=== PATIENT | male | born 1950 | race Caucasian/White ===

== ENCOUNTER 2017-06-16 16:00 | Emergency (ER) | payer OTHER, MEDICARE ==
[~2017-06-16] VITALS: Ht 180.3 cm; Wt 96.2 kg
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
[~2017-06-16 16:00] MED LIST: ABILIFY15 MG PO; AMBIEN CR12.5 MG PO; ANTIVERT25 MG PO; ASPIRIN EC81 MG PO; BICARSIM80 MG PO; CIPROFLOXACIN500 MG PO; DIALYVITE V5000 UNIT; DOXEPIN HCL10 MG; EXCEDRIN EXTRA1 EAC1 PO; FISH OIL 1,0001 EAC2 NG; FISH OIL 1,0001 EAC6 PO; GLIPIZIDE XL10 MG PO; GLIPIZIDE5 MG PO; GUAIFENESIN-CO118 ML PO; LIPITOR20 MG PO; MAGNESIUM OXID420 MG PO; MECLIZINE HCL25 MG PO; METFORMIN HCL500 MG PO; MI-ACID80 MG PO; NAPROXEN500 MG PO; NORCO 5-325 TA1 EACH PO; OMEPRAZOLE20 MG PO; POLYETHYLENE GL17 GM PO; PRAVACHOL40 MG PO; PRAVASTATIN SOD40 MG PO; SIMETHICONE80 MG PO; SUMATRIPTAN SUC50 MG PO; TRAZODONE HCL50 MG PO; TYLENOL325 MG PO; VITAMIN D5000 UNIT PO; WELLBUTRIN SR200 MG PO; ZOFRAN ODT8 MG PO; ZOLPIDEM TARTRA10 MG PO
== END 2017-06-16 16:32 | disposition home or self-care (01) ==
LOC: ED 16:00
DX: Z00.8 Encounter for other general examination (principal)

== ENCOUNTER 2017-08-20 00:20 | Emergency (ER) | payer MEDICARE ==
[~2017-08-20] VITALS: Ht 180.3 cm; Wt 96.2 kg
[2017-08-20] MEDS ORDERED: NOVOLIN 70100 UNIT/1 SUB-Q (00:35)
== END 2017-08-20 02:02 | disposition home or self-care (01) ==
LOC: ED 00:20
DX: G43.909 Migraine, unspecified, not intractable, without status migrainosus (principal); E11.9 Type 2 diabetes mellitus without complications; Z90.89 Acquired absence of other organs; Z98.52 Vasectomy status; Z88.5 Allergy status to narcotic agent; Z88.8 Allergy status to other drugs, medicaments and biological substances; Z79.82 Long term (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 of aspirin; Z79.4 Long term (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 of insulin; Z79.899 Other long term (current) drug therapy
CPT/HCPCS: 96361; 96374; 96375; 99282; J1200; J1885; J2765; J7030

== ENCOUNTER 2018-01-31 10:48 | Emergency (ER) | payer MEDICARE ==
[~2018-01-31] VITALS: Ht 182.9 cm; Wt 98.0 kg
[~2018-01-31 10:48] MED LIST changes: +NOVOLIN 70100 UNIT/1 SUB-Q
== END 2018-01-31 13:03 | disposition home or self-care (01) ==
LOC: ED 10:48
DX: S01.111A Laceration without foreign body of right eyelid and periocular area, initial encounter (principal); R51 Headache; F32.9 Major depressive disorder, single episode, unspecified; F41.9 Anxiety disorder, unspecified; E11.9 Type 2 diabetes mellitus without complications; Z88.8 Allergy status to other drugs, medicaments and biological substances; Z88.5 Allergy status to narcotic agent; Z79.82 Long term (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 of aspirin; Z79.899 Other long term (current) drug therapy; W01.10XA Fall on same level from slipping, tripping and stumbling with subsequent striking against unspecified object, initial encounter
CPT/HCPCS: 70450; 99284

== ENCOUNTER 2018-03-27 01:37 | Emergency (ER) | payer MEDICARE, OTHER ==
[~2018-03-27] VITALS: Ht 182.9 cm; Wt 98.0 kg
--- OUTSIDE RECORDS SUMMARY | ~2018-03-27 | XMS | Clinical Summary ---
Demographics + + + | Address | [address] [facility] [address] | | | [place] [address] | + + + | Home Phone | | + + + | Preferred Language | Unknown | + + + | Marital Status | | + + + | Oriental Orthodox Affiliation | 1027 | + + + | Race | Unknown | + + + | Ethnic Group | Unknown | + + + Author + + + | Author | [email or web address] | + + + | Organization | [facility] [employer] [facility] | + + + | Address | Unknown | + + + | Phone | Unavailable | + + + Support + + +---------+ + | Name | Relationship | Address | Phone | + + +---------+ + | Arie Lindquist | ECON | Unknown | | + + +---------+ + Care Team Providers + +------+ + | Care Cp Bleacher Operator Name | Role | Phone | [...] +------+-------+ + | MEDICARE | MEDICA | [id number] | | | [address] | | | RE | | | | [place] [address] | | | IP-OP | | | | | + +--------+ +------+-------+ + | JESSIKA - MAREN - | [place] | [id number] | | | [address] [address] | | | E FOR | | | | [place] | | | LIFE | | | | [phone] | + +--------+ +------+-------+ + + +--------+ [...] | [place] | | | [address] | [address] | + +--------+ +--------+ + +
--- OUTSIDE RECORDS SUMMARY | ~2018-03-27 | XMS | Clinical Summary ---
Demographics + + + | Address | [address] [facility] | | | [place] [address] | + + + | Home Phone | | + + + | Preferred Language | Unknown | + + + | Marital Status | | + + + | Adventist Affiliation | 1027 | + + + | Race | Unknown | + + + | Ethnic Group | Unknown | + + + Author + + + | Author | [facility] | + + + | Organization | [facility] [employer] [employer] [facility] | + + + | Address | Unknown | + + + | Phone | Unavailable | + + + Support + + +---------+ + | Name | Relationship | Address | Phone | + + +---------+ + | Arie Lindquist | ECON | Unknown | | + + +---------+ + Care Team Providers + +------+ + | Care Home Depot Rep Name | Role | Phone | + [...] +------+-------+ + | MEDICARE | MEDICA | [id number] | | | [address] | | | RE | | | | [place] [address] | | | IP-OP | | | | | + +--------+ +------+-------+ + | JESSIKA - MAREN - | [place] | [id number] | | | [address] [address] | | | E FOR | | | | [place] | | | LIFE | | | | [phone] | + +--------+ +------+-------+ + + +--------+ [...] | [place] | | | [address] | [address] | + +--------+ +--------+ + +
--- OUTSIDE RECORDS SUMMARY | ~2018-03-27 | XMS | Clinical Summary ---
Demographics + + + | Address | [address] | | | [place] [address] | + + + | Home Phone | | + + + | Preferred Language | Unknown | + + + | Marital Status | | + + + | Rastafari Affiliation | Unknown | + + + | Race | Unknown | + + + | Ethnic Group | Unknown | + + + Author + + + | Author | [facility] | | | and [place] | + + + | Organization | [facility] | | | and [place] | + + + | Address | Unknown | + + + | Phone | Unavailable | + + + Support + + + + + | Name | Relationship | Address | Phone | + + + + + | Ashley Lindquist | ECON | [address] | | | | | [address] | | | | | [address] | | + + + + + Care Team Providers + +------+ + | Care Roller Turner Name | Role | Phone | + [...] +---------+--------+ +--------+ +---------+ | | TRICAR | [id number] | Indemn | [phone] | | [...] Self | [birth year] | Home: | [address] | | | al/Fam | | 1950 | [phone] | [address] [place], | | | [place] | | | [address] | [place] [address] | + +--------+ +--------+ + +"
--- OUTSIDE RECORDS SUMMARY | ~2018-03-27 | XMS | Clinical Summary ---
Demographics + + + | Address | [address] | | | [place] [address] | + + + | Home Phone | | + + + | Preferred Language | Unknown | + + + | Marital Status | | + + + | Mandaen Affiliation | Unknown | + + + | Race | Unknown | + + + | Ethnic Group | Unknown | + + + Author + + + | Author | [facility] | | | and [place] | + + + | Organization | [facility] | | | and [place] | + + + | Address | Unknown | + + + | Phone | Unavailable | + + + Support + + + + + | Name | Relationship | Address | Phone | + + + + + | Ashley Lindquist | ECON | [address] | | | | | [address] | | | | | [address] | | + + + + + Care Team Providers + +------+ + | Care Electrician Front Name | Role | Phone | + [...] +---------+--------+ +--------+ +---------+ | | TRICAR | [id number] | Indemn | [phone] | | [...] Self | [birth year] | Home: | [address] | | | al/Fam | | 1950 | [phone] | [address] [place], | | | [place] | | | [address] | [place] [address] | + +--------+ +--------+ + +"
== END 2018-03-27 05:20 | disposition home or self-care (01) ==
LOC: ED 01:37
DX: B34.9 Viral infection, unspecified (principal); E11.9 Type 2 diabetes mellitus without complications; Z88.5 Allergy status to narcotic agent; Z88.8 Allergy status to other drugs, medicaments and biological substances; Z79.82 Long term (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 of aspirin; Z79.899 Other long term (current) drug therapy; Z79.4 Long term (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 of insulin
CPT/HCPCS: 80053; 81001; 83690; 84484; 85025; 96374; 99284; J2405; J7030

== ENCOUNTER 2018-08-20 05:30 | Day surgery (SDC) | payer MEDICARE, OTHER ==
[~2018-08-20] VITALS: Ht 182.9 cm; Wt 98.0 kg
[~2018-08-20 05:30] MED LIST changes: +MELATONIN5 M2 PO; +VITAMIN B122500 MCG PO; +WELLBUTRIN XL150 MG PO
--- NOTE | 2018-08-20 08:58 | NUR ---
PT APPEARS TO BE RESTING COMFORTABLY IN BED, ALERT AND ORIENTED. PT SEEMS INFORMED, HAD FEW QUESTIONS. HE DID REQUEST PRAYER. WILL FOLLOW NEEDED
[2018-08-20] MEDS ORDERED: HYDROCODON-ACE1 EA11 PO (09:08)
[2018-08-20] MEDS ORDERED: GABAPENTIN600 MG PO (09:08)
--- NOTE | 2018-08-20 09:16 | NUR ---
08/20/18 0916 Kathleen Canseco 0859 PT ARRIVED IN PACU SLEEPY WITH NO C/O'S. BLOOD SUGAR ON ARRIVAL 122. 0913 C/O R SHOULDER PAIN 12/19. FENTANYL 25MCG GIVEN IVP. 914 CRYO CUFF PLACED ON R SHOULDER.
--- NOTE | 2018-08-20 10:16 | NUR ---
PT IS BACK TO FROM PACU. HE IS AWAKE AND ORIENTED. HE IS SIPPING WATER UPON HIS RETURN. CALL LIGHT WITHIN REACH. ICE WATER ON BEDSIDE TABLE. NO OTHER C/O'S AT THIS TIME. WILL REASSESS LATER.
--- NOTE | 2018-08-20 11:35 | NUR ---
PT IS ASSISTED UP TO THE BATHROOM. HE IS SLIGHTLY DIZZY UPON STANDING AND SITS HIMSELF BACKDOWN. HE AMBULATES WITH STANDBY ASSIST TO THE BATHROOM, HE OPTS TO SIT DOWN TO USE THE RESTROOM. URINE OUTPUT IS NOT MEASURED, BUT PT STATES HE FEELS LIKE HE EMPTIED HIS BLADDER. HE HAS MET DC CRITERIA AND HE INDICATES THAT HE WOULD LIKE TO GO HOME. HE IS EDUCATED ON HOW BEST TO DRESS HIMSELF. [facility] IS CALLED FOR PT'S RIDE HOME.
--- NOTE | 2018-08-20 11:52 | NUR ---
WHILE GIVING PT DC INSTRUCTIONS HE LAYS BACK AND CLOSES HIS EYES. RN ASKS IF HE IS TIRED OR DIZZY, HE REPORTS THAT HE IS DIZZY. BLOOD SUGAR IS CHECKED AND 176. HE IS GIVEN SOME JELLO AND ALLOWED TO LAY BACK FOR A FEW MINUTES.
--- NOTE | 2018-08-20 12:43 | NUR ---
GREGORY 1208: PT TAKEN OUT TO LOBBY TO WAIT FOR TAXI. TRANSFERS HIMSELF FROM WHEELCHAIR TO TAXI.
--- NOTE | 2018-08-21 07:35 | OR ---
[facility] [address] [place], [place] [address] Signed DATE OF OPERATION: 08/20/2018 SURGEON: Ofelia Knowles MD PREOPERATIVE DIAGNOSIS: Right shoulder labral tear. POSTOPERATIVE DIAGNOSES: 1. Right shoulder labral tear. 2. Significant subacromial bursitis. PROCEDURE PERFORMED: Right shoulder arthroscopy with debridement and subacromial bursectomy. CONSOLE MANAGER: JONATHAN Peguero. Estefany was present and critical for arm positioning and wound closure. ANESTHESIA: General. BLOOD LOSS: Minimal. TOURNIQUET TIME: Zero. BRIEF HISTORY: Susanna is a 68-year-old gentleman with pain in his shoulder. MRI was consistent with an anterior inferior labral tear. There was some fraying of the biceps attachment as well. Risks and benefits of operative treatment were discussed with him once he had failed nonoperative treatment. He elected to proceed. DESCRIPTION OF PROCEDURE: Once consent was obtained, he was taken to the operating room. After adequate anesthesia, he was placed in a beach chair position. All downside pressure points well padded. The right shoulder was prepped and draped in the standard sterile fashion. The shoulder was injected with 10 mL 0.25% Marcaine with epinephrine as was subacromial space. Standard posterior portal was made and the scope was introduced through the shoulder. Arthroscopic findings, anterior superior and anterior inferior synovitis were Electronically Signed By: OFELIA KNOWLES MD 08/21/18 0735 PATIENT NAME: SUSANNA LIU [place] OPERATIVE REPORT DATE OF : 50 REPORT #: [id number] PHYSICIAN: FOELIA KNOWLES MD PCP: SARAH ROTHMAN MD REPORT IS CONFIDENTIAL AND NOT TO BE RELEASED WITHOUT AUTHORIZATION [facility] [address] [facility] [place], [place] [address] Signed noted. The glenohumeral surfaces were intact. Biceps and biceps anchor were intact. The undersurface of the rotator cuff was intact. There was moderate labral fraying and perhaps even a type 1 SLAP tear that extended down inferiorly. There was no labral tear that was unstable or in any way out of significant. Standard anterior portal was made and a shaver was used to debride the labral fraying to allow better visualization. The labrum was found to be intact. The scope was then withdrawn and placed in subacromial space. Standard lateral portal was made. The combination of the shaver and tissue ablator were used to remove the bursa and cauterize all bleeders. Superior surface of rotator cuff was found to be intact. The acromion was type 1. The bursa was quite thick and fibrotic throughout. This was removed in total. Once this was completed, the scope was withdrawn. Portals were closed with 3-0 nylon. The shoulder was injected with 60 mg total at the end of the case. The shoulder was dressed with a ProWick dressing. He was awakened and taken to recovery room in satisfactory condition. All sponge, needle, and instrument counts were correct. Ofelia Knowles MD BA/MODL /[id number] Copies: ~ Electronically Signed By: OFELIA KNOWLES MD 08/21/18 0735 PATIENT NAME: SUSANNA LIU [place] OPERATIVE REPORT DATE OF : 50 REPORT #: [id number] PHYSICIAN: OFELIA KNOWLES MD PCP: SARAH ROTHMAN MD REPORT IS CONFIDENTIAL AND NOT TO BE RELEASED WITHOUT AUTHORIZATION
== END 2018-08-20 12:08 | disposition home or self-care (01) ==
LOC: DS 05:30 → OPS 05:30 → DS 06:45 → OPS 08:00
PROVIDERS: Specialist
PROC: 0RBJ4ZZ Excision of Right Shoulder Joint, Percutaneous Endoscopic Approach (ICD-10-PCS; principal; 2018-08-20 08:00)
DX: S43.431A Superior glenoid labrum lesion of right shoulder, initial encounter (principal); M75.51 Bursitis of right shoulder; Z79.899 Other long term (current) drug therapy; Z79.82 Long term (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 of aspirin
CPT/HCPCS: 01630; 64415; 76942; J0690; J1170; J1885; J2250; J2405; J2704; J2765; J2795; J3010; J7120

== ENCOUNTER 2018-09-23 10:12 | Emergency (ER) | payer MEDICARE, OTHER ==
[~2018-09-23] VITALS: Ht 182.9 cm; Wt 98.0 kg
[~2018-09-23 10:12] MED LIST changes: +GABAPENTIN600 MG PO; +HYDROCODON-ACE1 EA11 PO
--- OUTSIDE RECORDS SUMMARY | 2018-09-23 10:14 | XMS ---
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 Primary Care [facility] PHONE: Unknown MIC HOLTON Primary [facility] PHONE: Unknown BETTE PARKER Primary Care 03/12/2015-Current PHONE: Unknown Leroy has no Care Guidelines for this patient. EYunier VISIT COUNT (12 MO.) 1 [facility]. 3 [facility]. TOTAL 4 NOTE: Visits indicate total known visits. ED/UCC VISIT TRACKING (12 MO.) 09/23/2018 10:12 [facility] [place] TYPE: Emergency COMPLAINT: - ABD PAIN 03/27/2018 01:38 [facility] [place] TYPE: Emergency COMPLAINT: - NAUSEA,LIGHTHEADED DIAGNOSES: - intermodal customer service (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 of aspirin - Type 2 diabetes mellitus without complications - Other shelter (current) drug therapy - Allergy status to narcotic agent status - senior care (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 of insulin - Viral infection, unspecified - Dizziness and giddiness - Allergy status to other drugs, medicaments and biological substances status 03/17/2018 11:23 [facility] H. TYPE: Emergency DIAGNOSES: - Other specified congenital malformations of intestine - Elevated white blood cell count, unspecified - Chest Pain - Other disorder of circulatory system - Vomiting - Left upper quadrant pain 01/31/2018 10:49 [facility] [place] TYPE: Emergency COMPLAINT: - HEADACHE,FALL DIAGNOSES: - Headache - Allergy status to narcotic agent status - Type 2 diabetes mellitus without complications - intermodal customer service (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 of aspirin - Laceration without foreign body of right eyelid and periocular area, initial encounter - Allergy status to other drugs, medicaments and biological substances status - Unspecified injury of head, initial encounter - Fall on same level from slipping, tripping and stumbling with subsequent striking against unspecified object, initial encounter - Major depressive disorder, single episode, unspecified - Other long term care pharmacist (current) drug therapy - Anxiety disorder, unspecified INPATIENT VISIT TRACKING (12 MO.) No inpatient visits to display in this time frame [id number]
[2018-09-23] MEDS ORDERED: IBUPROFEN600 MG PO (13:03)
== END 2018-09-23 13:15 | disposition home or self-care (01) ==
LOC: ED 10:12
DX: R10.31 Right lower quadrant pain (principal); F32.9 Major depressive disorder, single episode, unspecified; F41.9 Anxiety disorder, unspecified; E11.9 Type 2 diabetes mellitus without complications; Z90.89 Acquired absence of other organs; Z79.899 Other long term (current) drug therapy; Z88.8 Allergy status to other drugs, medicaments and biological substances; Z88.5 Allergy status to narcotic agent; Z79.82 Long term (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 of aspirin; Z79.4 Long term (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 of insulin
CPT/HCPCS: 74177; 80053; 81001; 83690; 85025; 99284-25; J1170; J2405; Q9967

== ENCOUNTER 2018-10-22 10:11 | Emergency (ER) | payer MEDICARE, OTHER ==
[~2018-10-22] VITALS: Ht 182.9 cm; Wt 97.1 kg
--- OUTSIDE RECORDS SUMMARY | ~2018-10-22 | XMS | Clinical Summary ---
Demographics + + + | Address | [address] | | | [place] [address] | + + + | Home Phone | | + + + | Preferred Language | Unknown | + + + | Marital Status | | + + + | Denominational Affiliation | Unknown | + + + | Race | Unknown | + + + | Ethnic Group | Unknown | + + + Author + + + | Author | [facility] | | | and [place] | + + + | Organization | [facility] | | | and [place] | + + + | Address | Unknown | + + + | Phone | Unavailable | + + + Support + + + + + | Name | Relationship | Address | Phone | + + + + + | Ashley Lindquist | ECON | [address] | | | | | [address] | | | | | [address] | | + + + + + Care Team Providers + +------+ + | Care Rear Load Truck Driver Name | Role | Phone | + +------+ + | Zack Sofia MD | PP | | + +------+ + Allergies + + + + + + | Active Allergy | Reactions | Severity | Noted | Comments | | | | | Date | | + + + + + + | Fenoprofen Calcium | Rash | Medium | 11/23/19 | | | | | | 15 | | + + + + + + | Morphine | Nausea Only | Low | 11/23/19 | | | | | | 15 | | + + + + + + Current Medications + + +-------+---------+------+------+-------+ | Prescription | Sig. | Disp. | Refills | Star | End | Statu | | | | | | t | Date | s | | | | | | Date | | | + + +-------+---------+------+------+-------+ | TRAZODONE HCL PO | Take 0.5 tablets by | | | | | Activ | | | mouth nightly. | | | | | e | + + +-------+---------+------+------+-------+ | metFORMIN | Take 500 mg by mouth | | | | | Activ | | (GLUCOPHAGE-XR) 500 | 2 times daily. | | | | | e | | mg 24 hr tablet | | | | | | | + + +-------+---------+------+------+-------+ | omeprazole | Take 20 mg by mouth | | | | | Activ | | (PRILOSEC) 20 mg | 2 times daily. | | | | | e | | capsule | | | | | | | + + +-------+---------+------+------+-------+ Active Problems Not on file Social History + +-------+ +--------+------+ | Tobacco Use | Types | Packs/Day | Years | Date | | | | | Used | | + +-------+ +--------+------+ | Never Smoker | | | | | + +-------+ +--------+------+ + + +---------+ + | Alcohol Use | Drinks/We | oz/Week | Comments | | | ek | | | + + +---------+ + | No | | | | + + +---------+ + + + + | Sex Assigned at | Date Recorded | | | | + + + | Not on file | | + + + Last Filed Vital Signs + + + + | Vital Sign | Reading | Time Taken | + + + + | Blood Pressure | - | - | + + + + | Pulse | 60 | 11/22/2014812 PDT | + + + + | Temperature | - | - | + + + + | Respiratory Rate | - | - | + + + + | Oxygen Saturation | - | - | + + + + | Inhaled Oxygen | - | - | | Concentration | | | + + + + | Weight | 93 kg (205 lb) | 11/22/2014812 PDT | + + + + | Height | 182.9 cm (6') | 11/22/2014812 PDT | + + + + | Body Mass Index | 27.8 | 11/22/2014 0813 PDT | + + + + Plan of Treatment + + + + + | Health Maintenance | Due Date | Last Done | Comments | + + + + + | Vaccine: | | | | | Dtap/Tdap/Td (1 - | 9 | | | | Tdap) | | | | + + + + + | Vaccine: Zoster (1 | | | | | of 2) | 0 | | | + + + + + | Vaccine: | | | | | Pneumococcal 65+ | 5 | | | | Low/Medium Risk (1 | | | | | of 2 - PCV13) | | | | + + + + + | Vaccine: Influenza | | | | | (#1) | 8 | | | + + + + + Results Not on filefrom Last 3 Months Insurance +---------+--------+ +--------+ +---------+ | Payer | Benefi | Subscriber | Type | Phone | Address | | | t Plan | ID | | | | | | / | | | | | | | Group | | | | | +---------+--------+ +--------+ +---------+ | | TRICAR | [id number] | Indemn | [phone] | | | [address] | | ity | [phone] | | | | HNFS | | | | | +---------+--------+ +--------+ +---------+ + +--------+ +--------+ + + | Guarantor Name | Accoun | Relation to | Date | Phone | Billing Address | | | t Type | Patient | of | | | | | | | | | | + +--------+ +--------+ + + | SUSANNA LINDQUIST | Person | Self [birth year] | Home: | [address] | | | al/Fam | | 1950 | [phone] | [address] [place], | | | [place] | | | [address] | [place] [address] | + +--------+ +--------+ + +"
--- OUTSIDE RECORDS SUMMARY | ~2018-10-22 | XMS | Clinical Summary ---
Demographics + + + | Address | [address] | | | [place] [address] | + + + | Home Phone | | + + + | Preferred Language | Unknown | + + + | Marital Status | | + + + | Episcopal Affiliation | Unknown | + + + | Race | Unknown | + + + | Ethnic Group | Unknown | + + + Author + + + | Author | [facility] | | | and [place] | + + + | Organization | [facility] | | | and [place] | + + + | Address | Unknown | + + + | Phone | Unavailable | + + + Support + + + + + | Name | Relationship | Address | Phone | + + + + + | Ashley Lindquist | ECON | [address] | | | | | [address] | | | | | [address] | | + + + + + Care Team Providers + +------+ + | Care Rotary Pump Operator Name | Role | Phone | [...] +---------+--------+ +--------+ +---------+ | | TRICAR | [phone] | Indemn | [phone] | | [...] Self | [birth year] | Home: | [address] | | | al/Fam | | 1950 | [phone] | [address] [place], | | | [place] | | | [address] | [place] [address] | + +--------+ +--------+ + +"
--- OUTSIDE RECORDS SUMMARY | ~2018-10-22 | XMS | Clinical Summary ---
Demographics + + + | Address | [address] [facility] [address] | | | [place] [address] | + + + | Home Phone | | + + + | Preferred Language | Unknown | + + + | Marital Status | | + + + | Spiritism Affiliation | 1027 | + + + | Race | Unknown | + + + | Ethnic Group | Unknown | + + + Author + + + | Author | [facility] | + + + | Organization | [facility] | + + + | Address | Unknown | + + + | Phone | Unavailable | + + + Support + + +---------+ + | Name | Relationship | Address | Phone | + + +---------+ + | Arie Lindquist | ECON | Unknown | | + + +---------+ + Care Team Providers + +------+ + | Care User Experience Designer Name | Role | Phone | + +------+ + | Mando [place] MD | PP | | + +------+ + Allergies + + + + + + | Active Allergy | Reactions | Severity | Noted | Comments | | | | | Date | | + + + + + + | Fenoprofen Calcium | Rash | Medium | 08/06/20 | | | | | | 13 | | + + + + + + | Morphine | Nausea Only | Low | 08/06/20 | | | | | | 13 | | + + + + + + Current Medications + + +-------+---------+------+------+-------+ | Prescription | Sig. | Disp. | Refills | Star | End | Statu | | | | | | t | Date | s | | | | | | Date | | | + + +-------+---------+------+------+-------+ | ARIPiprazole | Take 15 mg by mouth | | | | | Activ | | (ABILIFY) 30 MG | daily. | | | | | e | | tablet | | | | | | | + + +-------+---------+------+------+-------+ | buPROPion | Take 200 mg by mouth | | | | | Activ | | (WELLBUTRIN SR) 200 | daily. | | | | | e | | MG 12 hr tablet | | | | | | | + + +-------+---------+------+------+-------+ | ciprofloxacin | Take 500 mg by mouth | | | | | Activ | | (CIPRO) 500 MG | 2 (two) times | | | | | e | | tablet | daily. | | | | | | + + +-------+---------+------+------+-------+ | fish oil-omega-3 | Take 1 g by mouth | | | | | Activ | | fatty acids 1000 MG | daily. | | | | | e | | capsule | | | | | | | + + +-------+---------+------+------+-------+ | MAGNESIUM OXIDE | Take 420 mg by mouth | | | | | Activ | | -MG SUPPLEMENT PO | 2 (two) times | | | | | e | | | daily. | | | | | | + + +-------+---------+------+------+-------+ | pravastatin | Take 20 mg by mouth | | | | | Activ | | (PRAVACHOL) 40 MG | nightly. | | | | | e | | tablet | | | | | | | + + +-------+---------+------+------+-------+ | simethicone | Take 160 mg by mouth | | | | | Activ | | (MYLICON) 80 MG | every 6 (six) hours | | | | | e | | chewable tablet | as needed. | | | | | | + + +-------+---------+------+------+-------+ | SUMAtriptan | Take 50 mg by mouth | | | | | Activ | | (IMITREX) 50 MG | as needed. | | | | | e | | tablet | | | | | | | + + +-------+---------+------+------+-------+ | VITAMIN D, | Take 5,000 Units by | | | | | Activ | | CHOLECALCIFEROL, PO | mouth daily. | | | | | e | + + +-------+---------+------+------+-------+ Active Problems + + + | Problem | Noted Date | + + + | SIRS (systemic inflammatory response syndrome) | 08/06/2013 | + + + | Acute pancreatitis | 08/06/2013 | + + + | Leukocytosis, unspecified | 08/06/2013 | + + + | Fever | 08/06/2013 | + + + | Nausea with vomiting | 08/06/2013 | + + + | Abdominal pain, left upper quadrant | 08/06/2013 | + + + | Pancreatic mass | 08/06/2013 | + + + Family History + + +------+ + | Medical History | Relation | Name | Comments | + + +------+ + | AAA (abdominal | Father | | | | aortic aneurysm) | | | | + + +------+ + + +------+ + + | Relation | Name | Status | Comments | + +------+ + + | Father | | | rupture of the AAA | + +------+ + + | Mother | | Alive | | + +------+ + + Social History + +-------+ +--------+------+ [...] +---------+ + | No | | | "I quit drinking 18 years ago due to | | | | | alcoholism" | + + +---------+ + + + + | Sex Assigned at | Date Recorded | | | | + + + | Not on file | | + + + Last Filed Vital Signs + + + + | Vital Sign | Reading | Time Taken | + + + + | Blood Pressure | 111/57 | 08/08/2013 11:22 AM PST | + + + + | Pulse | 57 | 08/08/2013 11:22 AM PST | + + + + | Temperature | 36.7 C (98.1 F) | 08/08/2013 11:22 AM PST | + + + + | Respiratory Rate | 16 | 08/08/2013 11:22 AM PST | + + + + | Oxygen Saturation | 95% | 08/08/2013 11:22 AM PST | + + + + | Inhaled Oxygen | - | - | | Concentration | | | + + + + | Weight | 104.3 kg (230 lb) | 08/06/2013 11:00 AM PST | + + + + | Height | 182.9 cm (6') | 08/06/2013 11:00 AM PST | + + + + | Body Mass Index | 31.19 | 08/06/2013 11:00 AM PST | + + + + Plan of Treatment Not on file Results Not on filefrom Last 3 Months Insurance + +--------+ +------+-------+ + | Payer | Benefi | Subscriber | Type | Phone | Address | | | t Plan | ID | | | | | | / | | | | | | | Group | | | | | + +--------+ +------+-------+ + | MEDICARE | MEDICA | [id number] | | | [address] | | | RE | | | | [place] [phone] | | | IP-OP | | | | | + +--------+ +------+-------+ + | JESSIKA - MAREN - | [place] | [id number] | | | [address] [address] | | | [place] | | | | [place] | | | LIFE | | | | [phone] | + +--------+ +------+-------+ + + +--------+ +--------+ + + | Guarantor Name | Accoun | Relation to | Date | Phone | Billing Address | | | t Type | Patient | of | | | | | | | | | | + +--------+ +--------+ + + | SUSANNA LINDQUIST | Person | Self | [birth year] | Home: | [address] | | | al/Fam | | 1950 | [phone] | [address] [place] | | | [place] | | | [address] | [address] | + +--------+ +--------+ + +
--- OUTSIDE RECORDS SUMMARY | ~2018-10-22 | XMS | Clinical Summary ---
Demographics + + + | Address | [address] [facility] [address] | | | [place] [address] | + + + | Home Phone | | + + + | Preferred Language | Unknown | + + + | Marital Status | | + + + | Spiritism Affiliation | 1027 | + + + | Race | Unknown | + + + | Ethnic Group | Unknown | + + + Author + + + | Author | [employer] | + + + | Organization | [facility] | + + + | Address | Unknown | + + + | Phone | Unavailable | + + + Support + + +---------+ + | Name | Relationship | Address | Phone | + + +---------+ + | Arie Lindquist | ECON | Unknown | | + + +---------+ + Care Team Providers + +------+ + | Care Communications Agent Name | Role | Phone | + [...] +------+-------+ + | MEDICARE | MEDICA | [id number] | | | [address] | | | RE | | | | [place] [address] | | | IP-OP | | | | | + +--------+ +------+-------+ + | JESSIKA - MAREN - | ARIELLA | [id number] | | | [address] [address] | | | [place] | | | | [place] | | | LIFE | | | | [address] | + +--------+ +------+-------+ + + +--------+ [...] | [place] | | | [address] | [address] | + +--------+ +--------+ + +
[~2018-10-22 10:11] MED LIST changes: +IBUPROFEN600 MG PO
--- OUTSIDE RECORDS SUMMARY | 2018-10-22 10:14 | XMS ---
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 ESharon. VISIT COUNT (12 MO.) 1 [facility] H. 4 [facility] TOTAL 5 NOTE: Visits indicate total known visits. ED/UCC VISIT TRACKING (12 MO.) 10/22/2018 10:12 [facility] [place] TYPE: Emergency COMPLAINT: - NVD/ABD PAIN 09/23/2018 10:12 [facility] [place] TYPE: Emergency COMPLAINT: - ABD PAIN DIAGNOSES: - Allergy status to narcotic agent status - residential (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 of aspirin - Allergy status to other drugs, medicaments and biological substances status - Acquired absence of other organs - Other alf (current) drug therapy - Major depressive disorder, single episode, unspecified - residential (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 of insulin - Type 2 diabetes mellitus without complications - Right lower quadrant pain - Lower abdominal pain, unspecified - Anxiety disorder, unspecified 03/27/2018 01:38 [facility] [place] TYPE: Emergency COMPLAINT: - NAUSEA,LIGHTHEADED DIAGNOSES: - residential (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 of aspirin - Type 2 diabetes mellitus without complications - Other ad 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 operator (current) drug therapy - Allergy status to narcotic agent status - roasterman (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 of insulin - Viral infection, unspecified - Dizziness and giddiness - Allergy status to other drugs, medicaments and biological substances status 03/17/2018 11:23 [facility] TYPE: Emergency DIAGNOSES: - Other specified congenital malformations of intestine - Elevated white blood cell count, unspecified - Chest Pain - Other disorder of circulatory system - Vomiting - Left upper quadrant pain 01/31/2018 10:49 [facility] [place] TYPE: Emergency COMPLAINT: - HEADACHE,FALL DIAGNOSES: - Headache - Allergy status to narcotic agent status - Type 2 diabetes mellitus without complications - residential (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 of aspirin - Laceration without foreign body of right eyelid and periocular area, initial encounter - Allergy status to other drugs, medicaments and biological substances status - Unspecified injury of head, initial encounter - Fall on same level from slipping, tripping and stumbling with subsequent striking against unspecified object, initial encounter - Major depressive disorder, single episode, unspecified - Other alf (current) drug therapy - Anxiety disorder, unspecified INPATIENT VISIT TRACKING (12 MO.) No inpatient visits to display in this time frame [id number]
[2018-10-22] MEDS ORDERED: ONDANSETRON ODT8 MG PO (13:51)
[2018-10-22] MEDS ORDERED: BACTRIM DS TAB1 EACH PO (13:51)
== END 2018-10-22 14:24 | disposition home or self-care (01) ==
LOC: ED 10:11
DX: R11.2 Nausea with vomiting, unspecified (principal); R19.7 Diarrhea, unspecified; F32.9 Major depressive disorder, single episode, unspecified; E11.9 Type 2 diabetes mellitus without complications; Z88.5 Allergy status to narcotic agent; Z88.8 Allergy status to other drugs, medicaments and biological substances; Z79.899 Other long term (current) drug therapy
CPT/HCPCS: 74177; 80053; 81001; 85025; 87502; 96361; 99284-25; J2405; J7030; Q9967

== ENCOUNTER 2019-05-01 00:04 | Emergency (ER) | payer MEDICARE, OTHER ==
[~2019-05-01] VITALS: Ht 182.9 cm; Wt 95.9 kg
[~2019-05-01 00:04] MED LIST changes: +BACTRIM DS TAB1 EACH PO; +ONDANSETRON ODT8 MG PO
--- OUTSIDE RECORDS SUMMARY | 2019-05-01 00:08 | XMS ---
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 Care History Medical/Surgical 03/12/2019 [facility] - PATIENT HAS AN APT WITH PCP DR ROTHMAN AT THE [place] ON 04/02/19. - PATIENT HAS A CHRONIC CONDITION DUE TO DIZZINESS AND HEADACHES- MECLIZINE HAS BEEN PRESCRIBED BY PCP IN THE PAST. [place] VISIT COUNT (12 [address] [facility]. TOTAL 5 NOTE: Visits indicate total known visits. ED/UCC VISIT TRACKING (12 MO.) 05/01/2019 00:05 [facility] [place] TYPE: Emergency COMPLAINT: - POSS LOW BLOOD SUGAR 03/11/2019 19:40 [facility] [place] TYPE: Emergency COMPLAINT: - DIZZINESS, HEADACHE DIAGNOSES: - Other jail (current) drug therapy - Dehydration - Allergy status to other drugs, medicaments and biological substances status - Anxiety disorder, unspecified - tank terminal gauger (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 of aspirin - care home (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 of insulin - Allergy status to narcotic agent status - Dizziness and giddiness - Type 2 diabetes mellitus without complications - Major depressive disorder, single episode, unspecified 02/26/2019 20:13 [facility] [place] TYPE: Emergency COMPLAINT: - LEG PAIN/NON INURY DIAGNOSES: - Other jail (current) drug therapy - Type 2 diabetes mellitus without complications - Exposure to other specified factors, initial encounter - Allergy status to narcotic agent status - Superficial foreign body, left thigh, initial encounter - Anxiety disorder, unspecified - care home (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 of aspirin - Disorder of the skin and subcutaneous tissue, unspecified - Acquired absence of other organs - Allergy status to analgesic agent status - Major depressive disorder, single episode, unspecified - tank terminal gauger (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 of insulin 10/22/2018 10:12 [facility] [place] TYPE: Emergency COMPLAINT: - NVD/ABD PAIN DIAGNOSES: - Type 2 diabetes mellitus without complications - Diarrhea, unspecified - Allergy status to narcotic agent status - Allergy status to other drugs, medicaments and biological substances status - Other jail (current) drug therapy - Major depressive disorder, single episode, unspecified - Nausea with vomiting, unspecified 09/23/2018 10:12 [facility] [place] TYPE: Emergency COMPLAINT: - ABD PAIN DIAGNOSES: - Allergy status to narcotic agent status - tank terminal gauger (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 of aspirin - Allergy status to other drugs, medicaments and biological substances status - Acquired absence of other organs - Other jail (current) drug therapy - Major depressive disorder, single episode, unspecified - care home (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 of insulin - Type 2 diabetes mellitus without complications - Right lower quadrant pain - Lower abdominal pain, unspecified - Anxiety disorder, unspecified INPATIENT VISIT TRACKING (12 MO.) No inpatient visits to display in this time frame [email or web address]
== END 2019-05-01 02:00 | disposition home or self-care (01) ==
LOC: ED 00:04
DX: E11.649 Type 2 diabetes mellitus with hypoglycemia without coma (principal); T38.3X5A Adverse effect of insulin and oral hypoglycemic [antidiabetic] drugs, initial encounter; F32.9 Major depressive disorder, single episode, unspecified; F41.9 Anxiety disorder, unspecified; Z88.5 Allergy status to narcotic agent; Z79.4 Long term (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 of insulin; Z79.899 Other long term (current) drug therapy
CPT/HCPCS: 80053; 85025; 99283

== ENCOUNTER 2019-06-01 23:15 | Emergency (ER) | payer MEDICARE, OTHER ==
[~2019-06-01] VITALS: Ht 182.9 cm; Wt 100.7 kg
--- OUTSIDE RECORDS SUMMARY | ~2019-06-01 | XMS | Clinical Summary ---
Demographics + + + | Address | [address] | | | [place] [address] | + + + | Home Phone | | + + + | Preferred Language | Unknown | + + + | Marital Status | | + + + | Religion Affiliation | Unknown | + + + | Race | Unknown | + + + | Ethnic Group | Unknown | + + + Author + + + | Author | [facility] | | | and [place] | + + + | Organization | [facility] | | | and [place] | + + + | Address | Unknown | + + + | Phone | Unavailable | + + + Support + + + + + | Name | Relationship | Address | Phone | + + + + + | Ashley Lindquist | ECON | [address] | | | | | [address] | | | | | [address] | | + + + + + Care Team Providers + +------+ + | Care Manager Convention Name | Role | Phone | + [...] on file | | + + + + + + + | Job Start Date | Occupation | Industry | + + + + | Not on file | Not on file | Not on file | + + + + + + + + | Travel History | Travel Start | Travel End | + + + + + + | No recent travel history available. | + + Last Filed Vital Signs + [...] | Body Mass Index | 27.8 | 11/22/2014812 PDT | + + + + Plan [...] | | | | | (#1) | 9 | | | + + [...] +---------+--------+ +--------+ +---------+--------+ | | TRICAR | [id number] | 08/12/19 | [phone] | | Indemn [...] Self | [birth year] | | [address] | | | al/Fam | | 1950 | [phone] | [address] [place], | | | [place] | | | [address] ([place]) | [place] [address] | + +--------+ +--------+ + + Advance Directives Patient has advance care planning documents on file. For more information, please contact:[facility] [place] [address]"
--- OUTSIDE RECORDS SUMMARY | ~2019-06-01 | XMS | Clinical Summary ---
Demographics + + + | Address | [address] [facility] [address] | | | [place] [address] | + + + | Home Phone | | + + + | Preferred Language | Unknown | + + + | Marital Status | | + + + | Samaritan Affiliation | 1027 | + + + | Race | Unknown | + + + | Ethnic Group | Unknown | + + + Author + + + | Author | [facility] [facility] [facility] (Historical as of | | | 03-28-19) | + + + | Organization | [facility] (Historical as of | | | 03-28-19) | + + + | Address | Unknown | + + + | Phone | Unavailable | + + + Support + + +---------+ + | Name | Relationship | Address | Phone | + + +---------+ + | Arie Lindquist | ECON | Unknown | | + + +---------+ + Care Team Providers + +------+ + | Care Software Testing Specialist Name | Role | Phone | + [...] +------+-------+ + | MEDICARE | MEDICA | [id number] | | | [address] | | | RE | | | | [place] [address] | | | IP-OP | | | | | + +--------+ +------+-------+ + | JESSIKA - MAREN - | TRICAR | [id number] | | | [address] [address] | | | [place] | | | | [place] | | | LIFE | | | | [address] | + +--------+ +------+-------+ + + +--------+ +--------+ + + | Guarantor Name | Accoun | Relation to | Date | Phone | Billing Address | | | t Type | Patient | of | | | | | | | | | | + +--------+ +--------+ + + | SUSANNA LINDQUIST | Person | Self [birth year] | Home: | [address] | | | al/Fam | | 1950 | [phone] | [address] [place] | | | [place] | | | [phone] | [address] | + +--------+ +--------+ + +
--- OUTSIDE RECORDS SUMMARY | ~2019-06-01 | XMS | Clinical Summary ---
Demographics + + + | Address | [address] [facility] [address] | | | [place] [address] | + + + | Home Phone | | + + + | Preferred Language | Unknown | + + + | Marital Status | | + + + | Jehovah'S Witness Affiliation | 1027 | + + + | Race | Unknown | + + + | Ethnic Group | Unknown | + + + Author + + + | Author | [employer] [email or web address] (Historical as of | | | 03-28-19) | + + + | Organization | [email or web address] (Historical as of | | | 03-28-19) [...] Team Providers + +------+ + | Care Glazing Superintendent Name | Role | Phone | + [...] +------+-------+ + | MEDICARE | MEDICA | [id number] | | | [address] | | | RE | | | | [place] [address] | | | IP-OP | | | | | + +--------+ +------+-------+ + | JESSIKA - MAREN - | TRICAR | [id number] | | | [address] [address] | | | [place] | | | | [place] | | | LIFE | | | | [address] | + +--------+ +------+-------+ + + +--------+ [...] | [place] | | | [address] | [address] | + +--------+ +--------+ + +
--- OUTSIDE RECORDS SUMMARY | ~2019-06-01 | XMS | Clinical Summary ---
Demographics + + + | Address | [address] | | | [place] [address] | + + + | Home Phone | | + + + | Preferred Language | Unknown | + + + | Marital Status | | + + + | Restorationist Affiliation | Unknown | + + + | Race | Unknown | + + + | Ethnic Group | Unknown | + + + Author + + + | Author | [facility] | | | and [place] | + + + | Organization | [facility] | | | and [place] | + + + | Address | Unknown | + + + | Phone | Unavailable | + + + Support + + + + + | Name | Relationship | Address | Phone | + + + + + | Ashley Lindquist | ECON | [address] | | | | | [address] | | | | | [address] | | + + + + + Care Team Providers + +------+ + | Care Tafe Lecturer Name | Role | Phone | + [...] +---------+--------+ +--------+ +---------+--------+ | | TRICAR | [id number] | 08/12/19 | [phone] | | Indemn [...] | | al/Fam | | 1950 | [phone] | [address] [place], | | | [place] | | | 9 ([place]) | [place] [address] | + +--------+ +--------+ + + Advance Directives Patient has advance care planning documents on file. For more information, please contact:[facility] and [facility] [place] [address]"
--- OUTSIDE RECORDS SUMMARY | 2019-06-01 23:18 | XMS ---
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 Care History Medical/Surgical 03/12/2019 [facility] - PATIENT HAS AN APT WITH PCP DR R[place] AT THE [place] 04/02/19. - PATIENT HAS A CHRONIC CONDITION DUE TO DIZZINESS AND HEADACHES- MECLIZINE HAS BEEN PRESCRIBED BY PCP IN THE PAST. [place] VISIT COUNT (12 MO.) 6 [facility]. TOTAL 6 NOTE: Visits indicate total known visits. ED/UCC VISIT TRACKING (12 MO.) 06/01/2019 23:15 [facility] [place] TYPE: Emergency COMPLAINT: - LOW BLOOD SUGAR 05/01/2019 00:05 [facility] [place] TYPE: Emergency COMPLAINT: - POSS LOW BLOOD SUGAR DIAGNOSES: - Allergy status to narcotic agent status - Adverse effect of insulin and oral hypoglycemic drugs, init - Major depressive disorder, single episode, unspecified - 1 Type 2 diabetes mellitus with hypoglycemia without coma - [facility] (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 of insulin - Anxiety disorder, unspecified - Other terminal press operator (current) drug therapy 03/11/2019 19:40 [facility] [place] TYPE: Emergency COMPLAINT: - DIZZINESS, HEADACHE DIAGNOSES: - Other terminal press operator (current) drug therapy - Dehydration - Allergy status to oth drug/meds/biol subst status - Anxiety disorder, unspecified - 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 (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 of 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 - 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 - Allergy status to narcotic agent status - Dizziness and giddiness - 1 Type 2 diabetes mellitus without complications - Major depressive disorder, single episode, unspecified 02/26/2019 20:13 [facility] [place] TYPE: Emergency COMPLAINT: - LEG PAIN/NON INURY DIAGNOSES: - Other intermediate (current) drug therapy - 1 Type 2 diabetes mellitus without complications - Exposure to other specified factors, initial encounter - Allergy status to narcotic agent status - Superficial foreign body, left thigh, initial encounter - Anxiety disorder, unspecified - [facility] (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 of aspirin - Disorder of the skin and subcutaneous tissue, unspecified - Acquired absence of other organs - Allergy status to analgesic agent status - Major depressive disorder, single episode, unspecified - 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 10/22/2018 10:12 [facility] [place] TYPE: Emergency COMPLAINT: - NVD/ABD PAIN DIAGNOSES: - 1 Type 2 diabetes mellitus without complications - Diarrhea, unspecified - Allergy status to narcotic agent status - Allergy status to oth drug/meds/biol subst status - Other terminal press operator (current) drug therapy - Major depressive disorder, single episode, unspecified - Nausea with vomiting, unspecified 09/23/2018 10:12 [facility] [place] TYPE: Emergency COMPLAINT: - ABD PAIN DIAGNOSES: - Allergy status to narcotic agent status - 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 (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
[2019-06-01] MEDS ORDERED: METFORMIN HCL500 M1 PO (23:33)
== END 2019-06-02 00:48 | disposition home or self-care (01) ==
LOC: ED 23:15
DX: E11.649 Type 2 diabetes mellitus with hypoglycemia without coma (principal); F41.9 Anxiety disorder, unspecified; F32.9 Major depressive disorder, single episode, unspecified; Z88.5 Allergy status to narcotic agent; Z88.8 Allergy status to other drugs, medicaments and biological substances; Z88.6 Allergy status to analgesic agent; Z79.4 Long term (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 of insulin; Z79.899 Other long term (current) drug therapy
CPT/HCPCS: 99283

== ENCOUNTER 2019-10-28 23:16 | Emergency (ER) | payer MEDICARE, OTHER ==
[~2019-10-28] VITALS: Ht 182.9 cm; Wt 86.6 kg
[~2019-10-28 23:16] MED LIST changes: +METFORMIN HCL500 M1 PO
--- OUTSIDE RECORDS SUMMARY | 2019-10-28 23:20 | XMS ---
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 Care History Medical/Surgical 06/02/2019 [facility] - PATIENT HAS AN APT WITH CLINICAL PHARMACIST AT THE [place] 06/09/19 TO GO OVER MEDICATIONS AND DIABETES EDUCATION. - PATIENT HAS AN APT WITH PCP DR ROTH[place] AT THE [place] ON 06/15/19. 03/12/2019 [facility] - PATIENT HAS AN APT WITH PCP DR R[place] AT THE [place] ON 04/02/19. - PATIENT HAS A CHRONIC CONDITION DUE TO DIZZINESS AND HEADACHES- MECLIZINE HAS BEEN PRESCRIBED BY PCP IN THE PAST. E.D. VISIT COUNT (12 MO.) 6 [facility] TOTAL 6 NOTE: Visits indicate total known visits. ED/UCC VISIT TRACKING (12 MO.) 10/28/2019 23:17 [facility] [place] TYPE: Emergency COMPLAINT: - CHEST PAIN 10/27/2019 03:31 [facility] [place] TYPE: Emergency COMPLAINT: - CHEST PAIN 06/01/2019 23:15 [facility] [place] TYPE: Emergency COMPLAINT: - LOW BLOOD SUGAR DIAGNOSES: - Anxiety disorder, unspecified - 1 Type 2 diabetes mellitus with hypoglycemia without coma - Major depressive disorder, single episode, unspecified - halfway (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 of insulin - Allergy status to oth drug/meds/biol subst status - Allergy status to narcotic agent status - Allergy status to analgesic agent status - Other 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 operator (current) drug therapy 05/01/2019 00:05 [facility] [place] TYPE: Emergency COMPLAINT: - POSS LOW BLOOD SUGAR DIAGNOSES: - Allergy status to narcotic agent status - Adverse effect of insulin and oral hypoglycemic drugs, init - Major depressive disorder, single episode, unspecified - 1 Type 2 diabetes mellitus with hypoglycemia without coma - 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 - Anxiety disorder, unspecified - Other mcc (current) drug therapy 03/11/2019 19:40 [facility] [place] TYPE: Emergency COMPLAINT: - DIZZINESS, HEADACHE DIAGNOSES: - Other 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 operator (current) drug therapy - Dehydration - Allergy status to oth drug/meds/biol subst status - Anxiety disorder, unspecified - vermin exterminator (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 of aspirin - halfway (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 of insulin - Allergy status to narcotic agent status - Dizziness and giddiness - 1 Type 2 diabetes mellitus without complications - Major depressive disorder, single episode, unspecified 02/26/2019 20:13 [facility] [place] TYPE: Emergency COMPLAINT: - LEG PAIN/NON INURY DIAGNOSES: - Other 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 operator (current) drug therapy - 1 Type 2 diabetes mellitus without complications - Exposure to other specified factors, initial encounter - Allergy status to narcotic agent status - Superficial foreign body, left thigh, initial encounter - Anxiety disorder, unspecified - halfway (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 of aspirin - Disorder of the skin and subcutaneous tissue, unspecified - Acquired absence of other organs - Allergy status to analgesic agent status - Major depressive disorder, single episode, unspecified - halfway (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 of insulin INPATIENT VISIT TRACKING (12 MO.) No inpatient visits to display in this time frame [id number]
--- NOTE | 2019-10-29 15:58 | EKG ---
[facility] [address] [facility] [place], [place] [address] Signed Normal sinus rhythm Normal ECG When compared with ECG of 27-OCT-2019 03:36, No significant change was found Confirmed by EDSON JEAN DO ([id number]) on 10/29/2019 3:57:50 PM Electronically Signed By: EDSON JEAN DO 10/29/19 1558 PATIENT NAME: SUSANNA ILU ANUP Electrocardiogram DATE OF : 50 PHYSICIAN: EDSON JAEN DO REPORT #: [id number] REPORT IS CONFIDENTIAL AND NOT TO BE RELEASED WITHOUT AUTHORIZATION
== END 2019-10-29 00:11 | disposition home or self-care (01) ==
LOC: ED 23:16
DX: R07.89 Other chest pain (principal); E11.9 Type 2 diabetes mellitus without complications; G43.909 Migraine, unspecified, not intractable, without status migrainosus; F32.9 Major depressive disorder, single episode, unspecified; F41.9 Anxiety disorder, unspecified
CPT/HCPCS: 84484; 93005; 93010; 99285-25; A9270

== ENCOUNTER 2020-02-18 11:56 | Emergency (ER) | payer MEDICARE ==
[~2020-02-18] VITALS: Ht 182.9 cm; Wt 86.6 kg
--- OUTSIDE RECORDS SUMMARY | ~2020-02-18 | XMS | Encounter Summary ---
Demographics + + + | Address | [address] | | | [place] [address] | + + + | Home Phone | | + + + | Preferred Language | Unknown | + + + | Marital Status | | + + + | Confucianism Affiliation | Unknown | + + + | Race | Unknown | + + + | Ethnic Group | Unknown | + + + Author + + + | Author | [facility] | | | and [place] | + + + | Organization | [facility] | | | and [place] | + + + | Address | Unknown | + + + | Phone | Unavailable | + + + Support + + + + + | Name | Relationship | Address | Phone | + + + + + | Ashley Lindquist | ECON | [address] | | | | | [address] | | | | | [address] | | + + + + + Care Team Providers + +------+ + | Care Circulation Director Name | Role | Phone | + +------+ + | Mando Boston MD | PCP | | + +------+ + Encounter Details +--------+ + + + + | Date | Type | Department | Care Team | Description | +--------+ + + + + | 04/08/ | Orders Only | [facility] | Zack Sofia | | | 2017 | | CONVERSION 888 | MD Con [address] | | | | | [address] | [place] | | | | | [place], [place] | [place] [address] | | | | | [phone] | [phone] | | | | | [phone] | | | +--------+ + + + + Social History + +-------+ +--------+------+ | Tobacco Use | Types | Packs/Day | Years | Date | | | | | Used | | + +-------+ +--------+------+ | Never Smoker | | | | | + +-------+ +--------+------+ + + +---------+ + | Alcohol Use | Drinks/Week | oz/Week | Comments | + + +---------+ + | No | | | | + + +---------+ + + + + | Sex Assigned at | Date Recorded | | | | + + + | Not on file | | + + + documented as of this encounter Plan of Treatment Not on filedocumented as of this encounter Procedures + +--------+ + + + | Procedure Name | Priori | Date/Time | Associated Diagnosis | Comments | | | ty | | | | + +--------+ + + + | ECHO INTERPRETATION | Routin | 04/08/2018 | | Results for this | | OF OUTSIDE FILMS | e | 6:40 PM | | procedure are in the | | | | PDT | | results section. | + +--------+ + + + documented in this encounter Results ECHO Interpretation of Outside Films (04/08/2018 6:40 PM PDT) + + | Specimen | + + | | + + + + + | Impressions | Performed At | + + + | 1. Overall left ventricular systolic function is normal with, an EF | | | between 60 - 65 %. 2. The right ventricle is normal in size and | | | function. 3. There is mild aortic regurgitation. 4. Mild aortic | | | stenosis with peak/mean pressure gradient of 15.82mmHg / 8.45mmHg, the | | | aortic valve area by continuity equation is 1.8cm . | | + + + + + + | Narrative | Performed At | + + + | Patient Name: Arpit Lindquist Date of : 1950 | | | Performing Physician: AVTAR RODRIGUEZ MD | | | | | | INDICATIONS murmur CONCLUSIONS 1. | | | Overall left ventricular systolic function is normal with, an EF | | | between 60 - 65 %. 2. The right ventricle is normal in size and | | | function. 3. There is mild aortic regurgitation. 4. Mild aortic | | | stenosis with peak/mean pressure gradient of 15.82mmHg / 8.45mmHg, the | | | aortic valve area by continuity equation is 1.8cm . FINDINGS | | | -------- ECG rhythm: Sinus rhythm. Study: A 2-dimensional | | | transthoracic echocardiogram with m-mode, spectral and color flow | | | Doppler was perfomed. Study: This was a technically adequate study. | | | Left Ventricle: Overall left ventricular systolic function is normal | | | with, an EF between 60 - 65 %. Left Ventricle: The left ventricle | | | cavity size is normal. Left Ventricle: Left ventricular wall | | | thickness is normal. Left Ventricle: No regional wall motion | | | abnormalities. Left Ventricle: The diastolic filling pattern is | | | normal for the age of the patient. Right Ventricle: The right | | | ventricle is normal in size and function. Left Atrium: The left | | | atrial size is normal. Right Atrium: The right atrial size is normal. | | | Aortic Valve: Aortic valve is trileaflet and is mildly thickened. | | | Aortic Valve: The aortic valve appears to be trileaflet. Aortic | | | Valve: The aortic valve is mild-moderately calcified. Aortic Valve: | | | There is mild aortic regurgitation. Aortic Valve: Mild aortic | | | stenosis with peak/mean pressure gradient of 15.82mmHg / 8.45mmHg, the | | | aortic valve area by continuity equation is 1.8cm . Aortic | | | Valve: The maximum velocity across the aortic valve is 1.99m/s Mitral | | | Valve: The mitral valve is normal. Mitral Valve: Mild mitral | | | regurgitation is present. Mitral Valve: No evidence of MVP. | | | Tricuspid Valve: The tricuspid valve appears structurally normal. | | | Tricuspid Valve: No regurgitation noted Tricuspid Valve: Pulmonary | | | artery systolic pressure could not be assessed due to the absence of | | | adequate TR jet. Pulmonic Valve: The pulmonic valve was not well | | | visualized. Pulmonic Valve: Trace pulmonic regurgitation. | | | Pericardium: There is no pericardial effusion. IVC/Hepatic Veins: The | | | inferior vena cava is normal in size and collapses > 50 % with sniff, | | | indicating normal central venous pressures. Aorta: The aortic root, | | | ascending aorta and aortic arch are normal. Mass: No mass visualized | | | Thrombus: No clot visualized Thrombus: No vegetation visualized. | | | Septum: No ASD observed. Septum: No VSD observed. MEASUREMENTS | | | Ao asc: 3.[address] junct: 2.99 cm IVC: | | | 1.91 cm LA Diam: 3.95 cm EDV(Teich): 154.08 ml IVSd: 0.80 | | | cm LVIDd: 5.60 cm LVPWd: 0.87 cm LVOT Area: 3.59 cm2 LVOT | | | Diam: 2.14 cm %FS: 31.75 % EF(Teich): 59.13 % ESV(Teich): | | | 62.96 ml LVIDs: 3.82 cm SV(Teich): 91.11 ml RVIDd: | | | 2.72 cm Ao Diam SVals: 3.20 cm LVEF MOD A2C: 66.85 % SV MOD | | | A2C: 75.22 ml LVEF MOD A4C: 65.03 % SV MOD A4C: 85.15 ml | | | EF Biplane: 64.98 % LVEDV MOD BP: 126.24 ml LVESV MOD BP: | | | 44.20 ml LVEDV MOD A2C: 112.52 ml LVLd A2C: 8.74 cm LVEDV MOD | | | A4C: 130.92 ml LVLd A4C: 9.52 cm LVESV MOD A2C: 37.3 ml | | | LVLs A2C: 6.81 cm LVESV MOD A4C: 45.77 ml LVLs A4C: 7.83 cm | | | LAESV(A-L): 37.43 ml LAESV Index (A-L): 17.09 ml/m2 LAAs | | | A2C: 15.57 cm2 LAESV A-L A2C: 43.45 ml LALs A2C: 4.73 cm | | | LAAs A4C: 12.37 cm2 LAESV A-L A4C: 29.74 ml LALs A4C: 4.36 | | | cm RAAs: 13.49 cm2 RAESV A-L: 37.71 ml RAESV MOD: 34.50 ml | | | RALs: 4.10 cm TAPSE: 2.81 cm AR Dec [place]: 1.09 m/s2 AR | | | Dec Time: 3552.83 ms AR maxP.12 mmHg AR PHT: 1030.32 | | | ms AR Vmax: 3.87 m/s AV maxP.82 mmHg AV meanP.45 | | | mmHg AV Vmax: 1.98 m/s AV Vmean: 1.35 m/s AV VTI: 43.84 cm | | | SELVIN Vmax: 1.94 cm2 SELVIN (VTI): 1.80 cm2 LVOT maxP.60 | | | mmHg LVOT meanP.23 mmHg LVSI Dopp: 36.09 ml/m2 LVSV Dopp: | | | 79.05 ml LVOT Vmax: 1.07 m/s LVOT Vmean: 0.67 m/s LVOT | | | VTI: 21.97 cm MV A Olivier: 0.57 m/s MV Dec [place]: 1.87 m/s2 | | | MV DecT: 310.41 ms MV E Olivier: 0.58 m/s MV E/A Ratio: 1.02 | | | MV PHT: 90.02 ms MVA By PHT: 2.44 cm2 Septal e': 0.05 m/s | | | Septal E/e': 9.85 Lateral e': 0.07 m/s Lateral E/e': 7.33 | | | Reserve Officer: DBS Authenticated by: AVTAR RODRIGUEZ MD Report | | | Date/Time: -- [id number] | | + + + + + | Procedure Note | + + | Carlos, Rad Conversion - 04/02/2019 3:58 PM PDT Patient Name: Shruthi Lindquist of | | : 1950 Performing Physician: AVTAR RODRIGUEZ, | | INDICATIONS m | | urmur CONCLUSIONS 1. Overall left ventricular systolic function is normal | | with, an EF between 60 - 65 %.2. The right ventricle is normal in size and function.3. | | There is mild aortic regurgitation.4. Mild aortic stenosis with peak/mean pressure | | gradient of 15.82mmHg / 8.45mmHg, the aortic valve area by continuity equation is | | 1.8cm . FINDINGS--------ECG rhythm: Sinus rhythm.Study: A 2-dimensional | | transthoracic echocardiogram with m-mode, spectral and color flow Doppler was | | perfomed.Study: This was a technically adequate study.Left Ventricle: Overall left | | ventricular systolic function is normal with, an EF between 60 - 65 %.Left Ventricle: | | The left ventricle cavity size is normal.Left Ventricle: Left ventricular wall thickness | | is normal.Left Ventricle: No regional wall motion abnormalities.Left Ventricle: The | | diastolic filling pattern is normal for the age of the patient.Right Ventricle: The | | right ventricle is normal in size and function.Left Atrium: The left atrial size is | | normal.Right Atrium: The right atrial size is normal.Aortic Valve: Aortic valve is | | trileaflet and is mildly thickened.Aortic Valve: The aortic valve appears to be | | trileaflet.Aortic Valve: The aortic valve is mild-moderately calcified.Aortic Valve: | | There is mild aortic regurgitation.Aortic Valve: Mild aortic stenosis with peak/mean | | pressure gradient of 15.82mmHg / 8.45mmHg, the aortic valve area by continuity equation | | is 1.8cm .Aortic Valve: The maximum velocity across the aortic valve is | | 1.99m/sMitral Valve: The mitral valve is normal.Mitral Valve: Mild mitral regurgitation | | is present.Mitral Valve: No evidence of MVP.Tricuspid Valve: The tricuspid valve appears | | structurally normal.Tricuspid Valve: No regurgitation notedTricuspid Valve: Pulmonary | | artery systolic pressure could not be assessed due to the absence of adequate TR | | jet.Pulmonic Valve: The pulmonic valve was not well visualized.Pulmonic Valve: Trace | | pulmonic regurgitation.Pericardium: There is no pericardial effusion.IVC/Hepatic Veins: | | The inferior vena cava is normal in size and collapses > 50 % with sniff, indicating | | normal central venous pressures.Aorta: The aortic root, ascending aorta and aortic arch | | are normal.Mass: No mass visualizedThrombus: No clot visualizedThrombus: No vegetation | | visualized.Septum: No ASD observed.Septum: No VSD observed. MEASUREMENTS Ao | | asc: 3.[address] junct: 2.99 cmIVC: 1.91 cmLA Diam: 3.95 cmEDV(Teich): 154.08 | | mlIVSd: 0.80 cmLVIDd: 5.60 cmLVPWd: 0.87 cmLVOT Area: 3.59 [id number] Diam: 2.14 | | cm%FS: 31.75 %EF(Teich): 59.13 %ESV(Teich): 62.96 mlLVIDs: 3.82 cmSV(Teich): | | 91.11 mlRVIDd: 2.72 cmAo Diam SVals: 3.20 cmLVEF MOD A2C: 66.85 %SV MOD A2C: | | 75.22 mlLVEF MOD A4C: 65.03 %SV MOD A4C: 85.15 mlEF Biplane: 64.98 %LVEDV MOD BP: | | 126.24 mlLVESV MOD BP: 44.20 mlLVEDV MOD A2C: 112.52 mlLVLd A2C: 8.74 cmLVEDV | | MOD A4C: 130.92 mlLVLd A4C: 9.52 cmLVESV MOD A2C: 37.3 mlLVLs A2C: 6.81 cmLVESV | | MOD A4C: 45.77 mlLVLs A4C: 7.83 cmLAESV(A-L): 37.43 mlLAESV Index (A-L): 17.09 | | ml/m2LAAs A2C: 15.57 [id number] A-L A2C: 43.45 mlLALs A2C: 4.73 cmLAAs A4C: 12.37 | | [id number] A-L A4C: 29.74 mlLALs A4C: 4.36 cmRAAs: 13.49 [id number] A-L: 37.71 | | mlRAESV MOD: 34.50 mlRALs: 4.10 cmTAPSE: 2.81 cmAR Dec [place]: 1.09 m/s2AR Dec | | Time: 3552.83 msAR maxP.12 mmHgAR PHT: 1030.32 msAR Vmax: 3.87 m/Stewart maxPG: | | 15.82 mmHgAV meanP.45 mmHgAV Vmax: 1.98 m/Stewart Vmean: 1.35 m/Stewart VTI: | | 43.84 cmAVA Vmax: 1.94 cm2AVA (VTI): 1.80 am7QTPE maxP.60 mmHgLVOT meanPG: | | 2.23 mmHgLVSI Dopp: 36.09 ml/m2LVSV Dopp: 79.05 mlLVOT Vmax: 1.07 m/sLVOT Vmean: | | 0.67 m/sLVOT VTI: 21.97 cmMV A Olivier: 0.57 m/sMV Dec [place]: 1.87 m/s2MV DecT: | | 310.41 msMV E Olivier: 0.58 m/sMV E/A Ratio: 1.02MV PHT: 90.02 msMVA By PHT: 2.44 | | zo0Jecsid e': 0.05 m/sSeptal E/e': 9.85Lateral e': 0.07 m/sLateral E/e': 7.33 | | Reserve Officer: Alidaticated by: Rossana CORDON Date/Time: -- | | [id number] IMPRESSION: 1. Overall left ventricular systolic function is | | normal with, an EF between 60 - 65 %.2. The right ventricle is normal in size and | | function.3. There is mild aortic regurgitation.4. Mild aortic stenosis with peak/mean | | pressure gradient of 15.82mmHg / 8.45mmHg, the aortic valve area by continuity equation | | is 1.8cm . | |MEASUREMENTS | | | |Ao asc: 3.05 cm | |Ao st junct: 2.99 cm | |IVC: 1.91 cm | |LA Diam: 3.95 cm | |EDV(Teich): 154.08 ml | |IVSd: 0.80 cm | |LVIDd: 5.60 cm | |LVPWd: 0.87 cm | |LVOT Area: 3.59 cm2 | |LVOT Diam: 2.14 cm | |%FS: 31.75 % | |EF(Teich): 59.13 % | |ESV(Teich): 62.96 ml | |LVIDs: 3.82 cm | |SV(Teich): 91.11 ml | |RVIDd: 2.72 cm | |Ao Diam SVals: 3.20 cm | |LVEF MOD A2C: 66.85 % | |SV MOD A2C: 75.22 ml | |LVEF MOD A4C: 65.03 % | |SV MOD A4C: 85.15 ml | |EF Biplane: 64.98 % | |LVEDV MOD BP: 126.24 ml | |LVESV MOD BP: 44.20 ml | |LVEDV MOD A2C: 112.52 ml | |LVLd A2C: 8.74 cm | |LVEDV MOD A4C: 130.92 ml | |LVLd A4C: 9.52 cm | |LVESV MOD A2C: 37.3 ml | |LVLs A2C: 6.81 cm | |LVESV MOD A4C: 45.77 ml | |LVLs A4C: 7.83 cm | |LAESV(A-L): 37.43 ml | |LAESV Index (A-L): 17.09 ml/m2 | |LAAs A2C: 15.57 cm2 | |LAESV A-L A2C: 43.45 ml | |LALs A2C: 4.73 cm | |LAAs A4C: 12.37 cm2 | |LAESV A-L A4C: 29.74 ml | |LALs A4C: 4.36 cm | |RAAs: 13.49 cm2 | |RAESV A-L: 37.71 ml | |RAESV MOD: 34.50 ml | |RALs: 4.10 cm | |TAPSE: 2.81 cm | |AR Dec [place]: 1.09 m/s2 | |AR Dec Time: 3552.83 ms | |AR maxP.12 mmHg | |AR PHT: 1030.32 ms | |AR Vmax: 3.87 m/s | |AV maxP.82 mmHg | |AV meanP.45 mmHg | |AV Vmax: 1.98 m/s | |AV Vmean: 1.35 m/s | |AV VTI: 43.84 cm | |SELVIN Vmax: 1.94 cm2 | |SELVIN (VTI): 1.80 cm2 | |LVOT maxP.60 mmHg | |LVOT meanP.23 mmHg | |LVSI Dopp: 36.09 ml/m2 | |LVSV Dopp: 79.05 ml | |LVOT Vmax: 1.07 m/s | |LVOT Vmean: 0.67 m/s | |LVOT VTI: 21.97 cm | |MV A Olivier: 0.57 m/s | |MV Dec [place]: 1.87 m/s2 | |MV DecT: 310.41 ms | |MV E Olivier: 0.58 m/s | |MV E/A Ratio: 1.02 | |MV PHT: 90.02 ms | |MVA By PHT: 2.44 cm2 | |Septal e': 0.05 m/s | |Septal E/e': 9.85 | |Lateral e': 0.07 m/s | |Lateral E/e': 7.33 | | | |Reserve Officer: DBS | |Authenticated by: AVTAR RODRIGUEZ MD | |Report Date/Time: -- [id number] | | | |IMPRESSION: | |1. Overall left ventricular systolic function is normal with, an EF between 60 - 65 %. | |2. The right ventricle is normal in size and function. | |3. There is mild aortic regurgitation. | |4. Mild aortic stenosis with peak/mean pressure gradient of 15.82mmHg / 8.45mmHg, the aorti c valve area by continuity equation is 1.8cm . | + + documented in this encounter Visit Diagnoses Not on filedocumented in this encounter"
--- OUTSIDE RECORDS SUMMARY | ~2020-02-18 | XMS | Encounter Summary ---
Demographics + + + | Address | [address] | | | [place] [address] | + + + | Home Phone | | + + + | Preferred Language | Unknown | + + + | Marital Status | | + + + | Rastafari Affiliation | Unknown | + + + | Race | Unknown | + + + | Ethnic Group | Unknown | + + + Author + + + | Author | [facility] | | | and [place] | + + + | Organization | [facility] | | | and [place] | + + + | Address | Unknown | + + + | Phone | Unavailable | + + + Support + + + + + | Name | Relationship | Address | Phone | + + + + + | Ashley Lindquist | ECON | [address] | | | | | [address], [place] | | | | | [address] | | + + + + + Care Team Providers + +------+ + | Care Pneumatic Jack Operator Name | Role | Phone | + +------+ + PCP | Unavailable | + +------+ + Encounter Details +--------+ + + + + | Date | Type | Department | Care Team | Description | +--------+ + + + + | 01/07/ | Hospital | [facility] | [place], | | | 2011 | Encounter | [facility] | [place] [address] | | | | | [place] [address] | [place] | | | | | [place] | [address] | | | | | [address] | | | | | | [phone] | | | +--------+ + + + + Social History + +-------+ +--------+------+ | Tobacco Use | Types | Packs/Day | Years | Date | | | | | Used | | + +-------+ +--------+------+ | Never Assessed | | | | | + +-------+ +--------+------+ + + + | Sex Assigned at | Date Recorded | | | | + + + | Not on file | | + + + documented as of this encounter Plan of Treatment Not on filedocumented as of this encounter Visit Diagnoses Not on filedocumented in this encounter"
--- OUTSIDE RECORDS SUMMARY | ~2020-02-18 | XMS | Encounter Summary ---
Demographics + + + | Address | [address] | | | [place] [address] | + + + | Home Phone | | + + + | Preferred Language | Unknown | + + + | Marital Status | | + + + | Zoroastrianism Affiliation | Unknown | + + + | Race | Unknown | + + + | Ethnic Group | Unknown | + + + Author + + + | Author | [facility] | | | and [place] | + + + | Organization | [facility] | | | and [place] | + + + | Address | Unknown | + + + | Phone | Unavailable | + + + Support + + + + + | Name | Relationship | Address | Phone | + + + + + | Ashley Serraen | ECON | [address] | | | | | [address] | | | | | [address] | | + + + + + Care Team Providers + +------+ + | Care Free Lance Model Name | Role | Phone | + +------+ + | Zack Rothman MD | PCP | | + +------+ + Reason for Visit + + + | Reason | Comments | + + + | Mouth Lesions | | + + + Evaluate & Treat (Routine) +--------+--------+ + + + + | Status | Reason | Specialty | Diagnoses / | Referred By | Referred To | | | | | Procedures | Contact | Contact | +--------+--------+ + + + + | Closed | | Otolaryngolog | Diagnoses | Jose, | Denton Fernandez | | | | y | Tongue | Festus Gillette MD [address] | | | | | lesion RT | MD Mando | [place] | | | | | side/self/Fa | [address] | [address] | | | | | [place]/ | [address] | [place], | | | | | Zack | [place] | [place] [address] | | | | | [place] | [address] | Phone: | | | | | Procedures | Phone: | [phone] | | | | | NEW PATIENT | [phone] | Fax: | | | | | | Fax: | [phone] | | | | | | [phone] | | +--------+--------+ + + + + Encounter Details +--------+---------+ + + + | Date | Type | Department | Care Team | Description | +--------+---------+ + + + | 11/22/ | Office | [facility] | Denton Fernandez MD | Geographic tongue | | 2015 | Visit | OTOLARYNGOLOGY [address] | [address] | (Primary Dx) | | | | [address] | [address] [facility] | | | | | [place] | [place] [address] | | | | | [address] | [phone] | | | | | [phone] | | | +--------+---------+ + + + Social History + +-------+ [...] + + documented as of this encounter Last Filed Vital Signs + + + + + | Vital Sign | Reading | Time Taken | Comments | + + + + + | Blood Pressure | - | - | | + + + + + | Pulse | 60 | 11/22/2014 8:13 AM | | | | | PDT | | + + + + + | Temperature | - | - | | + + + + + | Respiratory Rate | - | - | | + + + + + | Oxygen Saturation | - | - | | + + + + + | Inhaled Oxygen | - | - | | | Concentration | | | | + + + + + | Weight | 93 kg (205 lb) | 11/22/2014 8:13 AM | | | | | PDT | | + + + + + | Height | 182.9 cm (6') | 11/22/2014 8:13 AM | | | | | PDT | | + + + + + | Body Mass Index | 27.8 | 11/22/2014 8:13 AM | | | | | PDT | | + + + + + documented in this encounter Progress Notes Denton Fernandez MD - 11/22/2014 8:51 AM PDT [facility] OTOLARYNGOLOGY [address] [place] [id number] OFFICE NOTE DENTON FERNANDEZ MD Patient: SUSANNA LINDQUIST Admitting: MR #: [id number] LOC: PT TYPE: Adm Date: 11/22/2014 : 1950 NEW PATIENT VISIT DATE OF VISIT: 11/22/2014 HISTORY: The patient comes in because his primary care physician noted that there was an unusual appearance to his tongue on the right-hand side. He was sent to have this evaluate d. He had not noted any symptoms, no soreness, no other complaints. The patient has no ot her ENT concerns. PHYSICAL EXAMINATION: GENERAL: Shows an alert 64-year-old male. He is communicating well. His voice quality is good. SKIN: The skin of the face, nose and ears all appears smooth and healthy. LYMPHATICS: Parotid, submandibular gland area is felt smooth. HEENT: Facial movement is symmetrical. Ear canals are open. They are clean. Drums were clear. No middle ear flui d or disease noted. Nasal passages: No obstruction, no mass or lesions seen on either nenita e. Floor of the mouth, buccal mucosa, hard palate, teeth, lips, and gums all appear smooth and healthy. No mass seen in the oropharynx. Posterior pharyngeal wall was smooth. On th e right side of his tongue, he has 2 geographic appearing designs but no mass or lesion jacque t would appear that needs to be removed. The tongue was palpated. It is smooth. There i s no hardened or thickened area. The left side of the tongue was normal. Tongue and soft palate otherwise move symmetrically. NECK: There were no masses or lymphadenopathy. Thyro id gland was smooth. Trachea was midline. IMPRESSION: Geographic tongue. The patient was advised to certainly look at this about o nce a month to see if there are any changes occurring. If a hardened or thickened area shou ld develop, then the patient will recheck with ENT. DENTON FERNANDEZ MD Dictated by DENTON FERNANDEZ MD 11/22/2014 08:51:59 Transcribed on 11/22/2014 09:21:04 by [place] yu# [id number] Confirmation #: [id number] cc: ZACK ROTHMAN MD [facility] - 11/22/2014 8:48 AM PDTSee dictation #[id number] signed by Denton Fernandez MD at 11/22/2014 8:52 AM PDTdocumented in this encounter Plan of Treatment Not on filedocumented as of this encounter Visit Diagnoses + + | Diagnosis | + + | Geographic tongue - Primary | + + documented in this encounter"
--- OUTSIDE RECORDS SUMMARY | ~2020-02-18 | XMS | Clinical Summary ---
Demographics + + + | Address | [address] | | | [place] [address] | + + + | Home Phone | | + + + | Preferred Language | Unknown | + + + | Marital Status | | + + + | Spiritism Affiliation | Unknown | + + + | Race | Unknown | + + + | Ethnic Group | Unknown | + + + Author + + + | Author | [facility] | | | and [place] | + + + | Organization | [facility] | | | and [place] | + + + | Address | Unknown | + + + | Phone | Unavailable | + + + Support + + + + + | Name | Relationship | Address | Phone | + + + + + | Ashley Lindquist | ECON | [address] | | | | | [address] | | | | | [address] | | + + + + + Care Team Providers + +------+ + | Care Digital Performance Analyst Name | Role | Phone | + +------+ + | Mando Boston MD | PCP | | + +------+ + Allergies + + + + + + | Active Allergy | Reactions | Severity | Noted | Comments | | | | | Date | | + + + + + + | Morphine | Nausea Only | Low | 04/13/20 | | | | | | 15 | | + + + + + + | Fenoprofen Calcium | Rash | Medium | 11/23/19 | | | | | | 15 | | + + + + + + Medications + + + +---------+------+------+-------+ | Medication | Sig | Dispensed | Refills | Star | End | Statu | | | | | | t | Date | s | | | | | | Date | | | + + + +---------+------+------+-------+ | TRAZODONE HCL PO | Take 0.5 tablets by | | 0 | | | Activ | | | mouth nightly. | | | | | e | + + + +---------+------+------+-------+ | metFORMIN | Take 500 mg by mouth | | 0 | | | Activ | | (GLUCOPHAGE-XR) 500 | 2 times daily. | | | | | e | | mg 24 hr tablet | | | | | | | + + + +---------+------+------+-------+ | omeprazole | Take 20 mg by mouth | | 0 | | | Activ | | (PRILOSEC) 20 mg | 2 times daily. | | | | | e | | capsule | | | | | | | + + + +---------+------+------+-------+ Active Problems Not on file Social History [...] | | + + + + + Plan of Treatment + + +-------+ + | Health Maintenance | Due Date | Last | Comments | | | | Done | | + + +-------+ + | Vaccine: | | | | | Dtap/Tdap/Td (1 - | 9 | | | | Tdap) | | | | + + +-------+ + | Vaccine: Zoster (1 | | | | | of 2) | 0 | | | + + +-------+ + | Vaccine: | | | | | Pneumococcal 65+ (1 | 5 | | | | of 1 - PPSV23) | | | | + + +-------+ + | Vaccine: Influenza | | | | | (#1) | 0 | | | + + +-------+ + Results Not on filefrom Last 3 Months Insurance +---------+--------+ +--------+ +---------+--------+ | Payer | Benefi | Subscriber | Effect | Phone | Address | Type | | | t Plan | ID | emanuel | | | | | | / | | Dates | | | | | | Group | | | | | | +---------+--------+ +--------+ +---------+--------+ | | [employer] | [id number] | 08/12/19 | [phone] | | Indemn | | | E WEST | | 18-Pre | 0 | | ity | | | HNFS | | sent | | | | +---------+--------+ +--------+ +---------+--------+ + +--------+ +--------+ + + | Guarantor Name | Accoun | Relation to | Date | Phone | Billing Address | | | t Type | Patient | of | | | | | | | | | | + +--------+ +--------+ + + | Arpit Lindquist | Person | Self [birth year] | [address] | | | al/Fam | | 1950 | [phone] | [address] [place], | | | [place] | | | [address] (Home) | [place] [address] | + +--------+ +--------+ + + Advance Directives + + + + + | Type | Date Recorded | Patient | 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
--- OUTSIDE RECORDS SUMMARY | ~2020-02-18 | XMS | Encounter Summary ---
Demographics + + + | Address | [address] | | | [place] [address] | + + + | Home Phone | | + + + | Preferred Language | Unknown | + + + | Marital Status | | + + + | Adventism Affiliation | Unknown | + + + | Race | Unknown | + + + | Ethnic Group | Unknown | + + + Author + + + | Author | [facility] | | | and [place] | + + + | Organization | [facility] | | | and [place] | + + + | Address | Unknown | + + + | Phone | Unavailable | + + + Support + + + + + | Name | Relationship | Address | Phone | + + + + + | Ashley Lindquist | ECON | [address] | | | | | [address], [place] | | | | | [address] | | + + + + + Care Team Providers + +------+ + | Care Order Dispatcher Name | Role | Phone | + +------+ + PCP | Unavailable | + +------+ + Encounter Details +--------+ + + + + | Date | Type | Department | Care Team | Description | +--------+ + + + + | 01/15/ | Hospital | [facility] | Brayden Manning, | | | 2011 | Encounter | [facility] | [place] [address] | | | | | [place] [address] | [place] | | | | | [place] | [address] | | | | | [address] | | | | | | [phone] | | | +--------+ + + + [...] + + documented as of this encounter ED Notes Brayden Manning MD - 01/16/2012 4:17 PM PDTDATE: 01/16/2012 HISTORY OF PRESENT ILLNESS: This is a 61-year-old male complaining of upset stomach, crampi ng and deedee rrhea today after starting amoxicillin and clarithromycin and omeprazole regimen for H pylori. He has had amoxicillin and omeprazole before without any incident. Denies an y vomiting, no fever. Has a hi story of hyperlipidemia. Describes his pain as 4/10 in the mid abdomen, cramping in nature. ALLERGIES: INCLUDE FENOPROFEN. HOME MEDICATIONS 1. Amoxicillin. 2. Vitamin D. 3. Biaxin. 4. Prilosec. SOCIAL HISTORY: He is a nonsmoker. Does not drink alcohol. REVIEW OF SYSTEMS: Complete review of systems negative except as detailed in the HPI above. PHYSICAL EXAMINATION VITAL SIGNS: Blood pressure is 124/57, heart rate 65, respirations 16, afebrile, 96% on marti m air. GENERAL: He appears in no distress. HEENT: His pupils are equal and reactive to light and accommodation. Extraocular movements intact. Or al mucosa moist. NECK: Supple, nontender. CARDIAC: Normal S1, S2. LUNGS: Clear to auscultation bilaterally. ABDOMEN: Soft, nontender, nondistended. Normal bowel sounds. NEUROLOGIC: Cranial nerves 2 through 12 intact. Normal sensation, motor, and strength in al l 4 extrem ities. Alert and oriented x3. SKIN: No rashes or lesions. ASSESSMENT AND PLAN THIS IS A 61-YEAR-OLD MALE WITH DIARRHEAL SIDE EFFECTS AND UPSET STOMACH SECONDARY TO LIKEL Y CLARITHR OMYCIN. I will have the patient hold his clarithromycin. He is given Zofran here. I recommend bis vesna subsa licylate. Follow up with primary care, return if any new concerning symptoms. DICTATED BY: Brayden Manning M.D. Emergency Medicine JOB #: [id number] EXT JOB #:[id number] <Electronicall y Signed by Brayden Manning MD> 01/16/12 2229 documented in this encounter Plan of Treatment Not on filedocumented as of this encounter Visit Diagnoses Not on filedocumented in this encounter"
--- OUTSIDE RECORDS SUMMARY | ~2020-02-18 | XMS | Encounter Summary ---
Demographics + + + | Address | [address] | | | [place] [address] | + + + | Home Phone | | + + + | Preferred Language | Unknown | + + + | Marital Status | | + + + | Latter-Day Affiliation | Unknown | + + + | Race | Unknown | + + + | Ethnic Group | Unknown | + + + Author + + + | Author | [facility] | | | and [place] | + + + | Organization | [facility] | | | and [place] | + + + | Address | Unknown | + + + | Phone | Unavailable | + + + Support + + + + + | Name | Relationship | Address | Phone | + + + + + | Ashley Lindquist | ECON | [address] | | | | | [address], [place] | | | | | [address] | | + + + + + Care Team Providers + +------+ + | Care Answering Service Operator Name | Role | Phone | + +------+ + PCP | Unavailable | + +------+ + Encounter Details +--------+ + + + + | Date | Type | Department | Care Team | Description | +--------+ + + + + | 08/06/ | Hospital | [facility] | Alvino White, | Abdominal pain; | | 2013 - | Encounter | [facility] | MD Lauren KRUSE | Intractable | | | | CLINICAL DECISION | [place] [address] | vomiting; Pancreatic | | 08/08/ | | [address] | [phone] | mass; Abdominal | | 2012 | | [place], [place] | | pain, left upper | | | | [id number] | | quadrant; Acute | | | | [phone] | | pancreatitis; Fever; | | | | | | Leukocytosis, | | | | | | unspecified; Nausea | | | | | | with vomiting; SIRS | | | | | | (systemic | | | | | | inflammatory | | | | | | response syndrome) | | | | | | (HCC) | +--------+ + + + + Social [...] + + documented as of this encounter Discharge Summaries Emiliano Arvizu MD - 08/08/2013 3:23 PM PSTFormatting of this note might be different f rom the original. Discharge Summaries by Emiliano Arvizu MD at 08/08/13 1523 Author: Emiliano Arvizu MD Service: (none) Author Type: Physician Filed: 08/09/13 0916 Date of Service: 08/08/13 1523 Status: Signed Time Broker: Emiliano Arvizu MD (Physician) Related Notes: Original Note by Emiliano Arvizu MD (Physician) filed at 08/08/13 1528 [facility] Service: Hospitalist Discharge Summary Date of Admission: 08/06/2013 Date of Discharge: 08/08/2013 Discharge Provider: Emiliano Arvizu MD Treatment Team: Consulting Physician: Alvino White MD Consulting Physician: Sonia Walker MD Admitting Provider: Alvino White MD Discharge Diagnoses: Principal Problem: *SIRS (systemic inflammatory response syndrome) Active Problems: Acute pancreatitis Leukocytosis, unspecified Fever Nausea with vomiting Abdominal pain, left upper quadrant Pancreatic mass Resolved Problems: * No resolved hospital problems. * Final Diagnoses: Mild acute pancreatitis Procedures: * No surgery found * Significant Diagnostic Studies: BRIEF HISTORY OF PRESENTATION: Arpit Lindquist is a 63 y.o. male who presented with pacreatitis HOSPITAL COURSE: The patient presented with some symptoms of acute pancreatitis including acute abdomin al pain and some nausea. The patient was transferred here from [facility] where he had a CT scan done which showed signs of pancreatitis. The patient was admitted. Dr Susana Walker was consulted over the phone and recommended just supportive treatment since most pro bably the patient's pancreatitis was from recent biopsy. The patient's pain improved and his diet was regular, advised to convert this to low-fat diet. He did not require any pain medi cation the day of discharge. He had no nausea or vomiting. He tolerated p.o. well. He was di scharged home in stable condition. Past Medical History Diagnosis Date Migraines Depression Anxiety Dizziness Past Surgical History Procedure Date Tonsillectomy Cholecystectomy Vasectomy Allergies Allergen Reactions Nalfon Rash Morphine Nausea Only Prescriptions prior to admission Medication Sig Dispense Refill ARIPiprazole (ABILIFY) 30 MG tablet Take 15 mg by mouth daily. buPROPion (WELLBUTRIN SR) 200 MG 12 hr tablet Take 200 mg by mouth daily. ciprofloxacin (CIPRO) 500 MG tablet Take 500 mg by mouth 2 (two) times daily. fish oil-omega-3 fatty acids 1000 MG capsule Take 1 g by mouth daily. MAGNESIUM OXIDE -MG SUPPLEMENT PO Take 420 mg by mouth 2 (two) times daily. pravastatin (PRAVACHOL) 40 MG tablet Take 20 mg by mouth nightly. simethicone (MYLICON) 80 MG chewable tablet Take 160 mg by mouth every 6 (six) hours as needed. SUMAtriptan (IMITREX) 50 MG tablet Take 50 mg by mouth as needed. VITAMIN D, CHOLECALCIFEROL, PO Take 5,000 Units by mouth daily. DISCHARGE EXAM Vital Signs: BP 111/57 | Pulse 57 | Temp 98.1 F (36.7 C) (Oral) | Resp 16 | Ht 1.829 m (6') | Wt 104 .327 kg (230 lb) | BMI 31.19 kg/m2 | SpO2 95% Intake/Output Summary (Last 24 hours) at 08/08/13 1526 Last data filed at 08/08/13 1335 Gross per 24 hour Intake 1513 ml Output 2125 ml Net -612 ml Physical Exam Nursing note and vitals reviewed. Constitutional: He is oriented to person, place, and time. He appears well-nourished. No di stress. HENT: Head: Normocephalic and atraumatic. Mouth/Throat: No oropharyngeal exudate. Eyes: Conjunctivae normal are normal. Pupils are equal, round, and reactive to light. No sc leral icterus. Neck: Neck supple. No JVD present. Cardiovascular: Normal rate and regular rhythm. Exam reveals no gallop. Pulmonary/Chest: Effort normal. No stridor. No respiratory distress. He has no wheezes. Abdominal: Soft. He exhibits no distension. Musculoskeletal: He exhibits no edema and no tenderness. Neurological: He is alert and oriented to person, place, and time. No cranial nerve deficit . Skin: Skin is warm. No rash noted. He is not diaphoretic. No pallor. Psychiatric: He has a normal mood and affect. His behavior is normal. Judgment and thought content normal. DATA CBC: Lab Results Component Value Date WBC 11.2* 08/07/2013 RBC 4.08* 08/07/2013 HGB 12.1* 08/07/2013 HCT 37.2* 08/07/2013 MCV 91.3 08/07/2013 MCH 29.6 08/07/2013 MCHC 32.4 08/07/2013 RDW 39.8 08/07/2013 PLT 251 08/07/2013 MPV 8.9 08/07/2013 DIFFTYPE AUTOMATED 08/07/2013 BMP: Lab Results Component Value Date NA 137 08/07/2013 K 4.1 08/07/2013 CL 103 08/07/2013 CO2 28 08/07/2013 ANIONGAP 10 08/07/2013 GLUF 93 08/07/2013 BUN 12 08/07/2013 CREATININE 0.90 08/07/2013 BCR 13 08/07/2013 CA 8.5 08/07/2013 EGFR >60 08/07/2013 PLAN The patient needs to follow up with and [facility] in [place], [place] to get results o f the biopsy and decide further management based on the results. Otherwise, follow up with [facility]. Disposition: Home Condition: Stable Code Status: Full Code No discharge procedures on file. Follow up: No follow-up provider specified. Medication List As of 08/08/2013 3:23 PM CONTINUE taking these medications ARIPiprazole 30 MG tablet Refills: 0 Commonly known as: ABILIFY buPROPion 200 MG 12 hr tablet Refills: 0 Commonly known as: WELLBUTRIN SR ciprofloxacin 500 MG tablet Refills: 0 Commonly known as: CIPRO fish oil-omega-3 fatty acids 1000 MG capsule Refills: 0 MAGNESIUM OXIDE -MG SUPPLEMENT PO Refills: 0 pravastatin 40 MG tablet Refills: 0 Commonly known as: PRAVACHOL simethicone 80 MG chewable tablet Refills: 0 Commonly known as: MYLICON SUMAtriptan 50 MG tablet Refills: 0 Commonly known as: IMITREX VITAMIN D (CHOLECALCIFEROL) PO Refills: 0 Discharge took 35 minutes, to include final examination, discussion of admission, and prepa ration of prescriptions, instructions for on-going care, follow-up and documentation of disc harge summary. Emiliano Arvizu MD 08/08/2013 documented in this encounter Progress Notes Conversion Transaction, Provider Unknown - 08/08/2013 5:22 AM PSTFormatting of this note m ight be different from the original. Progress Notes by Desiree Horne RN at 08/08/13521 Author: Desiree Horne RN Service: (none) Author Type: Registered Nurse Filed: 08/08/13529 Date of Service: 08/08/13521 Status: Addendum Time Broker: Desiree Horne RN (Registered Nurse) Related Notes: Original Note by Desiree Horne RN (Registered Nurse) filed at 08/08/13 0 523 Vital signs have been stable. He has been afebrile. Medicated for nausea and pain x 1.Pham thomas states he is tolerating full liquid diet well. Otherwise no acute changes from previou s assessment. Patient visualized hourly. Will continue to monitor until shift change. Augustus Horne RN 08/08/2013 5:23 AM onver mane Transaction, Provider Unknown - 08/07/2013 5:01 PM PST Nurse Progress Note by Claribel Briseno RN at 08/07/131700 Author: Claribel Briseno RN Service: (none) Author Type: Registered Nurse Filed: 08/07/131702 Date of Service: 08/07/131700 Status: Signed Time Broker: Claribel Briseno RN (Registered Nurse) Medicated once for abdominal pain. Has walked several times in hallway. Tolerated liquids t hus far without problem. Hoping to go home tomorrow.Claribel Briseno 08/07/2013 Emiliano Breaux i, MD - 08/07/2013 4:10 PM PST Progress Notes by Emiliano Arvizu MD at 08/07/13 1610 Author: Emiliano Arvizu MD Service: (none) Author Type: Physician Filed: 08/07/132149 Date of Service: 08/07/131609 Status: Signed Time Broker: Emiliano Arvizu MD (Physician) Related Notes: Original Note by Emiliano Arvizu MD (Physician) filed at 08/07/13 1614 [facility] Service: Hospitalist Progress Note Hospital Day: LOS: 1 day Post-Op Day: * No surgery found * SUBJECTIVE Patient Summary: The patient reports no abdominal pain today. He tolerated liquids fi ne. He denies any shortness of breath. No nausea. No vomiting. He denies any chest pain. Events Overnight: none Scheduled Medications ARIPiprazole 15 mg Oral Daily buPROPion 200 mg Oral Daily ciprofloxacin 400 mg Intravenous Q12H fish oil-omega-3 fatty acids 1 g Oral Daily heparin (porcine) 5,000 Units Subcutaneous Q8H magnesium oxide 400 mg Oral BID omeprazole 20 mg Oral QAM AC Or pantoprazole 40 mg Intravenous QAM AC pravastatin 20 mg Oral Nightly Continuous Infusions sodium chloride 150 mL/hr at 08/07/13 1507 PRN Medications acetaminophen, acetaminophen, HYDROmorphone, ondansetron, ondansetron, polyethylene glycol OBJECTIVE Vital Signs: BP 123/60 | Pulse 69 | Temp 99.3 F (37.4 C) (Oral) | Resp 17 | Ht 1.829 m (6') | Wt 104 .327 kg (230 lb) | BMI 31.19 kg/m2 | SpO2 94% Intake/Output Summary (Last 24 hours) at 08/07/13 1610 Last data filed at 08/07/13 1039 Gross per 24 hour Intake 2875.07 ml Output 2075 ml Net 800.07 ml Physical Exam Nursing note and vitals reviewed. Constitutional: He is oriented to person, place, and time. He appears well-nourished. No di stress. HENT: Head: Normocephalic and atraumatic. Mouth/Throat: No oropharyngeal exudate. Eyes: Conjunctivae normal are normal. Pupils are equal, round, and reactive to light. No sc leral icterus. Neck: Neck supple. No JVD present. Cardiovascular: Normal rate and regular rhythm. Exam reveals no gallop. Pulmonary/Chest: Effort normal. No stridor. No respiratory distress. He has no wheezes. Abdominal: He exhibits no distension. There is no tenderness. Musculoskeletal: He exhibits no edema and no tenderness. Neurological: He is oriented to person, place, and time. No cranial nerve deficit. Skin: No rash noted. He is not diaphoretic. No pallor. Psychiatric: He has a normal mood and affect. His behavior is normal. Judgment and thought content normal. DATA CBC: Lab Results Component Value Date WBC 11.2* 08/07/2013 RBC 4.08* 08/07/2013 HGB 12.1* 08/07/2013 HCT 37.2* 08/07/2013 MCV 91.3 08/07/2013 MCH 29.6 08/07/2013 MCHC 32.4 08/07/2013 RDW 39.8 08/07/2013 PLT 251 08/07/2013 MPV 8.9 08/07/2013 DIFFTYPE AUTOMATED 08/07/2013 BMP: Lab Results Component Value Date NA 137 08/07/2013 K 4.1 08/07/2013 CL 103 08/07/2013 CO2 28 08/07/2013 ANIONGAP 10 08/07/2013 GLUF 93 08/07/2013 BUN 12 08/07/2013 CREATININE 0.90 08/07/2013 BCR 13 08/07/2013 CA 8.5 08/07/2013 EGFR >60 08/07/2013 PROBLEM LIST Principal Problem: *SIRS (systemic inflammatory response syndrome) Active Problems: Acute pancreatitis Leukocytosis, unspecified Fever Nausea with vomiting Abdominal pain, left upper quadrant Pancreatic mass ASSESSMENT & PLAN 1. Pancreatitis as a consequence of recent biopsy. Was discussed with Dr. Walker today over t he phone today who recommended just conservative management, pain medications, and fluids to be continued. The patient's pain is very mild so I have advanced the diet to full liquid di et and tomorrow will advance to oral. If he tolerates this well he is going to be discharged home. 2. Systemic inflammatory response syndrome secondary to pancreatitis, resolving. The patien t is improving with IV fluids. 3. DVT prophylaxis. The patient is on subcutaneous heparin and SCDs. Disposition: pending Code Status: Full Code Emiliano Arvizu MD 08/07/2013 onversion Transac tion, Provider Unknown - 08/07/2013 2:17 PM PSTFormatting of this note might be different f rom the original. Case Management by CHANTELLE Muhammad at 08/07/13 1413 Author: CHANTELLE Muhammad Service: (none) Author Type: Ror Engineer Filed: 08/07/13 1445 Date of Service: 08/07/131416 Status: Signed Time Broker: CHANTELLE Muhammad (Ror Engineer) 08/07/13 1416 Discharge Planning Evaluation Living Arrangements Spouse/significant other Support Systems Spouse/significant other Type of Residence Private residence House type Apartment Independent with ADL's Yes Independent with Mobility Yes Home Care Services No Caregiver after Discharge Yes Caregiver Name Ashley Lindquist Relationship to Patient Spouse Phone number [phone] Mental Status Oriented Power of Maritime Guard No Resources Transportation issues No Patient/Family concerns No Prescription Plan Yes Met with: pt and discussed discharge planning, Pt is a 63 y.o., male. Pt is independent, uses no DME, peñaloza s never used HH. Pt lives in an apartment with his , Ashley Lindquist. [facility]. Pt may need assistance/guidance in scheduling o/p oncology f/u - depending on findings sim moreno current hospital stay. No further needs identified at this time. Patient's PCP is: WANDA MOHAMUD Patient's insurance: Medicare Coverage concerns: n/a Medication coverage/concerns: n/a Community resources utilized / needed: Awaiting GI consult. Pt may need oncology consult. Assistance in transportation: Spouse to transport at d/c. Identification of any specific education / training: n/a Barriers to Discharge / Alternative housing needed: n/a Anticipated DCP: Home with spouse to transport Lucinda Mitchell onver mane Transaction, Provider Unknown - 08/07/2013 5:31 AM PST Nurse Progress Note by Desiree Horne RN at 08/07/13530 Author: Desiree Horne RN Service: (none) Author Type: Registered Nurse Filed: 08/07/1335 Date of Service: 08/07/13530 Status: Signed Time Broker: Desiree Horne RN (Registered Nurse) Patient has had complaints of pain x 1 and nausea x 1. Given dilaudid and Zofran. Voiced frustration that no GI doctor consulted today. Requesting that diet issues be discussed with MD today as he would like to try to eat some jello or something similar. Vital signs have been stable. Temps have been in the low 99's. Have been watching to see where trend.kimberly ent visualized hourly. Otherwise no acute changes from previous assessment. Will continue to monitor until shift change. Desiree Horne RN 08/07/2013 5:34 AM onver mane Transaction, Provider Unknown - 08/06/2013 8:19 PM PST Progress Notes by Molly Velázquez RN at 08/06/132018 Author: Molly Velázquez RN Service: (none) Author Type: Registered Nurse Filed: 08/06/132019 Date of Service: 08/06/132018 Status: Signed Time Broker: Molly Velázquez RN (Registered Nurse) Pt VSS, afebrile. No acute changes from last assessment. Pt medicated for pain X2 this shif t. Will continue to monitor.MOLLY VELÁZQUEZ RN onver mane Transaction, Provider Unknown - 08/06/2013 11:38 AM PST Progress Notes by Cici Calvo RPH at 08/06/131137 Author: Cici Calvo RPH Service: (none) Author Type: Pharmacist Filed: 08/06/13 1138 Date of Service: 08/06/13 1138 Status: Signed Time Broker: Cici Calvo [facility] (Pharmacist) Renal Dosing Monitoring: Arpit Lindquist 63 y.o. male Pharmacy dosing for renal function per Dr. White SCr = 1.08, est CRCl = 87 Plan per protocol: Based on current renal function, there is no need to adjust medications for renal function. Pharmacy will continue monitoring patient for appropriate dosing per renal function. 08/06/2013 11:37 AM Pharmacist: Cici Calvo docume nted in this encounter H&P Notes Alvino White - 08/06/2013 8:31 AM PSTFormatting of this note might be different from th e original. H&P by Alvino White MD at 08/06/13830 Author: Alvino White MD Service: (none) Author Type: Physician Filed: 08/08/13 0403 Date of Service: 08/06/13830 Status: Signed Time Broker: Alvino White MD (Physician) [facility] Service: Hospitalist Admission History & Physical Date of Admission: 08/06/2013 Requesting Physician: , Emergency Department Reason for Admission: Acute pancreatitis, SIRS History Obtained From: patient, chart review, Quality of history: good CHIEF COMPLAINT: Chief Complaint Chief Complaint Patient presents with Abdominal Pain Pt. has had abd pain and intractable n/v for 1 week. Pt. has pancreatic mass. Pt. is a transfer from [facility]. HISTORY OF PRESENT ILLNESS The patient is a 63 y.o. male with significant past medical history of Anxiety, depression , migraine headaches, recently diagnosed with a pancreatic mass. On July 30, 2013, the p atrussell underwent endoscopy-guided pancreas biopsy at [facility].. Since the biopsy, the pat ient has had epigastric pain that has progressively worsened with a maximum intensity of 10. He has also had associated nausea and vomiting at least 3 to 5 times per day. The patient i s unable to keep food and hydration down. For the past 2 days, he has had fevers of 99.9 to 101.3. He also reports abdominal bloating. Denies diarrhea. He has had brown stools without GI hemorrhage or pruritus. Workup in [facility] in [place] included CBC with a white count of 13,000, hemo globin and hematocrit of 12 and 38, MCV 89, neutrophils of 76%, platelet count 258. Urinalys is is not suggestive of urinary tract infection. GFR greater than 60. Sodium 137, potassium 3.8, chloride 102, bicarbonate 29, anion gap 9, calcium 9, total protein 6.9, albumin 3.8, t otal bilirubin 0.5, AST 34, ALT 38, alkaline phosphatase 80, amylase 118, lipase 296 (normal is up to 82 per their lab). The patient had CT scan of the abdomen and chest x-ray done at the outside facility. Asmitai al report is still pending. Per ER documentation, CT showed acute pancreatitis. Hospitalist service was consulted to admit the patient . He is transferred from [facility] to [facility] for GI consul tation. REVIEW OF SYSTEMS Review of Systems CONSTITUTIONAL: No recent change in weight. Apparently gained some. Appetite is poor. Has h ad fevers for the past 2 days with chills. HEENT: Has chronic migraine headaches, none at this time. No dysphagia or thrush. NECK: No neck pain or neck stiffness. RESPIRATORY: Has mild dry cough with some shortness of breath. Denies wheezing. CARDIOVASCULAR: History of bradycardia in 2006 and loop recorder was placed and then later removed in 2008. The patient does not have a permanent pacemaker. Denies any left precordial chest pain, jaw pain, arm pain, intrascapular pain. Denies history of congestive heart fail ure or syncope. GASTROINTESTINAL: Denies history of GERD or heartburn. No report of GI hemorrhage. GENITOURINARY: No dysuria, polyuria, hematuria, or kidney stones. NEUROLOGIC: Chronic intermittent dizziness, no acute change. No other focal motor weakness or tingling or numbness. DERMATOLOGIC: No decubitus ulcers or rash. ENDOCRINOLOGIC: Not a known diabetic. PSYCHIATRIC: Depression and anxiety present. Past Medical History Diagnosis Date Migraines Depression Anxiety Dizziness Past Surgical History Procedure Date Tonsillectomy Cholecystectomy Vasectomy Immunizations: Influenza:yes Pneumoccocal: yes Allergies Allergen Reactions Nalfon Rash Morphine Nausea Only Prior to Admission medications Medication Sig Start Date End Date Taking? Authorizing Provider ARIPiprazole (ABILIFY) 30 MG tablet Take 15 mg by mouth daily. Yes Historical Provider buPROPion (WELLBUTRIN SR) 200 MG 12 hr tablet Take 200 mg by mouth daily. Yes Historical Provider ciprofloxacin (CIPRO) 500 MG tablet Take 500 mg by mouth 2 (two) times daily. Yes Histori nafisa Provider fish oil-omega-3 fatty acids 1000 MG capsule Take 1 g by mouth daily. Yes Historical Prov ider MAGNESIUM OXIDE -MG SUPPLEMENT PO Take 420 mg by mouth 2 (two) times daily. Yes Historica l Provider pravastatin (PRAVACHOL) 40 MG tablet Take 20 mg by mouth nightly. Yes Historical Provider simethicone (MYLICON) 80 MG chewable tablet Take 160 mg by mouth every 6 (six) hours as nee ded. Yes Historical Provider SUMAtriptan (IMITREX) 50 MG tablet Take 50 mg by mouth as needed. Yes Historical Provider VITAMIN D, CHOLECALCIFEROL, PO Take 5,000 Units by mouth daily. Yes Historical Provider Family History Problem Relation Age of Onset AAA (abdominal aortic aneurysm) Father History Social History Marital Status: Spouse Name: N/A Number of Children: 1 Years of Education: N/A Occupational History Not on file. Social History Main Topics Smoking status: Never Smoker Smokeless tobacco: Not on file Alcohol Use: No Comment: "I quit drinking 18 years ago due to alcoholism" Drug Use: No Sexually Active: Not on file Other Topics Concern Not on file Social History Narrative Resident of [facility] [place], full code, no falls History Smoking status Never Smoker Smokeless tobacco Not on file History Alcohol Use No Comment: "I quit drinking 18 years ago due to alcoholism" History Drug Use No PHYSICAL EXAM Vital Signs: BP 107/59 | Pulse 57 | Temp 98.4 F (36.9 C) | Resp 18 | Ht 1.829 m (6') | Wt 104.327 kg (230 lb) | BMI 31.19 kg/m2 | SpO2 95% Physical Exam GENERAL: The patient is alert, oriented x3. Pain level is zero now. No family members at e bedside. HEENT: Pupils are equal and reactive to light. Anicteric. Moist oral mucosa. No thrush. NECK: Supple. No JVD. No lymphadenopathy. No thyromegaly. LUNGS: Clear to auscultation bilaterally. HEART: Regular, S1 and S2. No S3, no S4. No gallop, no murmur. No chest wall tenderness to palpation. ABDOMEN: Tenderness in the right upper quadrant and epigastrium and left upper quadrant. So ft. Nondistended. No guarding, no rigidity. Bowel sounds are hypoactive. EXTREMITIES: Bilateral lower extremities, no signs of DVT, cellulitis, ankle edema. BACK: Normal inspection. No point tenderness to the spine. No CVA tenderness. NEUROLOGIC: Grossly nonfocal. SKIN: No rash or decubitus ulcer. PSYCHIATRY : normal mood and affect. DATA Prior to Admission medications Medication Sig Start Date End Date Taking? Authorizing Provider ARIPiprazole (ABILIFY) 30 MG tablet Take 15 mg by mouth daily. Yes Historical Provider buPROPion (WELLBUTRIN SR) 200 MG 12 hr tablet Take 200 mg by mouth daily. Yes Historical Provider ciprofloxacin (CIPRO) 500 MG tablet Take 500 mg by mouth 2 (two) times daily. Yes Histori nafisa Provider fish oil-omega-3 fatty acids 1000 MG capsule Take 1 g by mouth daily. Yes Historical Prov ider MAGNESIUM OXIDE -MG SUPPLEMENT PO Take 420 mg by mouth 2 (two) times daily. Yes Historica l Provider pravastatin (PRAVACHOL) 40 MG tablet Take 20 mg by mouth nightly. Yes Historical Provider simethicone (MYLICON) 80 MG chewable tablet Take 160 mg by mouth every 6 (six) hours as nee ded. Yes Historical Provider SUMAtriptan (IMITREX) 50 MG tablet Take 50 mg by mouth as needed. Yes Historical Provider VITAMIN D, CHOLECALCIFEROL, PO Take 5,000 Units by mouth daily. Yes Historical Provider PROBLEM LIST Principal Problem: *SIRS (systemic inflammatory response syndrome) Active Problems: Acute pancreatitis Leukocytosis, unspecified Fever Nausea with vomiting Abdominal pain, left upper quadrant Pancreatic mass ASSESSMENT & PLAN Systemic inflammatory response syndrome with report of fevers of 101.3 degrees at home, dinorah kocytoses and sinus tachycardia. Etiology is acute pancreatitis.Etiology most likely complic ation of endoscopic fine-needle aspiration. Admit to acute care floor as I anticipate more than 2 midnight stay for IV hydration and sy mptom control. Dr. Walker, GI, consulted. Recommended IV hydration, n.p.o., and follow the lisa mclaughlin. No empiric antibiotics at this time. He does not recommend any further imaging. Once s ymptoms are controlled, he recommends the patient be discharged to follow up with the [facility] in [place] for further workup.Requested the CT scan of the abdomen and pelvis and chest x-ray reports from [facility] in [place]. Left upper quadrant abdominal pain, nausea, vomiting, and leukocytosis secondary to acute pancreatitis. The patient also has a pancreatic mass, status post FNAC on July 30, 2013. The results are not available for my review. It was done at the [facility]. Addendum: 1pm Results for orders placed during the hospital encounter of 08/06/13 (from the past 24 hour( s)) CBC W/AUTO DIFF (REFLEX TO MANUAL) Collection Time 08/06/13 8:44 AM Component Value Range WBC 12.1 (*) 3.8 - 11.0 K/uL RBC 4.06 (*) 4.20 - 5.70 M/uL HGB 12.4 (*) 13.2 - 17.0 g/dL HCT 36.8 (*) 39.0 - 50.0 % MCV 90.5 80.0 - 100.0 fl MCH 30.6 27.0 - 34.0 pg MCHC 33.8 32.0 - 35.5 g/dL RDW SD 41.1 37 - 53 fl PLT 269 150 - 400 K/uL MPV 8.5 DIFF TYPE AUTOMATED NEUTROPHILS 76.3 LYMPHOCYTES 12.4 MONOCYTES 7.9 EOSINOPHILS 3.2 BASOPHILS 0.2 NEUTROPHILS ABS 9.3 (*) 1.9 - 7.4 K/uL LYMPHOCYTES ABS 1.5 1.0 - 3.9 K/uL MONOCYTES ABS 1.0 (*) 0 - 0.8 K/uL EOSINOPHILS ABS 0.4 0 - 0.5 K/uL BASOPHILS ABS 0.0 0 - 0.1 K/uL COMPREHENSIVE METABOLIC PANEL Collection Time 08/06/13 8:44 AM Component Value Range SODIUM 140 135 - 143 mmol/L POTASSIUM 3.8 3.5 - 4.9 mmol/L CHLORIDE 106 99 - 109 mmol/L CO2 27 23 - 32 mmol/L ANION GAP AGAP 11 5 - 20 mmol/L GLUCOSE 98 65 - 99 mg/dL BUN 15 8 - 25 mg/dL CREATININE 1.08 0.70 - 1.30 mg/dL BUN/CREAT 14 CALCIUM 8.5 8.5 - 10.2 mg/dL TOTAL PROTEIN 7.0 6.3 - 8.2 g/dL Albumin 3.1 (*) 3.3 - 4.8 g/dL GLOBULIN 3.9 1.3 - 4.9 g/dL A/G 0.8 (*) 1.0 - 2.4 TBIL 0.6 0.1 - 1.5 mg/dL ALK PHOS 109 35 - 115 U/L AST 37 10 - 45 U/L ALT 47 10 - 65 U/L EGFR >60 >60 mL/min/1.73m2 LIPASE Collection Time 08/06/13 8:44 AM Component Value Range LIPASE 601 (*) 73 - 393 U/L MAGNESIUM Collection Time 08/06/13 8:44 AM Component Value Range MAGNESIUM 2.1 1.7 - 2.4 mg/dL PHOSPHOROUS Collection Time 08/06/13 8:44 AM Component Value Range PHOSPHORUS 3.2 2.3 - 4.8 mg/dL PROTIME-INR Collection Time 08/06/13 8:44 AM Component Value Range INR 1.1 C-REACTIVE PROTEIN Collection Time 08/06/13 8:44 AM Component Value Range CRP 17.0 (*) <0.5 mg/dL CT abd /pelvis And cxr not yet available for my review yet. Disposition: Acute care Code Status: Full code Primary Care Physician: WANDA WHITE MD 08/06/2013 documented in this encou nter ED Notes Conversion Transaction, Provider Unknown - 08/06/2013 10:01 AM PSTFormatting of this note m ight be different from the original. ED Notes by Florencia Fulton RN at 08/06/13 1001 Author: Florencia Fulton RN Service: (none) Author Type: Registered Nurse Filed: 08/06/13 1001 Date of Service: 08/06/13 1001 Status: Signed Time Broker: Florencia Fulton RN (Registered Nurse) RM 322 approved, pt updated. Florencia Fulton RN 08/06/13 1001 onver mane Transaction, Provider Unknown - 08/06/2013 8:51 AM PST ED Notes by Florencia Fulton RN at 08/06/13850 Author: Florencia Fulton RN Service: (none) Author Type: Registered Nurse Filed: 08/06/13850 Date of Service: 08/06/13850 Status: Signed Time Broker: Florencia Fulton RN (Registered Nurse) Pt awaiting hospital room aware of status, nad Florencia Fulton RN 08/06/13850 onver mane Transaction, Provider Unknown - 08/06/2013 8:37 AM PST ED Notes by Florencia Fulton RN at 08/06/13836 Author: Florencia Fulton RN Service: (none) Author Type: Registered Nurse Filed: 08/06/13836 Date of Service: 08/06/13836 Status: Signed Time Broker: Florencia Fulton RN (Registered Nurse) Lab at bedside Florencia Fulton RN 08/06/13836 onver mane Transaction, Provider Unknown - 08/06/2013 8:23 AM PST ED Notes by Florencia Fulton RN at 08/06/13822 Author: Florencia Fulton RN Service: (none) Author Type: Registered Nurse Filed: 08/06/13822 Date of Service: 08/06/13822 Status: Signed Time Broker: Florencia Fulton RN (Registered Nurse) Unable to draw from pts iv, Lab called for blood draw. Florencia Fulton RN 08/06/13822 onver mane Transaction, Provider Unknown - 08/06/2013 8:04 AM PST ED Notes by Florencia Fulton RN at 08/06/13803 Author: Florencia Fulton RN Service: (none) Author Type: Registered Nurse Filed: 08/06/13803 Date of Service: 08/06/13803 Status: Signed Time Broker: Florencia Fulton RN (Registered Nurse) Dr Moran at bedside Florencia Fulton ANICETO 08/06/1304 John Livingston MD - 08/06/2013 7:30 AM PSTFormatting of this note might be different from the or iginal. ED Provider Notes by John Vanessa MD at 08/06/13729 Author: John Vanessa MD Service: (none) Author Type: Physician Filed: 08/06/13902 Date of Service: 08/06/13729 Status: Signed Time Broker: John Vanessa MD (Physician) [facility] Department of Emergency Medicine History of Present Illness Patient Identification Arpit Lindquist is a 63 y.o. male. Patient information was obtained from patient. History/Exam limitations: none. Patient presented to the Emergency Department [facility] Room: Chief Complaint Chief Complaint Patient presents with Abdominal Pain Pt. has had abd pain and intractable n/v for 1 week. Pt. has pancreatic mass. Pt. is a tr kirill from [facility]. 63-year-old gentleman transferred from [facility] for intractable vomiting and abdominal pain. Patient was recently diagnosed with a pancreatic mass and underwent a fine-n eedle biopsy. He does not know the results of the biopsy. Since that time he said continue w ith abdominal pain. Presented to the emergency department had normal labs. CT scan showed in flammation of the pancreas. As he did not have a GI consult and they referred him to our hoa ency department for further evaluation and hospitalization. Pain is located centrally with no radiation. He's had some nausea and vomiting which has been nonbloody and nonbilious. De nies any bloody stool or diarrhea. Primary Care Doctor: WANDA MOHAMUD Past Medical History Diagnosis Date Migraines Depression Anxiety Dizziness Past Surgical History Procedure Date Tonsillectomy Cholecystectomy Vasectomy Prior to Admission medications Medication Sig Start Date End Date Taking? Authorizing Provider ARIPiprazole (ABILIFY) 30 MG tablet Take 15 mg by mouth daily. Yes Historical Provider buPROPion (WELLBUTRIN SR) 200 MG 12 hr tablet Take 200 mg by mouth daily. Yes Historical Provider ciprofloxacin (CIPRO) 500 MG tablet Take 500 mg by mouth 2 (two) times daily. Yes Histori nafisa Provider fish oil-omega-3 fatty acids 1000 MG capsule Take 1 g by mouth daily. Yes Historical Prov ider MAGNESIUM OXIDE -MG SUPPLEMENT PO Take 420 mg by mouth 2 (two) times daily. Yes Historica l Provider pravastatin (PRAVACHOL) 40 MG tablet Take 20 mg by mouth nightly. Yes Historical Provider simethicone (MYLICON) 80 MG chewable tablet Take 160 mg by mouth every 6 (six) hours as nee ded. Yes Historical Provider SUMAtriptan (IMITREX) 50 MG tablet Take 50 mg by mouth as needed. Yes Historical Provider VITAMIN D, CHOLECALCIFEROL, PO Take 5,000 Units by mouth daily. Yes Historical Provider Allergies Allergen Reactions Nalfon Rash Morphine Nausea Only History Social History Marital Status: Spouse Name: N/A Number of Children: 1 Years of Education: N/A Occupational History Not on file. Social History Main Topics Smoking status: Never Smoker Smokeless tobacco: Not on file Alcohol Use: No Comment: "I quit drinking 18 years ago due to alcoholism" Drug Use: No Sexually Active: Not on file Other Topics Concern Not on file Social History Narrative [facility], full code, no falls Family History Problem Relation Age of Onset AAA (abdominal aortic aneurysm) Father Review of Systems Positive for: Abdominal pain, vomiting No fever, chills No decreased vision, hearing loss, difficult swallowing, difficulty breathing. No headache, chest pain, weakness or rash. No difficulty with urination or bowel movements. No other complaints. See HPI for further relevant details. All systems otherwise negative, except as recorded above and as recorded in the HPI. Physical Exam BP 109/62 | Pulse 58 | Temp 98.4 F (36.9 C) | Resp 18 | Ht 1.829 m (6') | Wt 104.327 kg (230 lb) | BMI 31.19 kg/m2 | SpO2 99% INTERPRETATION OF VITALS Pulse Oximetry interpretation: Normal Otherwise normal PHYSICAL EXAM Appearance: Alert. No acute distress. Head: Normal external exam Eyes: EOMI, PERRL, no scleral icterus ENT: Normal external ENT inspection. Neck: Supple. FROM. CVS: Normal heart rate and rhythm. Heart sounds normal. Pulses normal. Respiratory: No respiratory distress. No wheezing, rales, or rhonchi. Abdomen: Soft and nontender. No rebound or guarding. Genitourinary: Deferred Back: Moves without difficulty. Skin: Skin warm and dry. Extremities: No deformity. Neuro: Moves all extremities. No gross deficit. Medical Decision Making and Emergency Department Course ED Department Course: 7:30 AM Arpit Lindquist is a 63 y.o. male who presents with a chief complaint of abdominal pain a nd vomiting. Labs were unremarkable as well as his CT scan. Patient has been transferred he re for pain control, hydration, possible GI consult. PA has been contacted to obtain results of the biopsy. We will contact the hospitalist for admission. 8:01 AM Discussed case with Dr. White (hospitalist). Records Reviewed Old medical records. Nursing notes. Laboratory Evaluation Results Procedure Component Value Ref Range Date/Time CBC W/Auto Diff (Reflex to Manual) [[id number]] (Abnormal) Collected:08/06/13843 Order Status:Completed Updated:08/06/13899 Specimen Information:Blood WBC 12.1 (H) 3.8 - 11.0 K/uL RBC 4.06 (L) 4.20 - 5.70 M/uL HGB 12.4 (L) 13.2 - 17.0 g/dL HCT 36.8 (L) 39.0 - 50.0 % MCV 90.5 80.0 - 100.0 fl MCH 30.6 27.0 - 34.0 pg MCHC 33.8 32.0 - 35.5 g/dL RDW SD 41.1 37 - 53 fl PLT 269 150 - 400 K/uL MPV 8.5 fl DIFF TYPE AUTOMATED NEUTROPHILS 76.3 % LYMPHOCYTES 12.4 % MONOCYTES 7.9 % EOSINOPHILS 3.2 % BASOPHILS 0.2 % NEUTROPHILS ABS 9.3 (H) 1.9 - 7.4 K/uL LYMPHOCYTES ABS 1.5 1.0 - 3.9 K/uL MONOCYTES ABS 1.0 (H) 0 - 0.8 K/uL EOSINOPHILS ABS 0.4 0 - 0.5 K/uL BASOPHILS ABS 0.0 0 - 0.1 K/uL Phosphorus [[id number]] Collected:08/06/13843 Order Status:Sent Updated:08/06/13856 Specimen Information:Blood Protime-INR [[id number]] Collected:08/06/13843 Order Status:Sent Updated:08/06/13856 Specimen Information:Blood Magnesium [[id number]] Collected:08/06/13843 Order Status:Sent Updated:08/06/13856 Specimen Information:Blood Comprehensive metabolic panel [[id number]] Collected:08/06/13843 Order Status:Sent Updated:08/06/13856 Specimen Information:Blood Lipase [[id number]] Collected:08/06/13843 Order Status:Sent Updated:08/06/13856 Specimen Information:Blood Lab Interpretation I have reviewed lab results from the emergency department workup and abnormal results have been posted to the chart. Pertinent positive and negative findings have been addressed appr opriately. Radiology and EKG Evaluation Imaging Results None ED Diagnoses Final diagnoses Abdominal pain Intractable vomiting Pancreatic mass Disposition: ED Disposition Admit/Observation Requested Unit:: Acute Care Bed request special needs: None Diagnosis?: intractable vomiting, abdominal pain Follow-up Information None Discharge Medications: New Prescriptions No new medications This chart has been completed using dictation software and may contain sound-alike errors. Additional Documentation Procedures John Vanessa MD 08/06/13902 onversion Transactio n, Provider Unknown - 08/06/2013 7:18 AM PST ED Notes by Florencia Fulton RN at 08/06/13717 Author: Florencia Fulton RN Service: (none) Author Type: Registered Nurse Filed: 08/06/13717 Date of Service: 08/06/13717 Status: Signed Time Broker: Florencia Fulton RN (Registered Nurse) Bed:13
Expected date:
Expected time:
Means of arrival:
Comments:
onver mane Transaction, Provider Unknown - 08/06/2013 6:08 AM PST ED Notes by Dominick Quijano RN at 08/06/13607 Author: Dominick Quijano RN Service: (none) Author Type: Registered Nurse Filed: 08/06/13615 Date of Service: 08/06/13607 Status: Signed Time Broker: Dominick Quijano RN (Registered Nurse) Ismael Holder RN at [facility] ED: Presented at 20:00 complaining of abdominal pain and vomiting since 07/30. Seen at [facility] for pancreatic biopsy 07/30, patient reports pain and fever since. Has not been taking medications except for Cipro for 1 week 20g IVP right arm 1L NS, NS at 125mL/hour 4mg zofran IVP 150mcg fentanyl (50mcg x3) IVP 20mg Pepcid CT: pancreatitis WBC 13.3, amylace, 118, lipase 296 Hx: migraines, depression, anxiety, danyell, vasectomy, 1148/73, HR 69, temp 98.7, RR 16, 98% SaO2 room air, pain 08/21 Dominick Quijano RN 08/06/13 06 docume nted in this encounter Plan of Treatment Not on filedocumented as of this encounter Procedures + +--------+ + + + | Procedure Name | Priori | Date/Time | Associated Diagnosis | Comments | | | ty | | | | + +--------+ + + + | CULTURE, BLOOD, 2ND | Timed | 08/06/2013 | | Results for this | | SPECIMEN (NON-ORD) | | 8:50 AM | | procedure are in the | | | | PST | | results section. | + +--------+ + + + | CULTURE, BLOOD | Timed | 08/06/2013 | | Results for this | | | | 8:44 AM | | procedure are in the | | | | PST | | results section. | + +--------+ + + + | CT ABDOMEN PELVIS W | Routin | 08/06/2013 | | Results for this | | CONTRAST | e | 1:30 AM | | procedure are in the | | | | PST | | results section. | + +--------+ + + + | XR ABDOMEN AP | Routin | 08/05/2013 | | Results for this | | UPRIGHT KUB AND PA | e | 9:30 PM | | procedure are in the | | CHEST | | PST | | results section. | + +--------+ + + + documented in this encounter Results Culture, Blood, 2nd Specimen (08/06/2013 8:50 AM PST) + + | Specimen | + + | Blood specimen | | (specimen) | + + + + + | Narrative | Performed At | + + + | Specimen Description BLOOD CULTURE | EXTERNAL LAB | | NO GROWTH 6 DAYS | | | Testing performed at [facility], [address] | | [place] [address] REPORT STATUS | | | 08/12/2013 FINAL | | + + + + +---------+ + + | Performing | Address | City/State/Zipcode | Phone Number | | Organization | | | | + +---------+ + + | EXTERNAL LAB | | | | + +---------+ + + Culture, Blood (08/06/2013 8:44 AM PST) + + | Specimen | + + | Blood specimen | | (specimen) | + + + + + | Narrative | Performed At | + + + | Specimen Description BLOOD CULTURE | EXTERNAL LAB | | NO GROWTH 6 DAYS | | | Testing performed at [facility], [address] | | [place] [address] REPORT STATUS | | | 08/12/2013 FINAL | | + + + + +---------+ + + | Performing | Address | City/State/Zipcode | Phone Number | | Organization | | | | + +---------+ + + | EXTERNAL LAB | | | | + +---------+ + + CT Abdomen Pelvis w Contrast (08/06/2013 1:30 AM PST) + + | Specimen | + + | | + + + + + | Narrative | Performed At | + + + | This is a non-reportable procedure without a radiologist report and | | | is used for image storage only | | + + + + + | Procedure Note | + + | Carlos, Rad Conversion - 04/03/2019 8:20 PM PDT This is a non-reportable procedure | | without a radiologist report and isused for image storage only | + + XR Abd Supine and Upright w 1 Vw Chest (08/05/2013 9:30 PM PST) + + | Specimen | + + | | + + + + + | Narrative | Performed At | + + + | This is a non-reportable procedure without a radiologist report and | | | is used for image storage only | | + + + + + | Procedure Note | + + | Gavino Gonzalez - 04/03/2019 8:20 PM PDT This is a non-reportable procedure | | without a radiologist report and isused for image storage only | + + documented in this encounter Visit Diagnoses + + | Diagnosis | + + | Abdominal pain Abdominal pain, unspecified site | + + | Intractable vomiting Persistent vomiting | + + | Pancreatic mass Unspecified disease of pancreas | + + | Abdominal pain, left upper quadrant | + + | Acute pancreatitis | + + | Fever Fever, unspecified | + + | Leukocytosis, unspecified | + + | Nausea with vomiting | + + | SIRS (systemic inflammatory response syndrome) (HCC) Systemic inflammatory response | | syndrome, unspecified | + + documented in this encounter
--- OUTSIDE RECORDS SUMMARY | 2020-02-18 12:00 | XMS ---
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 Care History Medical/Surgical 06/02/2019 [facility] - PATIENT HAS AN APT WITH CL[place]ICAL PHARMACIST AT THE [place] 06/09/[place] TO GO OVER MEDICATIONS AND DIABETES EDUCATION. - PATIENT HAS AN APT WITH PCP DR [place] THE [place] ON 06/15/19. 03/12/2019 [facility] - PATIENT HAS AN APT WITH PCP DR [place] THE [place] 04/02/19. - PATIENT HAS A CHRONIC CONDITION DUE TO DIZZINESS AND HEADACHES- MECLIZINE HAS BEEN PRESCRIBED BY PCP IN THE PAST. E.D. VISIT COUNT (12 MO.) 7 [facility] TOTAL 7 NOTE: Visits indicate total known visits. ED/UCC VISIT TRACKING (12 MO.) 02/18/2020 11:57 [facility] [place] TYPE: Emergency COMPLAINT: - R ARM NUMBNESS 10/28/2019 23:17 [facility] [place] TYPE: Emergency COMPLAINT: - CHEST PAIN DIAGNOSES: - Migraine, unspecified, not intractable, without status migrai - Type 2 diabetes mellitus without complications - Other chest pain - Chest pain, unspecified - Anxiety disorder, unspecified - Major depressive disorder, single episode, unspecified 10/27/2019 03:31 [facility] [place] [facility] [place] TYPE: Emergency COMPLAINT: - CHEST PAIN DIAGNOSES: - Other chest pain - Chest pain, unspecified - Migraine, unspecified, not intractable, without status migrai - Other oysterman (current) drug therapy - Type 2 diabetes mellitus without complications - Anxiety disorder, unspecified - Major depressive disorder, single episode, unspecified 06/01/2019 23:15 [facility] [place]: Emergency COMPLAINT: - LOW BLOOD SUGAR DIAGNOSES: - Anxiety disorder, unspecified - Type 2 diabetes mellitus with hypoglycemia without coma - Major depressive disorder, single episode, unspecified - terminal gauger supervisor (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 of insulin - Allergy status to other drugs, medicaments and biological sub - Allergy status to narcotic agent status - Allergy status to analgesic agent status - Other retirement (current) drug therapy 05/01/2019 00:05 [facility] [place] [place] TYPE: Emergency COMPLAINT: - POSS LOW BLOOD SUGAR DIAGNOSES: - Allergy status to narcotic agent status - Adverse effect of insulin and oral hypoglycemic [antidiabetic - Major depressive disorder, single episode, unspecified - Type 2 diabetes mellitus with hypoglycemia without coma - MCFP (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 of insulin - Anxiety disorder, unspecified - Other retirement (current) drug therapy 03/11/2019 19:40 [facility] [place] TYPE: Emergency COMPLAINT: - DIZZINESS, HEADACHE DIAGNOSES: - Other retirement (current) drug therapy - Dehydration - Allergy status to other drugs, medicaments and biological sub - Anxiety disorder, unspecified - terminal gauger supervisor (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 of aspirin - terminal gauger supervisor (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 of insulin - Allergy status to narcotic agent status - Dizziness and giddiness - Type 2 diabetes mellitus without complications - Major depressive disorder, single episode, unspecified 02/26/2019 20:13 [facility] [place] TYPE: Emergency COMPLAINT: - LEG PAIN/NON INURY DIAGNOSES: - Other retirement (current) drug therapy - Type 2 diabetes mellitus without complications - Exposure to other specified factors, initial encounter - Allergy status to narcotic agent status - Superficial foreign body, left thigh, initial encounter - Anxiety disorder, unspecified - terminal gauger supervisor (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 of aspirin - Disorder of the skin and subcutaneous tissue, unspecified - Acquired absence of other organs - Allergy status to analgesic agent status - Major depressive disorder, single episode, unspecified - terminal gauger supervisor (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 of insulin INPATIENT VISIT TRACKING (12 MO.) No inpatient visits to display in this time frame [id number]
[2020-02-18] MEDS ORDERED: PREDNISONE20 MG PO (13:04)
== END 2020-02-18 13:30 | disposition home or self-care (01) ==
LOC: ED 11:56
DX: M54.12 Radiculopathy, cervical region (principal); G43.909 Migraine, unspecified, not intractable, without status migrainosus; F41.9 Anxiety disorder, unspecified; E11.9 Type 2 diabetes mellitus without complications; Z88.5 Allergy status to narcotic agent; Z88.8 Allergy status to other drugs, medicaments and biological substances; Z79.899 Other long term (current) drug therapy
CPT/HCPCS: 72040; 99284-25; J1100

== ENCOUNTER 2020-04-24 00:01 | Emergency (ER) | payer MEDICARE ==
[~2020-04-24] VITALS: Ht 182.9 cm; Wt 96.2 kg
[~2020-04-24 00:01] MED LIST changes: +PREDNISONE20 MG PO
--- OUTSIDE RECORDS SUMMARY | 2020-04-24 00:04 | XMS ---
PreManage Notification: SUSANNA LIU Security Education Supervisor Events No recent Security Events currently on file CRITERIA MET - Group Notification [facility]Current PHONE: Unknown Leroy has no Care Guidelines for this patient. Care History Medical/Surgical 02/19/2020 [facility] \T\middot;\T\nbsp; PATIENT IS A -RECEIVES SERVICES THROUGH [facility] IN [place]. \T\middot;\T\nbsp; [place] [address]- 06/02/2019 [facility] - PATIENT HAS AN APT WITH CLINICAL PHARMACIST AT THE [facility] 06/09/19 TO GO OVER MEDICATIONS AND DIABETES EDUCATION. - PATIENT HAS AN APT WITH PCP DR ROTHMAN AT THE [facility] ON 06/15/19. 03/12/2019 [facility] - PATIENT HAS AN APT WITH PCP DR ROTHMAN AT THE [facility] ON 04/02/19. - PATIENT HAS A CHRONIC CONDITION DUE TO DIZZINESS AND HEADACHES- MECLIZINE HAS BEEN PRESCRIBED BY PCP IN THE PAST. E.D. VISIT COUNT (12 MO.) [address] [facility] [place] TOTAL 6 NOTE: Visits indicate total known visits. ED/UCC VISIT TRACKING (12 MO.) 04/24/2020 00:02 [facility] [place] TYPE: Emergency COMPLAINT: - WEAKNESS 02/18/2020 11:57 [facility] [place] TYPE: Emergency COMPLAINT: - R ARM NUMBNESS DIAGNOSES: - Migraine, unspecified, not intractable, without status migrai - Radiculopathy, cervical region - Paresthesia of skin - Anxiety disorder, unspecified - Type 2 diabetes mellitus without complications - Other retirement (current) drug therapy - Allergy status to narcotic agent status - Allergy status to other drugs, medicaments and biological sub 10/28/2019 23:[address] [facility] [place] TYPE: Emergency COMPLAINT: - CHEST PAIN DIAGNOSES: - Migraine, unspecified, not intractable, without status migrai - Type 2 diabetes mellitus without complications - Other chest pain - Chest pain, unspecified - Anxiety disorder, unspecified - Major depressive disorder, single episode, unspecified 10/27/2019 03:31 [facility] [place] TYPE: Emergency COMPLAINT: - CHEST PAIN DIAGNOSES: - Other chest pain - Chest pain, unspecified - Migraine, unspecified, not intractable, without status migrai - Other intermission coordinator (current) drug therapy - Type 2 diabetes mellitus without complications - Anxiety disorder, unspecified - Major depressive disorder, single episode, unspecified 06/01/2019 23:15 [facility] [place] TYPE: Emergency COMPLAINT: - LOW BLOOD SUGAR DIAGNOSES: - Anxiety disorder, unspecified - Type 2 diabetes mellitus with hypoglycemia without coma - Major depressive disorder, single episode, unspecified - half-way (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 of insulin - Allergy status to other drugs, medicaments and biological sub - Allergy status to narcotic agent status - Allergy status to analgesic agent status - Other retirement (current) drug therapy 05/01/2019 00:[address] [facility] [place] TYPE: Emergency COMPLAINT: - POSS LOW BLOOD SUGAR DIAGNOSES: - Allergy status to narcotic agent status - Adverse effect of insulin and oral hypoglycemic [antidiabetic - Major depressive disorder, single episode, unspecified - Type 2 diabetes mellitus with hypoglycemia without coma - terminal worker (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 of insulin - Anxiety disorder, unspecified - Other intermission coordinator (current) drug therapy INPATIENT VISIT TRACKING (12 MO.) No inpatient visits to display in this time frame [email or web address]
[2020-04-24] MEDS ORDERED: TRANSDERM-SCOP1 EACH TD (02:02)
--- NOTE | 2020-04-24 16:31 | EKG ---
[facility] [address] [facility] [place] [address] Signed Sinus bradycardia Otherwise normal ECG When compared with ECG of 28-OCT-2019 23:22, No significant change was found Confirmed by EDSON JEAN DO ([id number]) on 04/24/2020 4:30:52 PM Electronically Signed By: EDSON JEAN DO 04/24/20 1631 PATIENT NAME: SUSANNA LIU ANUP Electrocardiogram DATE OF : 50 PHYSICIAN: EDSON JEAN DO REPORT #: [id number] REPORT IS CONFIDENTIAL AND NOT TO BE RELEASED WITHOUT AUTHORIZATION
== END 2020-04-24 02:24 | disposition home or self-care (01) ==
LOC: ED 00:01
DX: R42 Dizziness and giddiness (principal); F32.9 Major depressive disorder, single episode, unspecified; F41.9 Anxiety disorder, unspecified; E11.9 Type 2 diabetes mellitus without complications; Z88.8 Allergy status to other drugs, medicaments and biological substances; Z88.5 Allergy status to narcotic agent; Z79.899 Other long term (current) drug therapy; Z79.84 Long term (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
CPT/HCPCS: 70450; 80053; 81001; 83735; 84484; 85025; 85610; 85730; 93005; 93010; 96374; 99285-25; J2405

== ENCOUNTER 2021-03-24 01:36 | Emergency (ER) | payer MEDICARE ==
[~2021-03-24] VITALS: Ht 182.9 cm; Wt 88.9 kg
[~2021-03-24 01:36] MED LIST changes: +TRANSDERM-SCOP1 EACH TD
--- OUTSIDE RECORDS SUMMARY | 2021-03-24 01:44 | XMS ---
PreManage Notification: SUSANNA LIU Security Health Science Specialist Events No recent Security Events currently on file CRITERIA MET - Group Notification CARE PROVIDERS FLORESITA Soto Gum Maker: Clinical 04/25/2020-Current [facility] \F\ [facility] PHONE: [phone] SARAH ROTHMAN [facility] 03/27/2018-Current PHONE: Unknown Leroy has no Care Guidelines for this patient. Care History Medical/Surgical 02/19/2020 [facility] \T\middot;\T\nbsp; PATIENT IS A -RECEIV[facility]OUGH [facility] [place]. \T\middot;\T\nbsp; Location: [address], [place] [address]- 06/02/2019 [facility] - PATIENT HAS AN APT WITH CLINICAL PHARMACIST AT [facility] 06[facility]/19 TO GO OVER MEDICATIONS AND DIABETES EDUCATION. - PATIENT HAS AN APT WITH PCP DR R[facility]MAN [facility] ON 06/15/19. 03/12/2019 [facility] - PATIENT HAS AN APT WITH PCP DR RTOHMAN AT [facility] ON 04/02/19. - PATIENT HAS A CHRONIC CONDITION DUE TO DIZZINESS AND HEADACHES- MECLIZINE HAS BEEN PRESCRIBED BY PCP IN THE PAST. E.Jeff. VISIT COUNT (12 MO.) 2 [facility] TOTAL 2 NOTE: Visits indicate total known visits. ED/UCC VISIT TRACKING (12 MO.) 03/24/2021 01:36 [facility] [place] TYPE: Emergency COMPLAINT: - RT SIDE ABDOMINAL PAIN 04/24/2020 00:02 [facility] [place] TYPE: Emergency COMPLAINT: - WEAKNESS DIAGNOSES: - Dizziness and giddiness - Other shelter (current) drug therapy - Allergy status to other drugs, medicaments and biological substances - Major depressive disorder, single episode, unspecified - Type 2 diabetes mellitus without complications - Allergy status to narcotic agent - Weakness - Anxiety disorder, unspecified - assisted (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 INPATIENT VISIT TRACKING (12 MO.) No inpatient visits to display in this time frame [email or web address]
== END 2021-03-24 03:31 | disposition home or self-care (01) ==
LOC: ED 01:36
DX: R10.31 Right lower quadrant pain (principal); E11.9 Type 2 diabetes mellitus without complications; Z88.8 Allergy status to other drugs, medicaments and biological substances; Z88.5 Allergy status to narcotic agent; Z79.899 Other long term (current) drug therapy; Z79.84 Long term (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
CPT/HCPCS: 74176; 80053; 81001; 83690; 85025; 96374; 99284-25; J1885; J7030

== ENCOUNTER 2021-05-20 15:14 | Emergency (ER) | payer MEDICARE, OTHER ==
[~2021-05-20] VITALS: Ht 182.9 cm; Wt 88.9 kg
--- OUTSIDE RECORDS SUMMARY | 2021-05-20 15:20 | XMS ---
PreManage Notification: SUSANNA LIU Security Collector Of Aquarium Specimens Events No recent Security Events currently on file CRITERIA MET - Group Notification CARE PROVIDERS FLORESITA Soto Company Accountant: Clinical 04/25/2020-Current [facility] \F\ [facility] PHONE: [phone] SARAH ROTHMAN [facility] 03/27/2018-Current PHONE: Unknown Leroy has no Care Guidelines for this patient. Care History Medical/Surgical 02/19/2020 [facility] \T\middot;\T\nbsp; PATIENT IS A -RECEIVES SERVICES THROUGH CT IN [place]. \T\middot;\T\nbsp; Location: [address], [place] [address]- 06/02/2019 [facility] - PATIENT HAS AN APT WITH CLINICAL PHARMACIST AT THE CT 06/09/19 TO GO OVER MEDICATIONS AND DIABETES EDUCATION. - PATIENT HAS AN APT WITH PCP DR ROTHMAN AT THE CT ON 06/15/19. 03/12/2019 [facility] - PATIENT HAS AN APT WITH PCP DR ROTHMAN AT THE CT ON 04/02/19. - PATIENT HAS A CHRONIC CONDITION DUE TO DIZZINESS AND HEADACHES- MECLIZINE HAS BEEN PRESCRIBED BY PCP IN THE PAST. [place] VISIT COUNT (12 MO.) 2 [facility] TOTAL 2 NOTE: Visits indicate total known visits. ED/UCC VISIT TRACKING (12 MO.) 05/20/2021 15:14 [facility] [place] TYPE: Emergency COMPLAINT: - FALL 03/24/2021 01:36 [facility] [place] TYPE: Emergency COMPLAINT: - RT SIDE ABDOMINAL PAIN DIAGNOSES: - Allergy status to narcotic agent - Allergy status to other drugs, medicaments and biological substances - Type 2 diabetes mellitus without complications - Other skilled nursing (current) drug therapy - Right lower quadrant pain - halfway (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 INPATIENT VISIT TRACKING (12 MO.) No inpatient visits to display in this time frame [id number]
[2021-05-20] MEDS ORDERED: HYDROCODON-ACE1 EA11 PO (17:47)
== END 2021-05-20 17:55 | disposition home or self-care (01) ==
LOC: ED 15:14
DX: S01.21XA Laceration without foreign body of nose, initial encounter (principal); S01.411A Laceration without foreign body of right cheek and temporomandibular area, initial encounter; S66.911A Strain of unspecified muscle, fascia and tendon at wrist and hand level, right hand, initial encounter; S66.912A Strain of unspecified muscle, fascia and tendon at wrist and hand level, left hand, initial encounter; S23.3XXA Sprain of ligaments of thoracic spine, initial encounter; W01.0XXA Fall on same level from slipping, tripping and stumbling without subsequent striking against object, initial encounter; G43.909 Migraine, unspecified, not intractable, without status migrainosus; E11.9 Type 2 diabetes mellitus without complications; Z88.5 Allergy status to narcotic agent; Z88.8 Allergy status to other drugs, medicaments and biological substances; Z79.84 Long term (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; Z79.899 Other long term (current) drug therapy
CPT/HCPCS: 72070; 72100; 73110; 96374; 96375; 96376; 99283-25; J1170; J2405

== ENCOUNTER 2021-06-05 18:29 | Emergency (ER) | payer MEDICARE ==
--- OUTSIDE RECORDS SUMMARY | 2021-06-05 18:30 | XMS ---
PreManage Notification: SUSANNA LIU Security Marina Manager Events No recent Security Events currently on file CRITERIA MET - Group Notification - [facility] - 2 Visits in 30 Days CARE PROVIDERS FLORESITA Soto Brake Repair Supervisor: Clinical 04/25/2020-Current [facility] \F\ [facility] PHONE: [phone] SARAH ROTHMAN [facility] 03/27/2018-Current PHONE: Unknown Leroy has no Care Guidelines for this patient. Care History Medical/Surgical 02/19/2020 [facility] \T\middot;\T\nbsp; PATIENT IS A -RECEIVES SERVICES THROUGH [place] IN [place]. \T\middot;\T\nbsp; Location: [address], [place] [address]- 06/02/2019 [facility] - PATIENT HAS AN APT WITH CLINICAL PHARMACIST AT THE NH 06/09/19 TO GO OVER MEDICATIONS AND DIABETES EDUCATION. - PATIENT HAS AN APT WITH PCP DR ROTHMAN AT THE NH ON 06/15/19. 03/12/2019 [facility] - PATIENT HAS AN APT WITH PCP DR ROTHMAN AT THE NH ON 04/02/19. - PATIENT HAS A CHRONIC CONDITION DUE TO DIZZINESS AND HEADACHES- MECLIZINE HAS BEEN PRESCRIBED BY PCP IN THE PAST. [place] VISIT COUNT (12 MO.) 3 [facility] TOTAL 3 NOTE: Visits indicate total known visits. ED/UCC VISIT TRACKING (12 MO.) 06/05/2021 18:29 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 - Fall on same level from slipping, tripping and stumbling without subsequent striking against object, initial encounter - Laceration without foreign body of right cheek and temporomandibular area, initial encounter - Type 2 diabetes mellitus without complications - Allergy status to other drugs, medicaments and biological substances - Pain in thoracic spine - Strain of unspecified muscle, fascia and tendon at wrist and hand level, right hand, initial encounter - Strain of unspecified muscle, fascia and tendon at wrist and hand level, left hand, initial encounter 03/24/2021 01:36 [facility] [place] TYPE: Emergency COMPLAINT: - RT SIDE ABDOMINAL PAIN DIAGNOSES: - Allergy status to narcotic agent - Allergy status to other drugs, medicaments and biological substances - Type 2 diabetes mellitus without complications - Other halfway (current) drug therapy - Right lower quadrant pain - 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
[2021-06-05] MEDS ORDERED: HYDROXYZINE HCL10 MG PO (18:45)
[2021-06-05] MEDS ORDERED: ALOGLIPTIN25 MG PO (18:45)
[2021-06-05] MEDS ORDERED: LANTUS SOL100 UNIT/1 SUB-Q (18:46)
[2021-06-05] MEDS ORDERED: HYDROCODON-ACE1 EA11 PO (20:23)
[2021-06-05] MEDS ORDERED: DICLOFENAC SODI75 MG PO (20:23)
== END 2021-06-05 20:32 | disposition home or self-care (01) ==
LOC: ED 18:29
DX: M54.6 Pain in thoracic spine (principal); G43.909 Migraine, unspecified, not intractable, without status migrainosus; E11.9 Type 2 diabetes mellitus without complications; Z88.5 Allergy status to narcotic agent; Z88.6 Allergy status to analgesic agent; Z79.899 Other long term (current) drug therapy; Z79.4 Long term (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 of insulin
CPT/HCPCS: 99283

== ENCOUNTER 2021-08-04 19:51 | Emergency (ER) | payer MEDICARE ==
[~2021-08-04] VITALS: Ht 182.9 cm; Wt 86.5 kg
[~2021-08-04 19:51] MED LIST changes: +ALOGLIPTIN25 MG PO; +DICLOFENAC SODI75 MG PO; +HYDROXYZINE HCL10 MG PO; +LANTUS SOL100 UNIT/1 SUB-Q
--- OUTSIDE RECORDS SUMMARY | 2021-08-04 19:54 | XMS ---
PreManage Notification: SUSANNA LIU Security Charger Operator Events No recent Security Events currently on file CRITERIA MET - Group Notification CARE PROVIDERS FLORESITA Soto Manager Of Information: Clinical 04/25/2020-Current [facility] \F\ [facility] PHONE: [phone] SARAH ROTHMAN [facility] 03/27/2018-Current PHONE: Unknown Leroy has no Care Guidelines for this patient. Care History Medical/Surgical 02/19/2020 [facility] \T\middot;\T\nbsp; PATIENT IS A -RECEIVES SERVICES THROUGH [place] IN [place]. \T\middot;\T\nbsp; Location: [address], [place] [address]- 06/02/2019 [facility] - PATIENT HAS AN APT WITH CLINICAL PHARMACIST AT THE ME 06/09/19 TO GO OVER MEDICATIONS AND DIABETES EDUCATION. - PATIENT HAS AN APT WITH PCP DR ROTHMAN AT THE ME ON 06/15/19. 03/12/2019 [facility] - PATIENT HAS AN APT WITH PCP DR ROTHMAN AT THE ME ON 04/02/19. - PATIENT HAS A CHRONIC CONDITION DUE TO DIZZINESS AND HEADACHES- MECLIZINE HAS BEEN PRESCRIBED BY PCP IN THE PAST. E.[place] VISIT COUNT (12 MO.) 4 [facility] TOTAL 4 NOTE: Visits indicate total known visits. 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 - Pain in thoracic spine - Other shelter (current) drug therapy - Allergy status to analgesic agent - Allergy status to narcotic agent - Migraine, unspecified, not intractable, without status migrainosus - Type 2 diabetes mellitus without complications 05/20/2021 15:14 [facility] [place] TYPE: Emergency COMPLAINT: - FALL DIAGNOSES: - Migraine, unspecified, not intractable, without status migrainosus - Other shelter (current) drug therapy - Allergy status to narcotic agent - Sprain of ligaments of thoracic spine, initial encounter - Laceration without foreign body of nose, initial encounter - 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
== END 2021-08-04 20:42 | disposition home or self-care (01) ==
LOC: ED 19:51
DX: J06.9 Acute upper respiratory infection, unspecified (principal); G43.909 Migraine, unspecified, not intractable, without status migrainosus; E11.9 Type 2 diabetes mellitus without complications; Z88.8 Allergy status to other drugs, medicaments and biological substances; Z88.5 Allergy status to narcotic agent; Z79.899 Other long term (current) drug therapy; Z79.4 Long term (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 of insulin
CPT/HCPCS: 99283

== ENCOUNTER 2021-08-07 05:25 | Emergency (ER) | payer MEDICARE ==
[~2021-08-07] VITALS: Ht 182.9 cm; Wt 86.5 kg
--- OUTSIDE RECORDS SUMMARY | 2021-08-07 05:28 | XMS ---
PreManage Notification: SUSANNA LIU Security Telecommunications Administrator Events No recent Security Events currently on file CRITERIA MET - Group Notification - [facility] - 2 Visits in 30 Days CARE PROVIDERS FLORESITA Soto Oncology Rep Specialist: Clinical 04/25/2020-Current [facility] \F\ [facility] PHONE: [phone] SARAH ROTHMAN [facility] 03/27/2018-Current PHONE: Unknown Leroy has no Care Guidelines for this patient. Care History Medical/Surgical 02/19/2020 [facility] \T\middot;\T\nbsp; PATIENT IS A -RECEIVES SERVICES THROUGH OR IN [place]. \T\middot;\T\nbsp; Location: [address], [place] [address]- 06/02/2019 [facility] - PATIENT HAS AN APT WITH CLINICAL PHARMACIST AT THE OR 06/09/19 TO GO OVER MEDICATIONS AND DIABETES EDUCATION. - PATIENT HAS AN APT WITH PCP DR ROTHMAN AT THE OR ON 06/15/19. 03/12/2019 [facility] - PATIENT HAS AN APT WITH PCP DR ROTHMAN AT THE OR ON 04/02/19. - PATIENT HAS A CHRONIC CONDITION DUE TO DIZZINESS AND HEADACHES- MECLIZINE HAS BEEN PRESCRIBED BY PCP IN THE PAST. [place] VISIT COUNT (12 MO.) 5 [facility] TOTAL 5 NOTE: Visits indicate total known visits. ED/UCC VISIT TRACKING (12 MO.) [facility] COMPLAINT: - FLU SYMPTOMS 08/04/2021 19:51 [facility] [place] TYPE: Emergency COMPLAINT: - COUGH 06/05/2021 18:29 [facility] [place] TYPE: Emergency COMPLAINT: - BACK PAIN/ NON INJ DIAGNOSES: - emt intermediate (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 of insulin - Pain in thoracic spine - Other [facility] (current) drug therapy - Allergy status to analgesic agent - Allergy status to narcotic agent - Migraine, unspecified, not intractable, without status migrainosus - Type 2 diabetes mellitus without complications 05/20/2021 15:14 [facility] [place] TYPE: Emergency COMPLAINT: - FALL DIAGNOSES: - Migraine, unspecified, not intractable, without status migrainosus - Other emt intermediate (current) drug therapy - Allergy status to narcotic agent - Sprain of ligaments of thoracic spine, initial encounter - Laceration without foreign body of nose, initial encounter - emt intermediate (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 - [...] 2 diabetes mellitus without complications - Other emt intermediate (current) drug therapy - Right lower quadrant pain - emt intermediate (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 INPATIENT VISIT TRACKING (12 MO.) No inpatient visits to display in this time frame [id number]
[2021-08-07] MEDS ORDERED: ZOFRAN4 MG PO (06:58)
--- NOTE | 2021-08-08 18:14 | EKG ---
[facility] [address] [place] [address] Signed Sinus rhythm with 1st degree AV block Otherwise normal ECG When compared with ECG of 24-APR-2020 00:11, CA interval has increased Vent. rate has increased BY 39 BPM Nonspecific T wave abnormality now evident in Inferior leads Confirmed by EDSON JEAN DO ([id number]) on 08/08/2021 6:13:48 PM Electronically Signed By: EDSON JEAN DO 08/08/21 1814 PATIENT NAME: NOESUSANNALORY HEBERT Electrocardiogram DATE OF : 50 PHYSICIAN: EDSON JEAN DO REPORT #: [id number] REPORT IS CONFIDENTIAL AND NOT TO BE RELEASED WITHOUT AUTHORIZATION
== END 2021-08-07 08:21 | disposition home or self-care (01) ==
LOC: ED 05:25
DX: J20.9 Acute bronchitis, unspecified (principal); Z20.822 Contact with and (suspected) exposure to COVID-19; G43.909 Migraine, unspecified, not intractable, without status migrainosus; E11.9 Type 2 diabetes mellitus without complications; E78.5 Hyperlipidemia, unspecified; Z88.8 Allergy status to other drugs, medicaments and biological substances; Z88.5 Allergy status to narcotic agent; Z79.899 Other long term (current) drug therapy; Z79.4 Long term (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 of insulin
CPT/HCPCS: 71045; 80053; 83880; 84484; 85025; 93005; 93010; 94640; 96374; 99285-25; A9270; C9803; J2405; U0003

== ENCOUNTER 2021-08-16 19:02 | Emergency (ER) | payer MEDICARE, OTHER ==
[~2021-08-16] VITALS: Ht 182.9 cm; Wt 82.0 kg
--- NOTE | ~2021-08-16 | EKG ---
[facility] [address] [place], [place] [address] Draft EK completed, results pending confirmation PATIENT NAME: LIUSUSANNA Electrocardiogram DATE OF : 50 PHYSICIAN: PRELIMINARY REPORT #: [id number] REPORT IS CONFIDENTIAL AND NOT TO BE RELEASED WITHOUT AUTHORIZATION
[~2021-08-16 19:02] MED LIST changes: +ZOFRAN4 MG PO
--- OUTSIDE RECORDS SUMMARY | 2021-08-16 19:04 | XMS ---
PreManage Notification: SUSANNA LIU Security Job Service Consultant Events No recent Security Events currently on file CRITERIA MET - Group Notification - [facility] - 2 Visits in 30 Days - 6 ED Visits in 6 Months CARE PROVIDERS FLORESITA Soto Marketing Development Manager: Clinical 04/25/2020-Current [facility] \F\ [facility] PHONE: [phone] SARAH ROTHMAN [facility] 03/27/2018-Current PHONE: Unknown Leroy has no Care Guidelines for this patient. Care History Medical/Surgical 02/19/2020 [facility] \T\middot;\T\nbsp; PATIENT [place] [place]. \T\middot;\T\nbsp; Location: [address], [place] [address]- 06/02/2019 [facility] - PATIENT HAS AN APT WITH CLINICAL PHARMACIST [facility] 06/[facility]/19 TO GO OVER MEDICATIONS AND DIABETES EDUCATION. - PATIENT HAS AN APT WITH PCP [facility] 06/15/19. 03/12/2019 [facility] - PATIENT HAS AN APT WITH PCP [facility] R[facility] 04/02/19. - PATIENT HAS A CHRONIC CONDITION DUE TO DIZZINESS AND HEADACHES- MECLIZINE HAS BEEN PRESCRIBED BY PCP IN THE PAST. E.D. VISIT COUNT (12 MO.) 6 [facility] TOTAL 6 NOTE: Visits indicate total known visits. ED/UCC VISIT TRACKING (12 MO.) [facility] COMPLAINT: - DIZZINESS 08/07/2021 05:25 [facility] [place] TYPE: Emergency COMPLAINT: - FLU SYMPTOMS DIAGNOSES: - Hyperlipidemia, unspecified - Type 2 diabetes mellitus without complications - COUGH, UNSPECIFIED - Acute bronchitis, unspecified - Allergy status to other drugs, medicaments and biological substances - salvage determiner (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 of insulin - Other detention (current) drug therapy - Allergy status to narcotic agent - Migraine, unspecified, not intractable, without status migrainosus 08/04/2021 19:51 [facility] [place] TYPE: Emergency COMPLAINT: - COUGH DIAGNOSES: - Allergy status to narcotic agent - Type 2 diabetes mellitus without complications - Migraine, unspecified, not intractable, without status migrainosus - Acute upper respiratory infection, unspecified - Other termite control service representative (current) drug therapy - COUGH, UNSPECIFIED - Allergy status to other drugs, medicaments and biological substances - prison (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 of insulin 06/05/2021 18:29 [facility] [place] TYPE: Emergency COMPLAINT: - BACK PAIN/ NON INJ DIAGNOSES: - salvage determiner (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 of insulin - Pain in thoracic spine - Other termite control service representative (current) drug therapy - Allergy status to analgesic agent - Allergy status to narcotic agent - Migraine, unspecified, not intractable, without status migrainosus - Type 2 diabetes mellitus without complications 05/20/2021 15:14 [facility] [place] TYPE: Emergency COMPLAINT: - FALL DIAGNOSES: - Migraine, unspecified, not intractable, without status migrainosus - Other termite control service representative (current) drug therapy - Allergy status to narcotic agent - Sprain of ligaments of thoracic spine, initial encounter - Laceration without foreign body of nose, initial encounter - prison (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 - [...] 2 diabetes mellitus without complications - Other detention (current) drug therapy - Right lower quadrant pain - prison (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 INPATIENT VISIT TRACKING (12 MO.) No inpatient visits to display in this time frame [id number]
[2021-08-16] MEDS ORDERED: TRANSDERM-SCOP1 EACH TD (22:15)
[2021-08-16] MEDS ORDERED: AUGMENTIN 875-1 EACH PO (22:15)
== END 2021-08-16 22:38 | disposition home or self-care (01) ==
LOC: ED 19:02
DX: J32.9 Chronic sinusitis, unspecified (principal); R42 Dizziness and giddiness; R51.9 Headache, unspecified; G43.909 Migraine, unspecified, not intractable, without status migrainosus; E11.9 Type 2 diabetes mellitus without complications; E78.5 Hyperlipidemia, unspecified; Z88.8 Allergy status to other drugs, medicaments and biological substances; Z88.5 Allergy status to narcotic agent; Z79.899 Other long term (current) drug therapy; Z79.4 Long term (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 of insulin
CPT/HCPCS: 70450; 80053; 81001; 83735; 84484; 85025; 93005; 93010; 96374; 96375; 99284-25; J1200; J2765

== ENCOUNTER 2021-08-23 10:24 | Emergency (ER) | payer MEDICARE, OTHER ==
[~2021-08-23] VITALS: Ht 182.9 cm; Wt 98.0 kg
[~2021-08-23 10:24] MED LIST changes: +AUGMENTIN 875-1 EACH PO
--- OUTSIDE RECORDS SUMMARY | 2021-08-23 10:28 | XMS ---
PreManage Notification: SUSANNA LIU Security Belt Loop Cutter Events No recent Security Events currently on file CRITERIA MET - [facility] - 2 Visits in 30 Days - 6 ED Visits in 6 Months - Group Notification CARE PROVIDERS FLORESITA Soto Laminate Floor Installer: Clinical 04/25/2020-Current [facility] \F\ [facility] PHONE: [phone] SARAH ROTHMAN [facility] 03/27/2018-Current PHONE: Unknown Leroy has no Care Guidelines for this patient. Care History Medical/Surgical 02/19/2020 [facility] \T\middot;\T\nbsp; PATIENT IS A -RECEIVES SERVICES THROUGH NH IN [place]. \T\middot;\T\nbsp; Location: [address], [place] [address]- 06/02/2019 [facility] - PATIENT HAS AN APT WITH CLINICAL PHARMACIST AT THE NH 06/09/19 TO GO OVER MEDICATIONS AND DIABETES EDUCATION. - PATIENT HAS AN APT WITH PCP DR ROTHMAN AT THE NH ON 06/15/19. 03/12/2019 [facility] - PATIENT HAS AN APT WITH PCP DR ROTHMAN AT THE NH ON 04/02/19. - PATIENT HAS A CHRONIC CONDITION DUE TO DIZZINESS AND HEADACHES- MECLIZINE HAS BEEN PRESCRIBED BY PCP IN THE PAST. E.D. VISIT COUNT (12 MO.) 7 [facility] TOTAL 7 NOTE: Visits indicate total known visits. 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 - Allergy status to other drugs, medicaments and biological substances - Allergy status to narcotic agent - Other adjunct faculty for medical terminology (current) drug therapy 08/07/2021 05:25 [facility] [place] TYPE: Emergency COMPLAINT: - FLU SYMPTOMS DIAGNOSES: - Hyperlipidemia, unspecified - Type 2 diabetes mellitus without complications - COUGH, UNSPECIFIED - Acute bronchitis, unspecified - Allergy status to other drugs, medicaments and biological substances - jail (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 of insulin - Other adjunct faculty for medical terminology (current) drug therapy - Allergy status to narcotic agent - Migraine, unspecified, not intractable, without status migrainosus 08/04/2021 19:51 [facility] [place] TYPE: Emergency COMPLAINT: - COUGH DIAGNOSES: - Allergy status to narcotic agent - Type 2 diabetes mellitus without complications - Migraine, unspecified, not intractable, without status migrainosus - Acute upper respiratory infection, unspecified - Other correction (current) drug therapy - COUGH, UNSPECIFIED - Allergy status to other drugs, medicaments and biological substances - jail (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 of insulin 06/05/2021 18:29 [facility] [place] TYPE: Emergency COMPLAINT: - BACK PAIN/ NON INJ DIAGNOSES: - 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 - Pain in thoracic spine - Other adjunct faculty for medical terminology (current) drug therapy - Allergy status to analgesic agent - Allergy status to narcotic agent - Migraine, unspecified, not intractable, without status migrainosus - Type 2 diabetes mellitus without complications 05/20/2021 15:14 [facility] [place] TYPE: Emergency COMPLAINT: - FALL DIAGNOSES: - Migraine, unspecified, not intractable, without status migrainosus - Other correction (current) drug therapy - Allergy status to narcotic agent - Sprain of ligaments of thoracic spine, initial encounter - Laceration without foreign body of nose, initial encounter - 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
[2021-08-23] MEDS ORDERED: AMOXICILLIN500 MG PO (11:04)
--- NOTE | 2021-08-24 12:51 | EKG ---
[facility] [address] [place], [place] [address] Signed Normal sinus rhythm Normal ECG When compared with ECG of 16-AUG-2021 19:43, No significant change was found Confirmed by EDSON JEAN DO ([id number]) on 08/24/2021 12:51:35 PM Electronically Signed By: EDSON JEAN DO 08/24/21 1251 PATIENT NAME: SUSANNA LIU ANUP Electrocardiogram DATE OF : 50 PHYSICIAN: EDSON JEAN DO REPORT #: [id number] REPORT IS CONFIDENTIAL AND NOT TO BE RELEASED WITHOUT AUTHORIZATION
== END 2021-08-23 14:20 | disposition home or self-care (01) ==
LOC: ED 10:24
DX: B34.9 Viral infection, unspecified (principal); G43.909 Migraine, unspecified, not intractable, without status migrainosus; E11.9 Type 2 diabetes mellitus without complications; E78.5 Hyperlipidemia, unspecified; Z88.5 Allergy status to narcotic agent; Z88.8 Allergy status to other drugs, medicaments and biological substances; Z79.899 Other long term (current) drug therapy; Z79.4 Long term (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 of insulin
CPT/HCPCS: 71045; 80048; 85025; 93005; 93010; 96374; 99285-25; J1885; J7030

== ENCOUNTER 2021-09-25 21:47 | Emergency (ER) | payer MEDICARE, OTHER ==
[~2021-09-25] VITALS: Ht 182.9 cm; Wt 56.0 kg
[~2021-09-25 21:47] MED LIST changes: +AMOXICILLIN500 MG PO
--- OUTSIDE RECORDS SUMMARY | 2021-09-25 21:50 | XMS ---
PreManage Notification: SUSANNA LIU Security Road Boss Events No recent Security Events currently on file CRITERIA MET - 6 ED Visits in 6 Months - Group Notification CARE PROVIDERS FLORESITA Soto [employer] Weighter: Clinical 04/25/2020-Current [facility] \F\ [facility] PHONE: [phone] SARAH ROTHMAN [facility] 03/27/2018-Current PHONE: Unknown Leroy has no Care Guidelines for this patient. Care History Medical/Surgical 02/19/2020 [facility] \T\middot;\T\nbsp; PATIENT IS A -RECEIVES SERVICES THROUGH MD IN [place]. \T\middot;\T\nbsp; Location: [address], [place] [address]- 06/02/2019 [facility] - PATIENT HAS AN APT WITH CLINICAL PHARMACIST AT THE MD 06/09/19 TO GO OVER MEDICATIONS AND DIABETES EDUCATION. - PATIENT HAS AN APT WITH PCP DR ROTHMAN AT THE MD ON 06/15/19. 03/12/2019 [facility] - PATIENT HAS AN APT WITH PCP DR ROTHMAN AT THE [facility] ON 04/02/19. - PATIENT HAS A CHRONIC CONDITION DUE TO DIZZINESS AND HEADACHES- MECLIZINE HAS BEEN PRESCRIBED BY PCP IN THE PAST. E.[place] VISIT COUNT (12 MO.) 8 [facility] TOTAL 8 NOTE: Visits indicate total known visits. ED/UCC VISIT TRACKING (12 MO.) 09/25/2021 21:48 [facility] [place] TYPE: Emergency COMPLAINT: - ITCHING ALL OVER 08/23/2021 10:25 [facility] [place] TYPE: Emergency COMPLAINT: - DIZZY, FATIGUE DIAGNOSES: - Weakness - half-way (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 of insulin - Other superintendent terminal (current) drug therapy - Migraine, unspecified, not intractable, without status migrainosus - Allergy status to narcotic agent - Hyperlipidemia, unspecified - Allergy status to other drugs, medicaments and biological substances - Viral infection, unspecified - Type 2 diabetes mellitus without complications 08/16/2021 19:03 [facility] [place] TYPE: Emergency COMPLAINT: - DIZZINESS DIAGNOSES: - Dizziness and giddiness - Chronic sinusitis, unspecified - Type 2 diabetes mellitus without complications - Hyperlipidemia, unspecified - Migraine, unspecified, not intractable, without status migrainosus - Headache, unspecified - half-way (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 of insulin - Allergy status to other drugs, medicaments and biological substances - Allergy status to narcotic agent - Other mcfp (current) drug therapy 08/07/2021 05:25 [facility] [place] TYPE: Emergency COMPLAINT: - FLU SYMPTOMS DIAGNOSES: - Hyperlipidemia, unspecified - Type 2 diabetes mellitus without complications - COUGH, UNSPECIFIED - Acute bronchitis, unspecified - Allergy status to other drugs, medicaments and biological substances - rn long term care (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 of insulin - Other superintendent terminal (current) drug therapy - Allergy status to narcotic agent - Migraine, unspecified, not intractable, without status migrainosus 08/04/2021 19:51 [facility] [place] TYPE: Emergency COMPLAINT: - COUGH DIAGNOSES: - Allergy status to narcotic agent - Type 2 diabetes mellitus without complications - Migraine, unspecified, not intractable, without status migrainosus - Acute upper respiratory infection, unspecified - Other mcfp (current) drug therapy - COUGH, UNSPECIFIED - Allergy status to other drugs, medicaments and biological substances - rn long term care (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 of insulin 06/05/2021 18:29 [facility] [place] TYPE: Emergency COMPLAINT: - BACK PAIN/ NON INJ DIAGNOSES: - half-way (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 of insulin - Pain in thoracic spine - Other superintendent terminal (current) drug therapy - Allergy status to analgesic agent - Allergy status to narcotic agent - Migraine, unspecified, not intractable, without status migrainosus - Type 2 diabetes mellitus without complications 05/20/2021 15:14 [facility] [place] TYPE: Emergency COMPLAINT: - FALL DIAGNOSES: - Migraine, unspecified, not intractable, without status migrainosus - Other superintendent terminal (current) drug therapy - Allergy status to narcotic agent - Sprain of ligaments of thoracic spine, initial encounter - Laceration without foreign body of nose, initial encounter - rn long term care (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 - [...] 2 diabetes mellitus without complications - Other mcfp (current) drug therapy - Right lower quadrant pain - half-way (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 INPATIENT VISIT TRACKING (12 MO.) No inpatient visits to display in this time frame [email or web address]
[2021-09-25] MEDS ORDERED: METFORMIN HCL500 M1 PO (22:51)
[2021-09-25] MEDS ORDERED: ZYRTEC10 M3 PO (23:39)
[2021-09-25] MEDS ORDERED: medrol dose pack (23:39)
== END 2021-09-26 | disposition home or self-care (01) ==
LOC: ED 21:47
DX: L29.8 Other pruritus (principal); G43.909 Migraine, unspecified, not intractable, without status migrainosus; E11.9 Type 2 diabetes mellitus without complications; E78.5 Hyperlipidemia, unspecified; Z88.5 Allergy status to narcotic agent; Z88.8 Allergy status to other drugs, medicaments and biological substances; Z79.84 Long term (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; Z79.4 Long term (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 of insulin; Z79.899 Other long term (current) drug therapy
CPT/HCPCS: 36415; 80053; 81001; 85025; 96374; 96375; 99283-25; J1200; J2930

== ENCOUNTER 2021-10-12 23:06 | Emergency (ER) | payer MEDICARE, OTHER ==
[~2021-10-12] VITALS: Ht 182.9 cm; Wt 85.2 kg
[~2021-10-12 23:06] MED LIST changes: +ZYRTEC10 M3 PO; +medrol dose pack
--- OUTSIDE RECORDS SUMMARY | 2021-10-12 23:09 | XMS ---
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 Care History Medical/Surgical 09/26/2021 [facility] PATIENT IS A -RECEIVES SERVICES THROUGH [facility] IN [place]. Location: [address], [place] [address]- 06/02/2019 [facility] - PATIENT HAS AN APT WITH CLINICAL PHARMACIST AT THE [facility] 06/09/19 TO GO OVER MEDICATIONS AND DIABETES EDUCATION. - PATIENT HAS AN APT WITH PCP DR ROTHMAN AT THE [facility] ON 06/15/19. 03/12/2019 [facility] - PATIENT HAS AN APT WITH PCP DR ROTHMAN AT THE [facility] ON 04/02/19. - PATIENT HAS A CHRONIC CONDITION DUE TO DIZZINESS AND HEADACHES- MECLIZINE HAS BEEN PRESCRIBED BY PCP IN THE PAST. [facility] (12 MO.) [facility] NOTE: Visits indicate total known visits. ED/UCC VISIT TRACKING (12 MO.) 10[facility]12/2021 23:07 [facility] [facility] COMPLAINT: - SKIN PROBLEM 09/25/2021 21:48 [facility] [place] TYPE: Emergency COMPLAINT: - RASH DIAGNOSES: - Allergy status to other drugs, medicaments and biological substances - Migraine, unspecified, not intractable, without status migrainosus - Type 2 diabetes mellitus without complications - Allergy status to narcotic agent - Other pruritus - Hyperlipidemia, unspecified - superintendent container terminal (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 - superintendent container terminal (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 of insulin - Pruritus, unspecified - Other mcfp (current) drug therapy 08/23/2021 10:25 [facility] [place] TYPE: Emergency COMPLAINT: - DIZZY, FATIGUE DIAGNOSES: - Weakness - superintendent container terminal (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 of insulin - Other mcfp (current) drug therapy - Migraine, unspecified, not intractable, without status migrainosus - Allergy status to narcotic agent - Hyperlipidemia, unspecified - Allergy status to other drugs, medicaments and biological substances - Viral infection, unspecified - Type 2 diabetes mellitus without complications 08/16/2021 19:03 [facility] [place] TYPE: Emergency COMPLAINT: - DIZZINESS DIAGNOSES: - Dizziness and giddiness - Chronic sinusitis, unspecified - Type 2 diabetes mellitus without complications - Hyperlipidemia, unspecified - Migraine, unspecified, not intractable, without status migrainosus - Headache, unspecified - superintendent container terminal (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 of insulin - Allergy status to other drugs, medicaments and biological substances - Allergy status to narcotic agent - Other tank terminal gauger (current) drug therapy 08/07/2021 05:25 [facility] [place] TYPE: Emergency COMPLAINT: - FLU SYMPTOMS DIAGNOSES: - Hyperlipidemia, unspecified - Type 2 diabetes mellitus without complications - COUGH, UNSPECIFIED - Acute bronchitis, unspecified - Allergy status to other drugs, medicaments and biological substances - MCC (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 of insulin - Other tank terminal gauger (current) drug therapy - Allergy status to narcotic agent - Migraine, unspecified, not intractable, without status migrainosus 08/04/2021 19:51 [facility] [place] TYPE: Emergency COMPLAINT: - COUGH DIAGNOSES: - Allergy status to narcotic agent - Type 2 diabetes mellitus without complications - Migraine, unspecified, not intractable, without status migrainosus - Acute upper respiratory infection, unspecified - Other tank terminal gauger (current) drug therapy - COUGH, UNSPECIFIED - Allergy status to other drugs, medicaments and biological substances - MCC (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 of insulin 06/05/2021 18:29 [facility] [place] TYPE: Emergency COMPLAINT: - BACK PAIN/ NON INJ DIAGNOSES: - superintendent container terminal (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 of insulin - Pain in thoracic spine - Other mcfp (current) drug therapy - Allergy status to analgesic agent - Allergy status to narcotic agent - Migraine, unspecified, not intractable, without status migrainosus - Type 2 diabetes mellitus without complications 05/20/2021 15:14 [facility] [place] TYPE: Emergency COMPLAINT: - FALL DIAGNOSES: - Migraine, unspecified, not intractable, without status migrainosus - Other mcfp (current) drug therapy - Allergy status to narcotic agent - Sprain of ligaments of thoracic spine, initial encounter - Laceration without foreign body of nose, initial encounter - superintendent container terminal (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 - [...] 2 diabetes mellitus without complications - Other tank terminal gauger (current) drug therapy - Right lower quadrant pain - MCC (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 INPATIENT VISIT TRACKING (12 MO.) No inpatient visits to display in this time frame [email or web address]
[2021-10-13] MEDS ORDERED: NYSTATIN-TRIAMC15 G1 TOP (00:12)
== END 2021-10-13 00:20 | disposition home or self-care (01) ==
LOC: ED 23:06
DX: B35.3 Tinea pedis (principal); G43.909 Migraine, unspecified, not intractable, without status migrainosus; E11.9 Type 2 diabetes mellitus without complications; E78.5 Hyperlipidemia, unspecified; Z88.5 Allergy status to narcotic agent; Z88.8 Allergy status to other drugs, medicaments and biological substances; Z79.899 Other long term (current) drug therapy; Z79.4 Long term (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 of insulin; Z79.84 Long term (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
CPT/HCPCS: 99282

== ENCOUNTER 2021-11-17 14:49 | Emergency (ER) | payer MEDICARE, OTHER ==
[~2021-11-17] VITALS: Ht 182.9 cm; Wt 84.8 kg
[~2021-11-17 14:49] MED LIST changes: +NYSTATIN-TRIAMC15 G1 TOP
--- OUTSIDE RECORDS SUMMARY | 2021-11-17 14:56 | XMS ---
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 Care History Medical/Surgical 09/26/2021 [facility] PATIENT IS A -RECEIVES SERVICES THROUGH [facility] [place]. Location: [address], [place] [address]- 06/02/2019 [facility] - PATIENT HAS AN APT WITH CLINICAL PHARMACIST AT THE [facility] 06/09/19 TO GO OVER MEDICATIONS AND DIABETES EDUCATION. - PATIENT HAS AN APT WITH PCP DR ROTHMAN AT THE [facility] ON 06/15/19. 03/12/2019 [facility] - PATIENT HAS AN APT WITH PCP DR ROTHMAN AT THE [facility] ON 04/02/19. - PATIENT HAS A CHRONIC CONDITION DUE TO DIZZINESS AND HEADACHES- MECLIZINE HAS BEEN PRESCRIBED BY PCP IN THE PAST. [facility] V[facility] (12 MO.) [facility] NOTE: Visits indicate total known visits. ED/UCC VISIT TRACKING (12 MO.) 11/17/2021 14:49 [facility] [place] TYPE: Emergency COMPLAINT: - BOWEL PROBLEM 10/12/2021 23:[address] [facility] [place] TYPE: Emergency COMPLAINT: - SKIN PROBLEM DIAGNOSES: - Allergy status to narcotic agent - Other mcc (current) drug therapy - FDC (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 - Allergy status to other drugs, medicaments and biological substances - Type 2 diabetes mellitus without complications - Pruritus, unspecified - Tinea pedis - FDC (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 of insulin - Migraine, unspecified, not intractable, without status migrainosus - Hyperlipidemia, unspecified 09/25/2021 21:[address] [facility] [place] TYPE: Emergency COMPLAINT: - RASH DIAGNOSES: - Allergy status to other drugs, medicaments and biological substances - Migraine, unspecified, not intractable, without status migrainosus - Type 2 diabetes mellitus without complications - Allergy status to narcotic agent - Other pruritus - Hyperlipidemia, unspecified - middle or intermediate school principal (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 - middle or intermediate school principal (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 of insulin - Pruritus, unspecified - Other mcc (current) drug therapy 08/23/2021 10:[address] [facility] [place] TYPE: Emergency COMPLAINT: - DIZZY, FATIGUE DIAGNOSES: - Weakness - middle or intermediate school principal (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 of insulin - Other mcc (current) drug therapy - Migraine, unspecified, not intractable, without status migrainosus - Allergy status to narcotic agent - Hyperlipidemia, unspecified - Allergy status to other drugs, medicaments and biological substances - Viral infection, unspecified - Type 2 diabetes mellitus without complications 08/16/2021 19:03 [facility] [place] [facility] COMPLAINT: - DIZZINESS DIAGNOSES: - Dizziness and giddiness - Chronic sinusitis, unspecified - Type 2 diabetes mellitus without complications - Hyperlipidemia, unspecified - Migraine, unspecified, not intractable, without status migrainosus - Headache, unspecified - middle or intermediate school principal (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 of insulin - Allergy status to other drugs, medicaments and biological substances - Allergy status to narcotic agent - Other middle or intermediate school principal (current) drug therapy 08/07/2021 05:25 [facility] [place] [facility] COMPLAINT: - FLU SYMPTOMS DIAGNOSES: - Hyperlipidemia, unspecified - Type 2 diabetes mellitus without complications - COUGH, UNSPECIFIED - Acute bronchitis, unspecified - Allergy status to other drugs, medicaments and biological substances - FDC (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 of insulin - Other middle or intermediate school principal (current) drug therapy - Allergy status to narcotic agent - Migraine, unspecified, not intractable, without status migrainosus 08/04/2021 19:51 [facility] [place] TYPE: Emergency COMPLAINT: - COUGH DIAGNOSES: - Allergy status to narcotic agent - Type 2 diabetes mellitus without complications - Migraine, unspecified, not intractable, without status migrainosus - Acute upper respiratory infection, unspecified - Other middle or intermediate school principal (current) drug therapy - COUGH, UNSPECIFIED - Cough, unspecified - Allergy status to other drugs, medicaments and biological substances - middle or intermediate school principal (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 of insulin 06/05/2021 18:29 [facility] [place] TYPE: Emergency COMPLAINT: - BACK PAIN/ NON INJ DIAGNOSES: - FDC (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 of insulin - Pain in thoracic spine - Other mcc (current) drug therapy - Allergy status to analgesic agent - Allergy status to narcotic agent - Migraine, unspecified, not intractable, without status migrainosus - Type 2 diabetes mellitus without complications 05/20/2021 15:14 [facility] [place] TYPE: Emergency COMPLAINT: - FALL DIAGNOSES: - Migraine, unspecified, not intractable, without status migrainosus - Other mcc (current) drug therapy - Allergy status to narcotic agent - Sprain of ligaments of thoracic spine, initial encounter - Laceration without foreign body of nose, initial encounter - FDC (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 - [...] 2 diabetes mellitus without complications - Other middle or intermediate school principal (current) drug therapy - Right lower quadrant pain - middle or intermediate school principal (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 INPATIENT VISIT TRACKING (12 MO.) No inpatient visits to display in this time frame [email or web address]
[2021-11-17] MEDS ORDERED: JARDIANCE25 MG PO (15:08)
== END 2021-11-17 15:48 | disposition home or self-care (01) ==
LOC: ED 14:49
DX: R19.7 Diarrhea, unspecified (principal); R19.5 Other fecal abnormalities; G43.909 Migraine, unspecified, not intractable, without status migrainosus; E11.9 Type 2 diabetes mellitus without complications; E78.5 Hyperlipidemia, unspecified; Z88.5 Allergy status to narcotic agent; Z88.8 Allergy status to other drugs, medicaments and biological substances; Z79.899 Other long term (current) drug therapy; Z79.84 Long term (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; Z79.4 Long term (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 of insulin
CPT/HCPCS: 36415; 80053; 81001; 83690; 85025; 99284

== ENCOUNTER 2022-02-21 20:48 | Emergency (ER) | payer OTHER ==
[~2022-02-21] VITALS: Ht 182.9 cm; Wt 85.8 kg
[~2022-02-21 20:48] MED LIST changes: +JARDIANCE25 MG PO
--- OUTSIDE RECORDS SUMMARY | 2022-02-21 20:50 | XMS ---
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 Care History Medical/Surgical 09/26/2021 [facility] PATIENT IS A -RECEIVES SERVICES THROUGH [facility] IN [place]. Location: [address], [place] [address]- 06/02/2019 [facility] - PATIENT HAS AN APT WITH CLINICAL PHARMACIST AT THE [facility] 06/09/19 TO GO OVER MEDICATIONS AND DIABETES EDUCATION. - PATIENT HAS AN APT WITH PCP DR ROTHMAN AT THE [facility] ON 06/15/19. 03/12/2019 [facility] - PATIENT HAS AN APT WITH PCP DR ROTHMAN AT THE [facility] ON 04/02/19. - PATIENT HAS A CHRONIC CONDITION DUE TO DIZZINESS AND HEADACHES- MECLIZINE HAS BEEN PRESCRIBED BY PCP IN THE PAST. [place] VISIT COUNT (12 MO.) 11 [facility] [place] TOTAL 11 NOTE: Visits indicate total known visits. ED/UCC VISIT TRACKING (12 MO.) 02/21/2022 20:49 [facility] [place] TYPE: Emergency COMPLAINT: - MIGRAINE 11/17/2021 14:49 [facility] [place] TYPE: Emergency COMPLAINT: - BOWEL PROBLEM DIAGNOSES: - Allergy status to other drugs, medicaments and biological substances - group home (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 of insulin - Allergy status to narcotic agent - Type 2 diabetes mellitus without complications - Hyperlipidemia, unspecified - Other group home (current) drug therapy - long term care pharmacist (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 - Other fecal abnormalities - Diarrhea, unspecified - Migraine, unspecified, not intractable, without status migrainosus 10/12/2021 23:07 [facility] [place] TYPE: Emergency COMPLAINT: - SKIN PROBLEM DIAGNOSES: - Allergy status to narcotic agent - Other termite treater helper (current) drug therapy - group home (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 - Allergy status to other drugs, medicaments and biological substances - Type 2 diabetes mellitus without complications - Pruritus, unspecified - Tinea pedis - group home (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 of insulin - Migraine, unspecified, not intractable, without status migrainosus - Hyperlipidemia, unspecified 09/25/2021 21:48 [facility] [place] TYPE: Emergency COMPLAINT: - RASH DIAGNOSES: - Allergy status to other drugs, medicaments and biological substances - Migraine, unspecified, not intractable, without status migrainosus - Type 2 diabetes mellitus without complications - Allergy status to narcotic agent - Other pruritus - Hyperlipidemia, unspecified - group home (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 - group home (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 of insulin - Pruritus, unspecified - Other termite treater helper (current) drug therapy 08/23/2021 10:[address] [facility] [address] [facility] [place] TYPE: Emergency COMPLAINT: - DIZZY, FATIGUE DIAGNOSES: - Weakness - long term care pharmacist (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 of insulin - Other termite treater helper (current) drug therapy - Migraine, unspecified, not [...] without status migrainosus - Headache, unspecified - group home (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 of insulin - Allergy status to other drugs, medicaments and biological substances - Allergy status to narcotic agent - Other termite treater helper (current) drug therapy 08/07/2021 05:25 [facility] [place] TYPE: Emergency COMPLAINT: - FLU SYMPTOMS DIAGNOSES: - Hyperlipidemia, unspecified - Type 2 diabetes mellitus without complications - COUGH, UNSPECIFIED - Acute bronchitis, unspecified - Allergy status to other drugs, medicaments and biological substances - group home (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 of insulin - Other group home (current) drug therapy - Allergy status to narcotic agent - Migraine, unspecified, not intractable, without status migrainosus - Cough, unspecified - Contact with and (suspected) exposure to COVID-19 08/04/2021 19:51 [facility] [place] TYPE: Emergency COMPLAINT: - COUGH DIAGNOSES: - Allergy status to narcotic agent - Type 2 diabetes mellitus without complications - Migraine, unspecified, not intractable, without status migrainosus - Acute upper respiratory infection, unspecified - Other termite treater helper (current) drug therapy - COUGH, UNSPECIFIED - Cough, unspecified - Allergy status to other drugs, medicaments and biological substances - long term care pharmacist (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 of insulin 06/05/2021 18:29 [facility] [place] TYPE: Emergency COMPLAINT: - BACK PAIN/ NON INJ DIAGNOSES: - group home (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 of insulin - Pain in thoracic spine - Other group home (current) drug therapy - Allergy status to analgesic agent - Allergy status to narcotic agent - Migraine, unspecified, not intractable, without status migrainosus - Type 2 diabetes mellitus without complications 05/20/2021 15:14 [facility] [place] TYPE: Emergency COMPLAINT: - FALL DIAGNOSES: - Migraine, unspecified, not intractable, without status migrainosus - Other group home (current) drug therapy - Allergy status to narcotic agent - Sprain of ligaments of thoracic spine, initial encounter - Laceration without foreign body of nose, initial encounter - group home (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 - [...] 2 diabetes mellitus without complications - Other termite treater helper (current) drug therapy - Right lower quadrant pain - group home (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 INPATIENT VISIT TRACKING (12 MO.) No inpatient visits to display in this time frame [email or web address]
== END 2022-02-22 00:30 | disposition home or self-care (01) ==
LOC: ED 20:48
DX: R51.9 Headache, unspecified (principal); E11.9 Type 2 diabetes mellitus without complications; E78.5 Hyperlipidemia, unspecified; Z79.899 Other long term (current) drug therapy; Z88.6 Allergy status to analgesic agent; Z88.5 Allergy status to narcotic agent; Z79.4 Long term (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 of insulin
CPT/HCPCS: 36415; 70450; 85025; 96374; 96375; 99284-25; J1170; J2405

== ENCOUNTER 2022-06-19 16:13 | Emergency (ER) | payer OTHER, MEDICARE ==
[~2022-06-19] VITALS: Ht 182.9 cm; Wt 87.1 kg
--- OUTSIDE RECORDS SUMMARY | 2022-06-19 16:20 | XMS ---
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 Care History Medical/Surgical 09/26/2021 [facility] PATIENT IS A -RECEIV[place] SERVICES THROUGH [place]. Location: [address], [place] [address]- 06/02/2019 [facility] - PATIENT HAS AN APT WITH CLINICAL PHARMACIST AT THE [place] 06/09/19 TO GO OVER MEDICATIONS AND DIABETES EDUCATION. - PATIENT HAS AN APT WITH PCP DR ROTHMAN AT THE [place] ON 06/15/19. 03/12/2019 [facility] - PATIENT HAS AN APT WITH PCP DR ROTHMAN AT THE [place] ON 04/02/19. - PATIENT HAS A CHRONIC CONDITION DUE TO DIZZINESS AND HEADACHES- MECLIZINE HAS BEEN PRESCRIBED BY PCP IN THE PAST. Mae VISIT COUNT (12 MO.) 9 [facility] [place] TOTAL 9 NOTE: Visits indicate total known visits. ED/UCC VISIT TRACKING (12 MO.) 06/19/2022 16:14 [facility] [place] TYPE: Emergency COMPLAINT: - COLD FEET 02/21/2022 20:49 [facility] [place] TYPE: Emergency COMPLAINT: - MIGRAINE DIAGNOSES: - Allergy status to narcotic agent - Hyperlipidemia, unspecified - Headache, unspecified - nursing home (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 of insulin - Allergy status to analgesic agent - Type 2 diabetes mellitus without complications - Other long distance billing operator (current) drug therapy 11/17/2021 14:49 [facility] [place] TYPE: Emergency COMPLAINT: - BOWEL PROBLEM DIAGNOSES: - Other long distance billing operator (current) drug therapy - Type 2 diabetes mellitus without complications - otologist (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 of insulin - Diarrhea, unspecified - nursing home (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 - Hyperlipidemia, unspecified - Allergy status to narcotic agent - Migraine, unspecified, not intractable, without status migrainosus - Allergy status to other drugs, medicaments and biological substances - Other fecal abnormalities 10/12/2021 23:07 [facility] [place] TYPE: Emergency COMPLAINT: - SKIN PROBLEM DIAGNOSES: - Pruritus, unspecified - Allergy status to other drugs, medicaments and biological substances - Other residential (current) drug therapy - Migraine, unspecified, not intractable, without status migrainosus - Tinea pedis - Type 2 diabetes mellitus without complications - nursing home (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 - Hyperlipidemia, unspecified - Allergy status to narcotic agent - otologist (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 of insulin 09/25/2021 21:48 [facility] [place] TYPE: Emergency COMPLAINT: - RASH DIAGNOSES: - Hyperlipidemia, unspecified - Allergy status to narcotic agent - Migraine, unspecified, not intractable, without status migrainosus - Pruritus, unspecified - nursing home (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 - Other pruritus - Type 2 diabetes mellitus without complications - Other residential (current) drug therapy - Allergy status to other drugs, medicaments and biological substances - nursing home (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 of insulin 08/23/2021 10:25 [facility] [place] TYPE: Emergency COMPLAINT: - DIZZY, FATIGUE DIAGNOSES: - Hyperlipidemia, unspecified - Migraine, unspecified, not intractable, without status migrainosus - nursing home (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 of insulin - Type 2 diabetes mellitus without complications - Allergy status to other drugs, medicaments and biological substances - Allergy status to narcotic agent - Other residential (current) drug therapy - Weakness - Viral infection, unspecified 08/16/2021 19:03 [facility] [place] TYPE: Emergency COMPLAINT: - DIZZINESS DIAGNOSES: - Headache, unspecified - Hyperlipidemia, unspecified - Chronic sinusitis, unspecified - Allergy status to narcotic agent - nursing home (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 of insulin - Migraine, unspecified, not intractable, without status migrainosus - Type 2 diabetes mellitus without complications - Other long distance billing operator (current) drug therapy - Dizziness and giddiness - Allergy status to other drugs, medicaments and biological substances 08/07/2021 05:25 [facility] [place] TYPE: Emergency COMPLAINT: - FLU SYMPTOMS DIAGNOSES: - otologist (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 of insulin - Acute bronchitis, unspecified - Contact with and (suspected) exposure to COVID-19 - Type 2 diabetes mellitus without complications - Migraine, unspecified, not intractable, without status migrainosus - Other long distance billing operator (current) drug therapy - Allergy status to other drugs, medicaments and biological substances - COUGH, UNSPECIFIED - Cough, unspecified - Hyperlipidemia, unspecified - Allergy status to narcotic agent 08/04/2021 19:51 [facility] [place] TYPE: Emergency COMPLAINT: - COUGH DIAGNOSES: - COUGH, UNSPECIFIED - Acute upper respiratory infection, unspecified - Type 2 diabetes mellitus without complications - nursing home (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 of insulin - Cough, unspecified - Other residential (current) drug therapy - Migraine, unspecified, not intractable, without status migrainosus - Allergy status to narcotic agent - Allergy status to other drugs, medicaments and biological substances INPATIENT VISIT TRACKING (12 MO.) No inpatient visits to display in this time frame [email or web address]
[2022-06-19] MEDS ORDERED: FLUTICASONE PRO16 GM NAS (16:39)
[2022-06-20] MEDS ORDERED: PROTONIX40 MG PO (23:24)
[2022-06-20] MEDS ORDERED: CYCLOBENZAPRINE10 MG PO (23:24)
== END 2022-06-19 17:42 | disposition home or self-care (01) ==
LOC: ED 16:13
DX: R20.8 Other disturbances of skin sensation (principal); E11.9 Type 2 diabetes mellitus without complications; Z88.5 Allergy status to narcotic agent; Z88.8 Allergy status to other drugs, medicaments and biological substances; Z79.899 Other long term (current) drug therapy; Z79.4 Long term (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 of insulin
CPT/HCPCS: 99283

== ENCOUNTER 2022-06-20 20:12 | Emergency (ER) | payer OTHER, MEDICARE ==
[~2022-06-20] VITALS: Ht 182.9 cm; Wt 85.7 kg
[~2022-06-20 20:12] MED LIST changes: +FLUTICASONE PRO16 GM NAS
--- OUTSIDE RECORDS SUMMARY | 2022-06-20 20:20 | XMS ---
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 Care History Medical/Surgical 09/26/2021 [facility] PATIENT IS A -RECEIV[place] SERVICES THROUGH [place]. Location: [address], [place] [address]- 06/02/2019 [facility] - PATIENT HAS AN APT WITH CLINICAL PHARMACIST AT THE [place] 06/09/19 TO GO OVER MEDICATIONS AND DIABETES EDUCATION. - PATIENT HAS AN APT WITH PCP DR ROTHMAN AT THE [place] ON 06/15/19. 03/12/2019 [facility] - PATIENT HAS AN APT WITH PCP DR ROTHMAN AT THE [place] ON 04/02/19. - PATIENT HAS A CHRONIC CONDITION DUE TO DIZZINESS AND HEADACHES- MECLIZINE HAS BEEN PRESCRIBED BY PCP IN THE PAST. [place] VISIT COUNT (12 MO.) 10 [facility] TOTAL 10 NOTE: Visits indicate total known visits. 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 - Allergy status to analgesic agent - Type 2 diabetes mellitus without complications - Other tank terminal gauger (current) drug therapy - Allergy status to narcotic agent - Hyperlipidemia, unspecified - Headache, unspecified 11/17/2021 14:49 [facility] [place] [place] TYPE: Emergency COMPLAINT: - BOWEL PROBLEM DIAGNOSES: - 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 - Hyperlipidemia, unspecified - Allergy status to narcotic agent - Migraine, unspecified, not intractable, without status migrainosus - Allergy status to other drugs, medicaments and biological substances - Other fecal abnormalities - Other tank terminal gauger (current) drug therapy - Type 2 diabetes mellitus without complications - 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 - Diarrhea, unspecified 10/12/2021 23:07 [facility] [place] TYPE: Emergency COMPLAINT: - SKIN PROBLEM DIAGNOSES: - Tinea pedis - Type 2 diabetes mellitus without complications - 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 - Hyperlipidemia, unspecified - Allergy status to narcotic agent - residential (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 of insulin - Pruritus, unspecified - Allergy status to other drugs, medicaments and biological substances - Other tank terminal gauger (current) drug therapy - Migraine, unspecified, not intractable, without status migrainosus 09/25/2021 21:48 [facility] [place] TYPE: Emergency COMPLAINT: - RASH DIAGNOSES: - 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 - Other pruritus - Type 2 diabetes mellitus without complications - Other tank terminal gauger (current) drug therapy - Allergy status to other drugs, medicaments and biological substances - 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 - Hyperlipidemia, unspecified - Allergy status to narcotic agent - Migraine, unspecified, not intractable, without status migrainosus - Pruritus, unspecified 08/23/2021 10:25 [facility] [place] TYPE: Emergency COMPLAINT: - DIZZY, FATIGUE DIAGNOSES: - Allergy status to other drugs, medicaments and biological substances - Allergy status to narcotic agent - Other tank terminal gauger (current) drug therapy - Weakness - Viral infection, unspecified - Hyperlipidemia, unspecified - Migraine, unspecified, not intractable, without status migrainosus - 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 - Type 2 diabetes mellitus without complications 08/16/2021 19:03 [facility] [place] TYPE: Emergency COMPLAINT: - DIZZINESS DIAGNOSES: - 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 - Migraine, unspecified, not intractable, without status migrainosus - Type 2 diabetes mellitus without complications - Other nursing home (current) drug therapy - Dizziness and giddiness - Allergy status to other drugs, medicaments and biological substances - Headache, unspecified - Hyperlipidemia, unspecified - Chronic sinusitis, unspecified - Allergy status to narcotic agent 08/07/2021 05:25 [facility] [place] TYPE: Emergency COMPLAINT: - FLU SYMPTOMS DIAGNOSES: - Other tank terminal gauger (current) drug therapy - Allergy status to other drugs, medicaments and biological substances - COUGH, UNSPECIFIED - Cough, unspecified - Hyperlipidemia, unspecified - Allergy status to narcotic agent - residential (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 of insulin - Acute bronchitis, unspecified - Contact with and (suspected) exposure to COVID-19 - Type 2 diabetes mellitus without complications - Migraine, unspecified, not intractable, without status migrainosus 08/04/2021 19:[address] 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
--- NOTE | 2022-06-20 20:37 | EKG ---
[facility] [address] [place] [address] Signed Normal sinus rhythm Normal ECG No previous ECGs available Confirmed by FELICITY JOINER MD ([id number]) on 06/20/2022 8:37:20 PM Electronically Signed By: FELICITY JOINER MD 06/20/222036 PATIENT NAME: SUSANNA LIU ANUP Electrocardiogram DATE OF : 50 PHYSICIAN: FELICITY JOINER MD REPORT #: [id number] REPORT IS CONFIDENTIAL AND NOT TO BE RELEASED WITHOUT AUTHORIZATION
[2022-06-20] MEDS ORDERED: CYCLOBENZAPRINE10 MG PO (23:24)
[2022-06-20] MEDS ORDERED: PROTONIX40 MG PO (23:24)
== END 2022-06-20 23:42 | disposition home or self-care (01) ==
LOC: ED 20:12
DX: R07.89 Other chest pain (principal); E11.9 Type 2 diabetes mellitus without complications; Z88.8 Allergy status to other drugs, medicaments and biological substances; Z88.5 Allergy status to narcotic agent; Z79.4 Long term (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 of insulin; Z79.899 Other long term (current) drug therapy
CPT/HCPCS: 36415; 71045; 80053; 83690; 83735; 83880; 84484; 85025; 85379; 85610; 85730; 93005; 93010; J3010; J3475

== ENCOUNTER 2022-09-10 11:05 | Emergency (ER) | payer MEDICARE, OTHER ==
[~2022-09-10] VITALS: Ht 182.9 cm; Wt 85.7 kg
[~2022-09-10 11:05] MED LIST changes: +CYCLOBENZAPRINE10 MG PO; +PROTONIX40 MG PO
--- OUTSIDE RECORDS SUMMARY | 2022-09-10 11:16 | XMS ---
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 Care History Medical/Surgical 09/26/2021 [facility] PATIENT IS A -RECEIVES SERVICES THROUGH [place]. Location: [address], [place] [address]- 06/02/2019 [facility] - PATIENT HAS AN APT WITH CLINICAL PHARMACIST AT THE [place] 06/09/19 TO GO OVER MEDICATIONS AND DIABETES EDUCATION. - PATIENT HAS AN APT WITH PCP DR ROTHMAN AT THE [facility] ON 06/15/19. 03/12/2019 [facility] - PATIENT HAS AN APT WITH PCP DR ROTHMAN AT THE [facility] ON 04/02/19. - PATIENT HAS A CHRONIC CONDITION DUE TO DIZZINESS AND HEADACHES- MECLIZINE HAS BEEN PRESCRIBED BY PCP IN THE PAST. Mae VISIT COUNT (12 MO.) 7 [facility] [place] TOTAL 7 NOTE: Visits indicate total known visits. ED/UCC VISIT TRACKING (12 MO.) 09/10/2022 11:05 [facility] [place] TYPE: Emergency COMPLAINT: - HEADACHES 06/20/2022 20:12 [facility] [place] TYPE: Emergency COMPLAINT: - CHEST PAIN DIAGNOSES: - Type 2 diabetes mellitus without complications - Other manager long term care (current) drug therapy - Allergy status to narcotic agent - manager long term care (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 of insulin - Allergy status to other drugs, medicaments and biological substances - Other chest pain 06/19/2022 16:14 [facility] [place] TYPE: Emergency COMPLAINT: - COLD FEET DIAGNOSES: - Allergy status to narcotic agent - Type 2 diabetes mellitus without complications - Other manager long term care (current) drug therapy - Other disturbances of skin sensation - Allergy status to other drugs, medicaments and biological substances - manager long term care (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 of insulin 02/21/2022 20:49 [facility] [place] TYPE: Emergency COMPLAINT: - MIGRAINE DIAGNOSES: - Allergy status to analgesic agent - Type 2 diabetes mellitus without complications - Other half-way (current) drug therapy - Allergy status to narcotic agent - Hyperlipidemia, unspecified - Headache, unspecified - [facility] (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 of insulin 11/17/2021 14:49 [facility] [place] TYPE: Emergency COMPLAINT: - BOWEL PROBLEM DIAGNOSES: - Hyperlipidemia, unspecified - Allergy status to narcotic agent - Migraine, unspecified, not intractable, without status migrainosus - Allergy status to other drugs, medicaments and biological substances - Other fecal abnormalities - Other half-way (current) drug therapy - Type 2 diabetes mellitus without complications - manager long term care (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 of insulin - Diarrhea, unspecified - [facility] (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 10/12/2021 23:07 [facility] [place] TYPE: Emergency COMPLAINT: - SKIN PROBLEM DIAGNOSES: - Type 2 diabetes mellitus without complications - manager long term care (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 - Hyperlipidemia, unspecified - Allergy status to narcotic agent - [facility] (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 of insulin - Pruritus, unspecified - Allergy status to other drugs, medicaments and biological substances - Other manager long term care (current) drug therapy - Migraine, unspecified, not intractable, without status migrainosus - Tinea pedis 09/25/2021 21:48 [facility] [place] TYPE: Emergency COMPLAINT: - RASH DIAGNOSES: - Other pruritus - Type 2 diabetes mellitus without complications - Other half-way (current) drug therapy - Allergy status to other drugs, medicaments and biological substances - manager long term care (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 of insulin - Hyperlipidemia, unspecified - Allergy status to narcotic agent - Migraine, unspecified, not intractable, without status migrainosus - Pruritus, unspecified - manager long term care (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 INPATIENT VISIT TRACKING (12 MO.) No inpatient visits to display in this time frame [id number]
== END 2022-09-10 14:44 | disposition home or self-care (01) ==
LOC: ED 11:05
DX: R51.9 Headache, unspecified (principal); Z88.8 Allergy status to other drugs, medicaments and biological substances; Z88.5 Allergy status to narcotic agent; Z79.899 Other long term (current) drug therapy; Z79.4 Long term (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 of insulin
CPT/HCPCS: 36415; 80053; 85025; 96374; 99284-25; J2765; J7030

== ENCOUNTER 2022-09-18 08:45 | Emergency (ER) | payer MEDICARE, OTHER ==
[~2022-09-18] VITALS: Ht 182.9 cm; Wt 85.8 kg
--- OUTSIDE RECORDS SUMMARY | 2022-09-18 08:49 | XMS ---
PreManage Notification: SUSANNA LIU Security Radio Operator Ground Events No recent Security Events currently on file CRITERIA MET - Group Notification - [facility] - 2 Visits in 30 Days CARE PROVIDERS FLORESITA Soto Social Sciences Lecturer: Clinical 04/25/2020-Current [facility] \F\ [facility] PHONE: [phone] SARAH ROTHMAN [facility] 03/27/2018-Current PHONE: Unknown Leroy has no Care Guidelines for this patient. Care History Medical/Surgical 09/26/2021 [facility] PATIENT IS A -RECEIV[place] SERVICES THROUGH [place]. Location: [address], [place] [address]- 06/02/2019 [facility] - PATIENT HAS AN APT WITH CLINICAL PHARMACIST AT THE [place] 06/09/19 TO GO OVER MEDICATIONS AND DIABETES EDUCATION. - PATIENT HAS AN APT WITH PCP DR ROTHMAN AT THE [place] ON 06/15/19. 03/12/2019 [facility] - PATIENT HAS AN APT WITH PCP DR ROTHMAN AT THE [place] ON 04/02/19. - PATIENT HAS A CHRONIC CONDITION DUE TO DIZZINESS AND HEADACHES- MECLIZINE HAS BEEN PRESCRIBED BY PCP IN THE PAST. [place] VISIT COUNT (12 MO.) 8 [facility] TOTAL 8 NOTE: Visits indicate total known visits. ED/UCC VISIT TRACKING (12 MO.) 09/18/2022 08:45 [facility] [place] TYPE: Emergency COMPLAINT: - L SHOULDER PAIN 09/10/2022 11:05 [facility] [place] TYPE: Emergency COMPLAINT: - HEADACHES DIAGNOSES: - Allergy status to other drugs, medicaments and biological substances - Headache, unspecified - Allergy status to narcotic agent - Other alf (current) drug therapy - long-term (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 of insulin 06/20/2022 20:[address] [facility] 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 [place] TYPE: Emergency COMPLAINT: - COLD FEET DIAGNOSES: - Other director business travel (current) drug therapy - Other disturbances of skin sensation - Allergy status to other drugs, medicaments and biological substances - long-term (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 of insulin - Allergy status to narcotic agent - Type 2 diabetes mellitus without complications 02/21/2022 20:49 [facility] [place] TYPE: Emergency COMPLAINT: - MIGRAINE DIAGNOSES: - Other director business travel (current) drug therapy - Allergy status to narcotic agent - Hyperlipidemia, unspecified - Headache, unspecified - long-term (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 of insulin - Allergy status to analgesic agent - Type 2 diabetes mellitus without complications 11/17/2021 14:49 [facility] [place] TYPE: Emergency COMPLAINT: - BOWEL PROBLEM DIAGNOSES: - Allergy status to other drugs, medicaments and biological substances - Other fecal abnormalities - Other director business travel (current) drug therapy - Type 2 diabetes mellitus without complications - call center specialist (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 of 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 - Diarrhea, unspecified - long-term (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 - Hyperlipidemia, unspecified - Allergy status to narcotic agent - Migraine, unspecified, not intractable, without status migrainosus 10/12/2021 23:07 [facility] [place] TYPE: Emergency COMPLAINT: - SKIN PROBLEM DIAGNOSES: - Allergy status to narcotic agent - long-term (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 of insulin - Pruritus, unspecified - Allergy status to other drugs, medicaments and biological substances - Other director business travel (current) drug therapy - Migraine, unspecified, not intractable, without status migrainosus - Tinea pedis - Type 2 diabetes mellitus without complications - long-term (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 - Hyperlipidemia, unspecified 09/25/2021 21:[address] 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
== END 2022-09-18 10:21 | disposition home or self-care (01) ==
LOC: ED 08:45
DX: M25.512 Pain in left shoulder (principal); E11.9 Type 2 diabetes mellitus without complications; E78.5 Hyperlipidemia, unspecified; Z88.8 Allergy status to other drugs, medicaments and biological substances; Z88.5 Allergy status to narcotic agent; Z79.899 Other long term (current) drug therapy; Z79.4 Long term (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 of insulin
CPT/HCPCS: 73030; 99283-25

== ENCOUNTER 2022-10-01 17:35 | Emergency (ER) | payer MEDICARE, OTHER ==
[~2022-10-01] VITALS: Ht 182.9 cm; Wt 85.8 kg
--- OUTSIDE RECORDS SUMMARY | 2022-10-01 17:43 | XMS ---
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 Care History Medical/Surgical 09/26/2021 [facility] PATIENT IS A -RECEIVES SERVICES THROUGH [facility] IN [place]. Location: [address], [place] [address]- 06/02/2019 [facility] - PATIENT HAS AN APT WITH CLINICAL PHARMACIST AT THE [facility] 06/09/19 TO GO OVER MEDICATIONS AND DIABETES EDUCATION. - PATIENT HAS AN APT WITH PCP DR ROTHMAN AT THE [facility] ON 06/15/19. 03/12/2019 [facility] - PATIENT HAS AN APT WITH PCP DR ROTHMAN AT THE [facility] ON 04/02/19. - PATIENT HAS A CHRONIC CONDITION DUE TO DIZZINESS AND HEADACHES- MECLIZINE HAS BEEN PRESCRIBED BY PCP IN THE PAST. [place] VISIT COUNT (12 MO.) 8 [facility] TOTAL 8 NOTE: Visits indicate total known visits. 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 [place] TYPE: Emergency COMPLAINT: - CHEST PAIN DIAGNOSES: - Other chest pain - Type 2 diabetes mellitus without complications - Other intermission coordinator (current) drug therapy - Allergy status to narcotic agent - [facility] (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 of insulin - Allergy status to other drugs, medicaments and biological substances 06/19/2022 16:14 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 - Hyperlipidemia, unspecified - Allergy status to narcotic agent - Migraine, unspecified, not intractable, without status migrainosus - Allergy status to other drugs, medicaments and biological substances - Other fecal abnormalities - Other [place] [facility] (current) drug therapy - Type 2 diabetes mellitus without complications 10/12/2021 23:07 [facility] [place] TYPE: Emergency COMPLAINT: - SKIN PROBLEM DIAGNOSES: - Other [place] [facility] (current) drug therapy - Migraine, unspecified, not intractable, without status migrainosus - Tinea pedis - Type 2 diabetes mellitus without complications - [facility] (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 - Hyperlipidemia, unspecified - Allergy status to narcotic agent - 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
[2022-10-01] MEDS ORDERED: CYCLOBENZAPRINE10 MG PO (19:57)
[2022-10-01] MEDS ORDERED: HYDROCODON-ACE1 EA10 PO (19:57)
== END 2022-10-01 20:31 | disposition home or self-care (01) ==
LOC: ED 17:35
DX: S39.012A Strain of muscle, fascia and tendon of lower back, initial encounter (principal); G43.909 Migraine, unspecified, not intractable, without status migrainosus; E11.9 Type 2 diabetes mellitus without complications; E78.5 Hyperlipidemia, unspecified; Z88.8 Allergy status to other drugs, medicaments and biological substances; Z88.5 Allergy status to narcotic agent; Z79.899 Other long term (current) drug therapy; Z79.4 Long term (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 of insulin; X50.0XXA Overexertion from strenuous movement or load, initial encounter
CPT/HCPCS: 80053; 83605; 85025; 87040; 87502; 96372; 99283; A9270; J1885; U0003

== ENCOUNTER 2023-06-13 19:16 | Emergency (ER) | payer OTHER ==
[~2023-06-13] VITALS: Ht 182.9 cm; Wt 88.0 kg
[~2023-06-13 19:16] MED LIST changes: +FLOMAX0.4 MG PO; +HYDROCODON-ACE1 EA10 PO
--- OUTSIDE RECORDS SUMMARY | 2023-06-13 19:20 | XMS ---
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 Care History Medical/Surgical 09/26/2021 [facility] PATIENT IS A -RECEIVES SERVICES THROUGH [facility] [place]. Location: [address], [place] [address]- 06/02/2019 [facility] - PATIENT HAS AN APT WITH CLINICAL PHARMACIST AT THE CO 06/09/19 TO GO OVER MEDICATIONS AND DIABETES EDUCATION. - PATIENT HAS AN APT WITH PCP DR ROTHMAN AT THE [facility] ON 06/15/19. 03/12/2019 [facility] - PATIENT HAS AN APT WITH PCP DR ROTHMAN AT THE [facility] ON 04/02/19. - PATIENT HAS A CHRONIC CONDITION DUE TO DIZZINESS AND HEADACHES- MECLIZINE HAS BEEN PRESCRIBED BY PCP IN THE PAST. [facility] VISIT COUNT (12 MO.) 8 [facility] TOTAL 8 NOTE: Visits indicate total known visits. 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 - Migraine, unspecified, not intractable, without status migrainosus - Other nursing home (current) drug therapy - Type 2 diabetes mellitus without complications 10/21/2022 09:12 [facility] [place] TYPE: Emergency COMPLAINT: - URINE PROBLEM DIAGNOSES: - Allergy status to narcotic agent - Allergy status to other drugs, medicaments and biological substances - Benign prostatic hyperplasia with lower urinary tract symptoms - Hesitancy of micturition - termite helper (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 of insulin - Other watermelon harvesting supervisor (current) drug therapy - Other retention of urine - Type 2 diabetes mellitus without complications 10/01/2022 17:35 [facility] [place] TYPE: Emergency COMPLAINT: - BACK PAIN/ NO INJ DIAGNOSES: - Allergy status to narcotic agent - Allergy status to other drugs, medicaments and biological substances - Hyperlipidemia, unspecified - care home (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 of insulin - Low back pain, unspecified - Migraine, unspecified, not intractable, without status migrainosus - Other watermelon harvesting supervisor (current) drug therapy - Overexertion from strenuous movement or load, initial encounter - Strain of muscle, fascia and tendon of lower back, initial encounter - Type 2 diabetes mellitus without complications 09/18/2022 08:45 [facility] [place] TYPE: Emergency COMPLAINT: - L SHOULDER PAIN DIAGNOSES: - Allergy status to narcotic agent - Allergy status to other drugs, medicaments and biological substances - Hyperlipidemia, unspecified - care home (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 of insulin - Other nursing home (current) drug therapy - Pain in left shoulder - Type 2 diabetes mellitus without complications 09/10/2022 11:05 [facility] [place] TYPE: Emergency COMPLAINT: - HEADACHES DIAGNOSES: - Allergy status to narcotic agent - Allergy status to other drugs, medicaments and biological substances - Headache, unspecified - care home (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 of insulin - Other nursing home (current) drug therapy 06/20/2022 20:12 [facility] [place] TYPE: Emergency COMPLAINT: - CHEST PAIN DIAGNOSES: - Allergy status to narcotic agent - Allergy status to other drugs, medicaments and biological substances - care home (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 of insulin - Other chest pain - Other watermelon harvesting supervisor (current) drug therapy - Type 2 diabetes mellitus without complications 06/19/2022 16:14 [facility] [place] TYPE: Emergency COMPLAINT: - COLD FEET DIAGNOSES: - Allergy status to narcotic agent - Allergy status to other drugs, medicaments and biological substances - care home (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 of insulin - Other disturbances of skin sensation - Other nursing home (current) drug therapy - Type 2 diabetes mellitus without complications INPATIENT VISIT TRACKING (12 MO.) No inpatient visits to display in this time frame [email or web address]
[2023-06-13 20:07] LABS: BILIRUBIN, URINE NEGATIVE (negative); BLOOD/HGB, URINE NEGATIVE (Negative); KETONE, URINE NEGATIVE (Negative); LEUK ESTERASE, URINE NEGATIVE (negative); NITRITE, URINE NEGATIVE (negative); PH, URINE 5.5 (5-7)
[2023-06-13 20:29] LABS: BASOPHILS 0.5 % (0-2); EOSINOPHILS 3.1 % (0-6); HEMATOCRIT 42.9 % (35.0-50.0); LYMPHOCYTES 36.9 % (24-44); MCH 29.5 (27-36); MCHC 32.7 g/dl (30-36); MCV 90.3 fl (81-99); MONOCYTES 12.9 % (0-12); NEUTROPHILS 46.6 % (39-80); PLATELET COUNT 260 K/uL (140-440); RBC 4.75 M/ul (4.3-5.7); RDW 13.8 (10.5-15.0)
[2023-06-13 20:46] LABS: ALBUMIN 3.6 g/dL (3.4-5.0); ALBUMIN/GLOBULIN RATIO 0.95 (1.1-2.4); ANION GAP 15.9 (7-21); BILIRUBIN, TOTAL 0.3 ng/dL (0.2-1.0); BUN/CREATININE RATIO 13.59 (6.0-28.6); CALCIUM 8.9 mg/dL (8.5-10.1); CREATININE, SERUM 1.03 mg/dL (0.70-1.30); MAGNESIUM 1.5 mg/dL (1.8-2.4); POTASSIUM 3.9 mmol/L (3.5-5.1); PROTEIN, TOTAL 7.4 g/dL (6.4-8.2)
[2023-06-13] MEDS ORDERED: MECLIZINE HCL12.5 MG PO (22:07)
[2023-06-13] MEDS ORDERED: MAGNESIUM OXID400 M1 PO (22:24)
[2023-06-13 22:35] VITALS: BP 118/65
--- NOTE | 2023-06-14 22:59 | EKG ---
[facility] [address] [place] [address] Signed Normal sinus rhythm Normal ECG When compared with ECG of 20-JUN-2022 20:09, No significant change was found Confirmed by Bette Street MD () on 06/14/2023 10:59:39 PM Electronically Signed By: BETTE STREET MD 06/14/23 2259 PATIENT NAME: SUSANNA LIU ANUP Electrocardiogram DATE OF : 50 PHYSICIAN: BETTE STREET MD REPORT #: [id number] REPORT IS CONFIDENTIAL AND NOT TO BE RELEASED WITHOUT AUTHORIZATION
== END 2023-06-13 22:43 | disposition home or self-care (01) ==
LOC: ED 19:16
PROVIDERS: Family Medicine
DX: E83.42 Hypomagnesemia (principal); G43.909 Migraine, unspecified, not intractable, without status migrainosus; E11.9 Type 2 diabetes mellitus without complications; E78.5 Hyperlipidemia, unspecified; Z88.5 Allergy status to narcotic agent; Z88.8 Allergy status to other drugs, medicaments and biological substances; Z79.899 Other long term (current) drug therapy; Z79.4 Long term (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 of insulin; Z79.84 Long term (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
CPT/HCPCS: 36415; 70450; 80053; 81003; 83735; 84484; 85025; 93005; 93010; 96365; 99284-25; J3475

== ENCOUNTER 2023-07-25 08:53 | Emergency (ER) | payer MEDICARE, OTHER ==
[~2023-07-25] VITALS: Ht 182.9 cm; Wt 87.2 kg
[~2023-07-25 08:53] MED LIST changes: +MAGNESIUM OXID400 M1 PO; +MECLIZINE HCL12.5 MG PO
[2023-07-25 11:00] LABS: INFLUENZA B NAA NEGATIVE (NEGATIVE); RESPIRATORY SYNCYTIAL VIR NAA NEGATIVE (NEGATIVE)
[2023-07-25] MEDS ORDERED: TAMIFLU75 MG PO (11:13)
[2023-07-25 11:22] VITALS: BP 136/66
== END 2023-07-25 11:20 | disposition home or self-care (01) ==
LOC: ED 08:53
PROVIDERS: Emergency Medicine
DX: J10.1 Influenza due to other identified influenza virus with other respiratory manifestations (principal); Z20.822 Contact with and (suspected) exposure to COVID-19; E11.9 Type 2 diabetes mellitus without complications; G43.909 Migraine, unspecified, not intractable, without status migrainosus; E78.5 Hyperlipidemia, unspecified; Z79.899 Other long term (current) drug therapy; Z88.5 Allergy status to narcotic agent; Z88.8 Allergy status to other drugs, medicaments and biological substances
CPT/HCPCS: 87502; 99283; C9803; U0002

== ENCOUNTER 2023-08-24 08:59 | Emergency (ER) | payer OTHER, MEDICARE ==
[~2023-08-24] VITALS: Ht 182.9 cm; Wt 85.2 kg
[~2023-08-24 08:59] MED LIST changes: +TAMIFLU75 MG PO
[2023-08-24] MEDS ORDERED: HYDROCODON-ACE1 EA10 PO (10:15)
[2023-08-24 10:35] VITALS: BP 116/67
== END 2023-08-24 10:35 | disposition home or self-care (01) ==
LOC: ED 08:59
DX: S83.92XA Sprain of unspecified site of left knee, initial encounter (principal); E11.9 Type 2 diabetes mellitus without complications; E78.5 Hyperlipidemia, unspecified; Z88.5 Allergy status to narcotic agent; Z88.6 Allergy status to analgesic agent; Z79.4 Long term (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 of insulin; Z79.84 Long term (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; Z79.899 Other long term (current) drug therapy; W18.30XA Fall on same level, unspecified, initial encounter
CPT/HCPCS: 73560; 99283-25

== ENCOUNTER 2024-02-11 20:28 | Emergency (ER) | payer OTHER, MEDICARE ==
[~2024-02-11] VITALS: Ht 182.9 cm; Wt 82.0 kg
[~2024-02-11 20:28] MED LIST changes: +NEURONTIN100 MG PO
[2024-02-11 21:15] LABS: INFLUENZA B NAA NEGATIVE (NEGATIVE); RESPIRATORY SYNCYTIAL VIR NAA NEGATIVE (NEGATIVE)
[2024-02-11] MEDS ORDERED: AMOX TR-K CLV1 EAC1 PO (21:38)
[2024-02-11] MEDS ORDERED: AMOXICILLIN/CLAVULANATE K 875 MG HOME.PACK PO ONE (21:45)
[2024-02-11] MEDS ORDERED: methylPREDNISolone 4 MG HOME.PACK PO ONE (21:45)
[2024-02-11 21:50] VITALS: BP 116/63
== END 2024-02-11 21:50 | disposition home or self-care (01) ==
LOC: ED 20:28
PROVIDERS: Family Medicine
DX: J32.9 Chronic sinusitis, unspecified (principal); E11.9 Type 2 diabetes mellitus without complications; Z88.5 Allergy status to narcotic agent; Z88.8 Allergy status to other drugs, medicaments and biological substances; Z79.899 Other long term (current) drug therapy; Z79.4 Long term (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 of insulin; Z79.84 Long term (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; Z11.52 Encounter for screening for COVID-19
CPT/HCPCS: 87502; U0002

== ENCOUNTER 2024-02-14 12:59 | Emergency (ER) | payer OTHER, MEDICARE ==
[~2024-02-14] VITALS: Ht 182.9 cm; Wt 88.3 kg
[~2024-02-14 12:59] MED LIST changes: +AMOX TR-K CLV1 EAC1 PO
[2024-02-14] MEDS ORDERED: SODIUM CHLORIDE 0.9% 1,000 ML IV ONE (13:30)
[2024-02-14 13:38] LABS: BASOPHILS 0.8 % (0-2); EOSINOPHILS 0.9 % (0-6); HEMATOCRIT 42.2 % (35.0-50.0); LYMPHOCYTES 16.4 % (24-44); MCHC 33.3 g/dl (30-36); MCV 90.2 fl (81-99); MONOCYTES 3.1 % (0-12); NEUTROPHILS 78.8 % (39-80); PLATELET COUNT 264 K/uL (140-440); RBC 4.68 M/ul (4.3-5.7); RDW 13.9 (10.5-15.0)
[2024-02-14 13:54] LABS: ALBUMIN 3.7 g/dL (3.4-5.0); ALBUMIN/GLOBULIN RATIO 0.84 (1.1-2.4); ANION GAP 13.5 (7-21); BILIRUBIN, TOTAL 0.3 ng/dL (0.2-1.0); BUN/CREATININE RATIO 25.92 (6.0-28.6); CALCIUM 9.1 mg/dL (8.5-10.1); CREATININE, SERUM 1.08 mg/dL (0.70-1.30); POTASSIUM 4.5 mmol/L (3.5-5.1); PROTEIN, TOTAL 8.1 g/dL (6.4-8.2)
[2024-02-14 14:13] VITALS: BP 108/63
--- NOTE | 2024-02-15 13:39 | EKG ---
[facility] [address] [facility] [place], [place] [address] Signed Sinus bradycardia Otherwise normal ECG When compared with ECG of 30-JUL-2023 14:31, No significant change was found Confirmed by Milton George MD ([id number]) on 02/15/2024 1:38:53 PM Electronically Signed By: MILTON GEORGE 02/15/24 1339 PATIENT NAME: SUSANNA LIU Electrocardiogram DATE OF : 50 PHYSICIAN: MILTON GEORGE REPORT #: [id number] REPORT IS CONFIDENTIAL AND NOT TO BE RELEASED WITHOUT AUTHORIZATION
== END 2024-02-14 14:13 | disposition home or self-care (01) ==
LOC: ED 12:59
PROVIDERS: Emergency Medicine
DX: R69 Illness, unspecified (principal); J32.9 Chronic sinusitis, unspecified; E11.9 Type 2 diabetes mellitus without complications; E78.5 Hyperlipidemia, unspecified; Z88.5 Allergy status to narcotic agent; Z88.8 Allergy status to other drugs, medicaments and biological substances; Z79.899 Other long term (current) drug therapy; Z79.4 Long term (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 of insulin
CPT/HCPCS: 36415; 71045; 80053; 84484; 85025; 87502; 93005; 93010; 99285-25; J7030; U0002

== ENCOUNTER 2024-02-19 22:14 | Emergency (ER) | payer OTHER, MEDICARE ==
[~2024-02-19] VITALS: Ht 182.9 cm; Wt 82.2 kg
[2024-02-19 22:34] LABS: HEMATOCRIT 44.8 % (35.0-50.0); HEMOGLOBIN 14.4 g/dL (12.0-18.0); MCH 29.5 (27-36); MCHC 32.2 g/dl (30-36); MCV 91.5 fl (81-99); PLATELET COUNT 296 K/uL (140-440); RBC 4.89 M/ul (4.3-5.7); RDW 13.6 (10.5-15.0)
[2024-02-19 22:49] LABS: BASOPHILS, MANUAL DIFF 1; LYMPHOCYTES, MANUAL DIFF 44; MONOCYTES, MANUAL DIFF 4; NEUTROPHILS, MANUAL DIFF 51
[2024-02-19 22:52] LABS: ALBUMIN 3.7 g/dL (3.4-5.0); ALBUMIN/GLOBULIN RATIO 0.86 (1.1-2.4); ANION GAP 13.3 (7-21); BILIRUBIN, TOTAL 0.4 ng/dL (0.2-1.0); BUN/CREATININE RATIO 19.82 (6.0-28.6); CALCIUM 9.1 mg/dL (8.5-10.1); CREATININE, SERUM 1.16 mg/dL (0.70-1.30); MAGNESIUM 1.6 mg/dL (1.8-2.4); POTASSIUM 4.3 mmol/L (3.5-5.1)
[2024-02-19] MEDS ORDERED: LACTATED RINGER'S 1,000 ML IV ONE (23:15)
[2024-02-20 00:34] LABS: BILIRUBIN, URINE NEGATIVE (negative); BLOOD/HGB, URINE NEGATIVE (Negative); KETONE, URINE NEGATIVE (Negative); LEUK ESTERASE, URINE NEGATIVE (negative); NITRITE, URINE NEGATIVE (negative)
[2024-02-20 00:48] LABS: AMPHETAMINES, URINE POSITIVE (NEGATIVE); BARBITURATES, URINE NEGATIVE (NEGATIVE); BENZODIAZEPINE, URINE NEGATIVE (NEGATIVE); BUPRENORPHINE, URINE NEGATIVE (NEGATIVE); CANNABINOID, URINE NEGATIVE (NEGATIVE); COCAINE, URINE NEGATIVE (NEGATIVE); ECSTASY, URINE POSITIVE (NEGATIVE); FENTANYL, URINE NEGATIVE (NEGATIVE); METHADONE, URINE NEGATIVE (NEGATIVE); OPIATES, URINE NEGATIVE (NEGATIVE); OXYCODONE, URINE NEGATIVE (NEGATIVE); PHENCYCLIDINE, URINE NEGATIVE (NEGATIVE)
[2024-02-20 01:22] VITALS: BP 126/52
--- NOTE | 2024-02-20 14:37 | EKG ---
[facility] [address] [facility] [place], [place] [address] Signed Normal sinus rhythm Normal ECG No previous ECGs available Confirmed by RETA HERNANDEZ MD ([id number]) on 02/20/2024 2:37:02 PM Electronically Signed By: RETA HERNANDEZ 02/20/24 1437 PATIENT NAME: SUSANNA LIU ANUP Electrocardiogram DATE OF : 50 PHYSICIAN: RETA HERNANDEZ REPORT #: [id number] REPORT IS CONFIDENTIAL AND NOT TO BE RELEASED WITHOUT AUTHORIZATION
== END 2024-02-20 01:24 | disposition home or self-care (01) ==
LOC: ED 22:14
PROVIDERS: Internal Medicine
DX: E86.0 Dehydration (principal); F15.90 Other stimulant use, unspecified, uncomplicated; E11.9 Type 2 diabetes mellitus without complications; Z88.5 Allergy status to narcotic agent; Z88.8 Allergy status to other drugs, medicaments and biological substances; Z79.899 Other long term (current) drug therapy; Z79.4 Long term (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 of insulin; Z79.84 Long term (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
CPT/HCPCS: 36415; 71045; 80053; 80307; 81003; 83735; 84484; 85025; 93005; 93010; 99284-25; J7121

== ENCOUNTER 2024-07-25 11:28 | Emergency (ER) | payer OTHER, MEDICARE ==
[~2024-07-25] VITALS: Ht 182.9 cm; Wt 90.1 kg
[2024-07-25] MEDS ORDERED: SODIUM CHLORIDE 0.9% 1,000 ML IV PRN (12:15)
[2024-07-25 13:33] LABS: BILIRUBIN, URINE NEGATIVE (negative); BLOOD/HGB, URINE NEGATIVE (Negative); KETONE, URINE NEGATIVE (Negative); LEUK ESTERASE, URINE NEGATIVE (negative); NITRITE, URINE NEGATIVE (negative); PH, URINE 5.5 (5-7)
[2024-07-25 13:45] LABS: BACTERIA, URINE NONE SEEN /hpf (negative); CASTS, URINE NONE SEEN \\lpf; COLLECTION TYPE, URINE CLEAN CATCH; CRYSTALS, URINE NONE SEEN (0-1+); EPITHELIAL CELLS, URINE SQUAMOUS 1+ /lpf (0-1+); RED BLOOD CELLS, URINE 0-1 /hpf (0-5); REFLEX CULTURE, URINE No (No); WHITE BLOOD CELLS, URINE 0-1 /HPF (0-5)
[2024-07-25 14:00] LABS: BASOPHILS 1.1 % (0-2); EOSINOPHILS 2.4 % (0-6); HEMATOCRIT 42.7 % (35.0-50.0); HEMOGLOBIN 14.4 g/dL (12.0-18.0); LYMPHOCYTES 35.6 % (24-44); MCH 30.5 (27-36); MCHC 33.7 g/dl (30-36); MCV 90.5 fl (81-99); MONOCYTES 9.2 % (0-12); NEUTROPHILS 51.7 % (39-80); PLATELET COUNT 250 K/uL (140-440); RBC 4.72 M/ul (4.3-5.7); RDW 14.1 (10.5-15.0)
[2024-07-25 14:12] LABS: ALBUMIN 3.6 g/dL (3.4-5.0); ALBUMIN/GLOBULIN RATIO 0.88 (1.1-2.4); ANION GAP 11.7 (7-21); BILIRUBIN, TOTAL 0.3 ng/dL (0.2-1.0); BUN/CREATININE RATIO 19.14 (6.0-28.6); CALCIUM 8.9 mg/dL (8.5-10.1); CREATININE, SERUM 0.94 mg/dL (0.70-1.30); POTASSIUM 3.7 mmol/L (3.5-5.1); PROTEIN, TOTAL 7.7 g/dL (6.4-8.2)
[2024-07-25 14:29] LABS: INR 1.04 (0.80-1.30); PROTIME 13.2 Sec (11.2-14.2)
[2024-07-25 14:32] LABS: PARTIAL THROMBOPLASTIN TIME 26.5 Sec (22.9-41.3)
[2024-07-25 14:38] LABS: INFLUENZA B NAA NEGATIVE (NEGATIVE); RESPIRATORY SYNCYTIAL VIR NAA NEGATIVE (NEGATIVE)
[2024-07-25 15:02] VITALS: BP 133/60
--- NOTE | 2024-07-26 20:59 | EKG ---
[facility] [address] [facility] [place] [address] Signed Unusual P axis, possible ectopic atrial bradycardia Abnormal ECG No previous ECGs available Confirmed by Soniya Hurst MD ([id number]) on 07/26/2024 8:59:38 PM Electronically Signed By: SONIYA HURST DO 07/26/242058 PATIENT NAME: SUSANNA LIU Electrocardiogram DATE OF : 50 PHYSICIAN: SONIYA HURST DO REPORT #: [id number] REPORT IS CONFIDENTIAL AND NOT TO BE RELEASED WITHOUT AUTHORIZATION
== END 2024-07-25 15:08 | disposition home or self-care (01) ==
LOC: ED 11:28
PROVIDERS: Emergency Medicine
DX: R42 Dizziness and giddiness (principal); E11.649 Type 2 diabetes mellitus with hypoglycemia without coma; R53.1 Weakness; Z88.5 Allergy status to narcotic agent; Z88.8 Allergy status to other drugs, medicaments and biological substances; Z79.899 Other long term (current) drug therapy; Z79.4 Long term (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 of insulin; Z79.84 Long term (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; Z11.52 Encounter for screening for COVID-19
CPT/HCPCS: 36415; 70450; 71045; 80053; 81001; 84484; 85025; 85610; 85730; 87502; 93005; 93010; 99284-25; J7030; U0002

== ENCOUNTER 2024-08-17 14:11 | Emergency (ER) | payer OTHER, MEDICARE ==
[~2024-08-17] VITALS: Ht 182.9 cm; Wt 88.9 kg
[2024-08-17 14:22] LABS: BASOPHILS 1.3 % (0-2); EOSINOPHILS 2.5 % (0-6); HEMATOCRIT 45.8 % (35.0-50.0); HEMOGLOBIN 15.2 g/dL (12.0-18.0); MCH 30.2 (27-36); MCHC 33.2 g/dl (30-36); MONOCYTES 10.8 % (0-12); NEUTROPHILS 49.4 % (39-80); PLATELET COUNT 263 K/uL (140-440); RBC 5.03 M/ul (4.3-5.7); RDW 13.8 (10.5-15.0)
[2024-08-17] MEDS ORDERED: NITROGLYCERIN 0.4 MG SUBL SL PRN (14:30)
[2024-08-17] MEDS ORDERED: ASPIRIN 81 MG CHEW PO ONE (14:30)
[2024-08-17 14:42] LABS: ALBUMIN 3.9 g/dL (3.4-5.0); ALBUMIN/GLOBULIN RATIO 0.85 (1.1-2.4); ANION GAP 10.9 (7-21); BILIRUBIN, TOTAL 0.4 ng/dL (0.2-1.0); BUN/CREATININE RATIO 17.82 (6.0-28.6); CALCIUM 9.3 mg/dL (8.5-10.1); CREATININE, SERUM 1.01 mg/dL (0.70-1.30); MAGNESIUM 1.9 mg/dL (1.8-2.4); POTASSIUM 3.9 mmol/L (3.5-5.1); PROTEIN, TOTAL 8.5 g/dL (6.4-8.2)
[2024-08-17] MEDS ORDERED: HEParin SOD (PORCINE) 500 UNIT/5 ML ML IV ONE (15:00)
[2024-08-17 17:15] VITALS: BP 116/59
--- NOTE | 2024-08-17 19:32 | EKG ---
[facility] [address] [facility] [place] [address] Signed Sinus rhythm with occasional premature ventricular complexes Otherwise normal ECG When compared with ECG of 25-JUL-2024 11:50, Sinus rhythm has replaced Ectopic atrial rhythm Confirmed by Willis Bojorquez MD ([id number]) on 08/17/2024 7:31:59 PM Electronically Signed By: WILLIS BOJORQUEZ MD 08/17/241931 PATIENT NAME: LIUSUSANNALORY HEBERT Electrocardiogram DATE OF : 50 PHYSICIAN: WILLIS BOJORQUEZ MD REPORT #: [id number] REPORT IS CONFIDENTIAL AND NOT TO BE RELEASED WITHOUT AUTHORIZATION
[2024-08-17] MEDS ORDERED: SITAGLIPTIN100 MG (23:46)
[2024-08-17] MEDS ORDERED: VIAGRA100 MG (23:46)
== END 2024-08-17 17:15 | disposition home or self-care (01) ==
LOC: ED 14:11
PROVIDERS: Emergency Medicine
DX: R07.89 Other chest pain (principal); G43.909 Migraine, unspecified, not intractable, without status migrainosus; E11.9 Type 2 diabetes mellitus without complications; E78.5 Hyperlipidemia, unspecified; Z88.8 Allergy status to other drugs, medicaments and biological substances; Z88.5 Allergy status to narcotic agent; Z79.4 Long term (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 of insulin; Z79.84 Long term (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; Z79.899 Other long term (current) drug therapy
CPT/HCPCS: 36415; 71045; 80053; 83735; 84484; 85025; 85379; 93005; 93010; 99285-25; A9270

== ENCOUNTER 2024-08-17 19:48 | Emergency (ER) | payer OTHER, MEDICARE ==
[~2024-08-17] VITALS: Ht 182.9 cm; Wt 89.8 kg
[2024-08-17] MEDS ORDERED: LIDOCAINE & ANTACID 35 ML BTL PO ONE (20:00)
[2024-08-17 20:10] LABS: BASOPHILS 0.2 % (0-2); EOSINOPHILS 2.7 % (0-6); HEMATOCRIT 44.7 % (35.0-50.0); HEMOGLOBIN 14.7 g/dL (12.0-18.0); LYMPHOCYTES 39.5 % (24-44); MCH 29.9 (27-36); MCV 90.8 fl (81-99); MONOCYTES 10.3 % (0-12); NEUTROPHILS 47.3 % (39-80); PLATELET COUNT 262 K/uL (140-440); RBC 4.92 M/ul (4.3-5.7)
[2024-08-17 20:23] LABS: PARTIAL THROMBOPLASTIN TIME 26.3 Sec (22.9-41.3)
[2024-08-17 20:24] LABS: INR 1.06 (0.80-1.30); PROTIME 13.7 Sec (11.2-14.2)
[2024-08-17 20:34] LABS: ALBUMIN 3.6 g/dL (3.4-5.0); ALBUMIN/GLOBULIN RATIO 0.82 (1.1-2.4); BILIRUBIN, TOTAL 0.4 ng/dL (0.2-1.0); BUN/CREATININE RATIO 18.81 (6.0-28.6); CALCIUM 9.1 mg/dL (8.5-10.1); CREATININE, SERUM 1.01 mg/dL (0.70-1.30)
[2024-08-17] MEDS ORDERED: HEParin SOD (PORCINE) 5,000 UNIT/ML VIAL IV ONE (20:45)
[2024-08-17] MEDS ORDERED: HEPARIN SOD,PORK IN 0.45% NACL 500 ML IV SCH (20:45)
[2024-08-17] MEDS ORDERED: NITROGLYCERIN PACKET TOP ONE (20:45)
[2024-08-17 23:29] LABS: INFLUENZA B NAA NEGATIVE (NEGATIVE); RESPIRATORY SYNCYTIAL VIR NAA NEGATIVE (NEGATIVE)
[2024-08-17] MEDS ORDERED: VIAGRA100 MG (23:46)
[2024-08-17] MEDS ORDERED: SITAGLIPTIN100 MG (23:46)
[2024-08-18 01:10] VITALS: BP 108/61
--- NOTE | 2024-08-18 16:41 | EKG ---
[facility] [address] [facility] [place] [address] Signed Sinus bradycardia Otherwise normal ECG No previous ECGs available Confirmed by Willis Bojorquez MD ([id number]) on 08/18/2024 4:40:50 PM Electronically Signed By: WILLIS BOJORQUEZ MD 08/18/24 1641 PATIENT NAME: SUSANNA LIU ANUP Electrocardiogram DATE OF : 50 PHYSICIAN: WILLIS BOJORQUEZ MD REPORT #: [id number] REPORT IS CONFIDENTIAL AND NOT TO BE RELEASED WITHOUT AUTHORIZATION
== END 2024-08-18 01:10 | disposition short-term general hospital (02) ==
LOC: ED 19:48
PROVIDERS: Family Medicine
DX: I21.4 Non-ST elevation (NSTEMI) myocardial infarction (principal); E11.9 Type 2 diabetes mellitus without complications; E78.5 Hyperlipidemia, unspecified; I10 Essential (primary) hypertension; G43.909 Migraine, unspecified, not intractable, without status migrainosus; Z88.5 Allergy status to narcotic agent; Z88.8 Allergy status to other drugs, medicaments and biological substances; Z79.4 Long term (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 of insulin; Z79.84 Long term (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; Z79.899 Other long term (current) drug therapy
CPT/HCPCS: 36415; 80053; 83880; 84484; 85025; 85610; 85730; 87502; 93005; 93010; 96365; 96366; 96376; 99285-25; J1644; U0002

== ENCOUNTER 2024-08-27 01:38 | Emergency (ER) | payer OTHER, MEDICARE ==
[~2024-08-27] VITALS: Ht 182.9 cm; Wt 90.3 kg
--- OUTSIDE RECORDS SUMMARY | ~2024-08-27 | XMS | Continuity of Care Document ---
Demographics + + + | Address | [address] [facility] [address] | | | [place] [address] | + + + | Preferred Language | Unknown | + + + | Marital Status | Unknown | + + + | Methodist Affiliation | Unknown | + + + | Race | White | + + + | Ethnic Group | Not or | + + + Author + + + | Author | [facility] | + + + | Organization | [facility] | + + + | Address | [address] | | | [place] [address] | + + + | Phone | | + + + Care Team Providers + + + + | Care Steeple Jack Name | Role | Phone | + [...]
[~2024-08-27 01:38] MED LIST changes: +SITAGLIPTIN100 MG; +VIAGRA100 MG
[2024-08-27] MEDS ORDERED: METOPROLOL TART25 MG PO (01:56)
[2024-08-27] MEDS ORDERED: CLOPIDOGREL75 MG PO (01:56)
[2024-08-27 02:07] LABS: HEMATOCRIT 41.2 % (35.0-50.0); HEMOGLOBIN 13.7 g/dL (12.0-18.0); MCH 30.2 (27-36); MCHC 33.3 g/dl (30-36); MCV 90.8 fl (81-99); PLATELET COUNT 242 K/uL (140-440); RBC 4.54 M/ul (4.3-5.7); RDW 13.9 (10.5-15.0)
[2024-08-27 02:18] LABS: ALBUMIN 3.3 g/dL (3.4-5.0); ALBUMIN/GLOBULIN RATIO 0.83 (1.1-2.4); ANION GAP 9.9 (7-21); BILIRUBIN, TOTAL 0.3 ng/dL (0.2-1.0); BUN/CREATININE RATIO 22.22 (6.0-28.6); CALCIUM 8.9 mg/dL (8.5-10.1); CREATININE, SERUM 0.9 mg/dL (0.70-1.30); MAGNESIUM 1.7 mg/dL (1.8-2.4); POTASSIUM 3.9 mmol/L (3.5-5.1); PROTEIN, TOTAL 7.3 g/dL (6.4-8.2)
[2024-08-27 02:26] LABS: BANDS, MANUAL DIFF 2; EOSINOPHILS, MANUAL DIFF 6; LYMPHOCYTES, MANUAL DIFF 47; MONOCYTES, MANUAL DIFF 3; NEUTROPHILS, MANUAL DIFF 42
[2024-08-27 05:16] VITALS: BP 107/51
== END 2024-08-27 05:12 | disposition home or self-care (01) ==
LOC: ED 01:38
PROVIDERS: Internal Medicine
DX: R07.89 Other chest pain (principal); E11.9 Type 2 diabetes mellitus without complications; I25.10 Atherosclerotic heart disease of native coronary artery without angina pectoris; I25.2 Old myocardial infarction; Z88.5 Allergy status to narcotic agent; Z88.8 Allergy status to other drugs, medicaments and biological substances; Z79.899 Other long term (current) drug therapy; Z79.4 Long term (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 of insulin; Z79.84 Long term (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; Z79.82 Long term (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 of aspirin
CPT/HCPCS: 36415; 71045; 80053; 83735; 83880; 84484; 85025; 93005; 93010; 99285-25

== ENCOUNTER 2024-09-01 04:34 | Emergency (ER) | payer OTHER, MEDICARE ==
[~2024-09-01] VITALS: Ht 182.9 cm; Wt 90.3 kg
--- OUTSIDE RECORDS SUMMARY | ~2024-09-01 | XMS | Continuity of Care Document ---
Demographics + + + | Address | [address] [facility] [facility] [address] | | | [place] [address] | + + + | Preferred Language | Unknown | + + + | Marital Status | Unknown | + + + | Pentecostalism Affiliation | Unknown | + + + | Race | White | + + + | Ethnic Group | Not or | + + + Author + + + | Author | [facility] | + + + | Organization | [facility] | + + + | Address | [address] | | | [place] [address] | + + + | Phone | | + + + Care Team Providers + + + + | Care Band Saw Operator Cake Cutting Name | Role | Phone | + + + + Unavailable | Unavailable | + + + + Allergies No information. Encounters No information. Functional Status No information. Immunizations No information. Medications No information. Problems + + + + | date | description | facility | + + + + | 2024-08-19 15:11:43 | Non-ST elevation (NSTEMI) | [facility] | | | myocardial infarction | | + + + + | 2024-08-19 15:11:43 | Coronary angioplasty | [facility] | | | status | | + + + + Procedures No information. Results/Labs No information. Social History +--------+ + + | date | description | facility | +--------+ + + Vital Signs No information."
[~2024-09-01 04:34] MED LIST changes: +CLOPIDOGREL75 MG PO; +METOPROLOL TART25 MG PO
[2024-09-01 05:15] VITALS: BP 113/51
== END 2024-09-01 05:15 | disposition home or self-care (01) ==
LOC: ED 04:34
DX: S90.121A Contusion of right lesser toe(s) without damage to nail, initial encounter (principal); W22.8XXA Striking against or struck by other objects, initial encounter; E11.9 Type 2 diabetes mellitus without complications; E78.5 Hyperlipidemia, unspecified; I25.2 Old myocardial infarction; Z88.5 Allergy status to narcotic agent; Z88.8 Allergy status to other drugs, medicaments and biological substances; Z79.4 Long term (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 of insulin; Z79.899 Other long term (current) drug therapy
CPT/HCPCS: 73660; 99283

== ENCOUNTER 2024-09-09 15:05 | Emergency (ER) | payer OTHER, MEDICARE ==
[~2024-09-09] VITALS: Ht 182.9 cm; Wt 91.2 kg
--- OUTSIDE RECORDS SUMMARY | ~2024-09-09 | XMS | Continuity of Care Document ---
Demographics + + + | Address | [address] [facility] [address] | | | [place] [address] | + + + | Preferred Language | Unknown | + + + | Marital Status | Unknown | + + + | Jehovah'S Witness Affiliation | Unknown | + + + | Race | White | + + + | Ethnic Group | Not or | + + + Author + + + | Author | [facility] | + + + | Organization | [facility] | + + + | Address | [address] | | | [place] [address] | + + + | Phone | | + + + Care Team Providers + + + + | Care Trolley Car Mechanic Name | Role | Phone | + [...]
[2024-09-09 15:44] LABS: BASOPHILS 2.6 % (0-2); EOSINOPHILS 2.3 % (0-6); HEMATOCRIT 42.5 % (35.0-50.0); HEMOGLOBIN 13.9 g/dL (12.0-18.0); MCH 29.9 (27-36); MCHC 32.6 g/dl (30-36); MCV 91.5 fl (81-99); MONOCYTES 10.1 % (0-12); PLATELET COUNT 240 K/uL (140-440); RBC 4.65 M/ul (4.3-5.7); RDW 13.9 (10.5-15.0)
[2024-09-09 16:02] LABS: ALBUMIN 3.8 g/dL (3.4-5.0); ALBUMIN/GLOBULIN RATIO 0.95 (1.1-2.4); ANION GAP 13.2 (7-21); BILIRUBIN, TOTAL 0.4 ng/dL (0.2-1.0); BUN/CREATININE RATIO 26.47 (6.0-28.6); CALCIUM 9.7 mg/dL (8.5-10.1); CREATININE, SERUM 1.02 mg/dL (0.70-1.30); MAGNESIUM 1.8 mg/dL (1.8-2.4); POTASSIUM 4.2 mmol/L (3.5-5.1); PROTEIN, TOTAL 7.8 g/dL (6.4-8.2)
[2024-09-09 19:07] VITALS: BP 104/57
[2024-09-09] MEDS ORDERED: INHALER, ASSIST DEVICES 1 EACH SPACER MISC ONE (19:15)
[2024-09-09] MEDS ORDERED: ALBUTEROL SULFATE 8 GM HOME.PACK INH ONE (19:15)
[2024-09-09] MEDS ORDERED: predniSONE 20 MG TAB PO ONE (19:15)
--- NOTE | 2024-09-09 21:16 | EKG ---
[facility] [address] [facility] [place] [address] Signed Sinus bradycardia with occasional premature ventricular complexes Otherwise normal ECG Confirmed by Deandre Hurst DO ([id number]) on 09/09/2024 9:16:29 PM Electronically Signed By: DEANDRE HURST DO 09/09/242115 PATIENT NAME: SUSANNA LIU ANUP Electrocardiogram DATE OF : 50 PHYSICIAN: DEANDRE HURST DO REPORT #: [id number] REPORT IS CONFIDENTIAL AND NOT TO BE RELEASED WITHOUT AUTHORIZATION
== END 2024-09-09 19:07 | disposition home or self-care (01) ==
LOC: ED 15:05
PROVIDERS: Internal Medicine
DX: R07.89 Other chest pain (principal); I10 Essential (primary) hypertension; E11.9 Type 2 diabetes mellitus without complications; I25.10 Atherosclerotic heart disease of native coronary artery without angina pectoris; E78.5 Hyperlipidemia, unspecified; I25.2 Old myocardial infarction; G43.909 Migraine, unspecified, not intractable, without status migrainosus; Z95.5 Presence of coronary angioplasty implant and graft; Z88.8 Allergy status to other drugs, medicaments and biological substances; Z88.5 Allergy status to narcotic agent; Z79.01 Long term (current) use of anticoagulants; Z79.4 Long term (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 of insulin; Z79.84 Long term (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; Z79.899 Other long term (current) drug therapy
CPT/HCPCS: 36415; 71045; 80053; 83735; 84484; 85025; 93005; 93010; 94640; 94664; 99285-25

== ENCOUNTER 2024-09-26 21:02 | Emergency (ER) | payer OTHER, MEDICARE ==
[~2024-09-26] VITALS: Ht 182.9 cm; Wt 90.3 kg
[2024-09-26] MEDS ORDERED: CYCLOBENZAPRINE HCL 10 MG TAB PO ONE ×2 (21:30→21:45)
[2024-09-26] MEDS ORDERED: KETOROLAC TROMETHAMINE 30 MG/ML VIAL IM ONE (21:30)
[2024-09-26] MEDS ORDERED: CYCLOBENZAPRINE HCL 10 MG HOME.PACK PO ONE (23:00)
[2024-09-26] MEDS ORDERED: methylPREDNISolone 4 MG HOME.PACK PO ONE (23:00)
[2024-09-26 23:47] VITALS: BP 122/64
== END 2024-09-26 23:48 | disposition home or self-care (01) ==
LOC: ED 21:02
DX: S39.012A Strain of muscle, fascia and tendon of lower back, initial encounter (principal); X58.XXXA Exposure to other specified factors, initial encounter; E11.9 Type 2 diabetes mellitus without complications; E78.5 Hyperlipidemia, unspecified; I25.2 Old myocardial infarction; Z79.4 Long term (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 of insulin; Z79.84 Long term (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; Z79.899 Other long term (current) drug therapy; Z88.5 Allergy status to narcotic agent; Z88.8 Allergy status to other drugs, medicaments and biological substances
CPT/HCPCS: 72100; 96372; 99283; J1885

== ENCOUNTER 2024-12-12 03:19 | Emergency (ER) | payer OTHER, MEDICARE ==
[~2024-12-12] VITALS: Ht 182.9 cm; Wt 90.6 kg
[2024-12-12] MEDS ORDERED: GLUCAGON,HUMAN RECOMBINANT 1 MG/ML VIAL SUB-Q ONE (03:30)
[2024-12-12] MEDS ORDERED: GLUCOSE GEL38 GM PO (04:07)
[2024-12-12] MEDS ORDERED: GLUCAGON EMERGEN1 MG SUB-Q (04:07)
[2024-12-12 04:15] VITALS: BP 115/58
== END 2024-12-12 04:16 | disposition home or self-care (01) ==
LOC: ED 03:19
DX: E11.649 Type 2 diabetes mellitus with hypoglycemia without coma (principal); E78.5 Hyperlipidemia, unspecified; I25.2 Old myocardial infarction; Z88.5 Allergy status to narcotic agent; Z79.899 Other long term (current) drug therapy
CPT/HCPCS: 99285

== ENCOUNTER 2024-12-26 11:40 | Emergency (ER) | payer OTHER, MEDICARE | END 2024-12-26 14:40 | disposition home or self-care (01) | LOC: ED 11:40 | DX: R42 Dizziness and giddiness (principal); E11.9 Type 2 diabetes mellitus without complications; E78.5 Hyperlipidemia, unspecified; I25.2 Old myocardial infarction; Z88.8 Allergy status to other drugs, medicaments and biological substances; Z88.5 Allergy status to narcotic agent; Z79.2 Long term (current) use of antibiotics; Z79.899 Other long term (current) drug therapy ==

== ENCOUNTER 2025-01-21 15:41 | Emergency (ER) | payer OTHER, MEDICARE ==
[~2025-01-21] VITALS: Ht 182.9 cm; Wt 92.6 kg
[~2025-01-21 15:41] MED LIST changes: +GLUCAGON EMERGEN1 MG SUB-Q; +GLUCOSE GEL38 GM PO; +NITROGLYCERIN0.4 MG SL; +PIOGLITAZONE HC15 MG PO; +VAZALORE81 MG PO
[2025-01-21 15:57] LABS: EOSINOPHILS 3.5 % (0.8-7.0); HEMATOCRIT 40.8 % (40.1-51.0); HEMOGLOBIN 13.2 g/dL (13.7-17.5); LYMPHOCYTES 43.1 % (21.8-53.1); MCH 29.3 PG (25.7-32.2); MCHC 32.4 g/dL (32.3-36.5); MCV 90.7 fL (79.0-92.2); MONOCYTES 10.7 % (5.3-12.2); NEUTROPHILS 41.4 % (34.0-67.9); PLATELET COUNT 264 K/uL (163-337)
[2025-01-21 16:24] LABS: ALBUMIN 3.4 g/dL (3.4-5.0); ALBUMIN/GLOBULIN RATIO 0.87 (1.1-2.4); BILIRUBIN, TOTAL 0.4 mg/dL (0.2-1.0); CALCIUM 8.9 mg/dL (8.5-10.1); CREATININE, SERUM 0.95 mg/dL (0.70-1.30); MAGNESIUM 1.8 mg/dL (1.8-2.4); PROTEIN, TOTAL 7.3 g/dL (6.4-8.2)
[2025-01-21 18:25] VITALS: BP 126/69
--- NOTE | 2025-01-23 10:11 | EKG ---
[facility] [address] [facility] [place] [address] Signed Unusual P axis, possible ectopic atrial bradycardia Abnormal ECG When compared with ECG of 10-JAN-2025 11:20, Ectopic atrial rhythm has replaced Sinus rhythm Confirmed by Soniya Hurst DO ([id number]) on 01/23/2025 10:11:27 AM Electronically Signed By: SONIYA HURST DO 01/23/25 1011 PATIENT NAME: SUSANNA LIU Electrocardiogram DATE OF : 50 PHYSICIAN: SONIYA HURST DO REPORT #: [id number] REPORT IS CONFIDENTIAL AND NOT TO BE RELEASED WITHOUT AUTHORIZATION
== END 2025-01-21 18:25 | disposition home or self-care (01) ==
LOC: ED 15:41
PROVIDERS: Emergency Medicine
DX: R42 Dizziness and giddiness (principal); E11.9 Type 2 diabetes mellitus without complications; E78.5 Hyperlipidemia, unspecified; I25.2 Old myocardial infarction; Z88.5 Allergy status to narcotic agent; Z88.8 Allergy status to other drugs, medicaments and biological substances; Z79.899 Other long term (current) drug therapy; Z79.2 Long term (current) use of antibiotics
CPT/HCPCS: 36415; 70551; 80053; 83735; 84484; 85025; 93005; 93010; 99284-25

== ENCOUNTER 2025-03-17 23:10 | Emergency (ER) | payer OTHER, MEDICARE ==
[~2025-03-17] VITALS: Ht 182.9 cm; Wt 93.0 kg
[2025-03-17 23:25] LABS: MCH 29.8 PG (25.7-32.2); MCHC 32.6 g/dL (32.3-36.5); MCV 91.5 fL (79.0-92.2); RBC 4.49 M/uL (4.63-6.08)
[2025-03-17] MEDS ORDERED: ALBUTEROL/IPRATROPIUM 3 ML NEB INH ONE (23:30)
[2025-03-17 23:37] LABS: BANDS, MANUAL DIFF 1; BASOPHILS, MANUAL DIFF 1; EOSINOPHILS, MANUAL DIFF 6; LYMPHOCYTES, MANUAL DIFF 38; MONOCYTES, MANUAL DIFF 9; NEUTROPHILS, MANUAL DIFF 45
[2025-03-17] MEDS ORDERED: LORazepam 0.5 MG TAB PO ONE (23:45)
[2025-03-17 23:46] LABS: ALT (SGPT) 21.0 U/L (14-59); AST (SGOT) 13.0 U/L (15-37); GLOMERULAR FILTRATION RATE,EST 93.0 mL/min (>60); PROTEIN, TOTAL 7.2 g/dL (6.4-8.2); UREA NITROGEN 21.0 mg/dL (7-18)
[2025-03-18] MEDS ORDERED: VENTOLIN HFA18 GM INH (00:01)
[2025-03-18] MEDS ORDERED: ALBUTEROL SULFATE 8 GM HOME.PACK INH ONE (00:15)
[2025-03-18] MEDS ORDERED: LORazepam 1 MG HOME.PACK PO ONE (00:15)
[2025-03-18 00:28] VITALS: BP 123/48
--- NOTE | 2025-03-18 22:30 | EKG ---
[facility] [address] [address] Signed Sinus bradycardia Otherwise normal ECG When compared with ECG of 14-FEB-2025 12:20, No significant change was found Confirmed by Bette Street MD () on 03/18/2025 10:30:46 PM Electronically Signed By: BETTE STREET MD 03/18/252229 PATIENT NAME: SUSANNA LIU ANUP Electrocardiogram DATE OF : 50 PHYSICIAN: BETTE STREET MD REPORT #: [id number] REPORT IS CONFIDENTIAL AND NOT TO BE RELEASED WITHOUT AUTHORIZATION
== END 2025-03-18 00:28 | disposition home or self-care (01) ==
LOC: ED 23:10
PROVIDERS: Family Medicine
DX: B34.9 Viral infection, unspecified (principal); E11.9 Type 2 diabetes mellitus without complications; E78.5 Hyperlipidemia, unspecified; I25.2 Old myocardial infarction; Z88.8 Allergy status to other drugs, medicaments and biological substances; Z88.5 Allergy status to narcotic agent; Z79.4 Long term (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 of insulin; Z79.84 Long term (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; Z79.02 Long term (current) use of antithrombotics/antiplatelets; Z79.82 Long term (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 of aspirin; Z79.899 Other long term (current) drug therapy
CPT/HCPCS: 36415; 71045; 80053; 83880; 85025; 93005; 93010; 99285-25

== ENCOUNTER 2025-04-04 07:38 | Emergency (ER) | payer OTHER, MEDICARE ==
[~2025-04-04] VITALS: Ht 182.9 cm; Wt 93.0 kg
[~2025-04-04 07:38] MED LIST changes: +VENTOLIN HFA18 GM INH
[2025-04-04 08:00] LABS: BASOPHILS 1.2 % (0.2-1.2); EOSINOPHILS 2.9 % (0.8-7.0); LYMPHOCYTES 34.5 % (21.8-53.1); MCH 30.1 PG (25.7-32.2); MCHC 33.3 g/dL (32.3-36.5); MCV 90.6 fL (79.0-92.2); MONOCYTES 12.8 % (5.3-12.2); NEUTROPHILS 48.3 % (34.0-67.9); RBC 4.78 M/uL (4.63-6.08)
[2025-04-04 08:20] LABS: ALT (SGPT) 24.0 U/L (14-59); AST (SGOT) 20.0 U/L (15-37); GLOMERULAR FILTRATION RATE,EST 93.0 mL/min (>60); PROTEIN, TOTAL 7.6 g/dL (6.4-8.2); UREA NITROGEN 15.0 mg/dL (7-18)
[2025-04-04 08:25] LABS: CORONAVIRUS COVID-19 AG NEGATIVE (NEGATIVE)
[2025-04-04 08:53] VITALS: BP 129/50
--- NOTE | 2025-04-05 13:57 | EKG ---
[facility] [address] [place] [address] Signed Unusual P axis, possible ectopic atrial bradycardia Abnormal ECG When compared with ECG of 17-MAR-2025 23:24, Ectopic atrial rhythm has replaced Sinus rhythm Confirmed by Bette Street MD () on 04/05/2025 1:57:37 PM Electronically Signed By: BETTE STREET MD 04/05/25 1357 PATIENT NAME: NOESUSANNA ANUP Electrocardiogram DATE OF : 50 PHYSICIAN: BETTE STREET MD REPORT #: [id number] REPORT IS CONFIDENTIAL AND NOT TO BE RELEASED WITHOUT AUTHORIZATION
== END 2025-04-04 08:54 | disposition home or self-care (01) ==
LOC: ED 07:38
PROVIDERS: Emergency Medicine
DX: R42 Dizziness and giddiness (principal); E11.9 Type 2 diabetes mellitus without complications; E78.5 Hyperlipidemia, unspecified; Z79.4 Long term (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 of insulin; Z79.82 Long term (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 of aspirin; Z79.84 Long term (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; Z79.02 Long term (current) use of antithrombotics/antiplatelets; Z79.899 Other long term (current) drug therapy; Z88.5 Allergy status to narcotic agent; Z88.8 Allergy status to other drugs, medicaments and biological substances
CPT/HCPCS: 36415; 70450; 71045; 80053; 83880; 84484; 85025; 93005; 93010; 99285-25

== ENCOUNTER 2025-04-17 11:57 | Emergency (ER) | payer OTHER, MEDICARE ==
[~2025-04-17] VITALS: Ht 182.9 cm; Wt 93.6 kg
[~2025-04-17 11:57] MED LIST changes: -LIPITOR20 MG PO; +LIPITOR40 MG PO; +LO-DOSE ASPIRIN81 MG PO; -VAZALORE81 MG PO; -VITAMIN B122500 MCG PO; +VITAMIN B12500 MCG PO; +VITAMIN D3125 MC1 PO; -VITAMIN D5000 UNIT PO
[2025-04-17 12:31] LABS: BASOPHILS 0.9 % (0.2-1.2); EOSINOPHILS 1.9 % (0.8-7.0); LYMPHOCYTES 25.4 % (21.8-53.1); MCH 30.0 PG (25.7-32.2); MCHC 33.3 g/dL (32.3-36.5); MCV 90.2 fL (79.0-92.2); MONOCYTES 8.9 % (5.3-12.2); NEUTROPHILS 62.6 % (34.0-67.9); RBC 5.00 M/uL (4.63-6.08)
[2025-04-17 12:43] LABS: INR 1.01 (0.80-1.30); PROTIME 12.6 Sec (11.2-14.2)
[2025-04-17] MEDS ORDERED: MECLIZINE HCL 25 MG TAB PO ONE (12:45)
[2025-04-17] MEDS ORDERED: ONDANSETRON 4 MG TAB ODT SL ONE (12:45)
[2025-04-17 12:47] LABS: ALT (SGPT) 18.0 U/L (14-59); AST (SGOT) 26.0 U/L (15-37); GLOMERULAR FILTRATION RATE,EST 91.0 mL/min (>60); PROTEIN, TOTAL 7.8 g/dL (6.4-8.2); UREA NITROGEN 17.0 mg/dL (7-18)
[2025-04-17 15:17] VITALS: BP 130/85
--- NOTE | 2025-04-18 23:21 | EKG ---
[facility] [address] [facility] [place] [address] Signed Normal sinus rhythm Normal ECG When compared with ECG of 04-APR-2025 08:18, Sinus rhythm has replaced Ectopic atrial rhythm Confirmed by Bette Street MD () on 04/18/2025 11:21:05 PM Electronically Signed By: BETTE STREET MD 04/18/[address] [facility] PATIENT NAME: NOESUSANNA ANUP Electrocardiogram DATE OF : 50 PHYSICIAN: BETTE STREET MD REPORT #: [id number] REPORT IS CONFIDENTIAL AND NOT TO BE RELEASED WITHOUT AUTHORIZATION
== END 2025-04-17 15:13 | disposition home or self-care (01) ==
LOC: ED 11:57
PROVIDERS: Emergency Medicine
DX: R42 Dizziness and giddiness (principal); I25.10 Atherosclerotic heart disease of native coronary artery without angina pectoris; E11.9 Type 2 diabetes mellitus without complications; E78.5 Hyperlipidemia, unspecified; I25.2 Old myocardial infarction; Z95.5 Presence of coronary angioplasty implant and graft; Z88.5 Allergy status to narcotic agent; Z88.6 Allergy status to analgesic agent; Z79.84 Long term (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; Z79.4 Long term (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 of insulin; Z79.02 Long term (current) use of antithrombotics/antiplatelets; Z79.82 Long term (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 of aspirin; Z79.899 Other long term (current) drug therapy
CPT/HCPCS: 36415; 70450; 70496; 70498; 71045; 80053; 85025; 85610; 85730; 93005; 93010; 99285-25; A9270

== ENCOUNTER 2025-04-22 15:39 | Inpatient (IN) | payer OTHER, MEDICARE ==
[~2025-04-22] VITALS: Ht 182.9 cm; Wt 88.5 kg
[~2025-04-22 15:39] MED LIST changes: +LIPITOR20 MG PO; -LIPITOR40 MG PO; +VITAMIN B122500 MCG PO; -VITAMIN B12500 MCG PO; -VITAMIN D3125 MC1 PO; +VITAMIN D5000 UNIT PO
[2025-04-22 16:05] LABS: BASOPHILS 1.1 % (0.2-1.2); EOSINOPHILS 2.6 % (0.8-7.0); LYMPHOCYTES 38.3 % (21.8-53.1); MCH 29.7 PG (25.7-32.2); MCHC 32.9 g/dL (32.3-36.5); MCV 90.3 fL (79.0-92.2); MONOCYTES 10.0 % (5.3-12.2); NEUTROPHILS 47.8 % (34.0-67.9); RBC 4.85 M/uL (4.63-6.08)
[2025-04-22 16:25] LABS: ALT (SGPT) 21.0 U/L (14-59); AST (SGOT) 17.0 U/L (15-37); GLOMERULAR FILTRATION RATE,EST 93.0 mL/min (>60); PROTEIN, TOTAL 7.5 g/dL (6.4-8.2); UREA NITROGEN 17.0 mg/dL (7-18)
[2025-04-22] MEDS ORDERED: SODIUM CHLORIDE 0.9% 1,000 ML IV PRN (17:15)
[2025-04-22 20:33] LABS: BLOOD/HGB, URINE NEGATIVE (Negative); KETONE, URINE TRACE (Negative); LEUK ESTERASE, URINE NEGATIVE (negative); NITRITE, URINE NEGATIVE (negative)
[2025-04-22 20:37] LABS: EPITHELIAL CELLS, URINE SQUAMOUS 1+ /lpf (0-1+)
[2025-04-22 20:38] LABS: BACTERIA, URINE RARE /hpf (negative); CASTS, URINE NONE SEEN \\lpf; CRYSTALS, URINE NONE SEEN (0-1+); REFLEX CULTURE, URINE No (No)
--- NOTE | 2025-04-22 20:43 | NUR ---
pt TO [place] FLOOR FROM ED VIA ED STRETCHER, pt A/OX4, BUT REPORTS "POOR MEMORY" AT TIMES. pt ABLE TO STAND PIVOT FROM ED STRETCHER AND STANDING WEIGHT OBTAINED AND pt THEN PIVOTED TO BED. REPORTS DIZZINESS THAT "COMES AND GOES" WHILE SITTING IN BED, NOT WORSE WHEN CHANGING POSITIONS OR WHILE STANDING PER pt WHEN ASKED. PUPILS ROUND AND EQUAL, REACTIVE WITH LIGHT, pt DENIES VISION CHANGES. EQUAL DIALYSIS NURSE NOTED, CMS INTACT. pt DENIES NUMBNESS AND TINGLING. TWO RN SKIN CHECK COMPLETED WITH ANICETO REED, SCATTERED BRUSISES NOTED TO BUE FROM "IV POKES/LAB DRAWS" PER pt. pt REPORTED BEING ADMITTED "LAST WEEK" FOR SIMILAR ISSUES. BED ALARM ON FOR SAFETY, pt VERBALIZED UNDERSTANDING TO USE CALL LIGHT BEFORE GETTING OOB, URINAL AT BEDSIDE. pt PASSED BEDSIDE SWALLOW EVAL, FRESH WATER GIVEN. LUNG SOUNDS CLEAR, pt DENIES PAIN AND NAUSEA. HEART MURMUR AUSCULTATED. CALL LIGHT IN REACH, NO ADDITIONAL NEEDS OR CONCERNS.
[2025-04-22 20:44] VITALS: BP 140/56
--- NOTE | 2025-04-22 21:51 | NUR ---
CBG CHECKED BY REQUEST OF PRIMARY RNECHO. CBG 75. PRIMARY RN NOTIFIED.
--- NOTE | 2025-04-22 21:55 | NUR ---
CALL MADE TO DR HURST TO UPDATE MD ON pt. MD ASKED FOR CT RESULTS, RESULTS PROVIDED. AFTER UPDATING MD THIS RN RECIVED TELEPHONE ORDER READ BACK, TO PUT pt ON TELE AND TO CHANGE pt TO 60G ADA DIET (PREVIOUS REGULAR) pt IS DIABETIC. THIS RN ASKED IF MD WANTED BLOOD SUGAR CHECKS, MD TO LOOK THROUGH pt CHART-NO ORDERS FOR BS CHECKS RECIEVED AT THIS TIME.MD MADE AWARE, OKAY TO GIVE pt SANDWHICH BOX. NO IV FLUIDS PER MD pt HAS HX OF CHF. ANICETO REED PLACING pt ON TELE AT THIS TIME. RESULTS FROM ED EKG-SINUS BRADYCARDIA PER REPORT. FRUIT GRADING SUPERVISOR TO BRING SANDWHICH BOX TO FLOOR.
--- NOTE | 2025-04-22 22:20 | NUR ---
SANDWICH BOX PROVIDED TO pt, pt DENEIS ADDITIONAL NEEDS OR CONCERNS. BED ALARM ON AND CALL LIGHT IN REACH. pt REMAINS ON RA, RR EVEN AND UNLABORED. pt WATCHING TV IN BED, HOB ELEVATED. TELE #[address], SINUS NARINDER PER MONITOR.
[2025-04-22] MEDS ORDERED: DEXTROSE 50% 50 ML SYR IV PRN ×2 (22:30)
[2025-04-22] MEDS ORDERED: GLUCAGON,HUMAN RECOMBINANT 1 MG/ML VIAL SUB-Q PRN (22:30)
[2025-04-22] MEDS ORDERED: DEXTROSE 5% 1,000 ML IV PRN (22:30)
[2025-04-22] MEDS ORDERED: IBLOOD GLUCOSE TEST STRIP 1 EA TEST XX PRN (22:30)
[2025-04-22 22:50] VITALS: BP 140/56
--- NOTE | 2025-04-22 23:24 | NUR ---
ROUNDED ON pt, pt UP SBA AND ASSIST WITH URINAL, pt VOIDED 175MLS. pt BACK IN BED, DENIES INCREASED DIZZINESS WHEN STANDING. BED ALARM ON FOR SAFETY AND CALL LIGHT IN REACH. pt ATE 100% OF SANDCovestorICH BOX.
[2025-04-23] VITALS (13 sets, daily range): BP systolic 104–137; BP diastolic 49–61
--- NOTE | 2025-04-23 00:16 | NUR ---
rounded on pt, pt awake and watching tv. denies needs or concerns, call light in reach and bed alarm remains on for safety. on ra, rr even and unlabored. will monitor for changes.
--- NOTE | 2025-04-23 01:27 | NUR ---
rounded on pt, pt resting in bed on left side. on ra, rr even and unlabored. no distress noted. bed alarm on and call light in reach.
--- NOTE | 2025-04-23 02:16 | NUR ---
0200 vs and i&o's completed. tele#[address] pt stood to void, hr in the 90's after back in bed then back to baseline 50-60's. pt states "not really" when asked if he was dizzy before getting up, then states, "a little" when up and standing, no distress noted. no acute changes to focused assessment. equal strength noted to ble and bue, pt denies numbness and tingling. bed alarm remains on for safety. prn accucheck result of 125. iv site wnl, flushed easily with ns and brisk blood return noted. pt denies pain, fresh ice water provided. no additional needs or concerns verbalzied. call light in reach.
--- NOTE | 2025-04-23 03:30 | NUR ---
rounded on pt, pt resting in bed with eyes clsoed. on ra, rr even and unlabored. bed alarm on and call light in reach.
--- NOTE | 2025-04-23 04:14 | NUR ---
rounded on pt, pt resting in bed on right side. on ra, rr even and unlabored. tele remains in place, hr mid 50's-sinus delgado. no distress noted, bed alarm on and call light in reach.
--- NOTE | 2025-04-23 05:26 | NUR ---
rounded on pt, pt resting in bed on ra. rr even and unlabored, pt states "yay" when asked if he was doing okay. no needs or concerns verbalized, call light in reach and bed alarm on for safety.
--- NOTE | 2025-04-23 06:15 | NUR ---
rounded on pt, pt awake and watching tv. no needs or concerns verbalized, call light in reach. bed alarm on for safety.
[2025-04-23] MEDS ORDERED: INSULIN LISPRO 100 UNIT/ML ML SUB-Q SCH (08:00)
[2025-04-23] MEDS ORDERED: IBLOOD GLUCOSE TEST STRIP 1 EA TEST VI SCH (08:00)
--- NOTE | 2025-04-23 08:01 | NUR ---
Patient awake, alert and oriented x3, no acute distress. Patient stood to void, approx 300ml concentrated urine. Patient reports continued dizziness. No nausea and or pain, per patient report.
--- NOTE | 2025-04-23 09:23 | NUR ---
INTO SEE PATIENT. PERSONAL HEALTH INFORMATION REVIEWED. PATIENT LIVES ALONE. PASSED A FEW MONTHS AGO. HE HAS A BROTHER IN [facility]. HE LIVES IN A HOUSE. NO STEPS INSIDE. HAS A CANE BUT DOES NOT USE IT. PATIENT DOES DRIVE. PATIENT DOES NOT USE OXYGEN OR A CPAP. PATIENT DENIES ANY DIFFCULTY PAYING UTLITIES OR OBTAINING FOOD. PATIENT DENIES ANY CM NEEDS AT THIS TIME.
--- NOTE | 2025-04-23 09:48 | NUR ---
Patient ambulating with physical therapy in hallway.
[2025-04-23] MEDS ORDERED: ENOXAPARIN SODIUM 40 MG/0.4 ML SYR SUB-Q SCH (10:56)
[2025-04-23] MEDS ORDERED: ACETAMINOPHEN 325 MG TAB PO PRN (11:00)
[2025-04-23] MEDS ORDERED: PROCHLORPERAZINE EDISYLATE 10 MG/2 ML VIAL IV PRN (11:00)
[2025-04-23] MEDS ORDERED: LACTATED RINGER'S 1,000 ML IV SCH (11:00)
[2025-04-23] MEDS ORDERED: DULOXETINE HCL 60 MG CAP PO SCH (11:10)
--- NOTE | 2025-04-23 11:38 | NUR ---
Abdominal binder placed per docotor order. Patient assisted to bed per his request. Patient remains alert and oriented x3, he continues to reports increased dizzziness with movement. Bed alarm intact.
[2025-04-23] MEDS ORDERED: PHARMACY RENAL DOSE ADJUSTMENT 1 DOSE MISC PO SCH (12:00)
--- NOTE | 2025-04-23 12:53 | NUR ---
Patient resting in bed, eyes closed, respirations non labored. No notable distress, call light within reach.
--- NOTE | 2025-04-23 14:41 | NUR ---
Patient awake in bed watching tv, no distress. Patient's vital signs are stable, afebrile. Patient reports 4/10 headache, admin tylenol 650mg po at this time. Patient denies further needs, bed alarm intact.
--- NOTE | 2025-04-23 15:22 | EKG ---
[facility] [address] [facility] [place] [address] Signed Sinus bradycardia Otherwise normal ECG When compared with ECG of 17-APR-2025 12:46, No significant change was found Confirmed by Deandre Hurst DO ([id number]) on 04/23/2025 3:22:02 PM Electronically Signed By: DEANDRE HURST DO 04/23/25 1522 PATIENT NAME: NOESUSANNA ANUP Electrocardiogram DATE OF : 50 PHYSICIAN: DEANDRE HURST DO REPORT #: [id number] REPORT IS CONFIDENTIAL AND NOT TO BE RELEASED WITHOUT AUTHORIZATION
[2025-04-23] MEDS ORDERED: NITROGLYCERIN 0.4 MG SUBL SL PRN (15:45)
[2025-04-23] MEDS ORDERED: ALBUTEROL SULFATE 0.083% 3 ML VIAL INH PRN (16:00)
--- NOTE | 2025-04-23 16:33 | NUR ---
Patient watching tv, no acute distress. Patient denies needs at this time. Bed alarm intact.
[2025-04-23] MEDS ORDERED: ATORVASTATIN 40 MG TAB PO SCH (17:00)
--- NOTE | 2025-04-23 19:32 | NUR ---
PT RESTING IN BED, REPORT RECEIVED FROM ANICETO BUTTS. RESPIRATIONS EVEN AND UNLABORED. IV FLUID INFUSING WELL. DECREASED IV FLUID TO 75ML/HR ORDERED. DENIES NEED AT THIS TIME. CALL LIGHT IN REACH.
--- NOTE | 2025-04-23 20:50 | NUR ---
PT RESTING IN BED, VITAL SIGNS TAKEN AND RECORDED, INTAKE OUTPUT RECORDED. BLOOD GLUCOSE CHECKED INSULIN GIVEN PER SLIDING SCALE. PT C/O OF 10/19 HEADACHE, TYLENOL GIVEN ORDERED. DENIES FURTHER NEEDS. CALL LIGHT IN REACH.
[2025-04-23] MEDS ORDERED: MELATONIN 3 MG TAB PO PRN (21:00)
--- NOTE | 2025-04-23 22:53 | NUR ---
PT RESTING IN BED. RESPIRATIONS EVEN AND UNLABORED. TELE BATTERY CHANGED. PT REPORTS HEADACHE ALMOST GONE AFTER TAKING TYLENOL. RATED PAIN 08/21. DENIES FURTHER NEEDS. CALL LIGHT IN REACH.
[2025-04-24] VITALS (11 sets, daily range): BP systolic 120–136; BP diastolic 56–65
--- NOTE | 2025-04-24 00:13 | NUR ---
PT RESTING IN BED, WATCHING TV. RESPIRATIONS EVEN AND UNLABORED. DENIES NEEDS. CALL LIGHT IN REACH.
--- NOTE | 2025-04-24 01:39 | NUR ---
PATIENT RESTING WITH EYES CLOSED, RESPIRATIONS EVEN AND UNLABORED. PATIENT WOKE FOR VITAL SIGNS, VS OBTAINED AND RECORDED. INTAKE AND OUTPUT DOCUMENTED. PATIENT STOOD TO EDGE OF BED TO VOID USING URINAL. BACK TO BED WITHOUT DIFFICULTY. BED ALARM ON. IVF CONTINUING TO INFUSE WITHOUT DIFFICULTY. NO FURTHER NEEDS, CALL LIGHT IN REACH
--- NOTE | 2025-04-24 03:44 | NUR ---
PT RESTING IN BED, RESPIRATIONS EVEN AND UNLABORED. IV FLUID INFUSING WELL. NO NEEDS NOTED AT THIS TIME. CALL LIGHT IN REACH.
[2025-04-24 05:27] LABS: BASOPHILS 1.0 % (0.2-1.2); EOSINOPHILS 3.9 % (0.8-7.0); LYMPHOCYTES 29.8 % (21.8-53.1); MCH 30.0 PG (25.7-32.2); MCHC 33.0 g/dL (32.3-36.5); MCV 90.9 fL (79.0-92.2); MONOCYTES 11.4 % (5.3-12.2); NEUTROPHILS 53.7 % (34.0-67.9); RBC 4.83 M/uL (4.63-6.08)
[2025-04-24 05:45] LABS: GLOMERULAR FILTRATION RATE,EST 95.0 mL/min (>60); UREA NITROGEN 16.0 mg/dL (7-18)
--- NOTE | 2025-04-24 05:52 | NUR ---
PT RESTING IN BED, VITAL SIGNS TAKEN AND RECORDED. INTAKE AND OUTPUT RECORDED. DENIES NEEDS. CALL LIGHT IN REACH.
--- NOTE | 2025-04-24 06:57 | NUR ---
Pt report received from ANICETO Grady and ANICETO Julien. Pt is resting supine in bed, watching television. When asked if pt has any needs at this time, he states, "yeah! You can get me out of here!". Side rails up x2, bed alarm on, call light in reach.
[2025-04-24] MEDS ORDERED: ASPIRIN 81 MG CHEW PO SCH (08:00)
[2025-04-24] MEDS ORDERED: FLUDROCORTISONE ACETATE 0.1 MG TAB PO SCH (11:17)
--- NOTE | 2025-04-24 19:25 | NUR ---
REPORT RECEIVED FROM ANICETO SALAMANCA. PATIENT SITTING UPRIGHT IN BED, RESPIRATIONS EVEN AND UNLABORED. HE DENIES ANY NEEDS, CALL LIGHT IN REACH.
--- NOTE | 2025-04-24 20:41 | NUR ---
PATIENT UP TO RESTROOM, AMBULATED WELL WITH MINIMAL ASSISTANCE. DENIES DIZZINESS. BACK TO BED WITHOUT DIFFICULTY. VS OBTAINED AND RECORDED. INTAKE AND OUTPUT DOCUMENTED. SCHEDULED MEDICATIONS GIVEN TO PATIENT PER ORDER. HE DENIES ANY PAIN OR DIZZINESS AT THIS TIME. IVF CONTINUING TO INFUSE PER ORDER WITHOUT DIFFICULTY. HE DENIES OTHER NEEDS, CALL LIGHT IN REACH
--- NOTE | 2025-04-24 22:53 | NUR ---
ROUNDED ON PATIENT, RESPIRATIONS EVEN AND UNLABORED. PATIENT WATCHING TV, HE DENIES ANY NEEDS, CALL LIGHT IN REACH
--- NOTE | 2025-04-25 01:37 | NUR ---
ROUNDED ON PATIENT, PATIENT RESTING WITH EYES CLOSED, RESPIRATIONS EVEN AND UNLABORED. NO NEEDS IDENTIFIED, CALL LIGHT IN REACH
[2025-04-25 02:15] VITALS: BP 121/55
[2025-04-25 02:26] VITALS: BP 121/55
--- NOTE | 2025-04-25 03:53 | NUR ---
ROUNDED ON PATIENT, RESPIRATIONS EVEN AND UNLABORED, NO NEEDS IDENTIFIED, CALL LIGHT IN REACH
[2025-04-25 05:33] LABS: BASOPHILS 1.0 % (0.2-1.2); EOSINOPHILS 3.6 % (0.8-7.0); LYMPHOCYTES 31.3 % (21.8-53.1); MCH 29.5 PG (25.7-32.2); MCHC 32.9 g/dL (32.3-36.5); MCV 89.9 fL (79.0-92.2); MONOCYTES 11.6 % (5.3-12.2); NEUTROPHILS 52.3 % (34.0-67.9); RBC 4.74 M/uL (4.63-6.08)
[2025-04-25 05:45] LABS: GLOMERULAR FILTRATION RATE,EST 94.0 mL/min (>60); UREA NITROGEN 18.0 mg/dL (7-18)
[2025-04-25 06:05] VITALS: BP 128/61
[2025-04-25 06:24] VITALS: BP 128/61
--- NOTE | 2025-04-25 06:26 | NUR ---
ROUNDED ON PATIENT. PATIENT ALERT AND ORIENTED X4, DENIES ANY DIZZINESS THROUGHOUT THE NIGHT. DENIES ANY NEEDS, RESPIRATIONS EVEN AND UNLABORED. STATES HE IS FEELING BETTER AND LOOKING FORWARD TO GOING HOME. CALL LIGHT IN REACH
--- NOTE | 2025-04-25 07:06 | NUR ---
VERBAL REPORT RECEIVED FROM ANICETO REED. PT RESTS IN BED WITH EYES CLOSED, RESP EVEN AND UNLABORED.
[2025-04-25] MEDS ORDERED: MAGNESIUM SULFATE 2 GM/50 ML BAG IV ONE (08:00)
[2025-04-25 09:36] VITALS: BP 110/48
--- NOTE | 2025-04-25 09:39 | NUR ---
pt sitting up in bed, watching tv. PT REPORTS FEELING "OK". CLEANED UP ROOM, GOT PT FRESH ICE WATER. TOOK BP THREE TIMES, READING LOW - REPORTED TO PT'S NURSE AND DR. DICK LIGHT ON PT'S LAP, PT REPORTS NEEDING NOTHING MORE AT THIS TIME.
[2025-04-25 09:41] VITALS: BP 110/48
[2025-04-25] MEDS ORDERED: FLUDROCORTISON0.1 MG PO (10:40)
[2025-04-25] MEDS ORDERED: DULOXETINE HCL60 MG PO (10:40)
[2025-04-25] MEDS ORDERED: MAGNESIUM SULFATE 50 ML IV ONE (10:46)
--- NOTE | 2025-04-25 11:19 | NUR ---
medications reconciled
--- NOTE | 2025-04-25 12:27 | NUR ---
DISCUSSED DISCHARGE INSTRUCTIONS WITH PT, PT VERBALIZES UNDERSTANDING. VSS. IV REMOVED, TIP INTACT, GAUZE AND COBAN DRESSING APPLIED TO SITE, PT TOLERATED WELL. TELEMETRY REMOVED. PT DRESSES SELF. PT LEAVES UNIT VIA WHEELCHAIR WITH BELONGINGS; CELL PHONE, KEYS X2, WALLET, AND HOME MEDICATION. ESCORTED BY ANICETO JOLLEY TO [facility] FOR TRANSPORT HOME.
== END 2025-04-25 12:27 | disposition home or self-care (01) | DRG 312 ==
LOC: ED 15:39 → MS 15:41
PROVIDERS: Emergency Medicine; ADMIT Student in an Organized Health Care Education/Training Program; ATTEND Student in an Organized Health Care Education/Training Program
DX: I95.1 Orthostatic hypotension (principal); R42 Dizziness and giddiness; I10 Essential (primary) hypertension; E11.9 Type 2 diabetes mellitus without complications; I25.2 Old myocardial infarction; I25.10 Atherosclerotic heart disease of native coronary artery without angina pectoris; G43.909 Migraine, unspecified, not intractable, without status migrainosus; E78.5 Hyperlipidemia, unspecified; Z66 Do not resuscitate; F32.9 Major depressive disorder, single episode, unspecified; R20.0 Anesthesia of skin; R20.2 Paresthesia of skin; Z90.49 Acquired absence of other specified parts of digestive tract; Z95.5 Presence of coronary angioplasty implant and graft; Z79.4 Long term (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 of insulin; Z79.84 Long term (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; Z79.02 Long term (current) use of antithrombotics/antiplatelets; Z79.899 Other long term (current) drug therapy; Z98.52 Vasectomy status; Z88.5 Allergy status to narcotic agent; Z88.8 Allergy status to other drugs, medicaments and biological substances
CPT/HCPCS: 36415; 70450; 70496; 70498; 80048; 80053; 81001; 83735; 84484; 85025; 93005; 93010; 93306; 94799; 97140; 97161; 97166; 97530; 97535; A9270; G0378; J1650; J1815; J3475; J7030; J7121; Q9967

== ENCOUNTER 2025-04-26 10:14 | Emergency (ER) | payer OTHER, MEDICARE ==
[~2025-04-26] VITALS: Ht 182.9 cm; Wt 90.0 kg
[~2025-04-26 10:14] MED LIST changes: +DULOXETINE HCL60 MG PO; +FLUDROCORTISON0.1 MG PO
[2025-04-26 10:40] LABS: BASOPHILS 0.9 % (0.2-1.2); EOSINOPHILS 2.6 % (0.8-7.0); LYMPHOCYTES 30.2 % (21.8-53.1); MCH 29.9 PG (25.7-32.2); MCHC 33.2 g/dL (32.3-36.5); MCV 90.2 fL (79.0-92.2); MONOCYTES 9.3 % (5.3-12.2); NEUTROPHILS 56.7 % (34.0-67.9); RBC 5.11 M/uL (4.63-6.08)
[2025-04-26] MEDS ORDERED: SODIUM CHLORIDE 0.9% 1,000 ML IV ONE (10:45)
[2025-04-26 10:52] LABS: ALT (SGPT) 24.0 U/L (14-59); AST (SGOT) 25.0 U/L (15-37); GLOMERULAR FILTRATION RATE,EST 86.0 mL/min (>60); PROTEIN, TOTAL 8.0 g/dL (6.4-8.2); UREA NITROGEN 20.0 mg/dL (7-18)
[2025-04-26 11:34] LABS: BLOOD/HGB, URINE NEGATIVE (Negative); KETONE, URINE NEGATIVE (Negative); LEUK ESTERASE, URINE NEGATIVE (negative); NITRITE, URINE NEGATIVE (negative)
[2025-04-26 16:12] VITALS: BP 128/56
== END 2025-04-26 16:14 | disposition home or self-care (01) ==
LOC: ED 10:14
PROVIDERS: Emergency Medicine
DX: R42 Dizziness and giddiness (principal); E11.9 Type 2 diabetes mellitus without complications; I25.2 Old myocardial infarction; Z88.5 Allergy status to narcotic agent; Z88.8 Allergy status to other drugs, medicaments and biological substances; Z79.899 Other long term (current) drug therapy; Z79.84 Long term (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; Z79.4 Long term (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 of insulin; Z79.82 Long term (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 of aspirin
CPT/HCPCS: 36415; 70450; 80053; 81003; 85025; 97162; 97166; 97535; 99284-25; J7030

== ENCOUNTER 2025-05-03 11:14 | Emergency (ER) | payer OTHER, MEDICARE ==
[~2025-05-03] VITALS: Ht 182.9 cm; Wt 90.0 kg
[~2025-05-03 11:14] MED LIST changes: -LIPITOR20 MG PO; +LIPITOR40 MG PO; -VITAMIN B122500 MCG PO; +VITAMIN B12500 MCG PO; +VITAMIN D3125 MC1 PO; -VITAMIN D5000 UNIT PO
[2025-05-03 11:35] LABS: BASOPHILS 1.1 % (0.2-1.2); EOSINOPHILS 2.4 % (0.8-7.0); LYMPHOCYTES 33.6 % (21.8-53.1); MCH 30.2 PG (25.7-32.2); MCHC 33.4 g/dL (32.3-36.5); MCV 90.5 fL (79.0-92.2); MONOCYTES 9.3 % (5.3-12.2); NEUTROPHILS 53.4 % (34.0-67.9); RBC 4.86 M/uL (4.63-6.08)
[2025-05-03] MEDS ORDERED: MECLIZINE HCL25 MG PO (11:41)
[2025-05-03 11:53] LABS: ALT (SGPT) 20.0 U/L (14-59); AST (SGOT) 18.0 U/L (15-37); GLOMERULAR FILTRATION RATE,EST 93.0 mL/min (>60); PROTEIN, TOTAL 7.6 g/dL (6.4-8.2); UREA NITROGEN 18.0 mg/dL (7-18)
[2025-05-03 15:00] VITALS: BP 120/50
== END 2025-05-03 15:00 | disposition home or self-care (01) ==
LOC: ED 11:14
PROVIDERS: Emergency Medicine
DX: R53.1 Weakness (principal); F32.A Depression, unspecified; E11.9 Type 2 diabetes mellitus without complications; I25.10 Atherosclerotic heart disease of native coronary artery without angina pectoris; I10 Essential (primary) hypertension; E78.5 Hyperlipidemia, unspecified; I25.2 Old myocardial infarction; Z95.5 Presence of coronary angioplasty implant and graft; Z88.8 Allergy status to other drugs, medicaments and biological substances; Z88.5 Allergy status to narcotic agent; Z79.84 Long term (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; Z79.4 Long term (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 of insulin; Z79.82 Long term (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 of aspirin; Z79.899 Other long term (current) drug therapy
CPT/HCPCS: 36415; 70450; 80053; 84484; 85025; 97161; 99285-25

== ENCOUNTER 2025-05-11 14:50 | Emergency (ER) | payer OTHER, MEDICARE ==
[~2025-05-11] VITALS: Ht 182.9 cm; Wt 72.7 kg
[2025-05-11 15:04] LABS: BASOPHILS 1.0 % (0.2-1.2); EOSINOPHILS 2.0 % (0.8-7.0); LYMPHOCYTES 36.4 % (21.8-53.1); MCH 29.9 PG (25.7-32.2); MCHC 33.1 g/dL (32.3-36.5); MCV 90.4 fL (79.0-92.2); MONOCYTES 9.8 % (5.3-12.2); NEUTROPHILS 50.6 % (34.0-67.9); RBC 5.01 M/uL (4.63-6.08)
[2025-05-11] MEDS ORDERED: MIDODRINE HCL2.5 MG PO (15:06)
[2025-05-11] MEDS ORDERED: MAGNESIUM OXID420 MG PO (15:06)
[2025-05-11] MEDS ORDERED: JARDIANCE10 MG PO (15:08)
[2025-05-11 15:22] LABS: ALT (SGPT) 19.0 U/L (14-59); AST (SGOT) 15.0 U/L (15-37); GLOMERULAR FILTRATION RATE,EST 92.0 mL/min (>60); PROTEIN, TOTAL 8.1 g/dL (6.4-8.2); UREA NITROGEN 17.0 mg/dL (7-18)
[2025-05-11] MEDS ORDERED: LIDOCAINE & ANTACID 35 ML BTL PO ONE (15:30)
[2025-05-11] MEDS ORDERED: ONDANSETRON 4 MG TAB ODT SL ONE (15:30)
[2025-05-11 17:52] VITALS: BP 126/64
--- NOTE | 2025-05-11 20:39 | EKG ---
[facility] [address] [facility] [place] [address] Signed Normal sinus rhythm Normal ECG When compared with ECG of 22-APR-2025 15:58, No significant change was found Confirmed by RETA HERNANDEZ MD ([id number]) on 05/11/2025 8:39:31 PM Electronically Signed By: RETA HERNANDEZ 05/11/252038 PATIENT NAME: SUSANNA LIU ANUP Electrocardiogram DATE OF : 50 PHYSICIAN: RETA HERNANDEZ REPORT #: [id number] REPORT IS CONFIDENTIAL AND NOT TO BE RELEASED WITHOUT AUTHORIZATION
== END 2025-05-11 17:54 | disposition home or self-care (01) ==
LOC: ED 14:50
PROVIDERS: Emergency Medicine
DX: R07.89 Other chest pain (principal); I25.2 Old myocardial infarction; E11.9 Type 2 diabetes mellitus without complications; E78.5 Hyperlipidemia, unspecified; Z95.5 Presence of coronary angioplasty implant and graft; Z88.6 Allergy status to analgesic agent; Z88.5 Allergy status to narcotic agent; Z79.82 Long term (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 of aspirin; Z79.84 Long term (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; Z79.4 Long term (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 of insulin; Z79.899 Other long term (current) drug therapy
CPT/HCPCS: 36415; 71045; 80053; 83735; 84484; 85025; 93005; 93010; 99285-25; A9270

== ENCOUNTER 2025-05-12 15:33 | Emergency (ER) | payer OTHER, MEDICARE ==
[~2025-05-12] VITALS: Ht 182.9 cm; Wt 72.7 kg
[~2025-05-12 15:33] MED LIST changes: +JARDIANCE10 MG PO; +MIDODRINE HCL2.5 MG PO
[2025-05-12 15:50] LABS: BASOPHILS 0.9 % (0.2-1.2); EOSINOPHILS 2.3 % (0.8-7.0); LYMPHOCYTES 39.6 % (21.8-53.1); MCH 29.5 PG (25.7-32.2); MCHC 32.5 g/dL (32.3-36.5); MCV 90.7 fL (79.0-92.2); MONOCYTES 10.4 % (5.3-12.2); NEUTROPHILS 46.7 % (34.0-67.9); RBC 4.95 M/uL (4.63-6.08)
[2025-05-12 16:13] LABS: ALT (SGPT) 18.0 U/L (14-59); AST (SGOT) 16.0 U/L (15-37); GLOMERULAR FILTRATION RATE,EST 86.0 mL/min (>60); PROTEIN, TOTAL 7.8 g/dL (6.4-8.2); UREA NITROGEN 16.0 mg/dL (7-18)
[2025-05-12 16:24] LABS: ABO B; RH POSITIVE
[2025-05-12 16:25] LABS: ANTIBODY SCREEN NEGATIVE
[2025-05-12] MEDS ORDERED: ACETAMINOPHEN 500 MG TAB PO ONE (17:45)
[2025-05-12 17:51] VITALS: BP 131/58
== END 2025-05-12 18:08 | disposition home or self-care (01) ==
LOC: ED 15:33
PROVIDERS: Emergency Medicine
DX: M54.2 Cervicalgia (principal); M54.50 Low back pain, unspecified; R51.9 Headache, unspecified; E11.9 Type 2 diabetes mellitus without complications; I10 Essential (primary) hypertension; E78.00 Pure hypercholesterolemia, unspecified; I25.2 Old myocardial infarction; Z91.81 History of falling; Z95.5 Presence of coronary angioplasty implant and graft; Z88.6 Allergy status to analgesic agent; Z88.5 Allergy status to narcotic agent; Z79.84 Long term (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; Z79.02 Long term (current) use of antithrombotics/antiplatelets; Z79.4 Long term (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 of insulin; Z79.82 Long term (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 of aspirin; Z79.899 Other long term (current) drug therapy
CPT/HCPCS: 36415; 70450; 71260; 72125; 74177; 80053; 80307; 85025; 86850; 86900; 86901; 99284-25; A9270; Q9967

== ENCOUNTER 2025-05-13 08:46 | Inpatient (IN) | payer OTHER, MEDICARE ==
[~2025-05-13] VITALS: Ht 182.9 cm; Wt 87.2 kg
[2025-05-13] MEDS ORDERED: SODIUM CHLORIDE 0.9% 1,000 ML IV PRN ×2 (09:00→10:45)
[2025-05-13] MEDS ORDERED: ACETAMINOPHEN 325 MG TAB PO PRN (15:00)
[2025-05-13] MEDS ORDERED: SODIUM CHLORIDE 0.9% 1,000 ML IV SCH (15:00)
[2025-05-13] MEDS ORDERED: PROCHLORPERAZINE EDISYLATE 10 MG/2 ML VIAL IV PRN (15:00)
[2025-05-13] MEDS ORDERED: ENOXAPARIN SODIUM 40 MG/0.4 ML SYR SUB-Q SCH (15:04)
[2025-05-13] MEDS ORDERED: PANTOPRAZOLE SODIUM 40 MG TABEC PO SCH (15:04)
[2025-05-13] MEDS ORDERED: INSULIN LISPRO 100 UNIT/ML ML SUB-Q SCH (16:00)
[2025-05-13] MEDS ORDERED: ALBUTEROL SULFATE 0.083% 3 ML VIAL INH PRN (16:30)
[2025-05-13] MEDS ORDERED: IBLOOD GLUCOSE TEST STRIP 1 EA TEST VI SCH (17:00)
[2025-05-13 17:19] VITALS: BP 155/57
--- NOTE | 2025-05-13 19:20 | NUR ---
REPORT RECEIVED FROM ANICETO BLOCK AND ANICETO BECKER. PATIENT SITTING UP IN BED WITH LIGHTS AND TV ON, ALERT AND ABLE TO ANSWER QUESTIONS APPROPRIATLY. IVF INFUSING WITHOUT DIFFICULTY, PATIENT DENIES NEEDS AT THIS TIME. CALL LIGHT IN REACH. BED ALARM ON.
[2025-05-13 20:26] VITALS: BP 106/46
--- NOTE | 2025-05-13 20:30 | NUR ---
VS AND I&O'S COMPLETE. pt AWAKE AND RESTING IN BED, WATCHING TV. NO DISTRESS NOTED. BED ALARM ON FOR SAFETY AND CALL LIGHT IN REACH. pt DENIES ADDITIONAL NEEDS OR CONCERNS.
[2025-05-13] MEDS ORDERED: MIDODRINE HCL 5 MG TAB PO SCH (21:00)
[2025-05-13 21:34] VITALS: BP 126/52
[2025-05-13 21:36] VITALS: BP 126/52
--- NOTE | 2025-05-13 21:39 | NUR ---
SCHEDULED MEDICATIONS GIVEN PER ORDER, PATIENT TAKEN WITHOUT DIFFICULTY. ASSESSMENT PERFORMED, PATIENT STATED HE NEEDED TO USE THE RESTROOM, ANICETO GARCIA ASSISTED. PATIENT DENIES FURTHER NEEDS AT THIS TIME. CALL LIGHT IN REACH.
--- NOTE | 2025-05-13 21:56 | NUR ---
THIS RN AND SOFTWARE DEVELOPER INTERN IN TO ASSIST pt WITH THE URINAL. pt STOOD AT THE BED. pt DENIED ANY DIZINESS UNTIL HE GOT BACK INTO THE BED. pt DENIES ANY OTHER NEEDS AT THIS TIME. CALL LIGHT WITHIN REACH.
--- NOTE | 2025-05-13 23:12 | NUR ---
ROUNDED ON PATIENT, LAYING IN BED WITH EYES OPEN WATCHING TV, PATIENT DENIES NEEDS AT THIS TIME, BED ALARM SET, CALL LIGHT IN REACH.
[2025-05-14] VITALS (12 sets, daily range): BP systolic 125–154; BP diastolic 48–70
--- NOTE | 2025-05-14 01:07 | NUR ---
ANSWERED PATIENT CALL LIGHT FOR ASSITANCE WITH URINAL. PATIENT ABLE TO STAND AT BEDSIDE WITH 1PA, NO C/O DIZZINESS. VITALS OBTAINED AND DOCUMENTED. PATIENT LAYING BACK IN BED, NEW IVF BAG HUNG AND INFUSING WITHOUT DIFFICULTY. BED ALARM SET. PATIENT DENIES NEEDS AT THIS TIME. CALL LIGHT IN REACH.
--- NOTE | 2025-05-14 01:47 | NUR ---
PLACED TELE #3 ON PATIENT. PATIENT AWAKE AND ALERT LAYING IN BED WATCHING TV, IVF INFUSING WITHOUT DIFFICULTY, DENIES NEEDS AT THIS TIME. CALL LIGHT IN REACH AND BED ALARM SET
--- NOTE | 2025-05-14 03:28 | NUR ---
ROUNDED ON PATIENT, LAYING IN BED ON BACK RESTING WITH EYES CLOSED, REPSIRATIONS EVEN AND UNLABORED. IVF INFUSING WITHOUT DIFFICULTY, BED ALARM ON. NO NEEDS IDENTIFIED AT THIS TIME. CALL LIGHT IN REACH.
--- NOTE | 2025-05-14 04:25 | NUR ---
ASNWERED PATIENT CALL FOR FOR ASSISTANCE WITH URINAL. PATIENT ABLE TO STAND AT BEDSIDE 1PA, DENIES DIZZINESS. OUTPUT MEASURED AND DOCUMENTED. PATIENT BACK TO BED, ASSESSMENT PERFORMED, VS OBTAINED, BED ALARM SET. NO OTHER NEEDS AT THIS TIME. CALL LIGHT IN REACH.
--- NOTE | 2025-05-14 04:32 | NUR ---
VITAL SIGNS AND ASSESSMENT OBTAINED AND DOCUMENTED. PT DENIES DIZZINES UPON STANDING OR CHEST PAIN. MURMUR NOTED ON AUSCULTATION AND PATIENT STATED HE DOES HAVE ONE. PATIENT IN BED, IVF INFUSING WITHOUT DIFFICULTY, BED ALARM SET. PATIENT DENIES NEEDS AT THIS TIME. CALL LIGHT IN REACH.
--- NOTE | 2025-05-14 05:31 | NUR ---
ANSWERED CALL LIGHT, PATIENT NEEDED ASSISTANCE WTIH URIANL. PATIENT ABLE TO STAND AT BEDSIDE WTIH 1PA, NO C/O DIZZINESS. PATIENT IN BED, IVF INFUSING WITHOUT DIFFICULTY, BED ALARM SET, PATIENT DENIES OTHER NEEDS AT THIS TIME. CALL LIGHT IN REACH.
[2025-05-14 05:51] LABS: BASOPHILS 0.8 % (0.2-1.2); EOSINOPHILS 3.1 % (0.8-7.0); LYMPHOCYTES 29.8 % (21.8-53.1); MCH 30.1 PG (25.7-32.2); MCHC 32.7 g/dL (32.3-36.5); MCV 92.0 fL (79.0-92.2); MONOCYTES 11.3 % (5.3-12.2); NEUTROPHILS 54.6 % (34.0-67.9); RBC 4.39 M/uL (4.63-6.08)
[2025-05-14 06:10] LABS: ALT (SGPT) 19.0 U/L (14-59); AST (SGOT) 16.0 U/L (15-37); GLOMERULAR FILTRATION RATE,EST 93.0 mL/min (>60); PHOSPHORUS, INORGANIC 2.4 mg/dL (2.5-4.9); PROTEIN, TOTAL 6.6 g/dL (6.4-8.2); UREA NITROGEN 15.0 mg/dL (7-18)
--- NOTE | 2025-05-14 07:40 | NUR ---
RECEIVED REPORT FROM ANICETO REED. PATIENT LAYING IN BED WATCHING TV. CASINO OPERATIONS SUPERVISOR AT BEDSIDE TAKING BLOOD SUGAR. PT STATES NO NEEDS, WHITEBOARD UPDATED AND CALL LIGHT IN REACH.
[2025-05-14] MEDS ORDERED: INSULIN LISPRO 100 UNIT/ML ML SUB-Q SCH (08:00)
--- NOTE | 2025-05-14 08:12 | NUR ---
UR CLINICAL REVIEW: 2 MN JOSSY, MEETS INPT FOR DIZZINESS POSITIVE ORTHOSTATIC BP AFTER OBSERVATION PERIOD/TREATMENT HEART MURMUR NOTED, ECHO NEEDED, PT/OT EVAL AND TREAT, CARDIAC MONITORING INPT 05/13/2025 @ 1508 ORDER MATCHES REG NO AUTH REQUIRED PER MEDICARE RULES DC PLAN PENDING FURHTER EVAL/TREATMENT DC 05/15/25
--- NOTE | 2025-05-14 08:25 | NUR ---
PATIENT IN BED AT THIS TIME. LIFE ENRICHMENT MANAGER ASSISTED PATIENT TO BE EDGE OF THE BED AND PATIENT WAS ABLE TO USE URINAL. CALL LIGHT WITHIN REACH, NO FURTHER NEEDS.
--- NOTE | 2025-05-14 08:30 | NUR ---
OCCUPATIONAL THERAPY AT BEDSIDE WORKING WITH PATIENT.
[2025-05-14] MEDS ORDERED: EMPAGLIFLOZIN 10 MG TAB PO SCH (09:00)
[2025-05-14] MEDS ORDERED: DULOXETINE HCL 60 MG CAP PO SCH (09:00)
[2025-05-14] MEDS ORDERED: MECLIZINE HCL 25 MG TAB PO SCH (09:00)
[2025-05-14] MEDS ORDERED: CLOPIDOGREL BISULFATE 75 MG TAB PO SCH (09:00)
[2025-05-14] MEDS ORDERED: FLUDROCORTISONE ACETATE 0.1 MG TAB PO SCH (09:00)
[2025-05-14] MEDS ORDERED: ASPIRIN 81 MG TABEC PO SCH (09:00)
[2025-05-14] MEDS ORDERED: buPROPion HCL XL 150 MG TAB.XL.24H PO SCH (09:00)
[2025-05-14] MEDS ORDERED: ATORVASTATIN 20 MG TAB PO SCH (09:00)
--- NOTE | 2025-05-14 09:28 | NUR ---
PATIENT IS IN HIS CHAIR AT THIS TIME, ELECTROLESS PLATER CHARTED VITALS AND I&O'S, CHANGED LINENS, CALL LIGHT WITH IN REACH AND NOTHING ELSE NEEDED AT THIS TIME.
--- NOTE | 2025-05-14 10:51 | NUR ---
REFERRED BY NURSING STAFF WHO INDICATED CONCERN REGARDING PATIENT'S SOCIAL SUPPORT. IN CONVERSATION, PATIENT INDICATED HE HAS SEVERAL FRIENDS WITH WHOM HE SPEAKS REGULARLY WELL A FEW THAT HE PROVIDES TRANSPORTATION SERVICES FOR. SUGGESTED PATIENT CONSIDER VOLUNTEERING A WAY TO HELP INCREASE VARIETY IN HIS LIFE. TALKED WITH CASE mANAGEMENT WHO INDICATED THEY WOULD ALSO PROVIDE LIST OF AVAILABLE ACTIVITES TO PATIENT. PT EXPRESSED GRATITUDE.
[2025-05-14] MEDS ORDERED: GLUCOSE33 GM PO (11:06)
--- NOTE | 2025-05-14 11:30 | NUR ---
INTO SEE PATIENT. PERSONAL HEALTH INFORMATION REVIEWED. PATIENT LIVES ALONE IN HIS APARTMENT. HIS A COUPLE MONTHS AGO. PATIENT HAS A CANE HE USES. NO OXYGEN OR CPAP. PATIENT IS AGREEABLE TO SNF PLACEMENT. PATIENT WOULD LIKE TO GO TO [facility] IF POSSIBLE. SENT CHART TO [facility]. LEFT A MESSAGE. ALSO FAXED TO [facility].
--- NOTE | 2025-05-14 11:53 | NUR ---
MED REC COMPLETE
[2025-05-14] MEDS ORDERED: PHARMACY RENAL DOSE ADJUSTMENT 1 DOSE MISC PO SCH (12:00)
--- NOTE | 2025-05-14 12:21 | NUR ---
PATIENT IS IN HIS CHAIR AT THIS TIME, EXPERIMENTAL PSYCHOLOGIST CHARTED VITALS AND I&O'S, CALL LIGHT WITH IN REACH AND NOTHING ELSE NEEDED AT THIS TIME.
--- NOTE | 2025-05-14 12:50 | NUR ---
PATIENT SITTING UP IN CAHIR WATCHING TV, STATES NO NEEDS AT THIS TIME. CALL LIGHT IN REACH, LEGS ELEVATED.
--- NOTE | 2025-05-14 14:49 | NUR ---
PT WALKING WITH OCCUPATIONAL THERAPY OUTSIDE OF HIS ROOM.
[2025-05-14] MEDS ORDERED: MIDODRINE HCL 5 MG TAB PO SCH (15:00)
--- NOTE | 2025-05-14 17:36 | NUR ---
PATIENT IN BED AT THIS TIME. THIS PRESCHOOL ASSISTANT TEACHER ASSISTED PATIENT STANDING WITH URINAL. CALL LIGHT WITHIN REACH, NO FURTHER NEEDS AT THIS TIME.
--- NOTE | 2025-05-14 19:50 | NUR ---
REPORT RECEIVED FROM ANICETO BLOCK AND ANICETO BECKER. PT LAYING IN BED WATCHING TV. RESPIRATIONS EVEN AND UNLABORED. IV INFUSING WELL. C/0 6/10 HEADACHE, TYLENOL PRN GIVEN ORDERED. DENIES FURTHER NEEDS. CALL LIGHT IN REACH.
[2025-05-14] MEDS ORDERED: MAGNESIUM HYDROXIDE/AL HYDROX 30 ML CUP PO PRN (22:00)
--- NOTE | 2025-05-14 22:13 | NUR ---
PT RESTING IN BED. RESPIRATIONS EVEN AND UNLABORED. FULL ASSESSMENT DONE. IV FLUID INFUSING WELL. REPORTED HEADACHE IMPROVED AFTER A DOSE OF TYLENOL. DENIES FURTHER NEEDS. CALL LIGHT IN REACH.
--- NOTE | 2025-05-14 22:39 | NUR ---
KETAN SHELTON WALKED INTO THE ROOM TO MEASURE PATIENTS VITAL SIGNS AND I&O'S. WHILE WALKING INTO THE ROOM, PATIENT WAS URINATING INTO THE URINAL. KETAN SHELTON TOLD PATIENT THAT HE WOULD MEASURE HIS I&O'S AND VITAL SIGNS WHEN PATIENT WAS DONE URINATING. KETAN SHELTON MEASURED PATIENTS BLOOD SUGAR WELL. PATIENT STATED NO FURTHER NEEDS, CALL LIGHT LEFT WITHIN REACH.
[2025-05-15] VITALS (13 sets, daily range): BP systolic 120–149; BP diastolic 52–61
--- NOTE | 2025-05-15 00:13 | NUR ---
PT LAYING IN BED. RESPIRATIONS EVEN AND UNLABORED. IV FLUID INFUSING WELL. NO APPARENT NEEDS NOTED AT THIS TIME. CALL LIGHT AND PERSONAL BELONGINGS WITHIN REACH.
--- NOTE | 2025-05-15 01:59 | NUR ---
PT CALLED TO URINATE AND HAVE A BOWEL MOVEMENT. AMBULTED TO THE BATHROOM WITH FWW SBA TOLERATED WELL. VITAL SIGNS TAKEN AND RECORED. INTAKE AND OUTPUT RECORDED. IV INFUSING WELL. DENIES FURTHER NEEDS. CALL LIGHT AND PERSONAL BELONGINGS WITHIN REACH.
--- NOTE | 2025-05-15 03:37 | NUR ---
PT LAYING IN BED, STOOD AT BEDSIDE TO URINATE, SBA WITH FWW TOLERATED WELL. DENIES FURTHER NEEDS. IV INFUSING WELL. CALL LIGHT IN REACH.
--- NOTE | 2025-05-15 05:47 | NUR ---
PT LAYING IN BED, AWAKE. VITAL SIGNS TAKEN AND RECORDED. INTAKE AND OUTPUT RECORDED. IV FLUID INFUSING WELL. DENIES FURTHER NEEDS. CALL LIGHT IN REACH.
[2025-05-15 06:43] LABS: BASOPHILS 0.9 % (0.2-1.2); EOSINOPHILS 2.6 % (0.8-7.0); LYMPHOCYTES 31.1 % (21.8-53.1); MCH 30.2 PG (25.7-32.2); MCHC 32.9 g/dL (32.3-36.5); MCV 91.6 fL (79.0-92.2); MONOCYTES 12.6 % (5.3-12.2); NEUTROPHILS 52.5 % (34.0-67.9); RBC 4.31 M/uL (4.63-6.08)
[2025-05-15 06:54] LABS: GLOMERULAR FILTRATION RATE,EST 99.0 mL/min (>60); UREA NITROGEN 13.0 mg/dL (7-18)
--- NOTE | 2025-05-15 07:06 | NUR ---
PT CALLED TO URINATE AND REPORTS CHEST PAIN THAT STARTED ABOUT 20 MINUTES AGO, PT DESCRIBES IT HEAVY, FEELS LIKE SOMETHING IS PUSHING ON HIS CHEST. VITAL SIGNS TAKEN BP 149/57 [address] HERNANDEZ NOTIFIED IN PERSON. STAT EKG AND TROPONIN WERE ORDERED.
--- NOTE | 2025-05-15 07:30 | NUR ---
RECEIVED REPORT FROM ANICETO FERRARI. PT SITTING UP IN BED WATCHING TV, STATES NO PAIN AND NO NEEDS AT THIS TIME. WHITEBOARD UPDATED AND CALL LIGHT IN REACH.
--- NOTE | 2025-05-15 07:51 | NUR ---
PATIENT LAYING IN BED. PATIENT WAS PROVIDED WITH A WARM WASHCLOTH. BLOOD GLUCOSE WAS 93. PATIENTS CALL LIGHT IS WITHIN REACH AND NO FURTHER NEEDS AT THIS TIME.
--- NOTE | 2025-05-15 09:10 | NUR ---
PATIENT LAYING IN BED. VITAL SIGNS AND I&OS WERE DONE. PATIENTS CALL LIGHT IS WITHIN REACH AND NO FURTHER NEEDS AT THIS TIME.
--- NOTE | 2025-05-15 09:22 | NUR ---
PHYSICAL THERAPY AT BEDSIDE, PTS IV SALINE LOCKED TO HELP WITH AMBULATION. NO OTHER NEEDS AT THIS TIME.
--- NOTE | 2025-05-15 10:24 | NUR ---
PATIENT WAS ASSISTED TO THE SHOWER. PATIENT COMPLETED SHOWER WITH LITTLE ASSIST. PATIENTS LINEN AND GOWN WAS CHANGED. PATIENT IS SITTING IN CHAIR WITH CALL LIGHT IN REACH AND NO FURTHER NEEDS AT THIS TIME.
--- NOTE | 2025-05-15 10:32 | NUR ---
PT UP TO CHAIR, STATES HIS SHOWER WAS GOOD. PT CONNECTED BACK TO FLUIDS. NO OTHER NEEDS AT THIS TIME, PT WATCHING TV, CALL LIGHT IN REACH.
--- NOTE | 2025-05-15 13:19 | NUR ---
PATIENT SITTING IN CHAIR. VITAL SIGNS AND I&OS WERE DONE. PATIENTS CALL LIGHT IS WITHIN REACH AND NO FURTHER NEEDS AT THIS TIME.
--- NOTE | 2025-05-15 13:37 | NUR ---
PT UP TO BATHROOM W/FWW, SBA. PT BACK TO CHAIR, NO OTHER NEEDS AT THIS TIME, CALL LIGHT IN REACH.
--- NOTE | 2025-05-15 13:47 | NUR ---
CALLED MD HERNANDEZ, REPORTED ON PT HAVING URGENCY/FREQUENCY AND BURNING WITH URINATION. STATES OKAY TO PLACE ORDER FOR UA.
[2025-05-15 16:02] LABS: BLOOD/HGB, URINE TRACE-L (Negative); KETONE, URINE SMALL (Negative); LEUK ESTERASE, URINE NEGATIVE (negative); NITRITE, URINE NEGATIVE (negative)
[2025-05-15 16:12] LABS: BACTERIA, URINE NONE SEEN /hpf (negative); CASTS, URINE NONE SEEN \\lpf; CRYSTALS, URINE NONE SEEN (0-1+); EPITHELIAL CELLS, URINE SQUAMOUS 1+ /lpf (0-1+); REFLEX CULTURE, URINE No (No)
--- NOTE | 2025-05-15 16:13 | NUR ---
PATIENT IN BED AT THIS TIME. PLANER FEEDER ASSISTED PATIENT WITH STANDING, PATIENT ABLE TO USE URINAL INDEPENDENTLY. PLANER FEEDER SENT URINE SAMPLE DOWN TO LAB @ 1600. CALL LIGHT WITHIN REACH, NO FURTHER NEEDS.
--- NOTE | 2025-05-15 19:32 | NUR ---
REPORT RECEIVED FROM DAY SHIFT RN. PT SITTING IN RECLINER ALERT AND ORIENTED. DENIES NEEDS. WHITE BOARD UPDATED. CALL LIGHT IN REACH.
--- NOTE | 2025-05-15 20:25 | NUR ---
PATIENT CALLED DUE TO IV ALARMING. THIS RN IN ROOM TO ASSESS. NEW BAG OF IV FLUIDS INFUSING PER ORDER. PATIENT IS WITHOUT FURTHER NEEDS AT THIS TIME. CALL LIGHT AND PERSONAL BELONGINGS ARE WITHIN REACH.
--- NOTE | 2025-05-15 20:48 | NUR ---
EVENING ASSESSMENT COMPLETE. SCHEDULED MEDS ADMIN PER EMAR. PT REPORTS 4/10 HEADACHE PAIN. PRN FOR PAIN ADMIN PER EMAR. PT DENIES DIZZINESS OR LIGHTHEADEDNESS. TELE #[address] SR. HR 60'S. VS AND I&O OBTAINED. PT DENIES QUESTIONS OR CONCERNS. CALL LIGHT IN REACH.
--- NOTE | 2025-05-15 22:12 | NUR ---
PT SITTING IN RECLINER WATCHING TV. DENIES NEEDS. URINAL EMPTIED. CALL LIGHT IN REACH.
--- NOTE | 2025-05-15 22:46 | NUR ---
CALL LIGHT ANSWERED. SBA TO BED FROM RECLINER. PT DENIES FEELING DIZZY WITH AMBULATION. NO FURTHER NEEDS. CALL LIGHT IN REACH.
[2025-05-16] VITALS (8 sets, daily range): BP systolic 128–156; BP diastolic 54–68
--- NOTE | 2025-05-16 00:01 | NUR ---
CALL LIGHT ANSWERED. PT UP TO SIDE OF BED TO VOID 125 ML CLEAR YELLOW URINE. BACK TO BED, SAADIA WELL.
--- NOTE | 2025-05-16 01:40 | NUR ---
KETAN SHELTON RECORDED PATIENTS V.S. ALONG WITH I&O'S. PATIENT WANTED TO USE RTHE RESTROOM AFTER KETAN SHELTON DID HIS VITALS SO KETAN SHELTON HELPED AMBULATE HIM OVER TO THE RESTROOM. PATIENT DID NOT VOID OR HAVE A BOWEL MOVEMENT. PATIENT WAS BROUGHT BACK TO BED, CALL LIGHT LEFT WITIN REACH, NO FURTHER NEEDS.
--- NOTE | 2025-05-16 03:29 | NUR ---
PT RESTING IN BED WITH EYES CLOSED. RESPIRATIONS EVEN. CALL LIGHT IN REACH.
--- NOTE | 2025-05-16 05:24 | NUR ---
PT AWAKE IN BED WATCHING TV. VS AND I&O OBTAINED. NO NEEDS AT THIS TIME. CALL LIGHT IN REACH.
--- NOTE | 2025-05-16 07:35 | NUR ---
RECEIVED REPORT FROM ANICETO JIMÉNEZ. PT SITTING UP IN BED WATCHING TV, STATES NO CURRENT NEEDS. URINAL EMPTIED, CALL LIGHT WITHIN REACH.
--- NOTE | 2025-05-16 09:15 | NUR ---
PT USES CALL LIGHT, THIS RN TO BEDSIDE. PT HAS VOIDED IN URINAL, STATES THERE IS BLOOD IN HIS URINE. URINE ASSESSED, SCANT AMOUNT OF PINK TINGED URINE AROUND OPENING OF URINAL. PT DENIES PAIN WITH URINATION AT THIS TIME. PT DENIES ANY FURTHER NEEDS AT THIS TIME. DR. HERNANDEZ UPDATED ON PT CONCERN, MD AWARE, NO NEW ORDERS.
--- NOTE | 2025-05-16 10:06 | NUR ---
PT'S ROOM CLEANED WITH TRASH REMOVED. EMPTIED URINAL, PT REPORTING URGENT URINATION. PT HAS FRESH WATER NEXT TO BED. PT REPORTED NEEDING NOTHING MORE AT THIS TIME. CALL LIGHT WITHIN REACH. PT IN BED, HEAD UP WATCHING TV.
--- NOTE | 2025-05-16 12:59 | NUR ---
PT SITTING IN BED, HEAD UP AND TV ON. TOOK OUT TRASH AND EMPTIED URINAL. GOT PT FRESH ICE WATER AND CALL LIGHT IS ON LAP. PT REPORTS NEEDING NOTHING MORE AT THIS TIME.
--- NOTE | 2025-05-16 13:01 | NUR ---
PT WAS GIVEN WARM WASH CLOTH TO WASH FACE AND CLEAN HANDS. PT PERFORMED ORAL CARE IN BED. PT REPORTED NOT WANTING TO SHOWER TODAY.
--- NOTE | 2025-05-16 14:15 | NUR ---
PT SITTING UP IN BED, STATES HE WOULD LIKE TO SHOWER THIS AFTERNOON. PT STATES NO CURRENT NEEDS, CALL LIGHT WITHIN REACH.
--- NOTE | 2025-05-16 15:45 | NUR ---
PT UP TO TAKE SHOWER, REMOVES BREIF, RED DRAINAGE FROM URINE PRESENT IN BREIF. PT UP TO SHOWER CHAIR, CLEANS SELF WITH ASSISTANCE TO WASH BACK. LINEN CHANGE COMPLETED.
--- NOTE | 2025-05-16 16:16 | NUR ---
PT UP TO CHAIR AFTER SHOWER, WARM BLANKETS PROVIDED, PT STATES NO FURTHER NEEDS AT THIS TIME. CALL LIGHT WITHIN REACH.
--- NOTE | 2025-05-16 19:34 | NUR ---
REPORT RECEIVED FROM DAY SHIFT RN. PT LYING IN BED ALERT AND ORIENTED. DENIES NEEDS. WHITE BOARD UPDATED. CALL LIGHT IN REACH.
--- NOTE | 2025-05-16 20:39 | NUR ---
EVENING ASSESSMENT COMPLETE. SCHEDULED MEDS ADMIN PER EMAR. PT REPORTS HEADACHE PAIN 11/19. PRN FOR PAIN ADMIN PER EMAR. TELE #[address] SR. HR 60'S. VS AND I&O OBTAINED. PT DENIES QUESTIONS OR CONCERNS. CALL LIGHT IN REACH.
--- NOTE | 2025-05-16 23:19 | NUR ---
PT RESTING IN BED WITH EYES CLOSED. RESPIRATIONS EVEN. CALL LIGHT IN REACH.
[2025-05-17 01:13] VITALS: BP 141/63
--- NOTE | 2025-05-17 01:15 | NUR ---
PT CALLED TO USE BR, ASSISTED TO BR AND BACK TO BED. VITALS DONE AND URINAL EMPTIED.
--- NOTE | 2025-05-17 03:40 | NUR ---
PT RESTING IN BED WITH EYES CLOSED. RESPIRATIONS EVEN. CALL LIGHT IN REACH.
--- NOTE | 2025-05-17 04:31 | NUR ---
PATIENT IV ALARMING. NEW BAG OF IV FLUIDS INFUSING PER EMAR. PATIENT IS WITHOUT FURTHER NEEDS AT THIS TIME. CALL LIGHT AND PERSONAL BELONGINGS ARE WITHIN REACH.
[2025-05-17 05:12] VITALS: BP 134/58
[2025-05-17 05:14] VITALS: BP 134/58
--- NOTE | 2025-05-17 05:17 | NUR ---
LAB IN FOR MORNING DRAW. VS AND I&O OBTAINED. PT TO SIDE OF BED TO VOID, DENIES FEELING DIZZY OR LIGHTHEADED. DENIES FURTHER NEEDS. CALL LIGHT IN REACH.
[2025-05-17 05:19] LABS: BASOPHILS 1.1 % (0.2-1.2); EOSINOPHILS 3.6 % (0.8-7.0); LYMPHOCYTES 32.9 % (21.8-53.1); MCH 30.2 PG (25.7-32.2); MCHC 33.2 g/dL (32.3-36.5); MCV 91.1 fL (79.0-92.2); MONOCYTES 12.2 % (5.3-12.2); NEUTROPHILS 49.9 % (34.0-67.9); RBC 4.40 M/uL (4.63-6.08)
[2025-05-17 05:34] LABS: ALT (SGPT) 22.0 U/L (14-59); AST (SGOT) 21.0 U/L (15-37); GLOMERULAR FILTRATION RATE,EST 98.0 mL/min (>60); PROTEIN, TOTAL 7.0 g/dL (6.4-8.2); UREA NITROGEN 11.0 mg/dL (7-18)
--- NOTE | 2025-05-17 07:07 | NUR ---
Pt report received from ANICETO Louie. Pt is A&O as I enter his room, he is exiting his bed and asks for SBA as he rushes to the toilet to have a BM. Pt understands to use call light when he is finished. White board updated.
--- NOTE | 2025-05-17 07:58 | NUR ---
HOURLY ROUNDING. PATIENT CALLED FROM USING THE BATHROOM. PATIENT HAS A BM WHICH WAS DOC ON THE I AND O BOARD. BOARD HAS BEEN UPDATED AND PATIENT IS SET UP TO EAT BREAKFEAST IN HIS RECLINER. AM CARE HAS BEEN COMPLETED AND A BLANKET FROM THE WARMER WAS GIVEN
[2025-05-17] MEDS ORDERED: MAGNESIUM SULFATE 2 GM/50 ML BAG IV SCH (09:00)
[2025-05-17 09:36] VITALS: BP 137/60
--- NOTE | 2025-05-17 09:37 | NUR ---
HOURLY ROUNDING. PATIENT LAYING IN BED, FEELS GREAT AFTER THREE BM'S. AM CARE COMPLETE AND VITALS ARE COMPLETED
--- NOTE | 2025-05-17 10:22 | NUR ---
PATIENT ACCEPTED AT [facility].
[2025-05-17] MEDS ORDERED: MIDODRINE HCL5 MG PO (10:24)
[2025-05-17] MEDS ORDERED: MECLIZINE HCL25 MG PO (10:25)
--- NOTE | 2025-05-17 10:25 | NUR ---
W/C VAN SCHEDULED AT 1130. IMM LETTER COMPLETED. NO FUTHER CM NEEDS.
[2025-05-17 10:45] VITALS: BP 137/60
--- NOTE | 2025-05-17 10:48 | NUR ---
ORDERS FAXED TO [facility].
--- NOTE | 2025-05-17 11:36 | NUR ---
Pt report called to ANICETO Foster at [facility]
--- NOTE | 2025-05-17 21:22 | EKG ---
[facility] [address] [facility] [place] [address] Signed Normal sinus rhythm Prolonged QT Abnormal ECG When compared with ECG of 11-MAY-2025 14:52, No significant change was found Confirmed by Bette Street MD () on 05/17/2025 9:22:19 PM Electronically Signed By: BETTE STREET MD 05/17/252121 PATIENT NAME: NOESUSANNA ANUP Electrocardiogram DATE OF : 50 PHYSICIAN: BETTE STRE[address] MD REPORT #: [id number] REPORT IS CONFIDENTIAL AND NOT TO BE RELEASED WITHOUT AUTHORIZATION
== END 2025-05-17 11:30 | DRG 74 ==
LOC: ED 08:46 → MS 15:22
PROVIDERS: ADMIT Internal Medicine; ATTEND Family Medicine
DX: G90.89 Other disorders of autonomic nervous system (principal); F32.A Depression, unspecified; I35.0 Nonrheumatic aortic (valve) stenosis; E83.42 Hypomagnesemia; I10 Essential (primary) hypertension; E11.65 Type 2 diabetes mellitus with hyperglycemia; F41.9 Anxiety disorder, unspecified; E78.00 Pure hypercholesterolemia, unspecified; I25.2 Old myocardial infarction; Z91.81 History of falling; Z90.81 Acquired absence of spleen; Z88.8 Allergy status to other drugs, medicaments and biological substances; Z88.5 Allergy status to narcotic agent; Z79.84 Long term (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; Z79.52 Long term (current) use of systemic steroids; Z79.02 Long term (current) use of antithrombotics/antiplatelets; Z79.4 Long term (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 of insulin; Z79.82 Long term (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 of aspirin; Z95.5 Presence of coronary angioplasty implant and graft
CPT/HCPCS: 36415; 70551; 71045; 80048; 80053; 81001; 83735; 84100; 84484; 85025; 93005; 93010; 93306; 93308; 97112; 97162; 97164; 97165; 97530; 97535; A9270; J1650; J2405; J3475; J7030

== ENCOUNTER 2025-05-28 19:21 | Emergency (ER) | payer OTHER, MEDICARE ==
[~2025-05-28] VITALS: Ht 182.9 cm; Wt 86.0 kg
[~2025-05-28 19:21] MED LIST changes: +GLUCOSE33 GM PO; +MIDODRINE HCL5 MG PO
[2025-05-28 19:42] LABS: BASOPHILS 0.9 % (0.2-1.2); EOSINOPHILS 3.0 % (0.8-7.0); LYMPHOCYTES 33.9 % (21.8-53.1); MCH 30.2 PG (25.7-32.2); MCHC 32.5 g/dL (32.3-36.5); MCV 92.9 fL (79.0-92.2); MONOCYTES 10.0 % (5.3-12.2); NEUTROPHILS 52.0 % (34.0-67.9); RBC 5.23 M/uL (4.63-6.08)
[2025-05-28] MEDS ORDERED: IBLOOD GLUCOSE TEST STRIP 1 EA TEST XX ONE (19:45)
[2025-05-28 19:55] LABS: ALT (SGPT) 28.0 U/L (14-59); AST (SGOT) 23.0 U/L (15-37); GLOMERULAR FILTRATION RATE,EST 72.0 mL/min (>60); PROTEIN, TOTAL 9.0 g/dL (6.4-8.2); UREA NITROGEN 22.0 mg/dL (7-18)
[2025-05-28] MEDS ORDERED: KETOROLAC TROMETHAMINE 15 MG/ML VIAL IV ONE (20:00)
[2025-05-28] MEDS ORDERED: METOCLOPRAMIDE HCL 10 MG/2 ML SDV IV ONE (20:15)
[2025-05-28] MEDS ORDERED: SODIUM CHLORIDE 0.9% 500 ML IV PRN (20:15)
[2025-05-28] MEDS ORDERED: ONDANSETRON ODT4 MG PO (21:53)
[2025-05-28] MEDS ORDERED: BUTALB-ACETAMI1 EACH PO (21:53)
[2025-05-28 21:57] VITALS: BP 138/56
--- NOTE | 2025-05-29 14:36 | EKG ---
[facility] [address] [facility] [place] [address] Signed Normal sinus rhythm Normal ECG When compared with ECG of 15-MAY-2025 07:10, No significant change was found Confirmed by RETA HERNANDEZ MD ([id number]) on 05/29/2025 2:36:24 PM Electronically Signed By: RETA HERNANDEZ 05/29/25 1436 PATIENT NAME: SUSANNA LIU ANUP Electrocardiogram DATE OF : 50 PHYSICIAN: RETA HERNANDEZ REPORT #: [id number] REPORT IS CONFIDENTIAL AND NOT TO BE RELEASED WITHOUT AUTHORIZATION
== END 2025-05-28 22:03 | disposition home or self-care (01) ==
LOC: ED 19:21
PROVIDERS: Family Medicine
DX: G43.909 Migraine, unspecified, not intractable, without status migrainosus (principal); E11.9 Type 2 diabetes mellitus without complications; E78.5 Hyperlipidemia, unspecified; I25.2 Old myocardial infarction; Z88.6 Allergy status to analgesic agent; Z88.5 Allergy status to narcotic agent; Z79.02 Long term (current) use of antithrombotics/antiplatelets; Z79.84 Long term (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; Z79.4 Long term (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 of insulin; Z79.82 Long term (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 of aspirin; Z79.899 Other long term (current) drug therapy
CPT/HCPCS: 36415; 80053; 83735; 85025; 93005; 93010; 96372; 96374; 96375; 99284-25; J1200; J1885; J2765; J3030; J7040

== ENCOUNTER 2025-05-31 16:27 | Emergency (ER) | payer OTHER, MEDICARE ==
[~2025-05-31] VITALS: Ht 182.9 cm; Wt 86.0 kg
[~2025-05-31 16:27] MED LIST changes: +BUTALB-ACETAMI1 EACH PO; +ONDANSETRON ODT4 MG PO
[2025-05-31 16:36] LABS: BASOPHILS 1.0 % (0.2-1.2); EOSINOPHILS 2.9 % (0.8-7.0); LYMPHOCYTES 34.1 % (21.8-53.1); MCH 30.1 PG (25.7-32.2); MCHC 32.8 g/dL (32.3-36.5); MCV 91.8 fL (79.0-92.2); MONOCYTES 11.1 % (5.3-12.2); NEUTROPHILS 50.7 % (34.0-67.9); RBC 4.65 M/uL (4.63-6.08)
[2025-05-31 16:56] LABS: ALT (SGPT) 21.0 U/L (14-59); AST (SGOT) 16.0 U/L (15-37); GLOMERULAR FILTRATION RATE,EST 85.0 mL/min (>60); PROTEIN, TOTAL 7.7 g/dL (6.4-8.2); UREA NITROGEN 12.0 mg/dL (7-18)
[2025-05-31 19:58] VITALS: BP 121/67
--- NOTE | 2025-06-01 00:03 | EKG ---
[facility] [address] [place] [address] Signed Normal sinus rhythm Normal ECG When compared with ECG of 28-MAY-2025 19:30, No significant change was found Confirmed by Bette Street MD () on 06/01/2025 12:03:49 AM Electronically Signed By: BETTE STREET MD 06/01/25 0003 PATIENT NAME: SUSANNA LIU ANUP Electrocardiogram DATE OF : 50 PHYSICIAN: BETTE [address]RE[address] MD REPORT #: [id number] REPORT IS CONFIDENTIAL AND NOT TO BE RELEASED WITHOUT AUTHORIZATION
== END 2025-05-31 19:58 | disposition home or self-care (01) ==
LOC: ED 16:27
PROVIDERS: Emergency Medicine
DX: R07.9 Chest pain, unspecified (principal); E11.9 Type 2 diabetes mellitus without complications; G43.909 Migraine, unspecified, not intractable, without status migrainosus; E78.5 Hyperlipidemia, unspecified; Z79.82 Long term (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 of aspirin; Z79.84 Long term (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; Z79.4 Long term (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 of insulin; Z79.899 Other long term (current) drug therapy; Z88.5 Allergy status to narcotic agent; Z88.8 Allergy status to other drugs, medicaments and biological substances
CPT/HCPCS: 36415; 71045; 80053; 83880; 84484; 85025; 93005; 93010; 99285-25

== ENCOUNTER 2025-06-01 11:15 | Emergency (ER) | payer OTHER, MEDICARE ==
[~2025-06-01] VITALS: Ht 182.9 cm; Wt 74.5 kg
[2025-06-01 11:28] LABS: BASOPHILS 1.2 % (0.2-1.2); EOSINOPHILS 2.9 % (0.8-7.0); LYMPHOCYTES 32.6 % (21.8-53.1); MCH 30.2 PG (25.7-32.2); MCHC 32.2 g/dL (32.3-36.5); MCV 93.7 fL (79.0-92.2); MONOCYTES 10.2 % (5.3-12.2); NEUTROPHILS 52.9 % (34.0-67.9); RBC 4.57 M/uL (4.63-6.08)
[2025-06-01 11:53] LABS: ALT (SGPT) 19.0 U/L (14-59); AST (SGOT) 14.0 U/L (15-37); GLOMERULAR FILTRATION RATE,EST 92.0 mL/min (>60); PROTEIN, TOTAL 7.4 g/dL (6.4-8.2); UREA NITROGEN 11.0 mg/dL (7-18)
[2025-06-01 12:29] VITALS: BP 142/66
--- NOTE | 2025-06-02 21:35 | EKG ---
[facility] [address] [place] [address] Signed Normal sinus rhythm Normal ECG When compared with ECG of 31-MAY-2025 16:23, No significant change was found Confirmed by Bette Street MD () on 06/02/2025 9:35:12 PM Electronically Signed By: BETTE STREET MD 06/02/252134 PATIENT NAME: SUSANNA LIU ANUP Electrocardiogram DATE OF : 50 PHYSICIAN: BETTE [address]RE[address] MD REPORT #: [id number] REPORT IS CONFIDENTIAL AND NOT TO BE RELEASED WITHOUT AUTHORIZATION
== END 2025-06-01 12:30 | disposition home or self-care (01) ==
LOC: ED 11:15
PROVIDERS: Emergency Medicine
DX: R07.81 Pleurodynia (principal); E83.42 Hypomagnesemia; E11.9 Type 2 diabetes mellitus without complications; E78.5 Hyperlipidemia, unspecified; Z88.5 Allergy status to narcotic agent; Z88.8 Allergy status to other drugs, medicaments and biological substances; Z79.899 Other long term (current) drug therapy
CPT/HCPCS: 36415; 71045; 80053; 83735; 84484; 85025; 93005; 93010; 99285-25

== ENCOUNTER 2025-06-07 17:37 | Emergency (ER) | payer OTHER, MEDICARE ==
[~2025-06-07] VITALS: Ht 182.9 cm; Wt 91.7 kg
--- OUTSIDE RECORDS SUMMARY | ~2025-06-07 | XMS | Continuity of Care Document ---
Demographics + + + | Address | [address] [facility] [address] [address] | | | [place] [address] | + + + | Preferred Language | Unknown | + + + | Marital Status | | + + + | Holiness Affiliation | Unknown | + + + | Race | White | + + + | Ethnic Group | Not or | + + + Author + + + | Author | [facility] | + + + | Organization | [facility] | + + + | Address | [address] | | | [place] [address] | + + + | Phone | | + + + Care Team Providers + + + + | Care Dough Braker Name | Role | Phone | + [...] | Moderate | | 00:00 | | [place] | | | | | [facility] | | | + + + + + + Encounters No information. Functional Status No information. Immunizations No information. Medications + + + + | date | description | facility | + + + + | (no date) | DOXEPIN HCL | [facility] | | | | [facility] | + + + + | 2025-05-28 00:00 | ONDANSETRON | [facility] | | | | [facility] | + + + + | (no date) | GABAPENTIN | [facility] | | | | [facility] | + + + + | (no date) | Alogliptin Benzoate | [facility] | | | | [facility] | + + + + | (no date) | EMPAGLIFLOZIN | [facility] | | | | [facility] | + + + + | (no date) | DEXTROSE | [facility] | | | | [facility] | + + + + | (no date) | FLUTICASONE PROPIONATE 50 | [facility] | | | MCG | [facility] | + + + + | (no date) | NAPROXEN | [facility] | | | | [facility] | + + + + | (no date) | NITROGLYCERIN | [facility] | | | | [facility] | + + + + | (no date) | OMEPRAZOLE | [facility] | | | | [facility] | + + + + | (no date) | | [facility] | | | ASPIRIN/ACETAMINOPHEN/CAFFE | [facility] | | | INE | | + + + + | (no date) | Insulin NPH Hum/Reg | [facility] | | | Insulin Hm | [facility] | + + + + | 2025-05-28 00:00 | | [facility] | | | BUTALB/ACETAMINOPHEN/CAFFEI | [facility] | | | NE | | + + + + | (no date) | Cholecalciferol (Vitamin | [facility] | | | D3) | [facility] | + + + + | (no date) | MELATONIN | [facility] | | | | [facility] | + + + + | (no date) | AMOXICILLIN | [facility] | | | | [facility] | + + + + | (no date) | ASPIRIN | [facility] | | | | [facility] | + + + + | (no date) | CIPROFLOXACIN HCL | [facility] | | | | [facility] | + + + + | (no date) | CLOPIDOGREL BISULFATE | [facility] | | | | [facility] | + + + + | (no date) | GLIPIZIDE | [facility] | | | | [facility] | + + + + | (no date) | MAGNESIUM OXIDE | [facility] | | | | [facility] | + + + + | (no date) | ACETAMINOPHEN | [facility] | | | | [facility] | + + + + | (no date) | Cyanocobalamin (Vitamin | [facility] | | | B-12) | [facility] | + + + + | 2025-04-25 00:00 | FLUDROCORTISONE ACETATE | [facility] | | | | [facility] | + + + + | (no date) | SIMETHICONE | [facility] | | | | [facility] | + + + + | (no date) | GLIPIZIDE | [facility] | | | | [facility] | + + + + | (no date) | PIOGLITAZONE HCL | [facility] | | | | [facility] | + + + + | (no date) | ARIPIPRAZOLE | [facility] | | | | [facility] | + + + + | 2025-04-25 00:00 | DULOXETINE HCL | [facility] | | | | [facility] | + + + + | (no date) | ATORVASTATIN | [facility] | | | | [facility] | + + + + | (no date) | INSULIN | [facility] | | | HUM. [facility]LERRECNICOLA | [facility] | + + + + | (no date) | ZOLPIDEM TARTRATE | [facility] | | | | [facility] | + + + + | (no date) | TRAZODONE HCL | [facility] | | | | [facility] | + + + + | (no date) | HYDROCODONE | [facility] | | | BIT/ACETAMINOPHEN | [facility] | + + + + | 2025-03-18 00:00 | ALBUTEROL SULFATE | [facility] | | | | [facility] | + + + + | (no date) | METFORMIN HCL | [facility] | | | | [facility] | + + + + | (no date) | METFORMIN HCL | [facility] | | | | [facility] | + + + + | (no date) | METOPROLOL TARTRATE | [facility] | | | | [facility] | + + + + | (no date) | POLYETHYLENE GLYCOL 3350 | [facility] | | | | [facility] | + + + + | (no date) | MIDODRINE HCL | [facility] | | | | [facility] | + + + + | 2025-05-17 00:00 | MIDODRINE HCL | [facility] | | | | [facility] | + + + + | (no date) | BUPROPION HCL | [facility] | | | | [facility] | + + + + | (no date) | BUPROPION HCL | [facility] | | | | [facility] | + + + + | (no date) | MECLIZINE HCL | [facility] | | | | [facility] | + + + + | 2025-05-17 00:00 | MECLIZINE HCL | [facility] | | | | [facility] | + + + + | (no date) | MECLIZINE HCL | [facility] | | | | [facility] | + + + + Problems + + + + | date | description | facility | + + + + | 2025-04-04 00:00 | Disequilibrium | [facility] | | | | [facility] | + + + + | 2025-04-22 00:00 | Orthostatic hypotension | [facility] | | | | [facility] | + + + + | 2025-04-22 00:00 | Paresthesia of left upper | [facility] | | | extremity | [facility] | + + + + | 2025-04-22 00:00 | Paresthesia of right upper | [facility] | | | extremity | [facility] | + + + + | 2025-05-03 00:00 | Depression | [facility] | | | | [facility] | + + + + | 2025-05-12 00:00 | Neck pain | [facility] | | | | [facility] | + + + + | 2025-05-12 00:00 | Fall | [facility] | | | | [facility] | + + + + Procedures No information. Results/Labs +--------+--------+ +---------+--------+---------+ | test | date | facility | value | unit | notes | +--------+--------+ +---------+--------+---------+ + + | Result panel 1 | + + + + + +-----+ + + | [facility] | 2025-05-12 | | B | (missing) | (missing) | | Bld | 15:38:07 | [facility] | | | | | [...] 2.4 | mg/dL | (missing) | | [facility] | 05:46:07 | [facility] | | | [...] + + + +---------+ + + | [facility] | 2025-05-15 | | SMALL | [...] + +---------+ + + | [facility] | 2025-05-15 | | 1.010 | (missing) [...] 133 | mg/dL | (missing) | | [facility] | 19:35:07 | [facility] | | [...] 100 | (missing) | (missing) | | SerPl-sCn | 19:35:07 | [facility] | | | [...] 10.0 | mg/dL | (missing) | | Ser[facility]ender | 19:35:07 | [facility] | | | [...] 1.8 | mg/dL | (missing) | | [facility] | 19:35:07 | [facility] | | | [...] 9.0 | (missing) | (missing) | | SerPazael-Yolanda | 19:35:07 | [facility] | | | [...] 4.3 | (missing) | (missing) | | [facility] [...] 0.5 | mg/dL | (missing) | | [facility] [...] 28 | (missing) | (missing) | | [facility] | 19:35:07 | [facility] | | | [...] 122 | (missing) | (missing) | | Bld-nc | 19:43:07 | [facility] | | | [...]
[2025-06-07 17:56] LABS: BASOPHILS 0.6 % (0.2-1.2); EOSINOPHILS 2.5 % (0.8-7.0); LYMPHOCYTES 28.1 % (21.8-53.1); MCH 29.4 PG (25.7-32.2); MCHC 32.2 g/dL (32.3-36.5); MCV 91.2 fL (79.0-92.2); MONOCYTES 9.8 % (5.3-12.2); NEUTROPHILS 58.8 % (34.0-67.9); RBC 4.77 M/uL (4.63-6.08)
[2025-06-07] MEDS ORDERED: SODIUM CHLORIDE 0.9% 1,000 ML IV PRN (18:00)
[2025-06-07 18:05] LABS: ALT (SGPT) 22.0 U/L (14-59); AST (SGOT) 15.0 U/L (15-37); GLOMERULAR FILTRATION RATE,EST 93.0 mL/min (>60); PROTEIN, TOTAL 7.5 g/dL (6.4-8.2); UREA NITROGEN 16.0 mg/dL (7-18)
[2025-06-07] MEDS ORDERED: ACETAMINOPHEN 500 MG TAB PO ONE (18:30)
[2025-06-07 18:41] LABS: BLOOD/HGB, URINE NEGATIVE (Negative); KETONE, URINE NEGATIVE (Negative); LEUK ESTERASE, URINE NEGATIVE (negative); NITRITE, URINE NEGATIVE (negative)
[2025-06-07 18:51] LABS: BACTERIA, URINE NONE SEEN /hpf (negative); CASTS, URINE NONE SEEN \\lpf; CRYSTALS, URINE NONE SEEN (0-1+); EPITHELIAL CELLS, URINE 0 /lpf (0-1+); REFLEX CULTURE, URINE No (No)
[2025-06-07 19:20] VITALS: BP 138/78
--- NOTE | 2025-06-09 07:39 | EKG ---
[facility] [address] [place] [address] Signed Normal sinus rhythm Normal ECG When compared with ECG of 01-JUN-2025 11:21, No significant change was found Confirmed by Deandre Hurst DO ([id number]) on 06/09/2025 7:39:21 AM Electronically Signed By: DEANDRE HURST DO 06/09/25 0739 PATIENT NAME: NOESUSANNA AUNP Electrocardiogram DATE OF : 50 PHYSICIAN: DEANDRE HURST DO REPORT #: [id number] REPORT IS CONFIDENTIAL AND NOT TO BE RELEASED WITHOUT AUTHORIZATION
== END 2025-06-07 19:19 | disposition home or self-care (01) ==
LOC: ED 17:37
PROVIDERS: Emergency Medicine
DX: R55 Syncope and collapse (principal); E11.9 Type 2 diabetes mellitus without complications; E78.5 Hyperlipidemia, unspecified; Z88.8 Allergy status to other drugs, medicaments and biological substances; Z88.5 Allergy status to narcotic agent; Z79.899 Other long term (current) drug therapy
CPT/HCPCS: 36415; 70450; 72125; 80053; 81001; 85025; 93005; 93010; 99284-25; A9270; J7030

== ENCOUNTER 2025-06-10 12:31 | Emergency (ER) | payer OTHER, MEDICARE ==
[~2025-06-10] VITALS: Ht 182.9 cm; Wt 91.5 kg
--- OUTSIDE RECORDS SUMMARY | ~2025-06-10 | XMS | Continuity of Care Document ---
Demographics + + + | Address | [address] [address] | | | [place] [address] | + + + | Preferred Language | Unknown | + + + | Marital Status | | + + + | Judaism Affiliation | Unknown | + + + | Race | White | + + + | Ethnic Group | Not or | + + + Author + + + | Author | [facility] | + + + | Organization | [facility] | + + + | Address | [address] | | | [place] [address] | + + + | Phone | | + + + Care Team Providers + + + + | Care Devops Engineer Name | Role | Phone | + [...] | Moderate | | 00:00 | | [place] | | | | | | [facility] | | | + + + + + + Encounters No information. Functional Status No information. Immunizations No information. Medications + + + + | date | description | facility | + + + + | (no date) | DOXEPIN HCL | [facility] | | | | [facility] | + + + + | 2025-05-28 00:00 | ONDANSETRON | [facility] | | | | [facility] | + + + + | (no date) | GABAPENTIN | [facility] | | | | [facility] | + + + + | (no date) | Alogliptin Benzoate | [facility] | | | | [facility] | + + + + | (no date) | EMPAGLIFLOZIN | [facility] | | | | [facility] | + + + + | (no date) | DEXTROSE | [facility] | | | | [facility] | + + + + | (no date) | FLUTICASONE PROPIONATE 50 | [facility] | | | MCG | [facility] | + + + + | (no date) | NAPROXEN | [facility] | | | | [facility] | + + + + | (no date) | NITROGLYCERIN | [facility] | | | | [facility] | + + + + | (no date) | OMEPRAZOLE | [facility] | | | | [facility] | + + + + | (no date) | | [facility] | | | ASPIRIN/ACETAMINOPHEN/CAFFE | [facility] | | | INE | | + + + + | (no date) | Insulin NPH Hum/Reg | [facility] | | | Insulin Hm | [facility] | + + + + | 2025-05-28 00:00 | | [facility] | | | BUTALB/ACETAMINOPHEN/CAFFEI | [facility] | | | NE | | + + + + | (no date) | Cholecalciferol (Vitamin | [facility] | | | D3) | [facility] | + + + + | (no date) | MELATONIN | [facility] | | | | [facility] | + + + + | (no date) | AMOXICILLIN | [facility] | | | | [facility] | + + + + | (no date) | ASPIRIN | [facility] | | | | [facility] | + + + + | (no date) | CIPROFLOXACIN HCL | [facility] | | | | [facility] | + + + + | (no date) | CLOPIDOGREL BISULFATE | [facility] | | | | [facility] | + + + + | (no date) | GLIPIZIDE | [facility] | | | | [facility] | + + + + | (no date) | MAGNESIUM OXIDE | [facility] | | | | [facility] | + + + + | (no date) | ACETAMINOPHEN | [facility] | | | [facility] | + + + + | (no date) | Cyanocobalamin (Vitamin | [facility] | | | B-12) | [facility] | + + + + | 2025-04-25 00:00 | FLUDROCORTISONE ACETATE | [facility] | | | | [facility] | + + + + | (no date) | SIMETHICONE | [facility] | | | | [facility] | + + + + | (no date) | GLIPIZIDE | [facility] | | | | [facility] | + + + + | (no date) | PIOGLITAZONE HCL | [facility] | | | | [facility] | + + + + | (no date) | ARIPIPRAZOLE | [facility] | | | | [facility] | + + + + | 2025-04-25 00:00 | DULOXETINE HCL | [facility] | | | | [facility] | + + + + | (no date) | ATORVASTATIN | [facility] | | | | [facility] | + + + + | (no date) | INSULIN | [facility] | | | HUM. CHANDLERRECNICOLA | [facility] | + + + + | (no date) | ZOLPIDEM TARTRATE | [facility] | | | | [facility] | + + + + | (no date) | TRAZODONE HCL | [facility] | | | | [facility] | + + + + | (no date) | HYDROCODONE | [facility] | | | BIT/ACETAMINOPHEN | [facility] | + + + + | 2025-03-18 00:00 | ALBUTEROL SULFATE | [facility] | | | | [facility] | + + + + | (no date) | METFORMIN HCL | [facility] | | | | [facility] | + + + + | (no date) | METFORMIN HCL | [facility] | | | | [facility] | + + + + | (no date) | METOPROLOL TARTRATE | [facility] | | | | [facility] | + + + + | (no date) | POLYETHYLENE GLYCOL 3350 | [facility] | | | | [facility] | + + + + | (no date) | MIDODRINE HCL | [facility] | | | | [facility] | + + + + | 2025-05-17 00:00 | MIDODRINE HCL | [facility] | | | | [facility] | + + + + | (no date) | BUPROPION HCL | [facility] | | | [facility] | + + + + | (no date) | BUPROPION HCL | [facility] | | | | [facility] | + + + + | (no date) | MECLIZINE HCL | [facility] | | | | [facility] | + + + + | 2025-05-17 00:00 | MECLIZINE HCL | [facility] | | | | [facility] | + + + + | (no date) | MECLIZINE HCL | [facility] [place] | | | | [facility] | + + + + Problems + + + + | date | description | facility | + + + + | 2025-04-04 00:00 | Disequilibrium | [facility] | | | | [facility] | + + + + | 2025-04-22 00:00 | Orthostatic hypotension | [facility] | | | | [facility] | + + + + | 2025-04-22 00:00 | Paresthesia of left upper | [facility] | | | extremity | [facility] | + + + + | 2025-04-22 00:00 | Paresthesia of right upper | [facility] | | | extremity | [facility] | + + + + | 2025-05-03 00:00 | Depression | [facility] | | | | [facility] | + + + + | 2025-05-12 00:00 | Neck pain | [facility] | | | | [facility] | + + + + | 2025-05-12 00:00 | Fall | [facility] | | | | [facility] | + + + + Procedures [...] 133 | mg/dL | (missing) | | [facility] | 19:35:07 | [facility] | | | [...] 28 | (missing) | (missing) | | [facility] | 19:35:07 | [facility] | [...]
[2025-06-10 13:42] LABS: BASOPHILS 0.8 % (0.2-1.2); EOSINOPHILS 1.6 % (0.8-7.0); LYMPHOCYTES 32.6 % (21.8-53.1); MCH 30.4 PG (25.7-32.2); MCHC 33.3 g/dL (32.3-36.5); MCV 91.4 fL (79.0-92.2); MONOCYTES 9.3 % (5.3-12.2); NEUTROPHILS 55.5 % (34.0-67.9); RBC 5.10 M/uL (4.63-6.08)
[2025-06-10 13:58] LABS: ALT (SGPT) 26.0 U/L (14-59); AST (SGOT) 21.0 U/L (15-37); GLOMERULAR FILTRATION RATE,EST 92.0 mL/min (>60); PROTEIN, TOTAL 8.6 g/dL (6.4-8.2); UREA NITROGEN 24.0 mg/dL (7-18)
[2025-06-10 14:48] LABS: BLOOD/HGB, URINE TRACE-I (Negative); KETONE, URINE SMALL (Negative); LEUK ESTERASE, URINE NEGATIVE (negative); NITRITE, URINE NEGATIVE (negative)
[2025-06-10 14:57] LABS: BACTERIA, URINE NONE SEEN /hpf (negative); CASTS, URINE NONE SEEN \\lpf; CRYSTALS, URINE NONE SEEN (0-1+); EPITHELIAL CELLS, URINE 0 /lpf (0-1+); REFLEX CULTURE, URINE No (No)
[2025-06-10 15:35] VITALS: BP 147/85
--- NOTE | 2025-06-11 06:02 | EKG ---
[facility] [address] [place] [address] Signed Normal sinus rhythm Normal ECG When compared with ECG of 07-JUN-2025 18:04, No significant change was found Confirmed by RETA HERNANDEZ MD ([id number]) on 06/11/2025 6:01:50 AM Electronically Signed By: RETA HERNANDEZ 06/11/25 0602 PATIENT NAME: SUSANNA LIU ANUP Electrocardiogram DATE OF : 50 PHYSICIAN: RETA HERNANDEZ REPORT #: [id number] REPORT IS CONFIDENTIAL AND NOT TO BE RELEASED WITHOUT AUTHORIZATION
== END 2025-06-10 15:30 | disposition home or self-care (01) ==
LOC: ED 12:31
PROVIDERS: Emergency Medicine
DX: S09.90XA Unspecified injury of head, initial encounter (principal); Z88.5 Allergy status to narcotic agent; E11.9 Type 2 diabetes mellitus without complications; E78.5 Hyperlipidemia, unspecified; Z88.8 Allergy status to other drugs, medicaments and biological substances; W18.30XA Fall on same level, unspecified, initial encounter
CPT/HCPCS: 36415; 70450; 71045; 80053; 81001; 85025; 93005; 93010; 99284-25

== ENCOUNTER 2025-07-06 22:48 | Emergency (ER) | payer OTHER, MEDICARE ==
[~2025-07-06] VITALS: Ht 182.9 cm; Wt 85.5 kg
--- OUTSIDE RECORDS SUMMARY | ~2025-07-06 | XMS | Continuity of Care Document ---
Demographics + + + | Address | [address] | | | [place] [address] | + + + | Preferred Language | Unknown | + + + | Marital Status | | + + + | Pentecostalism Affiliation | Unknown | + + + | Race | White | + + + | Ethnic Group | Not or | + + + Author + + + | Author | [facility] | + + + | Organization | [facility] | + + + | Address | [address] | | | [place] [address] | + + + | Phone | | + + + Care Team Providers + + + + | Care Buckle Attacher Name | Role | Phone | + [...] + + | 2025-05-11 | UNK | [facility] - | (no reaction) | Moderate | | 00:00 | | [facility] | | | | [facility] | | | + + + + + + Encounters No information. Functional Status No information. Immunizations No information. Medications + + + + | date | description | facility | + + + + | (no date) | [facility] | + + + + | 2025-05-28 00:00 | ONDANSETRON [facility] | | [facility] | + + + + | (no date) | GABAPENTIN [facility] | | | [facility] | + + + + | (no date) | Alogliptin Benzoate | [facility] | | | [facility] | + + + + | (no date) | EMPAGLIFLOZIN | [facility] | | | [facility] | + + + + | (no date) | DEXTROSE | [facility] | | | [facility] | + + + + | (no date) | FLUTICASONE PROPIONATE 50 | [facility] | | MCG | [facility] | + + + + | (no date) | NAPROXEN | [facility] | | | [facility] | + + + + | (no date) | NITROGLYCERIN [facility] | | [facility] | + + + + | (no date) | OMEPRAZOLE | [facility] | | | [facility] | + + + + | (no date) | [facility] | | | ASPIRIN/ACETAMINOPHEN/CAFFE | [facility] | | | INE | | + + + + | (no date) | Insulin NPH Hum/Reg | [facility] | | | Insulin Hm | [facility] | + + + + | 2025-05-28 00:00 | | [facility] | | | BUTALB/ACETAMINOPHEN/CAFFEI | [facility] | | | NE | | + + + + | (no date) | Cholecalciferol (Vitamin | [facility] | | | D3) | [facility] | + + + + | (no date) | MELATONIN | [facility] | | | | [facility] | + + + + | (no date) | AMOXICILLIN | [facility] | | | | [facility] | + + + + | (no date) | ASPIRIN | [facility] | | | | [facility] | + + + + | (no date) | CIPROFLOXACIN HCL | [facility] | | | | [facility] | + + + + | (no date) | CLOPIDOGREL BISULFATE | [facility] | | | | [facility] | + + + + | (no date) | GLIPIZIDE | [facility] | | | | [facility] | + + + + | (no date) | MAGNESIUM OXIDE | [facility] | | | | [facility] | + + + + | (no date) | ACETAMINOPHEN | [facility] | | | | [facility] | + + + + | (no date) | Cyanocobalamin (Vitamin | [facility] | | | B-12) | [facility] | + + + + | 2025-04-25 00:00 | FLUDROCORTISONE ACETATE | [facility] | | [facility] | + + + + | (no date) | SIMETHICONE | [facility] | | | [facility] | + + + + | (no date) | GLIPIZIDE | [facility] | | [facility] | + + + + | (no date) | PIOGLITAZONE HCL | [facility] | | [facility] | + + + + | (no date) | ARIPIPRAZOLE | [facility] | | | [facility] | + + + + | 2025-04-25 00:00 | DULOXETINE HCL | [facility] | | | [facility] | + + + + | (no date) | ATORVASTATIN | [facility] | | | | [facility] | + + + + | (no date) | INSULIN | [facility] | | | HUM. CHANDLERRECNICOLA | [facility] | + + + + | (no date) | ZOLPIDEM TARTRATE | [facility] | | | [facility] | + + + + | (no date) | TRAZODONE HCL | [facility] | | [facility] | + + + + | (no date) | HYDROCODONE | [facility] | | | BIT/ACETAMINOPHEN | [facility] | + + + + | (no date) | METFORMIN HCL | [facility] | | | | [facility] | + + + + | (no date) | METFORMIN HCL | [facility] | | | [facility] | + + + + | (no date) | METOPROLOL TARTRATE | [facility] | | | [facility] | + + + + | (no date) | POLYETHYLENE GLYCOL 3350 | [facility] | | [facility] | + + + + | (no date) | MIDODRINE HCL | [facility] | | | [facility] | + + + + | 2025-05-17 00:00 | MIDODRINE HCL | [facility] | | [facility] | + + + + | (no date) | BUPROPION HCL | [facility] | | | [facility] | + + + + | (no date) | BUPROPION HCL | [facility] | | | [facility] | + + + + | (no date) | MECLIZINE HCL | [facility] | | | [facility] | + + + + | 2025-05-17 00:00 | MECLIZINE HCL | [facility] | | [facility] | + + + + | (no date) | MECLIZINE HCL | [facility] | | | [facility] | + + + + Problems + + + + | date | description | facility | + + + + | 2025-04-22 00:00 | Orthostatic hypotension [facility] | [facility] | + + + + | 2025-04-22 00:00 | Paresthesia of left upper | [facility] | | | extremity | [facility] | + + + + | 2025-04-22 00:00 | Paresthesia of right upper | [facility] | | | extremity | [facility] | + + + + | 2025-05-03 00:00 | Depression | [facility] | | | | [facility] | + + + + | 2025-05-12 00:00 | Neck pain [facility] | [facility] | + + + + | 2025-05-12 00:00 | Fall | [facility] | | | [facility] | + + + + Procedures [...] 8 | + + + + + + [...] + + + + + | Nitrite Kosta | 2025-05-15 | | NEGATIVE | (missing) | (missing) | | Ql Strip | 15:56:07 | [facility] | | | | | | | [...] 11 | + + + + + +-------+ [...] 12 | + + + + + +-------+ [...] 14 | + + + + + + [...] 17 | + + + + + +------+ [...] 18 | + + + + + +---------+ [...] 19 | + + + + + + + + + | Urn Spec | 2025-05-15 | | CLEAN CATCH | (missing) | (missing) | | Collect Meth | : | [facility] | | | | [facility] Ur [facility] | | | | + + + + + + + + + | Result panel 20 | + + + + + + + + + | Glucose Ur | 2025-05-15 | | >=1000 | (missing) | (missing) | | Ql Strip | : | [facility] | | | | | [...] 22 | + + + + + +---------+ [...] 23 | + + + + + +---------+ + + | Sp Gr Ur | 2025-05-15 | | 1.010 | (missing) | (missing) | | Strip | 15:56:07 | [facility] | | | | | | | [...] 25 | + + + + + +-------+ [...] 22 | mg/dL | (missing) | | [facility] | 19:35:07 | [facility] | | | [...] 29 | (missing) | (missing) | | [facility] | 19:35:07 | [facility] | | | [...] 4.7 | (missing) | (missing) | | Ser-Yolanda | 19:35:07 | [facility] | | | [...] 23 | (missing) | (missing) | | [facility] | 19:35:07 | [facility] | | | [...] 122 | (missing) | (missing) | | Bld[facility] | 19:43:07 | [facility] | | | | | [facility] | [facility] | | | | + + + +-------+ + + Social History +--------+ + + [...] 189.600 | lb | + + + +---------+"
[2025-07-06 23:02] LABS: BASOPHILS 0.8 % (0.2-1.2); EOSINOPHILS 2.8 % (0.8-7.0); LYMPHOCYTES 36.8 % (21.8-53.1); MCH 30.3 PG (25.7-32.2); MCHC 33.0 g/dL (32.3-36.5); MCV 91.7 fL (79.0-92.2); MONOCYTES 12.1 % (5.3-12.2); NEUTROPHILS 47.3 % (34.0-67.9); RBC 4.56 M/uL (4.63-6.08)
[2025-07-06] MEDS ORDERED: HYDROmorphone HCL 1 MG/ML SYR IV ONE (23:15)
[2025-07-06] MEDS ORDERED: FAMOTIDINE 20 MG/ 2 ML VIAL IV ONE (23:15)
[2025-07-06 23:25] LABS: ALT (SGPT) 21.0 U/L (14-59); AST (SGOT) 12.0 U/L (15-37); GLOMERULAR FILTRATION RATE,EST 90.0 mL/min (>60); PROTEIN, TOTAL 7.8 g/dL (6.4-8.2); UREA NITROGEN 15.0 mg/dL (7-18)
[2025-07-07] MEDS ORDERED: ONDANSETRON ODT4 MG PO (02:11)
[2025-07-07] MEDS ORDERED: HYDROCODONE BIT/ACETAMINOPHEN 5/325 MG 1 TAB HOME.PACK PO ONE (02:30)
[2025-07-07] MEDS ORDERED: ONDANSETRON 4 MG HOME.PACK SL ONE (02:30)
[2025-07-07 02:36] VITALS: BP 117/945
--- NOTE | 2025-07-08 07:31 | EKG ---
[facility] [address] [place] [address] Signed Normal sinus rhythm Normal ECG When compared with ECG of 10-JUN-2025 13:46, No significant change was found Confirmed by Deandre Hurst DO ([id number]) on 07/08/2025 7:31:31 AM Electronically Signed By: DEANDRE HURST DO 07/08/25 0731 PATIENT NAME: NOESUSANNA ANUP Electrocardiogram DATE OF : 50 PHYSICIAN: DEANDRE HURST DO REPORT #: [id number] REPORT IS CONFIDENTIAL AND NOT TO BE RELEASED WITHOUT AUTHORIZATION
--- NOTE | 2025-07-09 13:10 | EKG ---
[facility] [address] [place], [place] [address] Signed Normal sinus rhythm Normal ECG When compared with ECG of 06-JUL-2025 22:51, (Unconfirmed) No significant change was found Confirmed by Soniya Hurst DO ([id number]) on 07/09/2025 1:10:27 PM Electronically Signed By: SONIYA HURST DO 07/09/25 1310 PATIENT NAME: SUSANNA LIU Electrocardiogram DATE OF : 50 PHYSICIAN: SONIYA HURST DO REPORT #: [id number] REPORT IS CONFIDENTIAL AND NOT TO BE RELEASED WITHOUT AUTHORIZATION
[2025-07-11] MEDS ORDERED: MAGNESIUM400 MG PO (13:16)
== END 2025-07-07 02:38 | disposition home or self-care (01) ==
LOC: ED 22:48
PROVIDERS: Internal Medicine
DX: I97.621 Postprocedural hematoma of a circulatory system organ or structure following other procedure (principal); G89.18 Other acute postprocedural pain; R79.89 Other specified abnormal findings of blood chemistry; E11.9 Type 2 diabetes mellitus without complications; E78.5 Hyperlipidemia, unspecified; Z79.84 Long term (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; Z79.899 Other long term (current) drug therapy; Z88.5 Allergy status to narcotic agent; Z88.8 Allergy status to other drugs, medicaments and biological substances
CPT/HCPCS: 36415; 71045; 80053; 83735; 83880; 84484; 85025; 93005; 93010; 96374; 96375; 99285-25; A9270; J1171

== ENCOUNTER 2025-07-21 16:00 | Emergency (ER) | payer OTHER, MEDICARE ==
[~2025-07-21] VITALS: Ht 182.9 cm; Wt 86.0 kg
--- OUTSIDE RECORDS SUMMARY | ~2025-07-21 | XMS | Continuity of Care Document ---
Demographics + + + | Address | [address] | | | [place] [address] | + + + | Preferred Language | Unknown | + + + | Marital Status | | + + + | Faith Affiliation | Unknown | + + + | Race | White | + + + | Ethnic Group | Not or | + + + Author + + + | Author | [facility] | + + + | Organization | [facility] | + + + | Address | [address] | | | [place] [address] | + + + | Phone | | + + + Care Team Providers + + + + | Care Art Dealer Name | Role | Phone | + + + + Unavailable | Unavailable | + + + + Unavailable | Unavailable | + + + + Allergies and Intolerances + + + + + + | date | description | facility | reaction | severity | + + + + + + | 2025-05-11 | Morphine | [facility] Nausea alone | Mild | | 00:00 | | [facility] | | | + + + + + + | 2025-06-27 | Morphine | [facility] - | Nausea alone | Mild | | 00:00 | | [facility] | | | + + + + + + | 2025-05-11 | Morphine | [facility] - | Nausea alone | Mild | | 00:00 | | [facility] | | | + + + + + + | 2025-06-27 | Morphine | [facility] - | Nausea alone | Mild | | 00:00 | | [facility] | | | + + + + + + | 2025-05-11 | Morphine | [facility] - | Nausea alone | Mild | | 00:00 | | [facility] | | | + + + + + + | 2025-06-27 | Morphine | [facility] - | Nausea alone | Mild | | 00:00 | | [facility] | | | + + + + + + | 2025-05-11 | UNK | [facility] - | (no reaction) | Moderate | | 00:00 | | [facility] | | | + + + + + + | 2025-06-27 | UNK | [facility] - | (no reaction) | Moderate | | 00:00 | | [facility] | | | + + + + + + Encounters No information. Functional Status No information. Immunizations No information. Medications + + + + | date | description | facility | + + + + | (no date) | DOXEPIN HCL | [facility] | | | | [facility] | + + + + | 2025-05-28 00:00 | ONDANSETRON | [facility] | | | | [facility] | + + + + | 2025-07-07 00:00 | ONDANSETRON | [facility] | | | | [facility] | + + + + | (no date) | GABAPENTIN | [facility] | | | | [facility] | + + + + | (no date) | Alogliptin Benzoate | [facility] | | | | [facility] | + + + + | (no date) | EMPAGLIFLOZIN | [facility] | | | | [facility] | + + + + | (no date) | DEXTROSE | [facility] | | | | [facility] | + + + + | (no date) | FLUTICASONE PROPIONATE 50 | [facility] | | | MCG | [facility] | + + + + | (no date) | NAPROXEN | [facility] | | | | [facility] | + + + + | (no date) | NITROGLYCERIN | [facility] | | | | [facility] | + + + + | (no date) | OMEPRAZOLE | [facility] | | | | [facility] | + + + + | (no date) | | [facility] | | | ASPIRIN/ACETAMINOPHEN/CAFFE | [facility] | | | INE | | + + + + | (no date) | Insulin NPH Hum/Reg | [facility] | | | Insulin Hm | [facility] | + + + + | 2025-05-28 00:00 | | [facility] | | | BUTALB/ACETAMINOPHEN/CAFFEI | [facility] | | | NE | | + + + + | (no date) | Cholecalciferol (Vitamin | [facility] | | | D3) | [facility] | + + + + | 2025-07-11 00:00 | MAGNESIUM OXIDE | [facility] | | | | [facility] | + + + + | (no date) | MELATONIN | [facility] | | | | [facility] | + + + + | (no date) | AMOXICILLIN | [facility] | | | [facility] | + + + + | (no date) | ASPIRIN | [facility] | | | | [facility] | + + + + | (no date) | CIPROFLOXACIN HCL | [facility] | | | | [facility] | + + + + | (no date) | CLOPIDOGREL BISULFATE | [facility] | | | | [facility] | + + + + | (no date) | GLIPIZIDE | [facility] | | | | [facility] | + + + + | (no date) | MAGNESIUM OXIDE | [facility] | | | | [facility] | + + + + | (no date) | ACETAMINOPHEN | [facility] | | | | [facility] | + + + + | (no date) | Cyanocobalamin (Vitamin | [facility] | | | B-12) | [facility] | + + + + | 2025-04-25 00:00 | FLUDROCORTISONE ACETATE | [facility] | | | | [facility] | + + + + | (no date) | SIMETHICONE | [facility] | | | | [facility] | + + + + | (no date) | GLIPIZIDE | [facility] | | | | [facility] | + + + + | (no date) | PIOGLITAZONE HCL | [facility] | | | | [facility] | + + + + | (no date) | ARIPIPRAZOLE | [facility] | | | | [facility] | + + + + | 2025-04-25 00:00 | DULOXETINE HCL | [facility] | | | [facility] | + + + + | (no date) | ATORVASTATIN | [facility] | | | [facility] | + + + + | (no date) | INSULIN | [facility] | | | HUM. CHANDLERRECNICOLA | [facility] | + + + + | (no date) | ZOLPIDEM TARTRATE | [facility] | | | | [facility] | + + + + | (no date) | TRAZODONE HCL | [facility] | | | | [facility] | + + + + | (no date) | HYDROCODONE | [facility] | | | BIT/ACETAMINOPHEN | [facility] | + + + + | (no date) | METFORMIN HCL | [facility] | | | | [facility] | + + + + | (no date) | METFORMIN HCL | [facility] | | | | [facility] | + + + + | (no date) | METOPROLOL TARTRATE | [facility] | | | | [facility] | + + + + | (no date) | POLYETHYLENE GLYCOL 3350 | [facility] | | | | [facility] | + + + + | (no date) | MIDODRINE HCL | [facility] | | | | [facility] | + + + + | 2025-05-17 00:00 | MIDODRINE HCL | [facility] | | | | [facility] | + + + + | (no date) | BUPROPION HCL | [facility] | | | | [facility] | + + + + | (no date) | BUPROPION HCL | [facility] | | | | [facility] | + + + + | (no date) | MECLIZINE HCL | [facility] | | | | [facility] | + + + + | 2025-05-17 00:00 | MECLIZINE HCL | [facility] | | | | [facility] | + + + + | (no date) | MECLIZINE HCL | [facility] | | | | [facility] | + + + + Problems + + + + | date | description | facility | + + + + | 2025-04-22 00:00 | Orthostatic hypotension | [facility] | | | | [facility] | + + + + | 2025-04-22 00:00 | Paresthesia of left upper | [facility] | | | extremity | [facility] | + + + + | 2025-04-22 00:00 | Paresthesia of right upper | [facility] | | | extremity | [facility] | + + + + | 2025-05-03 00:00 | Depression | [facility] | | | | [facility] | + + + + | 2025-05-12 00:00 | Neck pain | [facility] | | | | [facility] | + + + + | 2025-05-12 00:00 | Fall | [facility] | | | | [facility] | + + + + | 2025-06-01 00:00 | Pleurodynia | [facility] | | | | [facility] | + + + + | 2025-06-07 00:00 | Syncope | [facility] | | | | [facility] | + + + + | 2025-07-07 00:00 | Postoperative pain | [facility] | | | | [facility] | + + + + | 2025-07-07 00:00 | Elevated troponin level | [facility] | | | | [facility] | + + + + Procedures No information. Results/Labs +--------+--------+ +---------+--------+---------+ | test | date | facility | value | unit | notes | +--------+--------+ +---------+--------+---------+ + + | Result panel 1 | + + + + + +-----+ + + | ABO Group | 2025-05-12 | | B | (missing) | (missing) | | Bld | 15:38:07 | [facility] | | | | + + + +-----+ + + + + | Result panel 2 | + + + + + + + + + | Rh Bld | 2025-05-12 | | POSITIVE | (missing) | (missing) | | | 15:38:07 | [facility] | | | | + + + + + + + + + | Result panel 3 | + + + + + + + + + | IAT Poly-Sp | 2025-05-12 | | NEGATIVE | (missing) | (missing) | | Reag SerPl | 15:38:07 | [facility] | | | | | Ql | [facility] | | | | + + + + + + + + + | Result panel 4 | + + + + + + + + + | Transf Band | 2025-05-12 | | BLOOD IN | (missing) | (missing) | | Num Patient | 15:38:07 | [facility] | LAB | | | [facility] | | | | + + + + + + + + + | Result panel 5 | + + + + + +-------+---------+ + | Phosphate | 2025-05-14 | | 2.4 | mg/dL | (missing) | | [facility] | 05:46:07 [facility] | | | | + + + +-------+---------+ + + + | Result panel 6 | + + + + + +--------+ + + | Troponin I | 2025-05-15 | | 26.0 | (missing) | (missing) | | SerPl | 06:21:07 | [facility] | | | | | HS-mCnc [facility] | | | | + + + +--------+ + + + + | Result panel 7 | + + + + + + + + + | Color Ur | 2025-05-15 | | YELLOW | (missing) | (missing) | | Auto | 15:56:07 | [facility] | | | | | [facility] | | | | + + + + + + + + + | Result panel 8 | + + + + + +---------+ + + | Character | 2025-05-15 | | CLEAR | (missing) | (missing) | | Ur | 15:56:07 | [facility] | | | | | [facility] | | | | + + + +---------+ + + + + | Result panel 9 | + + + + + + + + + | Glucose Ur | 2025-05-15 | | >=1000 | (missing) | (missing) | | Ql Strip | 15:56:07 | [facility] | | | | | [facility] | | | | + + + + + + + + + | Result panel 10 | + + + + + + + + + | Bilirub Ur | 2025-05-15 | | NEGATIVE | (missing) | (missing) | | Ql Strip | 15:56:07 | [facility] | [facility] | | [facility] | | | | + + + + + + + + + | Result panel 11 | + + + + + +---------+ + + | Ketones Ur | 2025-05-15 | | SMALL | (missing) | (missing) | | Ql Strip | 15:56:07 | [facility] | | | | | | [facility] | | | | + + + +---------+ + + + + | Result panel 12 | + + + + + +---------+ + + | Sp Gr Ur | 2025-05-15 | | 1.010 | (missing) | (missing) | | Strip | 15:56:07 | [facility] | | | | + + + +---------+ + + + + | Result panel 13 | + + + + + + + + + | Hgb Ur Ql | 2025-05-15 | | TRACE-L | (missing) | (missing) | | Strip | 15:56:07 | [facility] | | | | | | [facility] | | | | + + + + + + + + + | Result panel 14 | + + + + + +-------+ + + | pH Ur Strip | 2025-05-15 | | 6.0 | (missing) | (missing) | | | 15:56:07 | [facility] | [facility] | | [facility] | | | | + + + +-------+ + + + + | Result panel 15 | + + + + + + + + + | Prot Ur | 2025-05-15 | | NEGATIVE | (missing) | (missing) | | Strip-mCnc | 15:56:07 | [facility] | | | | [facility] | | | | + + + + + + + + + | Result panel 16 | + + + + + + + + + | | 2025-05-15 | | NORMAL | (missing) | (missing) | | Lilliangen | 15:56:07 | [facility] | | | | | Ur | [facility] | Strip-mCnc | | [facility] | | | | + + + + + + + + + | Result panel 17 | + + + + + + + + + | Nitrite Ur | 2025-05-15 | | NEGATIVE | (missing) | (missing) | | Ql Strip | 15:56:07 | [facility] | | | | | | [facility] | | | | + + + + + + + + + | Result panel 18 | + + + + + + + + + | Leukocyte | 2025-05-15 | | NEGATIVE | (missing) | (missing) | | esterase Ur | 15:56:07 | [facility] | | | | | Ql Strip | [facility] | | | | + + + + + + + + + | Result panel 19 | + + + + + +-------+ + + | RBC #/area | 2025-05-15 | | 0-1 | (missing) | (missing) | | KostanS HPF | 15:56:07 | [facility] | | | | + + + +-------+ + + + + | Result panel 20 | + + + + + +-------+ + + | WBC #/area | 2025-05-15 | | 0-1 | (missing) | (missing) | | UrnS HPF | 15:56:07 | [facility] | | | | | | [facility] | | | | + + + +-------+ + + + + | Result panel 21 | + + + + + + + + + | Epi Cells | 2025-05-15 | | SQUAMOUS 1+ | (missing) | (missing) | | #/area [facility] | 15:56:07 | [facility] | | | | | HPF | [facility] | | | | + + + + + + + + + | Result panel 22 | + + + + + + + + + | Crystals | 2025-05-15 | | NONE SEEN | (missing) | (missing) | | Meño Micro | 15:56:07 | [facility] | | | | | | [facility] | | | | + + + + + + + + + | Result panel 23 | + + + + + + + + + | Bacteria | 2025-05-15 | | NONE SEEN | (missing) | (missing) | | #/area UrnS | 15:56:07 | [facility] | | | | | HPF | [facility] | | | | + + + + + + + + + | Result panel 24 | + + + + + + + + + | Casts | 2025-05-15 | | NONE SEEN | (missing) | (missing) | | #/area Meño | 15:56:07 | [facility] | | | | | LPF | [facility] | | | | + + + + + + + + + | Result panel 25 | + + + + + +------+ + + | Bacteria Ur | 2025-05-15 | | No | (missing) | (missing) | | Cult | 15:56:07 | [facility] | | | | | | [facility] | | | | + + + +------+ + + + + | Result panel 26 | + + + + + + + + + | Urn Spec | 2025-05-15 | | CLEAN CATCH | (missing) | (missing) | | Collect Meth | 15:56:07 | [facility] | | | | | Ur | [facility] | | | | + + + + + + + + + | Result panel 27 | + + + + + +---------+ + + | WBC # Bld | 2025-05-28 | | 12.05 | (missing) | (missing) | | Auto | 19:35:07 | [facility] | | | | | [facility] | | | | + + + +---------+ + + + + | Result panel 28 | + + + + + +--------+ + + | RBC # Bld | 2025-05-28 | | 5.23 | (missing) | (missing) | | Auto | 19:35:07 | [facility] | | | [facility] | | | | + + + +--------+ + + + + | Result panel 29 | + + + + + +--------+ + + | Hgb | 2025-05-28 | | 15.8 | (missing) | (missing) | | Bld-mCnc | 19:35:07 | [facility] | | [facility] | | | | + + + +--------+ + + + + | Result panel 30 | + + + + + +--------+ + + | Hct VFr.DF | 2025-05-28 | | 48.6 | (missing) | (missing) | | Bld Auto | 19:35:07 | [facility] | | | | + + + +--------+ + + + + | Result panel 31 | + + + + + +--------+ + + | RBC Auto | 2025-05-28 | | 92.9 | (missing) | (missing) | | | 19:35:07 | [facility] | | | | + + + +--------+ + + + + | Result panel 32 | + + + + + +--------+ + + | MCH RBC Qn | 2025-05-28 | | 30.2 | (missing) | (missing) | | Auto | 19:35:07 | [facility] | | | | + + + +--------+ + + + + | Result panel 33 | + + + + + +--------+ + + | MCHC RBC | 2025-05-28 | | 32.5 | (missing) | (missing) | | Auto-EntMCnc | 19:35:07 | [facility] | | | | [facility] | | | | + + + +--------+ + + + + | Result panel 34 | + + + + + +-------+ + + | Platelet # | 2025-05-28 | | 353 | (missing) | (missing) | | Bld Auto | 19:35:07 | [facility] | | | | | [facility] | | | | + + + +-------+ + + + + | Result panel 35 | + + + + + +--------+ + + | Neutrophils | 2025-05-28 | | 52.0 | (missing) | (missing) | | NFr Bld | 19:35:07 | [facility] | | | | | Auto | [facility] | | | | + + + +--------+ + + + + | Result panel 36 | + + + + + +--------+ + + | Lymphocytes | 2025-05-28 | | 33.9 | (missing) | (missing) | | NFr Bld | 19:35:07 | [facility] | | | | | Auto | [facility] | | | | + + + +--------+ + + + + | Result panel 37 | + + + + + +--------+ + + | Monocytes | 2025-05-28 | | 10.0 | (missing) | (missing) | | NFr Bld Auto | 19:35:07 | [facility] | [facility] | | | | + + + +--------+ + + + + | Result panel 38 | + + + + + +-------+ + + | Eosinophil | 2025-05-28 | | 3.0 | (missing) | (missing) | | NFr Bld Auto | 19:35:07 | [facility] | | | | + + + +-------+ + + + + | Result panel 39 | + + + + + +-------+ + + | Basophils | 2025-05-28 | | 0.9 | (missing) | (missing) | | NFr Bld Auto | 19:35:07 | [facility] | [facility] | | | | + + + +-------+ + + + + | Result panel 40 | + + + + + +-------+---------+ + | Glucose | 2025-05-28 | | 133 | mg/dL | (missing) | | [facility]anda | 19:35:07 | [facility] | | | | | | [facility] | | | | + + + +-------+---------+ + + + | Result panel 41 | + + + + + +------+---------+ + | BUN | 2025-05-28 | | 22 | mg/dL | (missing) | | SerPl-mCnc | 19:35:07 | [facility] | | | | [facility] | | | | + + + +------+---------+ + + + | Result panel 42 | + + + + + +--------+---------+ + | Creat | 2025-05-28 | | 1.08 | mg/dL | (missing) | | SerPl-mCnc | 19:35:07 | [facility] | | | | + + + +--------+---------+ + + + | Result panel 43 | + + + + + +------+ + + | eGFRcr | 2025-05-28 | | 72 | (missing) | (missing) | | SerPlBld | 19:35:07 | [facility] | | | | | CKD-EPI 2020 | [facility] | | | | + + + +------+ + + + + | Result panel 44 | + + + + + +---------+ + + | BUN/Creat | 2025-05-28 | | 20.37 | (missing) | (missing) | | SerPl | 19:35:07 | [facility] | | | | + + + +---------+ + + + + | Result panel 45 | + + + + + +-------+ + + | Sodium | 2025-05-28 | | 140 | (missing) | (missing) | | SerPl-sCnc | 19:35:07 | [facility] | | | | | | [facility] | | | | + + + +-------+ + + + + | Result panel 46 | + + + + + +-------+ + + | Potassium | 2025-05-28 | | 3.9 | (missing) | (missing) | | SerPl-sCnc | 19:35:07 | [facility] | [facility] | | | | + + + +-------+ + + + + | Result panel 47 | + + + + + +-------+ + + | Chloride | 2025-05-28 | | 100 | (missing) | (missing) | | SerPl-sCnc | 19:35:07 | [facility] | | | | [facility] | | | | + + + +-------+ + + + + | Result panel 48 | + + + + + +------+ + + | CO2 | 2025-05-28 | | 29 | (missing) | (missing) | | SerPl-sCnc | 19:35:07 | [facility] | | | | | | [facility] | | | | + + + +------+ + + + + | Result panel 49 | + + + + + +--------+ + + | Anion Gap | 2025-05-28 | | 14.9 | (missing) | (missing) | | SerPl | 19:35:07 | [facility] | | | | | Calculated.4 | [facility] | [facility] | | | | + + + +--------+ + + + + | Result panel 50 | + + + + + +--------+---------+ + | Calcium | 2025-05-28 | | 10.0 | mg/dL | (missing) | | SerPl-mCnc | 19:35:07 | [facility] | | | | | | [facility] | | | | + + + +--------+---------+ + + + | Result panel 51 | + + + + + +-------+---------+ + | Magnesium | 2025-05-28 | | 1.8 | mg/dL | (missing) | | All | 19:35:07 | [facility] | [facility] | | | | + + + +-------+---------+ + + + | Result panel 52 | + + + + + +-------+ + + | Prot | 2025-05-28 | | 9.0 | (missing) | (missing) | | [facility] | 19:35:07 | [facility] | | [facility] | | | | + + + +-------+ + + + + | Result panel 53 | + + + + + +-------+ + + | Albumin | 2025-05-28 | | 4.3 | (missing) | (missing) | | [facility] | 19:35:07 | [facility] | | | | + + + +-------+ + + + + | Result panel 54 | + + + + + +-------+ + + | Globulin | 2025-05-28 | | 4.7 | (missing) | (missing) | | Ser-mCnc | 19:35:07 | [facility] | | | | + + + +-------+ + + + + | Result panel 55 | + + + + + +--------+ + + | | 2025-05-28 | | 0.91 | (missing) | (missing) | | Albumin/Glob | 19:35:07 | [facility] | | | | | SerPl | [facility] | | | | + + + +--------+ + + + + | Result panel 56 | + + + + + +-------+---------+ + | Bilirub | 2025-05-28 | | 0.5 | mg/dL | (missing) | | [facility] | 19:35:07 | [facility] | | [facility] | | | | + + + +-------+---------+ + + + | Result panel 57 | + + + + + +------+ + + | AST | 2025-05-28 | | 23 | (missing) | (missing) | | [facility] | 19:35:07 | [facility] | | | | + + + +------+ + + + + | Result panel 58 | + + + + + +------+ + + | ALT | 2025-05-28 | | 28 | (missing) | (missing) | | SerPl-c[facility] | 19:35:07 | [facility] | | | | + + + +------+ + + + + | Result panel 59 | + + + + + +-------+ + + | ALP | 2025-05-28 | | 122 | (missing) | (missing) | | [facility] | 19:35:07 | [facility] | | | | + + + +-------+ + + + + | Result panel 60 | + + + + + +-------+ + + | Glucose | 2025-05-28 | | 122 | (missing) | (missing) | | Bld-mCnc | 19:43:07 | [facility] | | | | + + + +-------+ + + + + | Result panel 61 | + + + + + +---------+ + + | WBC # Bld | 2025-07-11 | | 12.62 | (missing) | (missing) | | Auto | 12:15:08 | [facility] | | | | + + + +---------+ + + + + | Result panel 62 | + + + + + +--------+ + + | Lymphocytes | 2025-07-11 | | 29.5 | (missing) | (missing) | | NFr Bld | 12:15:08 | [facility] | | | | [facility] | | | | + + + +--------+ + + + + | Result panel 63 | + + + + + +-------+ + + | Monocytes | 2025-07-11 | | 8.4 | (missing) | (missing) | | NFr Bld Auto | 12:15:08 | [facility] | | | | + + + +-------+ + + + + | Result panel 64 | + + + + + +-------+ + + | Eosinophil | 2025-07-11 | | 3.2 | (missing) | (missing) | | NFr Bld Auto | 12:15:08 | [facility] | | | | + + + +-------+ + + + + | Result panel 65 | + + + + + +-------+ + + | Basophils | 2025-07-11 | | 0.8 | (missing) | (missing) | | NFr Bld Auto | 12:15:08 | [facility] | | | | + + + +-------+ + + + + | Result panel 66 | + + + + + +--------+ + + | Prothrombin | 2025-07-11 | | 13.1 | (missing) | (missing) | | time | 12:15:08 | [facility] | | | | + + + +--------+ + + + + | Result panel 67 | + + + + + +--------+ + + | INR PPP | 2025-07-11 | | 1.06 | (missing) | (missing) | | | 12:15:08 | [facility] | | | | + + + +--------+ + + + + | Result panel 68 | + + + + + +-------+---------+ + | Glucose | 2025-07-11 | | 160 | mg/dL | (missing) | | SerPl-mCnc | 12:15:08 | [facility] | | | | + + + +-------+---------+ + + + | Result panel 69 | + + + + + +------+---------+ + | BUN | 2025-07-11 | | 14 | mg/dL | (missing) | | SerPl-mCnc | 12:15:08 | [facility] | | | | + + + +------+---------+ + + + | Result panel 70 | + + + + + +--------+---------+ + | Creat | 2025-07-11 | | 0.71 | mg/dL | (missing) | | SerPl-mCnc | 12:15:08 | [facility] | | | | + + + +--------+---------+ + + + | Result panel 71 | + + + + + +------+ + + | eGFRcr | 2025-07-11 | | 96 | (missing) | (missing) | | SerPlBld | 12:15:08 | [facility] | | | | | CKD-EPI 2020 | [facility] | | | | + + + +------+ + + + + | Result panel 72 | + + + + + +--------+ + + | RBC # Bld | 2025-07-11 | | 4.54 | (missing) | (missing) | | Auto | 12:15:08 | [facility] | | | | + + + +--------+ + + + + | Result panel 73 | + + + + + +---------+ + + | BUN/Creat | 2025-07-11 | | 19.71 | (missing) | (missing) | | SerPl | 12:15:08 | [facility] | | | | + + + +---------+ + + + + | Result panel 74 | + + + + + +-------+ + + | Sodium | 2025-07-11 | | 139 | (missing) | (missing) | | SerPl-sCnc | 12:15:08 | [facility] | | | | + + + +-------+ + + + + | Result panel 75 | + + + + + +-------+ + + | Potassium | 2025-07-11 | | 4.1 | (missing) | (missing) | | SerPl-sCnc | 12:15:08 | [facility] | | | | + + + +-------+ + + + + | Result panel 76 | + + + + + +-------+ + + | Chloride | 2025-07-11 | | 103 | (missing) | (missing) | | SerPl-sCnc | 12:15:08 | [facility] | | | | + + + +-------+ + + + + | Result panel 77 | + + + + + +------+ + + | CO2 | 2025-07-11 | | 26 | (missing) | (missing) | | SerPl-sCnc | 12:15:08 | [facility] | | | | + + + +------+ + + + + | Result panel 78 | + + + + + +--------+ + + | Anion Gap | 2025-07-11 | | 14.1 | (missing) | (missing) | | SerPl | 12:15:08 | [facility] | | | | | Calculated.4 | [facility] | | | | + + + +--------+ + + + + | Result panel 79 | + + + + + +-------+---------+ + | Calcium | 2025-07-11 | | 9.2 | mg/dL | (missing) | | SerPl-mCnc | 12:15:08 | [facility] | | | | + + + +-------+---------+ + + + | Result panel 80 | + + + + + +-------+---------+ + | Magnesium | 2025-07-11 | | 1.5 | mg/dL | (missing) | | [facility] | 12:15:08 | [facility] | [facility] | | | | + + + +-------+---------+ + + + | Result panel 81 | + + + + + +-------+ + + | Prot | 2025-07-11 | | 7.5 | (missing) | (missing) | | SerPl-mCnc | 12:15:08 | [facility] | | | | + + + +-------+ + + + + | Result panel 82 | + + + + + +-------+ + + | Albumin | 2025-07-11 | | 3.5 | (missing) | (missing) | | SerPl-mCnc | 12:15:08 | [facility] | | | | + + + +-------+ + + + + | Result panel 83 | + + + + + +--------+ + + | Hgb | 2025-07-11 | | 13.7 | (missing) | (missing) | | Bld-mCnc | 12:15:08 | [facility] | | | | + + + +--------+ + + + + | Result panel 84 | + + + + + +-------+ + + | Globulin | 2025-07-11 | | 4.0 | (missing) | (missing) | | Ser-mCnc | 12:15:08 | [facility] | | | | + + + +-------+ + + + + | Result panel 85 | + + + + + +--------+ + + | | 2025-07-11 | | 0.88 | (missing) | (missing) | | Albumin/Glob | 12:15:08 | [facility] | | | | | SerPl | [facility] | | | | + + + +--------+ + + + + | Result panel 86 | + + + + + +-------+---------+ + | Bilirub | 2025-07-11 | | 0.3 | mg/dL | (missing) | | SerPl-mCnc | 12:15:08 | [facility] | | | | + + + +-------+---------+ + + + | Result panel 87 | + + + + + +------+ + + | AST | 2025-07-11 | | 15 | (missing) | (missing) | | SerPl-cCnc | 12:15:08 | [facility] | | | | + + + +------+ + + + + | Result panel 88 | + + + + + +------+ + + | ALT | 2025-07-11 | | 17 | (missing) | (missing) | | SerPl-cCnc | 12:15:08 | [facility] | | | | + + + +------+ + + + + | Result panel 89 | + + + + + +-------+ + + | ALP | 2025-07-11 | | 115 | (missing) | (missing) | | [facility] | 12:15:08 | [facility] | | | | + + + +-------+ + + + + | Result panel 90 | + + + + + +--------+ + + | Troponin I | 2025-07-11 | | 39.4 | (missing) | (missing) | | SerPl | 12:15:08 | [facility] | | | | | HS-mCnc | | - | | | | | | | [facility] | | | | + + + +--------+ + + + + | Result panel 91 | + + + + + +--------+ + + | Hct VFr.DF | 2025-07-11 | | 41.6 | (missing) | (missing) | | Bld Auto | 12:15:08 | [facility] | | | | | | | - | | | | | | [facility] | | | | + + + +--------+ + + + + | Result panel 92 | + + + + + +--------+ + + | RBC Auto | 2025-07-11 | | 91.6 | (missing) | (missing) | | | 12:15:08 | [facility] | | | | + + + +--------+ + + + + | Result panel 93 | + + + + + +--------+ + + | MCH RBC Qn | 2025-07-11 | | 30.2 | (missing) | (missing) | | Auto | 12:15:08 | [facility] | | | | + + + +--------+ + + + + | Result panel 94 | + + + + + +--------+ + + | MCHC RBC | 2025-07-11 | | 32.9 | (missing) | (missing) | | Auto-EntMCnc | 12:15:08 | [facility] | | | | + + + +--------+ + + + + | Result panel 95 | + + + + + +-------+ + + | Platelet # | 2025-07-11 | | 288 | (missing) | (missing) | | Bld Auto | 12:15:08 | [facility] | | | | + + + +-------+ + + + + | Result panel 96 | + + + + + +--------+ + + | Neutrophils | 2025-07-11 | | 57.9 | (missing) | (missing) | | NFr Bld | 12:15:08 | [facility] | | | | | Auto | [facility] | | | | + + + +--------+ + + Social History +--------+ + + | date | description | facility | +--------+ + + Vital Signs + + + +---------+ | date | measurement | value | units | + + + +---------+ | 2025-05-03 00:00 | BMI | 26.9 | kg/m2 | + + + +---------+ | 2025-05-03 00:00 | BP_diastolic | 50 | mmHg | + + + +---------+ | 2025-05-03 00:00 | BP_systolic | 120 | mmHg | + + + +---------+ | 2025-05-03 00:00 | heart_rate | 69 | /min | + + + +---------+ | 2025-05-03 00:00 | height_metric | 182.88 | cm | + + + +---------+ | 2025-05-03 00:00 | height_standard | 72 | in | + + + +---------+ | 2025-05-03 00:00 | o2_saturation | 93 | % | + + + +---------+ | 2025-05-03 00:00 | respiration_rate | 20 | /min | + + + +---------+ | 2025-05-03 00:00 | | 98.2 | F | | | temperature_standar | | | | | d | | | + + + +---------+ | 2025-05-03 00:00 | weight_metric | 90.001 | kg | + + + +---------+ | 2025-05-03 00:00 | weight_standard | 198.418 | lb | + + + +---------+ | 2025-05-11 00:00 | BMI | 21.7 | kg/m2 | + + + +---------+ | 2025-05-11 00:00 | BP_diastolic | 64 | mmHg | + + + +---------+ | 2025-05-11 00:00 | BP_systolic | 126 | mmHg | + + + +---------+ | 2025-05-11 00:00 | heart_rate | 67 | /min | + + + +---------+ | 2025-05-11 00:00 | height_metric | 182.88 | cm | + + + +---------+ | 2025-05-11 00:00 | height_standard | 72 | in | + + + +---------+ | 2025-05-11 00:00 | o2_saturation | 93 | % | + + + +---------+ | 2025-05-11 00:00 | respiration_rate | 16 | /min | + + + +---------+ | 2025-05-11 00:00 | | 98.7 | F | | | temperature_standar | | | | | d | | | + + + +---------+ | 2025-05-11 00:00 | weight_metric | 72.719 | kg | + + + +---------+ | 2025-05-11 00:00 | weight_standard | 160.318 | lb | + + + +---------+ | 2025-05-12 00:00 | BMI | 21.7 | kg/m2 | + + + +---------+ | 2025-05-12 00:00 | BP_diastolic | 58 | mmHg | + + + +---------+ | 2025-05-12 00:00 | BP_systolic | 131 | mmHg | + + + +---------+ | 2025-05-12 00:00 | heart_rate | 68 | /min | + + + +---------+ | 2025-05-12 00:00 | height_metric | 182.88 | cm | + + + +---------+ | 2025-05-12 00:00 | height_standard | 72 | in | + + + +---------+ | 2025-05-12 00:00 | o2_saturation | 98 | % | + + + +---------+ | 2025-05-12 00:00 | respiration_rate | 16 | /min | + + + +---------+ | 2025-05-12 00:00 | | 98 | F | | | temperature_standar | | | | | d | | | + + + +---------+ | 2025-05-12 00:00 | weight_metric | 72.719 | kg | + + + +---------+ | 2025-05-12 00:00 | weight_standard | 160.318 | lb | + + + +---------+ | 2025-05-13 00:00 | BMI | 26.1 | kg/m2 | + + + +---------+ | 2025-05-13 00:00 | height_metric | 182.88 | cm | + + + +---------+ | 2025-05-13 00:00 | height_standard | 72 | in | + + + +---------+ | 2025-05-13 00:00 | weight_metric | 87.2 | kg | + + + +---------+ | 2025-05-13 00:00 | weight_standard | 192.243 | lb | + + + +---------+ | 2025-05-17 00:00 | BP_diastolic | 60 | mmHg | + + + +---------+ | 2025-05-17 00:00 | BP_systolic | 137 | mmHg | + + + +---------+ | 2025-05-17 00:00 | heart_rate | 66 | /min | + + + +---------+ | 2025-05-17 00:00 | o2_saturation | 97 | % | + + + +---------+ | 2025-05-17 00:00 | respiration_rate | 16 | /min | + + + +---------+ | 2025-05-17 00:00 | | 97.8 | F | | | temperature_standar | | | | | d | | | + + + +---------+ | 2025-05-28 00:00 | BMI | 25.7 | kg/m2 | + + + +---------+ | 2025-05-28 00:00 | BP_diastolic | 56 | mmHg | + + + +---------+ | 2025-05-28 00:00 | BP_systolic | 138 | mmHg | + + + +---------+ | 2025-05-28 00:00 | heart_rate | 67 | /min | + + + +---------+ | 2025-05-28 00:00 | height_metric | 182.88 | cm | + + + +---------+ | 2025-05-28 00:00 | height_standard | 72 | in | + + + +---------+ | 2025-05-28 00:00 | o2_saturation | 96 | % | + + + +---------+ | 2025-05-28 00:00 | respiration_rate | 19 | /min | + + + +---------+ | 2025-05-28 00:00 | | 97.7 | F | | | temperature_standar | | | | | d | | | + + + +---------+ | 2025-05-28 00:00 | weight_metric | 86.001 | kg | + + + +---------+ | 2025-05-28 00:00 | weight_standard | 189.600 | lb | + + + +---------+ | 2025-06-27 00:00 | BMI | 25.6 | kg/m2 | + + + +---------+ | 2025-06-27 00:00 | BP_diastolic | 59 | mmHg | + + + +---------+ | 2025-06-27 00:00 | BP_systolic | 108 | mmHg | + + + +---------+ | 2025-06-27 00:00 | heart_rate | 66 | /min | + + + +---------+ | 2025-06-27 00:00 | height_metric | 182.88 | cm | + + + +---------+ | 2025-06-27 00:00 | height_standard | 72 | in | + + + +---------+ | 2025-06-27 00:00 | o2_saturation | 95 | % | + + + +---------+ | 2025-06-27 00:00 | respiration_rate | 16 | /min | + + + +---------+ | 2025-06-27 00:00 | | 97.6 | F | | | temperature_standar | | | | | d | | | + + + +---------+ | 2025-06-27 00:00 | weight_metric | 85.499 | kg | + + + +---------+ | 2025-06-27 00:00 | weight_standard | 188.493 | lb | + + + +---------+ | 2025-07-06 00:00 | BMI | 25.6 | kg/m2 | + + + +---------+ | 2025-07-06 00:00 | height_metric | 182.88 | cm | + + + +---------+ | 2025-07-06 00:00 | height_standard | 72 | in | + + + +---------+ | 2025-07-06 00:00 | weight_metric | 85.499 | kg | + + + +---------+ | 2025-07-06 00:00 | weight_standard | 188.493 | lb | + + + +---------+ | 2025-07-07 00:00 | BP_diastolic | 945 | mmHg | + + + +---------+ | 2025-07-07 00:00 | BP_systolic | 117 | mmHg | + + + +---------+ | 2025-07-07 00:00 | heart_rate | 74 | /min | + + + +---------+ | 2025-07-07 00:00 | o2_saturation | 100 | % | + + + +---------+ | 2025-07-07 00:00 | respiration_rate | 15 | /min | + + + +---------+ | 2025-07-07 00:00 | | 97.9 | F | | | temperature_standar | | | | | d | | | + + + +---------+ | 2025-07-11 00:00 | BMI | 246.4 | kg/m2 | + + + +---------+ | 2025-07-11 00:00 | BP_diastolic | 64 | mmHg | + + + +---------+ | 2025-07-11 00:00 | BP_systolic | 122 | mmHg | + + + +---------+ | 2025-07-11 00:00 | heart_rate | 70 | /min | + + + +---------+ | 2025-07-11 00:00 | height_metric | 182.88 | cm | + + + +---------+ | 2025-07-11 00:00 | height_standard | 72 | in | + + + +---------+ | 2025-07-11 00:00 | o2_saturation | 96 | % | + + + +---------+ | 2025-07-11 00:00 | respiration_rate | 20 | /min | + + + +---------+ | 2025-07-11 00:00 | | 97.5 | F | | | temperature_standar | | | | | d | | | + + + +---------+ | 2025-07-11 00:00 | weight_metric | 824.2 | kg | + + + +---------+ | 2025-07-11 00:00 | weight_standard | 1817.050 | lb | + + + +---------+"
[~2025-07-21 16:00] MED LIST changes: +MAGNESIUM400 MG PO
[2025-07-21] MEDS ORDERED: NITROGLYCERIN 0.4 MG SUBL SL PRN (16:15)
[2025-07-21 16:51] LABS: BASOPHILS 0.8 % (0.2-1.2); EOSINOPHILS 2.1 % (0.8-7.0); LYMPHOCYTES 22.7 % (21.8-53.1); MCH 30.1 PG (25.7-32.2); MCHC 33.0 g/dL (32.3-36.5); MCV 91.1 fL (79.0-92.2); MONOCYTES 9.3 % (5.3-12.2); NEUTROPHILS 64.8 % (34.0-67.9); RBC 4.92 M/uL (4.63-6.08)
[2025-07-21 17:11] LABS: ALT (SGPT) 25.0 U/L (14-59); AST (SGOT) 19.0 U/L (15-37); GLOMERULAR FILTRATION RATE,EST 89.0 mL/min (>60); PROTEIN, TOTAL 8.2 g/dL (6.4-8.2); UREA NITROGEN 27.0 mg/dL (7-18)
[2025-07-21] MEDS ORDERED: ALBUTEROL/IPRATROPIUM 3 ML NEB INH ONE (18:15)
[2025-07-21] MEDS ORDERED: ONDANSETRON 4 MG TAB ODT SL ONE ×2 (19:00)
[2025-07-21 19:44] VITALS: BP 139/77
--- NOTE | 2025-07-22 13:57 | EKG ---
[facility] [address] [place] [address] Signed Normal sinus rhythm Normal ECG When compared with ECG of 21-JUL-2025 16:05, (Unconfirmed) No significant change was found Confirmed by Soniya Hurst DO ([id number]) on 07/22/2025 1:57:07 PM Electronically Signed By: SONIYA HURST DO 07/22/25 1357 PATIENT NAME: SUSANNA LIU Electrocardiogram DATE OF : 50 PHYSICIAN: SONIYA HURST DO REPORT #: [id number] REPORT IS CONFIDENTIAL AND NOT TO BE RELEASED WITHOUT AUTHORIZATION
== END 2025-07-21 19:44 | disposition home or self-care (01) ==
LOC: ED 16:00
PROVIDERS: Emergency Medicine
DX: R07.2 Precordial pain (principal); J84.9 Interstitial pulmonary disease, unspecified; E11.9 Type 2 diabetes mellitus without complications; E78.5 Hyperlipidemia, unspecified; Z88.5 Allergy status to narcotic agent; Z79.899 Other long term (current) drug therapy
CPT/HCPCS: 36415; 71045; 80053; 83735; 84484; 85025; 93005; 93010; 94640; 99285-25; A9270; J8540

== ENCOUNTER 2025-08-02 23:52 | Emergency (ER) | payer OTHER, MEDICARE ==
[~2025-08-02] VITALS: Ht 182.9 cm; Wt 86.9 kg
--- OUTSIDE RECORDS SUMMARY | ~2025-08-02 | XMS | Continuity of Care Document ---
Demographics + + + | Address | [address] | | | [place] [address] | + + + | Preferred Language | Unknown | + + + | Marital Status | | + + + | Islam Affiliation | Unknown | + + + | Race | White | + + + | Ethnic Group | Not or | + + + Author + + + | Author | [facility] | + + + | Organization | [facility] | + + + | Address | [address] | | | [place] [address] | + + + | Phone | | + + + Care Team Providers + + + + | Care Rotary Drum Tanner Name | Role | Phone | + [...] | Moderate | | 00:00 | | [facility] | | | + + + + + + Encounters No information. Functional Status No information. Immunizations No information. Medications + + + + | date | description | facility | + + + + | (no date) | DOXEPIN HCL | [facility] | | | | [facility] | + + + + | 2025-05-28 00:00 | ONDANSETRON | [facility] | | | | [facility] | + + + + | 2025-07-07 00:00 | ONDANSETRON | [facility] | | | | [facility] | + + + + | (no date) | GABAPENTIN | [facility] | | | | [facility] | + + + + | (no date) | Alogliptin Benzoate | [facility] | | | | [facility] | + + + + | (no date) | EMPAGLIFLOZIN | [facility] | | | | [facility] | + + + + | (no date) | DEXTROSE | [facility] | | | | [facility] | + + + + | (no date) | FLUTICASONE PROPIONATE 50 | [facility] | | | MCG | [facility] | + + + + | (no date) | NAPROXEN | [facility] | | | | [facility] | + + + + | (no date) | NITROGLYCERIN | [facility] | | | | [facility] | + + + + | (no date) | OMEPRAZOLE | [facility] | | | | [facility] | + + + + | (no date) | | [facility] | | | ASPIRIN/ACETAMINOPHEN/CAFFE | [facility] | | | INE | | + + + + | (no date) | Insulin NPH Hum/Reg | [facility] | | | Insulin Hm | [facility] | + + + + | 2025-05-28 00:00 | | [facility] | | | BUTALB/ACETAMINOPHEN/CAFFEI | [facility] | | | NE | | + + + + | (no date) | Cholecalciferol (Vitamin | [facility] | | | D3) | [facility] | + + + + | 2025-07-11 00:00 | MAGNESIUM OXIDE | [facility] | | | | [facility] | + + + + | (no date) | MELATONIN | [facility] | | | | [facility] | + + + + | (no date) | AMOXICILLIN | [facility] | | | [facility] | + + + + | (no date) | ASPIRIN | [facility] | | | [facility] | + + + + | (no date) | CIPROFLOXACIN HCL | [facility] | | | | [facility] | + + + + | (no date) | CLOPIDOGREL BISULFATE | [facility] | | | | [facility] | + + + + | (no date) | GLIPIZIDE | [facility] | | | | [facility] | + + + + | (no date) | MAGNESIUM OXIDE | [facility] | | | | [facility] | + + + + | (no date) | ACETAMINOPHEN | [facility] | | | | [facility] | + + + + | (no date) | Cyanocobalamin (Vitamin | [facility] | | | B-12) | [facility] | + + + + | (no date) | SIMETHICONE | [facility] | | | | [facility] | + + + + | (no date) | GLIPIZIDE | [facility] | | | | [facility] | + + + + | (no date) | PIOGLITAZONE HCL | [facility] | | | [facility] | + + + + | (no date) | ARIPIPRAZOLE | [facility] | | | | [facility] | + + + + | (no date) | ATORVASTATIN | [facility] | | | | [facility] | + + + + | (no date) | INSULIN | [facility] | | | HUM. CHANDLERRECKEISHALOG | [facility] | + + + + | (no date) | ZOLPIDEM TARTRATE | [facility] | | | | [facility] | + + + + | (no date) | TRAZODONE HCL | [facility] | | | | [facility] | + + + + | (no date) | HYDROCODONE | [facility] | | | BIT/ACETAMINOPHEN | [facility] | + + + + | (no date) | METFORMIN HCL | [facility] | | | | [facility] | + + + + | (no date) | METFORMIN HCL | [facility] | | | | [facility] | + + + + | (no date) | METOPROLOL TARTRATE | [facility] | | | | [facility] | + + + + | (no date) | POLYETHYLENE GLYCOL 3350 | [facility] | | | | [facility] | + + + + | (no date) | MIDODRINE HCL | [facility] | | | | [facility] | + + + + | 2025-05-17 00:00 | MIDODRINE HCL | [facility] | | | | [facility] | + + + + | (no date) | BUPROPION HCL | [facility] | | | | [facility] | + + + + | (no date) | BUPROPION HCL | [facility] | | | | [facility] | + + + + | (no ) | MECLIZINE HCL | [facility] | | | | [facility] | + + + + | 2025-05-17 00:00 | MECLIZINE HCL | [facility] | | | | [facility] | + + + + | (no ) | MECLIZINE HCL | [facility] | | | | [facility] | + + + + Problems + + + + | date | description | facility | + + + + | 2025-05-12 00:00 | Neck pain | [facility] | | | | [facility] | + + + + | 2025-05-12 00:00 | Fall | [facility] | | | | [facility] | + + + + | 2025-06-01 00:00 | Pleurodynia | [facility] | | | | [facility] | + + + + | 2025-06-07 00:00 | Syncope | [facility] | | | | [facility] | + + + + | 2025-07-07 00:00 | Postoperative pain | [facility] | | | | [facility] | + + + + | 2025-07-07 00:00 | Elevated troponin level | [facility] | | | | [facility] | + + + + Procedures No information. Results/Labs +--------+--------+ +---------+--------+---------+ | test | date | facility | value | unit | notes | +--------+--------+ +---------+--------+---------+ + + | Result panel 1 | + + + + + +-----+ + + | [facility] | 2025-05-12 | | B | (missing) | (missing) | | Bld | 15:38:07 | [facility] | | | | | | | [...] 122 | (missing) | (missing) | | [facility] | 19:35:07 | [facility] | | [...] 26 | (missing) | (missing) | | [facility] | 12:15:08 | [facility] | | [...] 0.3 | mg/dL | (missing) | | [facility] | 12:15:08 | [facility] | | | [...]
[2025-08-03 00:34] LABS: BASOPHILS 1.0 % (0.2-1.2); EOSINOPHILS 5.9 % (0.8-7.0); LYMPHOCYTES 31.5 % (21.8-53.1); MCH 30.1 PG (25.7-32.2); MCHC 33.0 g/dL (32.3-36.5); MCV 91.3 fL (79.0-92.2); MONOCYTES 12.2 % (5.3-12.2); NEUTROPHILS 49.2 % (34.0-67.9); RBC 4.38 M/uL (4.63-6.08)
[2025-08-03 00:52] LABS: ALCOHOL, MEDICAL <3 mg/dL (<3); ALT (SGPT) 14 U/L (14-59); AST (SGOT) 11 U/L (15-37); GLOMERULAR FILTRATION RATE,EST 85 mL/min (>60); PROTEIN, TOTAL 7.1 g/dL (6.4-8.2); TSH, 3RD GENERATION 0.923 uIU/mL (0.358-3.740); UREA NITROGEN 23 mg/dL (7-18)
[2025-08-03 02:06] LABS: BLOOD/HGB, URINE TRACE-L (Negative); KETONE, URINE TRACE (Negative); LEUK ESTERASE, URINE NEGATIVE (negative); NITRITE, URINE NEGATIVE (negative)
[2025-08-03 02:13] LABS: BACTERIA, URINE RARE /hpf (negative); CASTS, URINE NONE SEEN \\lpf; CRYSTALS, URINE NONE SEEN (0-1+); EPITHELIAL CELLS, URINE SQUAMOUS 1+ /lpf (0-1+); REFLEX CULTURE, URINE No (No)
[2025-08-03 02:15] LABS: AMPHETAMINES, URINE NEGATIVE (NEGATIVE); BARBITURATES, URINE NEGATIVE (NEGATIVE); BENZODIAZEPINE, URINE NEGATIVE (NEGATIVE); CANNABINOID, URINE NEGATIVE (NEGATIVE); COCAINE, URINE NEGATIVE (NEGATIVE); ECSTASY, URINE POSITIVE (NEGATIVE); FENTANYL, URINE NEGATIVE (NEGATIVE); METHADONE, URINE NEGATIVE (NEGATIVE); OPIATES, URINE NEGATIVE (NEGATIVE); OXYCODONE, URINE NEGATIVE (NEGATIVE); PHENCYCLIDINE, URINE NEGATIVE (NEGATIVE)
[2025-08-03 11:03] VITALS: BP 132/61
--- NOTE | 2025-08-04 17:46 | EKG ---
[facility] [address] [address] [place] [address] Signed Normal sinus rhythm Normal ECG When compared with ECG of 21-JUL-2025 16:06, No significant change was found Confirmed by Deandre Hurst DO ([id number]) on 08/04/2025 5:46:32 PM Electronically Signed By: DEANDRE HURST DO 08/04/25 1746 PATIENT NAME: NOESUSANNALORY HEBERT Electrocardiogram DATE OF : 50 PHYSICIAN: DEANDRE HURST DO REPORT #: [id number] REPORT IS CONFIDENTIAL AND NOT TO BE RELEASED WITHOUT AUTHORIZATION
[2025-08-11] MEDS ORDERED: ONDANSETRON ODT4 MG PO (19:10)
[2025-08-14] MEDS ORDERED: MECLIZINE HCL25 MG PO (20:20)
[2025-08-14] MEDS ORDERED: PYRIDIUM200 MG PO (21:13)
== END 2025-08-03 11:03 | disposition home or self-care (01) ==
LOC: ED 23:52
PROVIDERS: Family Medicine
DX: T39.1X2A Poisoning by 4-Aminophenol derivatives, intentional self-harm, initial encounter (principal); F32.A Depression, unspecified; R45.851 Suicidal ideations; G43.909 Migraine, unspecified, not intractable, without status migrainosus; E11.9 Type 2 diabetes mellitus without complications; E78.5 Hyperlipidemia, unspecified; Z79.84 Long term (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; Z79.82 Long term (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 of aspirin; Z79.899 Other long term (current) drug therapy; Z88.5 Allergy status to narcotic agent; Z88.8 Allergy status to other drugs, medicaments and biological substances
CPT/HCPCS: 36415; 80053; 80307; 81001; 84443; 85025; 93005; 93010; 99285; G0480

== ENCOUNTER 2025-08-04 13:59 | Emergency (ER) | payer OTHER, MEDICARE ==
[~2025-08-04] VITALS: Ht 182.9 cm; Wt 87.9 kg
--- OUTSIDE RECORDS SUMMARY | ~2025-08-04 | XMS | Continuity of Care Document ---
Demographics + + + | Address | [address] | | | [place] [address] | + + + | Preferred Language | Unknown | + + + | Marital Status | | + + + | Mu-Ism Affiliation | Unknown | + + + | Race | White | + + + | Ethnic Group | Not or | + + + Author + + + | Author | [facility] | + + + | Organization | [facility] | + + + | Address | [address] | | | [place] [address] | + + + | Phone | | + + + Care Team Providers + + + + | Care Roll Bucker Name | Role | Phone | + [...] | Moderate | | 00:00 | | [facility] | | | + + + + + + Encounters No information. Functional Status No information. Immunizations No information. Medications + + + + | date | description | facility | + + + + | (no date) | DOXEPIN HCL | [facility] | | | | [facility] | + + + + | 2025-05-28 00:00 | ONDANSETRON | [facility] | | | | [facility] | + + + + | 2025-07-07 00:00 | ONDANSETRON | [facility] | | | | [facility] | + + + + | (no date) | GABAPENTIN | [facility] | | | | [facility] | + + + + | (no date) | Alogliptin Benzoate | [facility] | | | | [facility] | + + + + | (no date) | EMPAGLIFLOZIN | [facility] | | | | [facility] | + + + + | (no date) | DEXTROSE | [facility] | | | | [facility] | + + + + | (no date) | FLUTICASONE PROPIONATE 50 | [facility] | | | MCG | [facility] | + + + + | (no date) | NAPROXEN | [facility] | | | | [facility] | + + + + | (no date) | NITROGLYCERIN | [facility] | | | | [facility] | + + + + | (no date) | OMEPRAZOLE | [facility] | | | | [facility] | + + + + | (no date) | | [facility] | | | ASPIRIN/ACETAMINOPHEN/CAFFE | [facility] | | | INE | | + + + + | (no date) | Insulin NPH Hum/Reg | [facility] | | | Insulin Hm | [facility] | + + + + | 2025-05-28 00:00 | | [facility] | | | BUTALB/ACETAMINOPHEN/CAFFEI | [facility] | | | NE | | + + + + | (no date) | Cholecalciferol (Vitamin | [facility] | | | D3) | [facility] | + + + + | 2025-07-11 00:00 | MAGNESIUM OXIDE | [facility] | | | | [facility] | + + + + | (no date) | MELATONIN | [facility] | | | | [facility] | + + + + | (no date) | AMOXICILLIN | [facility] | | | | [facility] | + + + + | (no date) | ASPIRIN | [facility] | | | | [facility] | + + + + | (no date) | CIPROFLOXACIN HCL | [facility] | | | | [facility] | + + + + | (no date) | CLOPIDOGREL BISULFATE | [facility] | | | | [facility] | + + + + | (no date) | GLIPIZIDE | [facility] | | | | [facility] | + + + + | (no date) | MAGNESIUM OXIDE | [facility] | | | | [facility] | + + + + | (no date) | ACETAMINOPHEN | [facility] | | | | [facility] | + + + + | (no date) | Cyanocobalamin (Vitamin | [facility] | | | B-12) | [facility] | + + + + | (no date) | SIMETHICONE | [facility] | | | | [facility] | + + + + | (no date) | GLIPIZIDE | [facility] | | | | [facility] | + + + + | (no date) | PIOGLITAZONE HCL | [facility] | | | | [facility] | + + + + | (no date) | ARIPIPRAZOLE | [facility] | | | | [facility] | + + + + | (no date) | ATORVASTATIN | [facility] | | | | [facility] | + + + + | (no date) | INSULIN | [facility] | | | HUM. CHANDLERRECKEISHALOG | [facility] | + + + + | (no date) | ZOLPIDEM TARTRATE | [facility] | | | | [facility] | + + + + | (no date) | TRAZODONE HCL | [facility] | | | | [facility] | + + + + | (no date) | HYDROCODONE | [facility] | | | BIT/ACETAMINOPHEN | [facility] | + + + + | (no date) | METFORMIN HCL | [facility] | | | | [facility] | + + + + | (no date) | METFORMIN HCL | [facility] | | | | [facility] | + + + + | (no date) | METOPROLOL TARTRATE | [facility] | | | | [facility] | + + + + | (no date) | POLYETHYLENE GLYCOL 3350 | [facility] | | | | [facility] | + + + + | (no date) | MIDODRINE HCL | [facility] | | | | [facility] | + + + + | 2025-05-17 00:00 | MIDODRINE HCL | [facility] | | | | [facility] | + + + + | (no date) | BUPROPION HCL | [facility] | | | | [facility] | + + + + | (no date) | BUPROPION HCL | [facility] | | | | [facility] | + + + + | (no ) | MECLIZINE HCL | [facility] | | | | [facility] | + + + + | 2025-05-17 00:00 | MECLIZINE HCL | [facility] | | | | [facility] | + + + + | (no ) | MECLIZINE HCL | [facility] | | | | [facility] | + + + + Problems + + + + | date | description | facility | + + + + | 2025-05-12 00:00 | Neck pain | [facility] | | | | [facility] | + + + + | 2025-05-12 00:00 | Fall | [facility] | | | | [facility] | + + + + | 2025-06-01 00:00 | Pleurodynia | [facility] | | | | [facility] | + + + + | 2025-06-07 00:00 | Syncope | [facility] | | | | [facility] | + + + + | 2025-07-07 00:00 | Postoperative pain | [facility] | | | | [facility] | + + + + | 2025-07-07 00:00 | Elevated troponin level | [facility] | | | | [facility] | + + + + Procedures No information. Results/Labs +--------+--------+ +---------+--------+---------+ | test | date | facility | value | unit | notes | +--------+--------+ +---------+--------+---------+ + + | Result panel 1 | + + + + + +-----+ + + | ABO Group | 2025-05-12 | | B | (missing) | (missing) | | Bld | 15:38:07 | [facility] | | | | | | | [...] 2.4 | mg/dL | (missing) | | SerPl-mCnc | 05:46:07 | [facility] | | | | | [...] + + + + + + | Bilreeceub Ur | 2025-05-15 | | NEGATIVE | [...] NORMAL | (missing) | (missing) | | Urobilinogen | 15:56:07 | [facility] | | | [...] SEEN | (missing) | (missing) | | UrnS Micro | 15:56:07 | [facility] | | [...] | | Bld Auto | 19:35:07 | [facility] | | | | | | | [...] 133 | mg/dL | (missing) | | SerPl-mCnc [...] 22 | mg/dL | (missing) | | Azebl-mCnc | 19:35:07 | [facility] | | | [...] 1.8 | mg/dL | (missing) | | [facility] [...] 4.3 | (missing) | (missing) | | SerPl-[facility] | 19:35:07 | [facility] | | | [...] 0.5 | mg/dL | (missing) | | SerPl-mCnc [...] 23 | (missing) | (missing) | | SerPl-cCnc [...] 122 | (missing) | (missing) | | [facility] | 19:35:07 | [facility] | | | [...] | | CKD-EPI 2020 | | - | | | | [...] 26 | (missing) | (missing) | | [facility] | 12:15:08 | [facility] | | | [...] 1.5 | mg/dL | (missing) | | SerPl-mCnc [...] 0.3 | mg/dL | (missing) | | [facility] | 12:15:08 | [facility] | | | [...] 115 | (missing) | (missing) | | SerPl-cCnc [...] units | + + + +---------+ | 2025-05-11 [...]
[2025-08-04 15:47] VITALS: BP 123/51
[2025-08-11] MEDS ORDERED: ONDANSETRON ODT4 MG PO (19:10)
[2025-08-14] MEDS ORDERED: MECLIZINE HCL25 MG PO (20:20)
[2025-08-14] MEDS ORDERED: PYRIDIUM200 MG PO (21:13)
== END 2025-08-04 15:47 | disposition home or self-care (01) ==
LOC: ED 13:59
DX: S20.212A Contusion of left front wall of thorax, initial encounter (principal); G43.909 Migraine, unspecified, not intractable, without status migrainosus; E11.9 Type 2 diabetes mellitus without complications; E78.5 Hyperlipidemia, unspecified; W18.30XA Fall on same level, unspecified, initial encounter; Z79.84 Long term (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; Z79.82 Long term (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 of aspirin; Z79.02 Long term (current) use of antithrombotics/antiplatelets; Z79.899 Other long term (current) drug therapy; Z88.5 Allergy status to narcotic agent; Z88.8 Allergy status to other drugs, medicaments and biological substances
CPT/HCPCS: 71045; 99283-25

== ENCOUNTER 2025-08-11 16:47 | Emergency (ER) | payer OTHER, MEDICARE ==
[~2025-08-11] VITALS: Ht 182.9 cm; Wt 84.2 kg
--- OUTSIDE RECORDS SUMMARY | ~2025-08-11 | XMS | Continuity of Care Document ---
Demographics + + + | Address | [address] | | | [place] [address] | + + + | Preferred Language | Unknown | + + + | Marital Status | | + + + | Taoist Affiliation | Unknown | + + + | Race | White | + + + | Ethnic Group | Not or | + + + Author + + + | Author | [facility] | + + + | Organization | [facility] | + + + | Address | [address] | | | [place] [address] | + + + | Phone | | + + + Care Team Providers + + + + | Care Cyber Security Analyst Name | Role | Phone | [...] + + | 2025-06-27 | UNK | [facility] - | (no reaction) | Moderate | | 00:00 | | [facility] | | | | | | [facility] | | | + + + + + + Encounters No information. Functional Status No information. Immunizations No information. Medications + + + + | date | description | facility | + + + + | (no date) | DOXEPIN HCL | [facility] | | | | [facility] | + + + + | 2025-05-28 00:00 | ONDANSETRON | [facility] | | | | [facility] | + + + + | 2025-07-07 00:00 | ONDANSETRON | [facility] | | | | [facility] | + + + + | (no date) | GABAPENTIN | [facility] | | | | [facility] | + + + + | (no date) | Alogliptin Benzoate | [facility] | | | | [facility] | + + + + | (no date) | EMPAGLIFLOZIN | [facility] | | | | [facility] | + + + + | (no date) | DEXTROSE | [facility] | | | | [facility] | + + + + | (no date) | FLUTICASONE PROPIONATE 50 | [facility] | | | MCG | [facility] | + + + + | (no date) | NAPROXEN | [facility] | | | | [facility] | + + + + | (no date) | NITROGLYCERIN | [facility] | | | | [facility] | + + + + | (no date) | OMEPRAZOLE | [facility] | | | | [facility] | + + + + | (no date) | | [facility] | | | ASPIRIN/ACETAMINOPHEN/CAFFE | [facility] | | | INE | | + + + + | (no date) | Insulin NPH Hum/Reg | [facility] | | | Insulin Hm | [facility] | + + + + | 2025-05-28 00:00 | [facility] | | | BUTALB/ACETAMINOPHEN/CAFFEI | [facility] | | | NE | | + + + + | (no date) | Cholecalciferol (Vitamin | [facility] | | | D3) | [facility] | + + + + | 2025-07-11 00:00 | MAGNESIUM OXIDE | [facility] | | | | [facility] | + + + + | (no date) | MELATONIN | [facility] | | | | [facility] | + + + + | (no date) | AMOXICILLIN | [facility] | | | | [facility] | + + + + | (no date) | ASPIRIN | [facility] | | | | [facility] | + + + + | (no date) | CIPROFLOXACIN HCL | [facility] | | | | [facility] | + + + + | (no date) | CLOPIDOGREL BISULFATE | [facility] | | | | [facility] | + + + + | (no date) | GLIPIZIDE | [facility] | | | | [facility] | + + + + | (no date) | MAGNESIUM OXIDE | [facility] | | | | [facility] | + + + + | (no date) | ACETAMINOPHEN | [facility] | | | | [facility] | + + + + | (no date) | Cyanocobalamin (Vitamin | [facility] | | | B-12) | [facility] | + + + + | (no date) | SIMETHICONE | [facility] | | | | [facility] | + + + + | (no date) | GLIPIZIDE | [facility] | | | | [facility] | + + + + | (no date) | PIOGLITAZONE HCL | [facility] | | | | [facility] | + + + + | (no date) | ARIPIPRAZOLE | [facility] | | | | [facility] | + + + + | (no date) | ATORVASTATIN | [facility] | | | | [facility] | + + + + | (no date) | INSULIN | [facility] | | | HUM. CHANDLERRECNICOLA | [facility] | + + + + | (no date) | ZOLPIDEM TARTRATE | [facility] | | | | [facility] | + + + + | (no date) | TRAZODONE HCL | [facility] | | | | [facility] | + + + + | (no date) | HYDROCODONE | [facility] | | | BIT/ACETAMINOPHEN | [facility] | + + + + | (no date) | METFORMIN HCL | [facility] | | | | [facility] | + + + + | (no date) | METFORMIN HCL | [facility] | | | | [facility] | + + + + | (no date) | METOPROLOL TARTRATE | [facility] | | | | [facility] | + + + + | (no date) | POLYETHYLENE GLYCOL 3350 | [facility] | | | | [facility] | + + + + | (no date) | MIDODRINE HCL | [facility] | | | | [facility] | + + + + | 2025-05-17 00:00 | MIDODRINE HCL | [facility] | | | | [facility] | + + + + | (no date) | BUPROPION HCL | [facility] | | | | [facility] | + + + + | (no date) | BUPROPION HCL | [facility] | | | | [facility] | + + + + | (no date) | MECLIZINE HCL | [facility] | | | | [facility] | + + + + | 2025-05-17 00:00 | MECLIZINE HCL | [facility] | | | | [facility] | + + + + | (no date) | MECLIZINE HCL | [facility] | | | | [facility] | + + + + Problems + + + + | date | description | facility | + + + + | 2025-06-01 00:00 | Pleurodynia | [facility] | | | | [facility] | + + + + | 2025-06-07 00:00 | Syncope | [facility] | | | | [facility] | + + + + | 2025-07-07 00:00 | Postoperative pain | [facility] | | | | [facility] | + + + + | 2025-07-07 00:00 | Elevated troponin level | [facility] | | | | [facility] | + + + + Procedures No information. Results/Labs +--------+--------+ +---------+--------+---------+ | test | date | facility | value | unit | notes | +--------+--------+ +---------+--------+---------+ + + | Result panel 1 | + + + + + +-------+---------+ + | Phosphate | 2025-05-14 | | 2.4 | mg/dL | (missing) | | [facility] | 05:46:07 | [facility] | | | | + + + +-------+---------+ + + + | Result panel 2 | + + + + + +--------+ [...] 4 | + + + + + +---------+ [...] 5 | + + + + + + [...] + + + + | Result panel 6 | + + + + + + [...] 7 | + + + + + +---------+ [...] + + + +---------+ + + | Todd Brambila | 2025-05-15 | | 1.010 | (missing) [...] + + + + + + | Paul Saxena | 2025-05-15 | | TRACE-L | (missing) [...] 10 | + + + + + +-------+ [...] 11 | + + + + + + [...] 12 | + + + + + + [...] 15 | + + + + + +-------+ + + | RBC #/area | 2025-05-15 | | 0-1 | (missing) | (missing) | | [facility] | 15:56:07 | [facility] | | | | + + + +-------+ + + + + | Result panel 16 | + + + + + +-------+ [...] 21 | + + + + + +------+ [...] 24 | + + + + + +--------+ [...] 25 | + + + + + +--------+ [...] 26 | + + + + + +--------+ [...] 27 | + + + + + +--------+ [...] 30 | + + + + + +-------+ [...] 35 | + + + + + +-------+ [...] 36 | + + + + + +-------+---------+ [...] +-------+---------+ + + + | Result panel 37 | + + + + + +------+---------+ [...] +------+---------+ + + + | Result panel 38 | + + + + + +--------+---------+ + | Creat | 2025-05-28 | | 1.08 | mg/dL | (missing) | | [facility] | 19:35:07 | [facility] | | | | + + + +--------+---------+ + + + | Result panel 39 | + + + + + +------+ [...] 40 | + + + + + +---------+ [...] + + + + | Result panel 41 | + + + + + +-------+ [...] + + + + | Result panel 42 | + + + + + +-------+ [...] + + + + | Result panel 43 | + + + + + +-------+ [...] 44 | + + + + + +------+ [...] 45 | + + + + + +--------+ [...] 46 | + + + + + +--------+---------+ [...] +--------+---------+ + + + | Result panel 47 | + + + + + +-------+---------+ + | Magnesium | 2025-05-28 | | 1.8 | mg/dL | (missing) | | [facility] | 19:35:07 | [facility] | | | | + + + +-------+---------+ + + + | Result panel 48 | + + + + + +-------+ + + | Prot | 2025-05-28 | | 9.0 | (missing) | (missing) | | [facility]-m[facility]ender | 19:35:07 | [facility] | | | | + + + +-------+ + + + + | Result panel 49 | + + + + + +-------+ + + | Albumin | 2025-05-28 | | 4.3 | (missing) | (missing) | | [facility]-ender | 19:35:07 | [facility] | | | | + + + +-------+ + + + + | Result panel 50 | + + + + + +-------+ [...] + + + + | Result panel 51 | + + + + + +--------+ [...] + + + + | Result panel 52 | + + + + + +-------+---------+ [...] +-------+---------+ + + + | Result panel 53 | + + + + + +------+ [...] 54 | + + + + + +------+ + + | ALT | 2025-05-28 | | 28 | (missing) | (missing) | | [facility]-cCn | 19:35:07 | [facility] | | | | + + + +------+ + + + + | Result panel 55 | + + + + + +-------+ [...] 56 | + + + + + +-------+ + + | Glucose | 2025-05-28 | | 122 | (missing) | (missing) | | [facility] | 19:43:07 | [facility] | | | | + + + +-------+ + + + + | Result panel 57 | + + + + + +---------+ [...] 58 | + + + + + +--------+ [...] 61 | + + + + + +-------+ [...] 63 | + + + + + +--------+ [...] 64 | + + + + + +-------+---------+ [...] +-------+---------+ + + + | Result panel 65 | + + + + + +------+---------+ [...] +------+---------+ + + + | Result panel 66 | + + + + + +--------+---------+ [...] +--------+---------+ + + + | Result panel 67 | + + + + + +------+ [...] 68 | + + + + + +--------+ + + | RBC # Bld | 2025-07-11 | | 4.54 | (missing) | (missing) | | Auto | 12:15:08 | [facility] | | | | | | | - | | | | | | | [facility] | | | | + + + +--------+ + + + + | Result panel 69 | + + + + + +---------+ [...] + + + + | Result panel 70 | + + + + + +-------+ [...] + + + + | Result panel 71 | + + + + + +-------+ [...] 72 | + + + + + +-------+ [...] 73 | + + + + + +------+ [...] 74 | + + + + + +--------+ [...] 75 | + + + + + +-------+---------+ + | Calcium | 2025-07-11 | | 9.2 | mg/dL | (missing) | | [facility]-m[facility]pr | 12:15:08 | [facility] | | | | + + + +-------+---------+ + + + | Result panel 76 | + + + + + +-------+---------+ [...] +-------+---------+ + + + | Result panel 77 | + + + + + +-------+ [...] 78 | + + + + + +-------+ [...] 79 | + + + + + +--------+ [...] + + + + | Result panel 80 | + + + + + +-------+ [...] + + + + | Result panel 81 | + + + + + +--------+ [...] 82 | + + + + + +-------+---------+ [...] +-------+---------+ + + + | Result panel 83 | + + + + + +------+ [...] 84 | + + + + + +------+ [...] 85 | + + + + + +-------+ + + | ALP | 2025-07-11 | | 115 | (missing) | (missing) | | [facility] | 12:15:08 | [facility] | | | | + + + +-------+ + + + + | Result panel 86 | + + + + + +--------+ + + | Troponin I | 2025-07-11 | | 39.4 | (missing) | (missing) | | [facility] | 12:15:08 | [facility] | | | | | [facility] | | - | | | | | | | [facility] | | | | + + + +--------+ + + + + | Result panel 87 | + + + + + +--------+ [...] 88 | + + + + + +--------+ + + | RBC Auto | 2025-07-11 | | 91.6 | (missing) | (missing) | | | 12:15:08 | [facility] | | | | + + + +--------+ + + + + | Result panel 89 | + + + + + +--------+ [...] 91 | + + + + + +-------+ [...] units | + + + +---------+ | 2025-05-13 [...]
[2025-08-11 17:00] LABS: BASOPHILS 1.0 % (0.2-1.2); EOSINOPHILS 4.5 % (0.8-7.0); LYMPHOCYTES 23.1 % (21.8-53.1); MCH 30.0 PG (25.7-32.2); MCHC 32.5 g/dL (32.3-36.5); MCV 92.2 fL (79.0-92.2); MONOCYTES 9.4 % (5.3-12.2); NEUTROPHILS 61.7 % (34.0-67.9); RBC 4.77 M/uL (4.63-6.08)
[2025-08-11 17:30] LABS: ALCOHOL, MEDICAL <3 mg/dL (<3); ALT (SGPT) 18 U/L (14-59); AST (SGOT) 17 U/L (15-37); GLOMERULAR FILTRATION RATE,EST 90 mL/min (>60); PROTEIN, TOTAL 8.1 g/dL (6.4-8.2); UREA NITROGEN 18 mg/dL (7-18)
[2025-08-11] MEDS ORDERED: ACETAMINOPHEN 325 MG TAB PO ONE (18:30)
[2025-08-11] MEDS ORDERED: ONDANSETRON ODT4 MG PO ×2 (19:10)
[2025-08-11] MEDS ORDERED: HYDROCODON-ACE1 EA10 PO (19:10)
[2025-08-11] MEDS ORDERED: HYDROCODONE BIT/ACETAMINOPHEN 5/325 MG 1 TAB HOME.PACK PO ONE (19:15)
[2025-08-11 19:38] VITALS: BP 126/61
[2025-08-14] MEDS ORDERED: MECLIZINE HCL25 MG PO (20:20)
[2025-08-14] MEDS ORDERED: PYRIDIUM200 MG PO (21:13)
== END 2025-08-11 19:38 | disposition home or self-care (01) ==
LOC: ED 16:47
PROVIDERS: Emergency Medicine
DX: R30.0 Dysuria (principal); E11.9 Type 2 diabetes mellitus without complications; E78.5 Hyperlipidemia, unspecified; Z79.899 Other long term (current) drug therapy; Z88.8 Allergy status to other drugs, medicaments and biological substances
CPT/HCPCS: 36415; 71045; 71260; 74177; 80053; 85025; 99284-25; A9270; G0480; Q9967